=== PATIENT | male | born 1960 | race Two or more races ===

== ENCOUNTER 2021-07-08 11:32 | Emergency (ER) | payer OTHER, SELFPAY ==
--- NOTE | ~2021-07-08 | XR_ITS ---
EXAMINATION: XR HAND, LEFT CLINICAL INFORMATION: Left hand injury. COMPARISON: None TECHNIQUE: PA, lateral, and oblique views of the left hand. FINDINGS: Soft tissue defect at the distal aspect of the thumb, consistent with a laceration. No adjacent fracture or dislocation. No radiopaque foreign body. Mild joint space narrowing with small marginal osteophytes scattered throughout the metacarpophalangeal and interphalangeal joints. No osseous erosion. Chronic fracture through the midpole of the scaphoid with a persistent fracture line and associated bony remodeling. XR/XR hand LT min 3V IMPRESSION: 1. Soft tissue defect at the distal aspect of the thumb, consistent with a laceration. No radiopaque foreign body or acute osseous abnormality. 2. 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 3. 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
[2021-07-08 12:09] VITALS: BP 138/85; PULSE 81; RESP 18; TEMP 36.8; O2SAT 96; BMI 32.5
[2021-07-08] MEDS: Acetaminophen 325 MG TABLET 650 MG PO (12:16)
--- NOTE | 2021-07-08 13:08 | ED_ITS ---
HPI - Wound/Laceration General Chief Complaint: Wound/Laceration Stated Complaint: lt hand injury w/ table saw Time Seen by Provider: 07/08/21 13:07 Source: patient Mode of arrival: ambulatory Limitations: no limitations History of Present Illness HPI narrative: 60 y/o male presents to the ER with left thumb and index finger lacerations after he was using a table saw to cut some wood and accidentally cut his fingers. He reports a lot of blood loss at home and difficulty controlling the bleeding. When looking at the wound he gets dizzy. He reports when he was using a table saw his hand got caught in the blade and he quickly removed it. When he looked down he noticed the tip of his left thumb was missing and he had a deep wound to the palmar aspect of his index finger. He also had tiny little skin tear at the tip of his middle finger. He is able to fully bend and extend all of his fingers on his left hand. He is not on any blood thinners. He denies any numbness or tingling. He reports the pain is worse in his thumb and it is throbbing in nature. He was given Tylenol in triage and there was no active bleeding on arrival. Onset (ago): hour(s) (4) Extremity Location: left: hand (Thumb and index finger) Place: home Patient tetanus UTD: No Context: accidental Associated symptoms: pain Treatments prior to arrival: bandage Related Data Previous Rx's Medication Instructions Recorded cephalexin 500 mg capsule 500 mg PO Q6H 7 Days #28 cap 07/08/21 oxycodone 5 mg tablet 5 mg PO Q8H PRN #7 tab 07/08/21 Allergies Allergy/AdvReac Type Severity Reaction Status Date / Time Sulfa (Sulfonamide Allergy Mild RASH/SWELLI Verified 07/08/21 12:08 Antibiotics) NG Review of Systems Review of Systems: Constitutional: No Fever, No Chills s Cardiovascular: No Chest Pain, No SOB Gastrointestinal: + Nausea, No Vomiting, No abdominal Pain Musculoskeletal: +joint pain, No Myalgias Skin: + Skin Lesions, No rash Neuro: No Weakness, No Numbness, + Dizziness, No Headache Psych:+ Anxiety/Panic, No Depression Heme/Lymph: No Bruising, No Lymphadenopathy PMFSH Past Medical History Medical History (Updated 07/08/21 @ 14:45 by KYLER Terrazas) Kidney stones Surgical History (Updated 07/08/21 @ 12:13 by Gaviota Taveras RN) Hx of lithotripsy Social History Social History Advance Directives: No Advance Directives Information Provided: No Physical Exam Vital Signs: Vital Signs: Last Vital Signs Temp 98.2 F 07/08/21 12:09 Pulse 81 07/08/21 12:09 Resp 18 07/08/21 12:09 BP 138/85 07/08/21 12:09 Pulse Ox 96 07/08/21 12:09 Body Mass Index 32.5 Appearance: Alert. Oriented X3. No acute distress. HEENT: normal inspection CVS: Normal heart rate and rhythm. Pulses normal. Respiratory: No respiratory distress. Skin: Skin warm and dry. Normal skin color. Normal skin turgor. No rashes. Extremities: Left hand with a deep laceration to the palmar aspect of the index finger at the area of the proximal interphalangeal joint. There is visible tendon. The tendon is completely intact. He has full extension and flexion of the index finger. There is irregular wound borders and some macerated tissue. No active bleeding. Neurovascularly intact distally. Left thumb with partial pulp avulsion and skin amputation of the tip. Does not involve the fingernail. No palpable or visible bone. He is able to fully extend and bend the left thumb. Left middle finger with a very superficial skin tear at the distal tip of the pulp. No nail involvement. He has equal and symmetrical hand grasp. Neuro: Oriented X 3. No motor deficit. No sensory deficit. Course Course Course Narrative: 60-year-old male presenting with complex laceration and avulsion injuries of his left index and left thumb from a table saw injury. X- ray is pending. Tdap ordered. His tendon is visible in his left index finger wound. Wounds were extensively cleansed and irrigated. Deep structures are intact. Will start on prophylactic antibiotics give his Tdap now. Will plan to repair the index finger and await x-ray results of the thumb to see if there is bony involvement. Reevaluation(s) Reevaluation #1: X-ray showing no bony involvement. Wound of the thumb was extensively cleaned and irrigated antibiotic ointment was applied in addition to topical Xeroform, nonstick, and gauze dressing. Patient and his son were counseled on daily dressing changes and supplies were provided. Hilda Chavez PA-C from Orthopedics has been tiger text id about the case. Recommend close outpatient follow-up with Dr. Victoria. Signs and symptoms of infection were discussed with the patient and his son. He is stable for discharge home with pain control an oral Keflex to prevent wound infection. Procedures Laceration Laceration 1: Site: hand Side (If applicable): left Description: linear, irregular and contaminated Depth: involves tendon (Deep to the tendon but does not lacerated tendon) Local Anesthetic: lidocaine 2% Pre-repair: wound explored, irrigated extensively and deep structures intact Skin layer closed with: nylon Size (cm): 4-0 Number of sutures: 6 Technique: simple, interrupted Nerve Block Nerve Block 1: Local Anesthetic: lidocaine 2% Amount of anesthesia used (mL): 5 Side: left Nerve Blocks: digital Procedure Successful: Yes Patient Tolerated Procedure: well Complications: none Discharge Plan Discharge Clinical Impression: Laceration Patient Disposition: Home, Self-Care Instructions: Finger Laceration (ED), Skin Avulsion (ED) Additional Instructions: Six sutures were placed to close the wound on her index finger. These will need to be removed in 7-10 days. Take the prescribed antibiotics as directed. Take the prescribed medication as needed for severe pain. Do not drive after taking this medication. Limit use of the left hand. Change the dressings as discussed on a daily basis. Do not get wet. Follow-up with the hand specialist on Sunday or Sunday of next week They are aware of your case. Elevate your hand above the level of your heart as needed for pain and throbbing. Take Tylenol 975 mg every 6 hours as needed for pain. Recommend ibuprofen 600 mg every 8 hours as needed for pain as well, if this upsets her stomach take it with food. Prescriptions: New cephalexin 500 mg capsule 500 mg PO Q6H 7 Days Qty: 28 RF: 0 oxycodone 5 mg tablet 5 mg PO Q8H PRN (Reason: pain) Qty: 7 RF: 0 Referrals: Keya Victoria MD [Physician] - 3 days (complex lacerations and avulsion of left thumb and index finger from table saw injury) Interventions: ED Discharge Assessment Last Done: 07/08/21 15:03 Discharge Date/Time: 07/08/21 15:04
[2021-07-08] MEDS: Lidocaine HCl 2 % MPF 5 ML VIAL INFILTRATI (13:34)
[2021-07-08] MEDS: Diphth,Pertus(ACell),Tet Adult 0.5 ML SYRINGE IM (14:10)
[2021-07-08] MEDS: cephALEXin 500 MG CAPSULE PO (14:54)
[2021-07-08] MEDS: oxyCODONE HCl Immed Release 5 MG TABLET PO (14:54)
== END 2021-07-08 15:04 | disposition home or self-care (01) ==
PROVIDERS: Emergency Provider Emergency Medicine; PCP Physician Assistant
DX: S61.211A Laceration without foreign body of left index finger without damage to nail, initial encounter (principal); S60.411A Abrasion of left index finger, initial encounter; W45.8XXA Other foreign body or object entering through skin, initial encounter; W22.8XXA Striking against or struck by other objects, initial encounter; Y93.9 Activity, unspecified; Y92.9 Unspecified place or not applicable; Y99.9 Unspecified external cause status
CPT/HCPCS: 12002; 73130; 90471; 90715; 99283; 99284

== ENCOUNTER → 2021-07-12 12:24 | Outpatient (BNVA) | payer OTHER, SELFPAY | PROVIDERS: Visit Provider Orthopaedic Surgery | DX: S61.002A Unspecified open wound of left thumb without damage to nail, initial encounter (principal); S64.491A Injury of digital nerve of left index finger, initial encounter; S61.211A Laceration without foreign body of left index finger without damage to nail, initial encounter | CPT/HCPCS: 99202 ==

== ENCOUNTER 2021-07-14 11:24 | Day surgery (SDC) | payer OTHER, SELFPAY ==
[2021-07-14 11:43] VITALS: BP 142/80; PULSE 87; RESP 18; TEMP 37.1; O2SAT 98; BMI 32.5
--- NOTE | 2021-07-14 14:03 | P.OP_ITS ---
Operative Note Operative Note Date of Service: 07/14/21 Narrative: Operative Note Preop diagnosis: 1. left thumb pulp open wound status post table saw injury Postop diagnosis: same Procedure: 1. left thumb debridement of wound and secondary closure Surgeon : Keya Victoria MD Anesthesia: Digital block findings: Open wound with early granulation tissue . No exposed bone. specimens: None implants: None tourniquet time: None Complications: None Disposition: Brought to recovery room in stable condition Plan: He is going to restart his antibiotics after stopping them for a day. Follow-up Next week for wound check. Anticipate removal of index finger sutures only. Thumb sutures will likely stay in for about 2-3 weeks. Indications: The patient is 60 years old, with an open wound on the pulp of his left thumb following a table saw injury . The risks and benefits of operative treatment including but not limited to risk of damage to blood vessels, nerves, tendons, infection, persistent pain, persistent symptoms, recurrence or possible need for additional surgery were discussed with the patient and the patient wishes to proceed with surgery. Procedure: Once consent was obtained a digital block was performed in the preop area using a combination of 1% lidocaine with epinephrine. The patient was then brought back to the operating suite and placed on the operative table in supine position. A tourniquet was applied to the proximal aspect of the left upper extremity and the limb was prepped and draped in a standard surgical fashion. Tourniquet was not inflated during the case. Once assured that we had a good block, the wound was copiously irrigated with normal saline. The wound was then debrided of devitalized tissue, and the wound edges sharply debrided as needed using a 15. Blade and tenotomy scissors. On evaluation of the wound I found no exposed bone. In this case I did not feel that undermining of the wound edges would be per helpful. The wound was again irrigated with normal saline. The skin edges were then reapproximated using some 4-0 Prolene suture material. We were able to bring the skin edges from 1- 1.5 cm apart to within about 5-7 mm, which will hopefully help him heal and c lose this wound sooner. the index finger had a transverse laceration with sutures in it near the PIP joint. The wound appeared to be clean and the sutures were left in place. He had good active flexion of the digit. A small amount of bacitracin and a sterile dressing was applied To both the thumb and the index finger wounds. The patient appears to have tolerated the procedure well and with no complications. All digits were well vascularized at the conclusion of the case.
--- NOTE | 2021-07-14 14:03 | MHC.SHP ---
Pre-Procedural Eval Section A Date of Service: 07/14/21 The patient is an INPATIENT: No Changes since office visit: No Cold of Flu in the past 2 weeks, No New Medical Problems, No Changes in Medication and No Patient answered all questions The History & Physical has been completed within 30 days and I have reviewed it.: Yes Section B Chief Complaint: open wound Allergies: Allergies Allergy/AdvReac Type Severity Reaction Status Date / Time Sulfa (Sulfonamide Allergy Mild RASH/SWELLI Verified 07/12/21 12:43 Antibiotics) NG Plan I have reviewed the history and physical and performed a pertinent physical examination on my patient. No changes have occurred unless specified.
[2021-07-14 14:55] VITALS: BP 132/81; PULSE 73; RESP 16; TEMP 36.3; O2SAT 97
== END 2021-07-14 15:05 | disposition home or self-care (01) ==
PROVIDERS: PCP Physician Assistant; Visit Provider Orthopaedic Surgery
PROC: (CPT 11042; principal; 2021-07-14 12:30)
PROC: (CPT 11042; 2021-07-14 12:30)
DX: S61.002A Unspecified open wound of left thumb without damage to nail, initial encounter (principal); S61.211A Laceration without foreign body of left index finger without damage to nail, initial encounter; S64.491A Injury of digital nerve of left index finger, initial encounter; W27.0XXA Contact with workbench tool, initial encounter; Y93.89 Activity, other specified; Y92.9 Unspecified place or not applicable; Y99.8 Other external cause status; Z88.2 Allergy status to sulfonamides
CPT/HCPCS: 11042; 12001

== ENCOUNTER → 2021-07-15 12:22 | Outpatient (BNVA) | payer OTHER, SELFPAY | PROVIDERS: Visit Provider Physician Assistant | DX: S61.002D Unspecified open wound of left thumb without damage to nail, subsequent encounter (principal); S64.491D Injury of digital nerve of left index finger, subsequent encounter; S61.211D Laceration without foreign body of left index finger without damage to nail, subsequent encounter | CPT/HCPCS: 99212 ==

== ENCOUNTER → 2021-07-20 14:29 | Outpatient (BNVA) | payer OTHER, SELFPAY | PROVIDERS: Visit Provider Orthopaedic Surgery | DX: S61.211D Laceration without foreign body of left index finger without damage to nail, subsequent encounter (principal); S64.491D Injury of digital nerve of left index finger, subsequent encounter; S61.002D Unspecified open wound of left thumb without damage to nail, subsequent encounter | CPT/HCPCS: 99212 ==

== ENCOUNTER 2021-07-22 12:43 | Outpatient (REF) | payer OTHER, SELFPAY ==
[2021-07-22 14:05] LABS: HBS Num1 15.24 mIU/mL (0-7.99); HBc Num1 1.68 S/CO (0.00-0.79); HBsAGNum1 0.19 S/CO (0.00-0.99); HIV AB/AG Nonreactive (Nonreactive); HIV Num 1 0.06 S/CO (0.00-0.99); Hepatitis B Surface Antigen Negative (Negative); ~HepC Num1 0.06 S/CO (0.00-0.79); ~Hepatitis B Surface Antibody REACTIVE (Nonreactive)
[2021-07-22 14:22] LABS: Hepatitis C Ab Exposure Source NonReactive (Nonreactive)
[2021-07-22 15:05] LABS: HBc Num2 1.59 S/CO; HBc Num3 1.62 S/CO; Hepatitis B Core Antibody Reactive (Nonreactive)
[2021-07-23 11:02] LABS: Hepatitis B Core Antibody IgM NON-REACTIVE (NON-REACTIVE)
== END 2021-07-22 12:44 | disposition home or self-care (01) ==
LOC: HO.LAB 12:43
PROVIDERS: Visit Provider Orthopaedic Surgery
DX: S61.211A Laceration without foreign body of left index finger without damage to nail, initial encounter (principal)
CPT/HCPCS: 36415; 86705; 86803

== ENCOUNTER → 2021-07-27 13:24 | Outpatient (BNVA) | payer OTHER, SELFPAY | PROVIDERS: PCP Physician Assistant; Visit Provider Orthopaedic Surgery | DX: S61.211D Laceration without foreign body of left index finger without damage to nail, subsequent encounter (principal); S61.002D Unspecified open wound of left thumb without damage to nail, subsequent encounter | CPT/HCPCS: 99212 ==

== ENCOUNTER → 2021-08-03 09:34 | Outpatient (BNVA) | payer OTHER, SELFPAY | PROVIDERS: Visit Provider Physician Assistant | DX: S61.211D Laceration without foreign body of left index finger without damage to nail, subsequent encounter (principal); S64.491D Injury of digital nerve of left index finger, subsequent encounter; S61.002D Unspecified open wound of left thumb without damage to nail, subsequent encounter | CPT/HCPCS: 99212 ==

== ENCOUNTER 2021-11-30 11:27 | Outpatient (REF) | payer OTHER, SELFPAY ==
[2021-11-30 11:55] LABS: Binax Internal Control QC Valid; Binax Now Covid-19 Ag Negative (Negative)
[2021-11-30 13:58] LABS: Hematocrit 45.1 % (42.0-52.0); Hemoglobin 14.5 g/dl (14.0-18.0); Mean Corpuscular HGB Conc 32.2 g/dl (31.0-36.0); Mean Corpuscular Volume 87.1 fL (80.0-98.0); Platelet Count 157 X10*3/uL (160-400); Red Blood Count 5.18 X10*6/uL (4.60-5.80); Red Cell Distribution Width 13.8 % (11.0-16.0); White Blood Count 7.1 X10*3/uL (4.8-10.8)
[2021-11-30 14:23] LABS: Alanine Aminotransferase 66 U/L (0-40); Alkaline Phosphatase 81 U/L (39-117); Anion Gap 12 (12-20); Aspartate Amino Transferase 49 U/L (5-37); Bilirubin Direct 0.2 mg/dL (0.0-0.5); Bilirubin Total 0.6 mg/dL (0.0-1.0); Blood Urea Nitrogen 14 mg/dL (9-16); Calcium 9.1 mg/dL (8.4-10.2); Carbon Dioxide 26 mmol/L (22-29); Chloride 102 mmol/L (96-108); Estimated Glomerular Filt Rate > 60; Glucose Random 115 mg/dL (60-115); Potassium 3.8 mmol/L (3.3-5.1); Sodium 136 mmol/L (135-145); Total Protein 7.2 g/dL (6.5-8.0)
[2021-11-30 14:28] LABS: Thyroid Stimulating Hormone 0.83 uIU/mL (0.32-4.0)
== END 2021-11-30 11:28 | disposition home or self-care (01) ==
LOC: HO.HMGCLDS 11:27
PROVIDERS: Visit Provider Internal Medicine
DX: R53.83 Other fatigue (principal); J06.9 Acute upper respiratory infection, unspecified
CPT/HCPCS: 80048; 80076; 84443; 85027

== ENCOUNTER → 2021-12-26 09:32 | Outpatient (BNVA) | payer OTHER, SELFPAY | PROVIDERS: PCP Internal Medicine; Visit Provider Orthopaedic Surgery | DX: M17.0 Bilateral primary osteoarthritis of knee (principal) | CPT/HCPCS: 99212 ==

== ENCOUNTER → 2022-02-06 10:48 | Outpatient (BNVA) | payer OTHER, SELFPAY | PROVIDERS: PCP Internal Medicine; Visit Provider Internal Medicine | DX: M17.0 Bilateral primary osteoarthritis of knee (principal); M25.562 Pain in left knee | CPT/HCPCS: 99202 ==

== ENCOUNTER 2022-03-23 10:22 | Outpatient (REF) | payer OTHER, SELFPAY ==
[2022-03-23 11:44] LABS: MANUAL DIFF FLAG NO
[2022-03-23 11:51] LABS: Basophils Absolute Auto 0.1 X10*3/uL (0.0-0.2); Basophils Percent Auto 0.8 % (0-2); Eosinophils Absolute Auto 0.6 X10*3/uL (0.0-0.4); Eosinophils Percent Auto 7.2 % (0-4); Hemoglobin 14.2 g/dl (14.0-18.0); Imm Gran Abs Auto 0.01 X10*3/uL (0.00-0.03); Imm Gran Pct Auto 0.1 % (0.0-0.4); Lymphocytes Absolute Auto 3.1 X10*3/uL (1.2-4.9); Mean Corpuscular HGB Conc 32.3 g/dl (31.0-36.0); Mean Corpuscular Hemoglobin 27.7 pg (27.0-33.0); Mean Corpuscular Volume 85.8 fL (80.0-98.0); Mean Platelet Volume 11.2 fL (9.4-12.4); Monocytes Absolute Auto 0.5 X10*3/uL (0.1-1.2); Monocytes Percent Auto 6.2 % (2-11); Neutrophils Percent Auto 48.7 % (45-73); Platelet Count 180 X10*3/uL (160-400); Red Blood Count 5.13 X10*6/uL (4.60-5.80); Red Cell Distribution Width 13.8 % (11.0-16.0); White Blood Count 8.3 X10*3/uL (4.8-10.8)
[2022-03-23 12:08] LABS: Estimated Average Glucose 123 mg/dL; Hemoglobin A1c % 5.9 %
[2022-03-23 12:13] LABS: Alanine Aminotransferase 17 U/L (0-40); Albumin Level 4.3 g/dL (3.5-5.0); Alkaline Phosphatase 91 U/L (39-117); Anion Gap 10 (12-20); Aspartate Amino Transferase 20 U/L (5-37); Blood Urea Nitrogen 12 mg/dL (9-16); Calcium 9.4 mg/dL (8.4-10.2); Carbon Dioxide 27 mmol/L (22-29); Chloride 103 mmol/L (96-108); Cholesterol 223 mg/dL; Estimated Glomerular Filt Rate > 60; Glucose Fasting 103 mg/dL (60-99); HDL Cholesterol 33 mg/dL; LDL Cholesterol Calculated 152 mg/dl; Potassium 4.5 mmol/L (3.3-5.1); Sodium 135 mmol/L (135-145); Total Protein 7.4 g/dL (6.5-8.0); Triglycerides 191 mg/dL
[2022-03-23 12:20] LABS: TSH reflex Free T4 1.28 uIU/mL (0.32-4.0); Vitamin D 25-OH Total 19.6 ng/mL (>30)
[2022-03-23 12:38] LABS: Folate 12.5 ng/mL (> or = 4.0); Vitamin B12 431 pg/mL (200-900)
[2022-03-23 13:36] LABS: Creatinine Urine 173.48 mg/dL
== END 2022-03-23 10:23 | disposition home or self-care (01) ==
LOC: HO.HMGCLDS 10:22
PROVIDERS: Visit Provider Internal Medicine
DX: Z00.01 Encounter for general adult medical examination with abnormal findings (principal); R97.20 Elevated prostate specific antigen [PSA]; R53.83 Other fatigue; N40.0 Benign prostatic hyperplasia without lower urinary tract symptoms; I10 Essential (primary) hypertension; E11.9 Type 2 diabetes mellitus without complications; Z72.0 Tobacco use
CPT/HCPCS: 36415; 80053; 80061; 82043; 82306; 82607; 82746; 83036; 84443; 85025

== ENCOUNTER 2022-04-26 06:06 | Outpatient (REF) | payer OTHER, SELFPAY | END 2022-04-26 06:07 | disposition home or self-care (01) | LOC: HO.RADIR 06:06 | PROVIDERS: Visit Provider Internal Medicine | DX: M25.562 Pain in left knee (principal) | CPT/HCPCS: 64447 ==

== ENCOUNTER 2022-06-28 08:03 | Day surgery (SDC) | payer OTHER, SELFPAY ==
[2022-06-28 09:06] VITALS: BP 126/79; PULSE 73; RESP 16; TEMP 36.4; O2SAT 97; BMI 32.2
[2022-06-28 10:41] VITALS: BP 125/83; PULSE 7; RESP 16; TEMP 37; O2SAT 97
--- NOTE | 2022-06-28 13:30 | MHC.SHP ---
Pre-Procedural Eval Section A Date of Service: 06/28/22 The patient is an INPATIENT: No Changes since office visit: Yes Patient answered all questions The History & Physical has been completed within 30 days and I have reviewed it.: No Section B Chief Complaint: Chronic left knee pain Relevant Family History (Specify if Yes): No Relevant Social History: None Present Medications: see Short Stay Collaborative assessment Medical History: No relevant PMH History of Previous Operations: No relevant previous surgery Allergies: Allergies Allergy/AdvReac Type Severity Reaction Status Date / Time Sulfa (Sulfonamide Allergy Mild RASH/SWELLI Verified 04/26/22 08:41 Antibiotics) NG Review of Systems Sugical H&P ROS: Negative: Constitution, Cardiovascular and Respiratory Exam Surgical H&P Exam: Normal: HEENT, Normal: Heart and Normal: Lungs Plan Diagnosis/Plan: Unchanged I have reviewed the history and physical and performed a pertinent physical examination on my patient. No changes have occurred unless specified.
--- NOTE | 2022-06-28 13:31 | PM.OP ---
Brief Operative Note Date of Service: 06/28/22 Pre-op diagnosis: Chronic left knee pain Post-op diagnosis: same Procedure: Temporary saphenous nerve stimulator placement at the level of the adductor canal Implants: SPR temporary PNS system Surgeon: Kahlil Rubalcava MD Anesthesia: local Was an Chemical Process Engineer used for this Procedure?: No Estimated blood loss (mL): 2 Pathology: none sent Condition: stable Disposition: same day
--- NOTE | 2022-06-28 13:32 | P.OP_ITS ---
Operative Note Operative Note Date of Service: 06/28/22 Narrative: Peripheral Nerve Stimulation Temporary Lead Placement, Ultrasound-Guided, Saphenous Nerve, Left ? After the risks, benefits and alternatives were discussed with the patient and informed consentwas obtained, patient was placed in the supine position and padded to foster comfort. Appropriate skin and bony landmarks were identified, and pertinent vascular structures were located. The skin overlying the needle entry site was prepped and draped in sterile fashion. Ultrasound was used to identify the femoral artery, the femoral vein and the saphenous nerve. After identifying and marking the intended target along the course of the left saphenous nerve, the skin around the planned entry point and the subcutaneous tissues were injected with local anesthetic. An introducer needle and stimulating probe were assembled, inserted and advanced along the intended course of the saphenous; nerve, taking care to maintain the proper depth of insertion as the introducer was advanced under ultrasound guidance. The introducer needle was delivered to a location in proximity to the nerve taking care not to puncture the femoral artery or the vein. Multiple stimulation parameters were used to deliver stimulation to the saphenous nerve in concert with stimulating at multiple positions around the nerve. Nerve target acquisition was confirmed noting generation of sensory and mild motor effects (paresthesia, muscle tension, etc) in the medial knee, leg and ankle; corresponding to the distribution of the saphenous nerve. Various electrical parameter combinations were tested, and the lead location was adjusted (ph ysically relocated under ultrasound guidance) until the patient indicated medial knee paresthesia and tension overlapping the distribution of the patient?s typical region of pain. The stimulating probe was removed from the introducer and a percutaneous lead was guided through the needle and delivered to a location in similar proximity to the nerve. Final location was verified with electrical stimulation and documented. The introducer needle was removed, and the exposed end of the percutaneous lead was attached to an external stimulator unit. Various electrical parameter combinations were again tested until the patient indicated paresthesia and muscle tension overlapping the distribution of the patient?s typical region of pain. After confirming that lead impedance was in the normal range, the external unit was detached, the needle was removed, and the lead was anchored at the skin. The lead was threaded into the connector block and electrical continuity and desired patient response was confirmed. The connector block was attached to the external stimulator unit. The site was covered with a sterile occlusive dressing. A final ultrasound image was taken to document final placement. The patient was observed for stability of vital signs and comfort.
== END 2022-06-28 10:57 | disposition home or self-care (01) ==
PROVIDERS: PCP Internal Medicine; Visit Provider Internal Medicine
PROC: (CPT 64555; principal; 2022-06-28 09:00)
DX: M25.562 Pain in left knee (principal); G89.29 Other chronic pain; Z88.2 Allergy status to sulfonamides; Z87.442 Personal history of urinary calculi; F17.210 Nicotine dependence, cigarettes, uncomplicated
CPT/HCPCS: 64555; C1778

== ENCOUNTER → 2022-06-30 10:13 | Outpatient (BNVA) | payer OTHER, SELFPAY | PROVIDERS: PCP Internal Medicine; Visit Provider Internal Medicine | DX: M17.0 Bilateral primary osteoarthritis of knee (principal); M25.562 Pain in left knee | CPT/HCPCS: 99212 ==

== ENCOUNTER 2022-08-09 15:07 | Outpatient (REF) | payer OTHER, SELFPAY ==
[2022-08-09 18:00] LABS: Vitamin D 25-OH Total 30.3 ng/mL (>30)
== END 2022-08-09 15:08 | disposition home or self-care (01) ==
LOC: HO.HMGCLDS 15:07
PROVIDERS: PCP Internal Medicine; Visit Provider Internal Medicine
DX: E55.9 Vitamin D deficiency, unspecified (principal)
CPT/HCPCS: 36415; 82306

== ENCOUNTER → 2022-08-25 08:46 | Outpatient (BNVA) | payer OTHER, SELFPAY | PROVIDERS: PCP Internal Medicine; Visit Provider Nurse Practitioner Family | DX: M17.0 Bilateral primary osteoarthritis of knee (principal); M25.562 Pain in left knee; M25.561 Pain in right knee | CPT/HCPCS: 99212 ==

== ENCOUNTER 2022-09-13 14:52 | Outpatient (RCR) | payer OTHER, SELFPAY ==
--- NOTE | 2022-09-13 17:15 | MHC.PT.EP ---
[facility] [place] Office [place] Office [place] Office [address] [phone] F: [phone] F: [phone] F: [phone] F: [phone] Physical Therapy Plan of Care Date of Evaluation: Date of Surgery: Diagnosis: B knee pain Assessment: Pt is a 62 y/o male referred to PT for eval and treat of B knee pain which results in decreased tolerance for negotiating stairs, standing and walking for duration as well as performing heavy HH chores and squatting activities secondary to decreased B knee ROM, increased LE tissue tension, gait abnormality, L knee valgum, and pain. Pt is deemed an appropriate candidate to receive skilled PT services to address their physical impairments in order to improve their functional ability. Frequency and Duration: The patient will be seen 2x/wk x 4 wks. Short Term Goals: Initiate HEP. Residential Goals: I with HEP. Pt will be able to stand > 1 hour with managed Sx; initial: moderate difficulty. Pt will be able to negotiate a fl of stairs with managed Sx; initial: moderate difficulty. Improve B knee extension MMT by at least 1/2 MMT grade. L knee full extension achieved; initial: 8 degrees flexion. Treatment Plan: Modalities to reduce pain, spasms and effusion. Manual therapy to restore motion and function. Therapeutic exercise to improve strength and flexibility. Neuromuscular re-education for posture and balance. Therapeutic activities to return to functional activities of daily living. Electronically signed by: Natanael Ny PT Please sign and return to therapist. Thank you for your referral.
--- NOTE | 2022-10-06 07:24 | MHC.PT.DC ---
[facility] [place] Office [place] Office [place] Office [address]in 140 [facility] [phone] F: [phone] F: [phone] F: [phone] F: [phone] Physical Therapy Discharge Report Diagnosis: B knee pain Date of Surgery: Date of Evaluation: 09/13/22 Date of Discharge: 10/06/22 Treatments to Date: 1 Cancellations to Date: No Shows to Date: 2 Discharge Status: Visit Non-compliance Discharge Summary: Electronically signed by: Natanael Ny PT. Please sign and return to therapist. Thank you for your referral.
== END 2022-10-06 07:22 | disposition home or self-care (01) ==
LOC: HO.PTCHIC 14:52
PROVIDERS: PCP Internal Medicine; Visit Provider Nurse Practitioner Family
DX: M17.0 Bilateral primary osteoarthritis of knee (principal)
CPT/HCPCS: 97110; 97161

== ENCOUNTER 2022-10-17 09:42 | Outpatient (REF) | payer OTHER, SELFPAY ==
[2022-10-17 12:36] LABS: Alanine Aminotransferase 15 U/L (0-40); Aspartate Amino Transferase 19 U/L (5-37); Cholesterol 217 mg/dL; HDL Cholesterol 32 mg/dL; LDL Cholesterol Calculated 148 mg/dl; Triglycerides 186 mg/dL
[2022-10-17 12:41] LABS: Vitamin D 25-OH Total 23.4 ng/mL (>30)
== END 2022-10-17 09:43 | disposition home or self-care (01) ==
LOC: HO.HMGCLDS 09:42
PROVIDERS: PCP Internal Medicine; Visit Provider Internal Medicine
DX: E78.5 Hyperlipidemia, unspecified (principal)
CPT/HCPCS: 36415; 80061; 82306; 84450; 84460

== ENCOUNTER → 2022-12-08 12:58 | Outpatient (BNVA) | payer OTHER, SELFPAY | PROVIDERS: PCP Internal Medicine; Visit Provider Nurse Practitioner Family | DX: N40.0 Benign prostatic hyperplasia without lower urinary tract symptoms (principal); R97.20 Elevated prostate specific antigen [PSA] | CPT/HCPCS: 51798; 99202 ==

== ENCOUNTER 2022-12-13 14:54 | Outpatient (REF) | payer OTHER, SELFPAY ==
--- NOTE | ~2022-12-13 | US_ITS ---
EXAMINATION: US RETROPERITONEAL COMPLETE (RENAL) CLINICAL INFORMATION: Benign prostatic hyperplasia with lower urinary tract symptoms. COMPARISON: None available. TECHNIQUE: Real-time imaging of the kidneys and bladder. FINDINGS: RIGHT KIDNEY: 13.3 x 5.9 x 5.5 cm (SAG x AP x TRV). The kidney is normal in size, contour, and echogenicity. Renal cortical thickness is normal. 4 mm calcification within the midpole cortex. There is mild hydronephrosis of the right kidney. LEFT KIDNEY: 15.4 x 6.3 x 5.5 cm (SAG x AP x TRV). The kidney is normal in size, contour, and echogenicity. Renal cortical thickness is normal. No renal calculi or focal parenchymal lesions. BLADDER: Well distended and normal. Bilateral ureteral jets are demonstrated. Prevoid bladder volume is 230 mL. Postvoid bladder volume is 27 mL. Prostate gland: 4.9 x 4.4 x 4.3 cm, volume 48 mL. US/US retroperitoneal comp IMPRESSION: 1. Mild hydronephrosis of the right kidney. Right ureteral jet is noted. This may further evaluated with CT urogram if clinically indicated. 2. Enlarged prostate gland. 3. Mildly prominent post void bladder residual of 27 mL.
== END 2022-12-13 14:55 | disposition home or self-care (01) ==
LOC: HO.US 14:54
PROVIDERS: PCP Internal Medicine; Visit Provider Nurse Practitioner Family
DX: N40.0 Benign prostatic hyperplasia without lower urinary tract symptoms (principal); R97.20 Elevated prostate specific antigen [PSA]
CPT/HCPCS: 76770

== ENCOUNTER 2022-12-27 13:38 | Outpatient (REF) | payer OTHER, SELFPAY ==
[2022-12-27 16:48] LABS: PSA,Total (Free>4and<10) 1.51 ng/mL (0.00-4.00)
== END 2022-12-27 13:39 | disposition home or self-care (01) ==
LOC: HO.LAB 13:38
PROVIDERS: PCP Internal Medicine; Visit Provider Nurse Practitioner Family
DX: N40.0 Benign prostatic hyperplasia without lower urinary tract symptoms (principal); R97.20 Elevated prostate specific antigen [PSA]
CPT/HCPCS: 36415; 84153

== ENCOUNTER → 2023-01-19 13:20 | Outpatient (BNVA) | payer OTHER, SELFPAY | PROVIDERS: PCP Internal Medicine; Visit Provider Nurse Practitioner Family | DX: N40.0 Benign prostatic hyperplasia without lower urinary tract symptoms (principal); N20.0 Calculus of kidney; N13.30 Unspecified hydronephrosis | CPT/HCPCS: 99212 ==

== ENCOUNTER 2023-04-15 03:50 | Emergency (ER) | payer OTHER, SELFPAY ==
--- NOTE | ~2023-04-15 | CT_ITS ---
EXAMINATION: CT ABDOMEN AND PELVIS WITHOUT CONTRAST CLINICAL INFORMATION: Right flank pain and history of stones COMPARISON: None available. TECHNIQUE: Multidetector volumetric imaging was performed from the superior aspect of the liver through the pubic symphysis. Sagittal and coronal reformatted images were obtained on the technologist's workstation. This CT examination was performed using dose optimization techniques as appropriate, variously including the following: *Automated exposure control *Adjustment of mA and/or kV according to patient size (this includes techniques or standardized protocols for targeted exams where dose is matched to indication/reason for exam; i.e. extremities or head) *Use of iterative reconstruction technique DLP: 628 mGy-cm FINDINGS: LUNG BASES: The visualized lung bases are unremarkable. LIVER, GALLBLADDER, AND BILIARY TREE: The liver is normal in size, shape, and attenuation. No focal hepatic lesion or biliary ductal dilatation is identified on this noncontrast exam. The gallbladder is unremarkable with no evidence of radiopaque gallstones, gallbladder wall thickening, or obvious pericholecystic inflammatory changes. PANCREAS: Unremarkable. SPLEEN: Unremarkable. ADRENAL GLANDS: Right adrenal gland is unremarkable. Left adrenal nodule measuring 2.0 x 1.1 cm measures -2 Hounsfield units. Adrenal nodules of any size exhibiting a CT density of =<10 HU are overwhelmingly likely to represent lipid rich benign adenomas for which no followup imaging is recommended. KIDNEYS AND URETERS: There is a 2 mm calculus at the right ureterovesicular junction with mild to moderate hydronephrosis and perinephric stranding. Mildly prominent left renal pelvis without obstructing calculus. Punctate calculus in the upper left kidney. BLADDER: Nearly empty and not well evaluated. GASTROINTESTINAL TRACT: No evidence of bowel obstruction or significant wall thickening. The appendix is unremarkable. No free fluid or free air is seen. ABDOMINAL WALL: Small fat-containing inguinal hernias. LYMPH NODES: Normal. VASCULAR: Moderate atherosclerotic calcification along the aorta. PELVIC VISCERA: Prostate gland appears mildly prominent. OSSEOUS STRUCTURES: Mild degenerative changes in the spine. CT/CT abdomen pelvis wo IV con IMPRESSION: Right ureterovesicular junction calculus measuring 2 mm with mild to moderate hydronephrosis.
[2023-04-15 03:51] VITALS: BP 153/92; PULSE 74; RESP 20; TEMP 36.7; O2SAT 98; BMI 29.0
--- NOTE | 2023-04-15 04:08 | ED_ITS ---
HPI - Abdominal Pain General Chief Complaint: Abdominal Pain Stated Complaint: ?kidney stones pain Time Seen by Provider: 04/15/23 04:08 Source: patient Mode of arrival: ambulatory Limitations: no limitations History of Present Illness HPI narrative: Patient history of kidney stone comes here for acute onset of pain in the right flank area since 04:00 today associated with nausea no vomiting no abdominal pain no hematuria Related Data Home Medications Medication Instructions Recorded Confirmed acetaminophen 325 mg capsule 650 mg PO QID PRN 02/06/22 09/12/22 ibuprofen 200 mg capsule 400 mg PO Q8H 02/06/22 09/12/22 multivitamin 1 tab PO DAILY 02/06/22 09/12/22 diclofenac sodium 1 % topical gel 2 g topical QID 03/21/22 09/12/22 Previous Rx's Medication Instructions Recorded tamsulosin 0.4 mg capsule 0.4 mg PO BEDTIME 90 days #90 caps 12/08/22 pyridoxine (vitamin B6) 100 mg 100 mg PO DAILY 90 days #90 tabs 01/19/23 tablet zolpidem 10 mg tablet 10 mg PO BEDTIME PRN insomnia #20 03/22/23 tabs oxycodone 5 mg tablet 5 mg PO Q6H PRN pain #20 tabs 04/15/23 tamsulosin 0.4 mg capsule (Flomax) 0.4 mg PO BEDTIME #90 caps 04/15/23 Allergies Allergy/AdvReac Type Severity Reaction Status Date / Time Sulfa (Sulfonamide Allergy Mild RASH/SWELLI Verified 01/21/23 09:31 Antibiotics) NG Review of Systems Review of Systems Yes all other systems are reviewed and are negative PMFSH Past Medical History Medical History Avulsion of skin of left thumb Bilateral primary osteoarthritis of knee Dyslipidemia 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 Insomnia Kidney stones Laceration of left index finger Surgical History Hx of lithotripsy Social History Social History Housing: House Patient Tobacco Use Status: Current everyday Tobacco user Tobacco use type: Cigarette Cigarette Packs Per Day: 0.33 Cigarettes Per Day: 8 Years Smoked: 45 e-Cigarette/Vaping Use: Never Used Second Hand Smoke Exposure: No Advance Directives: No Advance Directives Information Provided: Yes Current occupational status: unemployed 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 Oriented X3. No acute distress. Eyes: No pallor or icterus ENT: Pharynx normal. Oral Mucosa moist Neck: Normal inspection. Neck supple. CVS: Normal heart rate and rhythm. Pulses normal. Respiratory: No respiratory distress. Equal air entry bilateral, no wheezin g/rales/rhonchi Abdomen: Soft and nontender. Bowel sounds are present, no mass palpable, R CVA tenderness Skin: Skin warm and dry. Normal skin color. Normal skin turgor. Extremities: No lower extremity edema. No calf tenderness Neuro: Oriented X 3. No motor deficit. No sensory deficit.No cerebellar signs , cranial nerves II-XII intact Medical Decision Making Medical Decision Making [facility] Narrative: Patient with 2 mm UVJ stone improved after pain medication IV fluid discharge patient home on Flomax advised to follow with urologist Lab Data [facility] Lab Attestation statement: I reviewed the patient's lab results. 04/15/23 04:31 04/15/23 04:31 Labs: Lab Results 04/15/23 04/15/23 04/15/23 Range/Units 04:31 04:31 04:31 WBC 12.0 H (4.8-10.8) X10*3/uL RBC 5.21 (4.60-5.80) X10*6/uL Hgb 14.9 (14.0-18.0) g/dl Hct 45.1 (42.0-52.0) % MCV 86.6 (80.0-98.0) fL MCH 28.6 (27.0-33.0) pg MCHC 33.0 (31.0-36.0) g/dl RDW 13.4 (11.0-16.0) % Plt Count 188 (160-400) X10*3/uL MPV 10.9 (9.4-12.4) fL Immature Gran % (Auto) 0.3 (0.0-0.4) % Neut % (Auto) 58.9 (45-73) % Lymph % (Auto) 26.4 (20-40) % [place] % (Auto) 7.6 (2-11) % Eos % (Auto) 6.1 H (0-4) % Baso % (Auto) 0.7 (0-2) % Lymph # (Auto) 3.2 (1.2-4.9) X10*3/uL [place] # (Auto) 0.9 (0.1-1.2) X10*3/uL Eos # (Auto) 0.7 H (0.0-0.4) X10*3/uL Baso # (Auto) 0.1 (0.0-0.2) X10*3/uL Abs Immat Gran (auto) 0.04 H (0.00-0.03) X10*3/uL Absolute Neuts (auto) 7.1 (2.0-8.3) x10*3/uL Absolute Nucleated RBC 0.000 (0.0-0.012) X10*3/uL Nucleated RBC % (auto) 0.0 (0.0-0.2) /100WBC Sodium 139 (135-145) mmol/L Potassium 4.3 (3.3-5.1) mmol/L Chloride 106 (96-108) mmol/L Carbon Dioxide 25 (22-29) mmol/L Anion Gap 12 (12-20) BUN 15 (9-16) mg/dL Creatinine 1.04 (0.5-1.4) mg/dL Estim Creat Clear Calc 91.1 Estimated GFR > 60 Random Glucose 113 (60-115) mg/dL Calcium 9.5 (8.4-10.2) mg/dL Urine Color Yellow Urine Appearance Clear Urine pH 5.5 (5.0-9.0) Ur Specific Dora 1.020 (1.005-1.025) Urine Protein Negative (Neg-Trace) mg/dL Urine Glucose (UA) Negative (Negative) mg/dL Urine Ketones Negative (Negative) mg/dL Urine Blood Negative (Negative) Urine Nitrite Negative (Negative) Ur Leukocyte Esterase Negative (Negative) Radiology Impression Discussion of test interpretation with radiology: I have reviewed the radi ologist's reading. Radiologist Impression: CT/CT abdomen pelvis wo IV con IMPRESSION: Right ureterovesicular junction calculus measuring 2 mm with mild to moderate hydronephrosis. Medications Administered Discontinued Medications Generic Name Dose Route Start Last Admin Trade Name Freq PRN Reason Stop Dose Admin Sodium Chloride 1,000 mls @ 999 mls/hr 04/15/23 04:09 04/15/23 05:25 Ns IV 04/15/23 05:09 Infused .Q1H1M ONE Infusion Ketorolac Tromethamine 30 mg 04/15/23 04:10 04/15/23 04:32 Ketorolac Tromethamine 30 Mg/Ml Vial IVPUSH 04/15/23 04:11 30 mg ONCE ONE Administration Morphine Sulfate 4 mg 04/15/23 04:09 04/15/23 04:32 Morphine Sulfate 4 Mg/Ml Cartridge IVPUSH 04/15/23 04:10 4 mg ONCE ONE Administration Protocol Ondansetron HCl 4 mg 04/15/23 04:09 04/15/23 04:32 Ondansetron Hcl 4 Mg/2 Ml Vial IVPUSH 04/15/23 04:10 4 mg ONCE ONE Administration Tamsulosin HCl 0.4 mg 04/15/23 04:21 04/15/23 04:35 Tamsulosin Hcl 0.4 Mg Capsule PO 04/15/23 04:22 0.4 mg ONCE ONE Administration Discharge Plan Discharge Clinical Impression: Kidney stones Patient Disposition: Home, Self-Care Instructions: Kidney Stones (ED) Additional Instructions: Drink plenty of fluids Pain medication as prescribed Take Flomax to keep the ureter dilated Follow-up with urologist if not better Prescriptions: New oxycodone 5 mg tablet 5 mg PO Q6H PRN (Reason: pain) Qty: 20 0RF Rx Instructions: Partial Fill upon patient request. tamsulosin [Flomax] 0.4 mg capsule 0.4 mg PO BEDTIME Qty: 90 0RF No Action zolpidem 10 mg tablet 10 mg PO BEDTIME PRN (Reason: insomnia) Qty: 20 0RF diclofenac sodium 1 % gel 2 g topical QID ibuprofen 200 mg capsule 400 mg PO Q8H acetaminophen 325 mg capsule 650 mg PO QID PRN multivitamin Tablet 1 tab PO DAILY pyridoxine (vitamin B6) 100 mg tablet 100 mg PO DAILY 90 Days Qty: 90 3RF tamsulosin 0.4 mg capsule 0.4 mg PO BEDTIME 90 Days Qty: 90 1RF Referrals: Samuel Morelos MD [Physician] - 1 week Interventions: ED Discharge Assessment Last Done: 04/15/23 06:42 Discharge Date/Time: 04/15/23 06:43
[2023-04-15] MEDS: Ketorolac Tromethamine 30 MG/ML VIAL IVPUSH (04:32)
[2023-04-15] MEDS: ondansetron HCL 4 MG/2 ML VIAL IVPUSH (04:32)
[2023-04-15] MEDS: 0.9 % Sodium Chloride 1,000 ML 999 ML IV (04:32)
[2023-04-15] MEDS: Morphine Sulfate 4 MG/ML CARTRIDGE IVPUSH (04:32)
[2023-04-15] MEDS: Tamsulosin HCL 0.4 MG CAPSULE PO (04:35)
[2023-04-15 04:36] LABS: Basophils Absolute Auto 0.1 X10*3/uL (0.0-0.2); Basophils Percent Auto 0.7 % (0-2); Eosinophils Absolute Auto 0.7 X10*3/uL (0.0-0.4); Eosinophils Percent Auto 6.1 % (0-4); Hematocrit 45.1 % (42.0-52.0); Hemoglobin 14.9 g/dl (14.0-18.0); Imm Gran Abs Auto 0.04 X10*3/uL (0.00-0.03); Imm Gran Pct Auto 0.3 % (0.0-0.4); Lymphocytes Absolute Auto 3.2 X10*3/uL (1.2-4.9); Lymphocytes Percent Auto 26.4 % (20-40); MANUAL DIFF FLAG NO; Mean Corpuscular Hemoglobin 28.6 pg (27.0-33.0); Mean Corpuscular Volume 86.6 fL (80.0-98.0); Mean Platelet Volume 10.9 fL (9.4-12.4); Monocytes Absolute Auto 0.9 X10*3/uL (0.1-1.2); Monocytes Percent Auto 7.6 % (2-11); Neutrophils Absolute Auto 7.1 x10*3/uL (2.0-8.3); Neutrophils Percent Auto 58.9 % (45-73); Platelet Count 188 X10*3/uL (160-400); Red Blood Count 5.21 X10*6/uL (4.60-5.80); Red Cell Distribution Width 13.4 % (11.0-16.0)
[2023-04-15 04:37] LABS: Appearance Urine Clear; Color Urine Yellow; Glucose Urine UA Negative (Negative); Leukocyte Esterase Urine Negative (Negative); Nitrite Urine Negative (Negative); PH 5.5 (5.0-9.0); Urine Blood Negative (Negative); Urine Ketones Negative (Negative); Urine Protein Negative (Neg-Trace)
[2023-04-15 04:47] LABS: Anion Gap 12 (12-20); Blood Urea Nitrogen 15 mg/dL (9-16); Calcium 9.5 mg/dL (8.4-10.2); Carbon Dioxide 25 mmol/L (22-29); Chloride 106 mmol/L (96-108); Creatinine Clr Calc Pharmacy 91.1; Estimated Glomerular Filt Rate > 60; Glucose Random 113 mg/dL (60-115); Potassium 4.3 mmol/L (3.3-5.1); Sodium 139 mmol/L (135-145)
== END 2023-04-15 06:43 | disposition home or self-care (01) ==
PROVIDERS: Emergency Provider Internal Medicine
DX: N13.2 Hydronephrosis with renal and ureteral calculous obstruction (principal)
CPT/HCPCS: 36415; 74176; 80048; 81003; 85025; 96361; 96374; 96375; 99283; 99284; J1885; J2270; J2405

== ENCOUNTER 2023-04-24 09:42 | Outpatient (AMB) | payer OTHER, SELFPAY ==
--- NOTE | 2023-04-24 09:44 | A.OFFPC_ITS ---
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 Radial Router Operator Required: No Dairy Processing Equipment Operator: Not Required per policy Accompanied by: Self / Same As Patient Allergies Sulfa (Sulfonamide Antibiotics) Allergy (Mild, Verified 04/24/23 10:06) RASH/SWELLING Medication List - Last Reconciled 04/24/23 by Jennifer Pearce, JOSH acetaminophen 650 mg PO QID PRN diclofenac sodium 1% 2 grams topical QID ibuprofen 400 mg PO Q8H multivitamin 1 tab PO DAILY oxycodone 5 mg PO Q6H PRN pyridoxine (vitamin B6) 100 mg PO DAILY 90 days tamsulosin (Flomax) 0.4 mg PO BEDTIME zolpidem 10 mg PO BEDTIME PRN Tobacco use date assessed: 04/24/23 Dental Screening Dental Screen Date: 04/24/23 Did you have a dental visit in the last 12 months?: Yes Did you have a dental problem in the last 6 months where you did not have access to dental care?: No Was dental information given to patient?: Patient has dentist HPI HPI Comments History of Present Illness Details 62-year-old male past medical history significant for dyslipidemia, BPH with elevated PSA, nephrolithiasis and hydronephrosis, bilateral osteoarthritis of knees. Patient presents today transfer of care from Dr. Tobar last seen in August. Review of the notes patient currently following with pain management for bilateral knee pain s/p 06/28/22: Left Sprint PNS - Therapy ongoing. 04/26/22: Left Diagnostic Saphenous Nerve Block at Adductor Canal - >80% relief.?? Patient currently following with urology for BPH on Flomax with good effect. Patient was also seen in [address] [place] [address] Emergency Room on 04/15/23 for nephrolithiasis and hydronephrosis noted on abdominal CT. Patient continues on Flomax and vitamin B6 was using oxycodone for the pain. Patient has a follow-up scheduled with Urology in 2 weeks. Patient states hx chornic left ear pain and bilateral ear itching, patient states previously established with a ENT, however this was several years ago when he is requesting a new referral. new referral entered. Bilateral TMs pearly, no signs of otitis media/externa. 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 Insomnia Kidney stones Laceration of left index finger Surgical History (Updated 04/24/23 @ 09:53 by DANTE Jarrell) History of hand surgery Hx of left knee surgery Hx of lithotripsy Social History (Updated 04/24/23 @ 09:54 by DANTE Jarrell) Housing: House Alcohol intake: never Patient Tobacco Use Status: Current everyday Tobacco user Tobacco use type: Cigarette Cigarette Packs Per Day: 0.5 Cigarettes Per Day: 10 Years Smoked: 45 e-Cigarette/Vaping Use: Never Used Second Hand Smoke Exposure: Yes service: No Current occupational status: unemployed 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 1. Little interest or pleasure in doing things: not at all 2. Feeling down, depressed, or hopeless: not at all 3. Trouble falling or staying asleep, or sleeping too much: not at all 4. Feeling tired or having little energy: not at all 5. Poor appetite or overeating: not at all 6. Feeling bad about yourself - or that you are a failure or have let yourself or your family down: not at all 7. Trouble concentrating on things, such as reading the newspaper or watching television: not at all 8. Moving or speaking so slowly that other people could have noticed. Or the opposite - being so fidgety or restless that you have been moving around a lot more than usual: not at all 9. Thoughts that you would be better off or of hurting yourself in some way: not at all Total score: 0 Depression Screening Interpretation: Negative Source: Developed by Drs. Virgil Handley, Kim Acuna, Miguelito Connell and colleagues, with an educational edy from [employer] Thrive Questionnaire Date Thrive assessed: 04/24/23 I am a: Patient What is your living situation today?: I have a steady place to live Within the past 12 months, did the food you bought not last and you didn't have the money to get more?: Never true Within the past 12 months, did you worry whether your food would run out before you got money to buy more?: Never true Do you have trouble paying for medicines?: No Do you have trouble getting transportation to medical appointments?: No Do you have trouble paying your heating and electricity bill?: No Do you have trouble taking care of your child, family member or friend?: No Do you have trouble with day-to-day activities such as bathing, preparing meals, shopping, managing finances, etc.?: No Are you currently unemployed and looking for a job?: No Are you interested in more education?: No Currently or been in a relationship where the following occur: no concerns reported AUDIT C Alcohol Use Questionnaire (AUDIT-C) 1. How often do you have a drink containing alcohol?: Never Total Score: 0 SEAN-7 AMB Questionnaire SEAN-7 Date SEAN - 7 assessed: 04/24/23 Feeling nervous, anxious, or on edge: 0 = Not at all Not being able to stop or control worryin = Not at all Worrying too much about different things: 0 = Not at all Trouble relaxin = Not at all Being so restless that it is hard to sit still: 0 = Not at all Becoming easily annoyed or irritable: 0 = Not at all Feeling afraid as if something awful might happen: 0 = Not at all Total SEAN-7 score (0-4 normal; 5-9 mild; 10-14 moderate; 15-21 severe): 0 Source: Developed by Drs. Virgil Handley, Kim Acuna, Miguelito Connell and colleagues, with an educational edy from [employer] Review of Systems Const Denies chills, Denies fatigue, Denies fever(s) and Denies poor appetite Eyes Denies no additional complaints ENT Reports Normal hearing present and Reports otalgia (Chronic left ear pain) Card Denies chest pain, Denies syncope, Denies rapid heart rate and Denies dyspnea Resp Denies cough and Denies dyspnea GI Denies change in stool character, Denies constipation, Denies diarrhea, Denies nausea and Denies vomiting Denies dysuria, Denies urinary frequency and Denies urinary urgency Neuro Reports Normal hearing present, Denies confusion and Denies syncope Psych Denies confusion Endo Denies fatigue Physical exam (Primary Care) Vital Signs: Last Vital Signs Pulse 88 04/24/23 09:46 BP 130/60 04/24/23 09:46 Pulse Ox 96 04/24/23 09:46 Oxygen Delivery Method Room Air 04/24/23 09:46 BMI result Body Mass Index 29.3 Tobacco/Smoking Status: Tobacco use Status Tobacco use date assessed 04/24/23 04/24/23 09:55 Patient Tobacco Use Status Current everyday Tobacco 04/24/23 09:55 Tobacco use type Cigarette 04/24/23 09:55 e-Cigarette/Vaping Use Never Used 04/24/23 09:55 PHQ-9: PHQ-9 Score PHQ-9: Total score 0 04/24/23 09:55 Depression Screening Interpretation: Negative Thrive Assessment: Date of Thrive Assessment Date Thrive assessed 04/24/23 04/24/23 09:55 Currently or been in a relationship where the following occur: no concerns reported Const General: No confusion Orientation/consciousness: No confusion HENMT Head: Yes normocephalic and Yes atraumatic Ears: external ears normal and TM's normal bilaterally Eyes Conjunctivae: conjunctivae normal Chest Chest palpation & inspection: normal inspection of the chest Resp Effort & Inspection: normal respiratory effort Auscultation: clear to auscultation bilaterally, no crackles, no rhonchi and no wheezes Cardio Rate: regular rate Rhythm: regular rhythm Heart sounds: S1 normal heart sound present and S2 normal heart sound present GI Inspection: Yes normal to inspection General: Yes no CVA tenderness Back/Spine/Pelvis Back: no CVA tenderness Neuro General: No confusion Cranial nerves: Yes Normal hearing present Extrem General: No edema Assessment and Plan Assessment & Plan (1) Chronic left ear pain: Code(s): H92.02 - Otalgia, left ear; G89.29 - Other chronic pain Plan: Referral entered to ENT. (2) Dyslipidemia: Code(s): E78.5 - Hyperlipidemia, unspecified Plan: Fasting lipid panel ordered. (3) Bilateral primary osteoarthritis of knee: Code(s): M17.0 - Bilateral primary osteoarthritis of knee Plan: Continue to follow-up pain management. (4) Benign prostatic hyperplasia with lower urinary tract symptoms: Code(s): N40.1 - Benign prostatic hyperplasia with lower urinary tract symptoms Plan: Continue on Flomax and vitamin B6. Continue to follow with Urology. (5) Kidney stones: Code(s): N20.0 - Calculus of kidney Plan: Continue on Flomax to promote urethral dilation. Patient advised to drink lots of water. Follow-up with Urology. (6) Encounter to establish care with new doctor: Code(s): Z76.89 - Persons encountering health services in other specified circumstances Orders: Orders Comprehensive [place]. Panel Fast Today G47.00 - Insomnia, unspecified Lipid Panel Today Z13.220 - Encounter for screening for lipoid disorders TSH reflex Free T4 Today Z13.29 - Encounter for screening for other suspected endocrine disorder Complete Blood Count Auto Diff Today Z13.0 - Encounter for screening for diseases of the blood and blood-forming organs and certain disorders involving the immune mechanism Referrals Ear/Nose/Throat Referral G89.29 - Other chronic pain, H92.02 - Otalgia, left ear Coding Level of Care Code New Pt Level 4 (56101) Diagnoses Chronic left ear pain H92.02; G89.29 Dyslipidemia E78.5 Bilateral primary osteoarthritis of knee M17.0 Benign prostatic hyperplasia with lower urinary tract symptoms N40.1 Kidney stones N20.0 Encounter to establish care with new doctor Z76.89
[2023-04-24 09:46] VITALS: BP 130/60; PULSE 88; O2SAT 96; BMI 29.3
== END 2023-04-24 10:23 | disposition home or self-care (01) ==
PROVIDERS: PCP Internal Medicine; Visit Provider Nurse Practitioner Family
DX: H92.02 Otalgia, left ear (principal); G89.29 Other chronic pain; E78.5 Hyperlipidemia, unspecified; M17.0 Bilateral primary osteoarthritis of knee; N40.1 Benign prostatic hyperplasia with lower urinary tract symptoms; N20.0 Calculus of kidney; Z76.89 Persons encountering health services in other specified circumstances
CPT/HCPCS: 99204

== ENCOUNTER 2023-05-21 09:57 | Outpatient (REF) | payer OTHER, SELFPAY ==
[2023-05-21 10:09] LABS: MANUAL DIFF FLAG NO
[2023-05-21 10:18] LABS: Basophils Absolute Auto 0.1 X10*3/uL (0.0-0.2); Basophils Percent Auto 0.9 % (0-2); Eosinophils Absolute Auto 0.7 X10*3/uL (0.0-0.4); Eosinophils Percent Auto 7.2 % (0-4); Hematocrit 43.9 % (42.0-52.0); Hemoglobin 14.2 g/dl (14.0-18.0); Imm Gran Abs Auto 0.03 X10*3/uL (0.00-0.03); Imm Gran Pct Auto 0.3 % (0.0-0.4); Lymphocytes Absolute Auto 3.6 X10*3/uL (1.2-4.9); Lymphocytes Percent Auto 37.8 % (20-40); Mean Corpuscular HGB Conc 32.3 g/dl (31.0-36.0); Mean Corpuscular Hemoglobin 28.2 pg (27.0-33.0); Mean Corpuscular Volume 87.1 fL (80.0-98.0); Mean Platelet Volume 11.3 fL (9.4-12.4); Monocytes Absolute Auto 0.6 X10*3/uL (0.1-1.2); Monocytes Percent Auto 6.1 % (2-11); Neutrophils Absolute Auto 4.6 x10*3/uL (2.0-8.3); Neutrophils Percent Auto 47.7 % (45-73); Platelet Count 171 X10*3/uL (160-400); Red Blood Count 5.04 X10*6/uL (4.60-5.80); Red Cell Distribution Width 13.5 % (11.0-16.0); White Blood Count 9.6 X10*3/uL (4.8-10.8)
[2023-05-21 11:08] LABS: Alanine Aminotransferase 13 U/L (0-40); Albumin Level 4.1 g/dL (3.5-5.0); Alkaline Phosphatase 75 U/L (39-117); Anion Gap 10 (12-20); Aspartate Amino Transferase 17 U/L (5-37); Bilirubin Total 0.7 mg/dL (0.0-1.0); Blood Urea Nitrogen 11 mg/dL (9-16); Calcium 9.1 mg/dL (8.4-10.2); Carbon Dioxide 27 mmol/L (22-29); Chloride 105 mmol/L (96-108); Cholesterol 187 mg/dL (<200); Estimated Glomerular Filt Rate > 60; Glucose Fasting 100 mg/dL (60-99); HDL Cholesterol 33 mg/dL (>40); LDL Cholesterol Calculated 112 mg/dL (<100); Potassium 4.1 mmol/L (3.3-5.1); Sodium 138 mmol/L (135-145); Total Protein 7.2 g/dL (6.5-8.0); Triglycerides 212 mg/dL (<150)
[2023-05-21 11:11] LABS: TSH reflex Free T4 0.94 uIU/mL (0.32-4.0)
== END 2023-05-21 09:58 | disposition home or self-care (01) ==
LOC: HO.LAB 09:57
PROVIDERS: PCP Nurse Practitioner Family; Visit Provider Nurse Practitioner Family
DX: Z13.220 Encounter for screening for lipoid disorders (principal); Z13.0 Encounter for screening for diseases of the blood and blood-forming organs and certain disorders involving the immune mechanism; Z13.29 Encounter for screening for other suspected endocrine disorder; G47.00 Insomnia, unspecified
CPT/HCPCS: 36415; 80053; 80061; 84443; 85025

== ENCOUNTER 2023-07-13 15:19 | Outpatient (REF) | payer OTHER, SELFPAY ==
--- NOTE | ~2023-07-13 | US_ITS ---
EXAMINATION: US RETROPERITONEAL LIMITED (RENAL ONLY) CLINICAL INFORMATION: Calculus of kidney. COMPARISON: CT of the abdomen and pelvis 12/11/2022. Ultrasound kidneys and bladder 12/13/2022. TECHNIQUE: Real-time imaging of the kidneys. Limited visualization due to bowel gas. FINDINGS: RIGHT KIDNEY: 13.5 x 5.0 x 6.0 cm (SAG x AP x TRV). Mild fullness of the renal pelvis with borderline caliectasis. No renal calculi. Renal cortical thickness is normal. Limited visualization. LEFT KIDNEY: 12.7 x 6.6 x 5.4 cm (SAG x AP x TRV). Mild fullness of the renal pelvis with borderline caliectasis. No renal calculi. Renal cortical thickness is normal. Limited visualization. US/US renal BI IMPRESSION: Mild fullness renal pelvis with borderline caliectasis. No renal calculi. Limited visualization.
== END 2023-07-13 15:20 | disposition home or self-care (01) ==
LOC: HO.US 15:19
PROVIDERS: PCP Nurse Practitioner Family; Visit Provider Nurse Practitioner Family
DX: N20.0 Calculus of kidney (principal)
CPT/HCPCS: 76775

== ENCOUNTER 2023-07-20 13:06 | Outpatient (AMB) | payer OTHER, SELFPAY ==
--- NOTE | 2023-07-20 13:07 | A.OFFVIS_ITS ---
Intake Intake Visit Reasons: 6m/US(set) Intake Note: Patient is present for 6 month follow up/US(07/13/23) Urology Medications: tamsulosin Blood Thinner: none PVR: 9ml's Child Development Instructor Required: No Accompanied by: Self / Same As Patient Allergies Sulfa (Sulfonamide Antibiotics) Allergy (Mild, Verified 07/20/23 13:18) RASH/SWELLING Medication List - Last Reconciled 07/20/23 by DURAN Kate acetaminophen 650 mg PO QID PRN diclofenac sodium 1% 2 grams topical QID ibuprofen 400 mg PO Q8H multivitamin 1 tab PO DAILY oxycodone 5 mg PO Q6H PRN pyridoxine (vitamin B6) 100 mg PO DAILY 90 days tamsulosin (Flomax) 0.4 mg PO BEDTIME zolpidem 10 mg PO BEDTIME PRN HPI HPI Comments History of Present Illness Details Oscar is a pleasant 62-year-old male patient of Dr. Tobar. He presents to the office today for a follow up of his nephrolithiasis. He he has a past medical history of insomnia, dyslipidemia, osteoarthritis of bilateral knees, and nephrolithiasis. He presents to the office today for follow-up of his nephrolithiasis and lower urinary tract symptoms. In discussion with the patient today reports to be doing and feeling well. He reports approximately 3 months ago seeking emergency room care for left-sided flank pain at which time he was diagnosed with a 2 mm left UVJ stone. He reports having since urinated the stone. Recent renal imaging from approximately 1 week ago reviewed with the patient today. Bilateral kidneys with mild fullness of the renal pelvis with borderline caliectasis. No renal calculi noted. He does report very infrequent episodes of left-sided flank pain that are relieved with OTC Tylenol. He otherwise denies any bothersome urinary issues or concerns at this time. He reports to be happy with current voiding parameters on 0.4 mg of Flomax daily. In office urinalysis results reviewed with the patient today. PH 5.0. Discussed at length importance of drinking plenty of water daily in relation to history of nephrolithiasis. When asked he denies urinary urgency, urinary frequency, incontinence, nocturia, hematuria, dysuria, foul smelling urine, changes to urinary stream, flank pain, fever, and or chills. Discussed surveillance imaging. PSA 01/14 1.5. Patient reports a longstanding history of renal stones over the last 30-40. When asked he reports previous surgical interventions in the past with ureteroscopy as well as ESWL. [facility] Medical History Insomnia Dyslipidemia Bilateral primary osteoarthritis of knee Laceration of left index finger 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 Avulsion of skin of left thumb Kidney stones Surgical History Hx of left knee surgery History of hand surgery Hx of lithotripsy Social History Housing: House Alcohol intake: never Patient Tobacco Use Status: Current everyday Tobacco user Tobacco use type: Cigarette Cigarette Packs Per Day: 0.5 Cigarettes Per Day: 10 Years Smoked: 45 e-Cigarette/Vaping Use: Never Used Second Hand Smoke Exposure: Yes service: No Current occupational status: unemployed 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 Cognitive needs: Yes (cane) Hearing needs: No Vision needs: Yes (glasses) Review of Systems Const Reports as per HPI Eyes Reports no additional complaints ENT Reports no additional complaints Card Reports as per HPI Resp Reports no additional complaints GI Reports no additional complaints Reports as per HPI Musc Reports as per HPI Neuro Reports as per HPI Psych Reports no additional complaints Endo Reports no additional complaints Efe/Lymph Reports no additional complaints Aller/Immun Reports no additional complaints Physical Exam Const General: cooperative, healthy appearing, comfortable, no acute distress, well developed, alert and awake Orientation/consciousness: patient oriented x3 Limitations: no limitations HEENT Head: Yes normal to inspection, Yes normocephalic and Yes atraumatic Ears: hearing grossly normal bilaterally Eyes General: appearance normal, both eyes and all related structures Neck Neck: Yes normal visual inspection and Yes trachea midline Chest Chest palpation & inspection: normal inspection of the chest Resp Effort & Inspection: normal respiratory effort and able to speak in complete sentences Cardio Rate: regular rate GI Inspection: Yes normal to inspection Rectal Exam - Male: Yes deferred General: Yes no CVA tenderness Back/Spine/Pelvis Back: no CVA tenderness Skin General skin exam: no rashes or lesions noted Neuro General: patient oriented x3 Extrem General: Yes normal to inspection Psych Appearance: grossly normal and well kempt Mental Status: mental status grossly normal Speech and movement: Normal speech and movement present and Clear speech present Affect: normal affect Attitude: cooperative Thought process: Normal thought process present Thought content: Normal thought content present Insight: Fair insight present (Psych) Judgement: Fair judgement present (Psych) Office Procedures Post Void Residual Post Residual Void Post Void Residual (PVR): 9 [id number] Void Residual by ultrasound Results AMB Urinalysis, Automated UA Leukoctes 0 Libia/uL Last Edit by Love Saunders MA on 07/20/23 13:17 UA Nitrite Negative Last Edit by Love Saunders MA on 07/20/23 13:17 UA Urobilinogen 0.2 mg/dL Last Edit by Love Saunders MA on 07/20/23 13:17 UA Protein 15 mg/dL Last Edit by Love Saunders MA on 07/20/23 13:17 UA pH 5.0 Last Edit by Love Saunders MA on 07/20/23 13:17 UA Blood 0 Ricardo/uL Last Edit by Love Saunders MA on 07/20/23 13:17 UA Specific [place] 1.025 Last Edit by Love Saunders MA on 07/20/23 13:17 UA Ketone Negative Last Edit by Love Saunders MA on 07/20/23 13:17 UA Bilirubin 0 mg/dL Last Edit by Love Saunders MA on 07/20/23 13:17 UA Glucose 0 mg/dL Last Edit by Love Saunders MA on 07/20/23 13:17 Results Reviewed Results Reviewed: Laboratory Last Values Urine pH (Auto) 5.0 07/20/23 13:11 Specific [place] (Auto) 1.025 07/20/23 13:11 Urine Protein (Auto) 15 mg/dL 07/20/23 13:11 Glucose (UA)(Auto) 0 mg/dL 07/20/23 13:11 Urine Ketones (Auto) Negative 07/20/23 13:11 Urine Blood (Auto) 0 Ricardo/uL 07/20/23 13:11 Urine Nitrite (Auto) Negative 07/20/23 13:11 Urine Bilirubin (Auto) 0 mg/dL 07/20/23 13:11 Urine Urobilinogen (Auto) 0.2 mg/dL 07/20/23 13:11 Leukocyte Esterase (Auto) 0 Libia/uL 07/20/23 13:11 Date of Service: 07/13/23 EXAMINATION: US RETROPERITONEAL LIMITED (RENAL ONLY) FINDINGS: RIGHT KIDNEY: 13.5 x 5.0 x 6.0 cm (SAG x AP x TRV). Mild fullness of the renal pelvis with borderline caliectasis. No renal calculi. Renal cortical thickness is normal. Limited visualization. LEFT KIDNEY: 12.7 x 6.6 x 5.4 cm (SAG x AP x TRV). Mild fullness of the renal pelvis with borderline caliectasis. No renal calculi. Renal cortical thickness is normal. Limited visualization. US/US renal BI IMPRESSION: Mild fullness renal pelvis with borderline caliectasis. No renal calculi. Limited visualization. Assessment & Plan Assessment & Plan (1) Kidney stones: Code(s): N20.0 - Calculus of kidney Plan In office urinalysis results reviewed with the patient today; as noted above. Most recent renal ultrasound results reviewed with the patient today; as noted above. Discussed at length importance of limiting/quitting cigarette smoking for overall health and well-being. Discussed and stressed the importance of continuing to drink plenty of water daily. Continue vitamin B6 as discussed and prescribed. Continue adding 1 oz of lemon juice to water daily. Patient denies any bothersome urinary issues or concerns at this time. Patient reports to be happy with current voiding parameters. Will obtain renal ultrasound in 6 months. PSA in 6 months Follow-up in 6 months with lab and imaging to be completed prior; or sooner with any issues, concerns, and or questions. Orders: Orders AMB Urinalysis Automated 07/20/23 Z13.9 - Encounter for screening, unspecified AMB Post Void Residual by ultrasound 07/20/23 N13.30 - Unspecified hydr onephrosis Patient Instructions: The patient had an opportunity to ask questions regarding the treatment plan. All questions were answered. Physical exam, labs, and imaging were discussed and reviewed in detail. As well as risks, benefits, and discussion of treatment choices. No major barriers to understanding were identified. The patient expressed understanding and agreement with the above treatment plan. The patient was made aware they should contact our office by phone for worsening of their current condition, the appearance of new symptoms, or with any questions or concerns. Compliance is encouraged with any medications and follow up testing that is ordered. It is a privilege to be allowed the opportunity to participate in? your urological care.? Again, if you have any questions or concerns If you have any questions or concerns please do not hesitate to contact me. The office is [phone]. This note is constructed using voice recognition software. While every effort has been made to ensure accuracy welcome desk agent errors may have been included. Yours sincerely, JOSH Kate-NAVYA Coding Level of Care Code Est Pt Level 3 (05975) Diagnoses Kidney stones N20.0 CPT Codes Post Residual Void - PVR CPT Code: 79381-Qhlg Void Residual by ultrasound ([id number])
== END 2023-07-20 13:31 | disposition home or self-care (01) ==
PROVIDERS: Visit Provider Nurse Practitioner Family
DX: N20.0 Calculus of kidney (principal)
CPT/HCPCS: 99213

== ENCOUNTER → 2023-07-20 13:06 | Outpatient (BNVA) | payer OTHER, SELFPAY | PROVIDERS: Visit Provider Nurse Practitioner Family | DX: N20.0 Calculus of kidney (principal) | CPT/HCPCS: 51798; 81003; 99212 ==

== ENCOUNTER 2023-08-02 10:11 | Outpatient (AMB) | payer OTHER, SELFPAY ==
--- NOTE | 2023-08-02 11:55 | AM.OFFWIN_ITS ---
Intake Vital Signs 08/02/23 12:02 Height 5 ft 11.5 in Weight 215 lb BMI 29.6 BP 128/74 Blood Pressure Location Rt brachial Position Sitting Pulse 88 Pulse Source Pulse Oximeter Temp 97.8 F Temp Source Temporal Artery Scan Pulse Oximetry (%) 98 Oxygen Delivery Method Room Air Intake Visit Reasons: EST/stomach pain/kidneys? [phone] Intake Note: pt is here for c/o stomach pain/ kidneys Patient Tobacco Use Status: Current everyday Tobacco user Allergies Sulfa (Sulfonamide Antibiotics) Allergy (Mild, Verified 08/02/23 11:55) RASH/SWELLING Do you need a note to return to daycare/school/sports/work: Yes HPI HPI Comments History of Present Illness Details The patient presents to urgent care for evaluation of abdominal discomfort and left flank pain. He states that he recently got over COVID and after having COVID his symptoms started to develop. He has had diminished appetite and notes that the abdominal pain only starts in the evening after 16:00. He does not eat after 16:00. The patient reports a history of kidney stones on the left status post lith otripsy to treat this while ago and has had follow-up with his urologist. He has not had any residual pain or problems since then and has recently followed up with his urologist. The patient denies nausea vomiting fever chills. Patient reports that every morning he has dark urine that looks like blood. In addition he complains of itching to his hands and feet. [facility] Medical History (Updated 08/02/23 @ 12:39 by Isabel Geronimo DO) Abdominal pain Insomnia Dyslipidemia Bilateral primary osteoarthritis of knee Laceration of left index finger 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 Avulsion of skin of left thumb Kidney stones Surgical History Hx of left knee surgery History of hand surgery Hx of lithotripsy Social History Housing: House Alcohol intake: never Patient Tobacco Use Status: Current everyday Tobacco user Tobacco use type: Cigarette Cigarette Packs Per Day: 0.5 Cigarettes Per Day: 10 Years Smoked: 45 e-Cigarette/Vaping Use: Never Used Second Hand Smoke Exposure: Yes service: No Current occupational status: unemployed 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 Cognitive needs: Yes (cane) Hearing needs: No Vision needs: Yes (glasses) Physical Exam Vital Signs: Last Vital Signs Temp 97.8 F 08/02/23 12:02 Pulse 88 08/02/23 12:02 BP 128/74 08/02/23 12:02 Pulse Ox 98 08/02/23 12:02 Oxygen Delivery Method Room Air 08/02/23 12:02 BMI result Body Mass Index 29.6 Const General: healthy appearing and no acute distress Orientation/consciousness: patient oriented x3 Eyes Corneas: corneas normal Pupils: Equal, round and reactive pupils present Chest Chest palpation & inspection: no tenderness Resp Effort & Inspection: normal respiratory effort and able to speak in complete sentences GI Palpation (GI): nontender Skin General skin exam: no rashes or lesions noted Neuro General: patient oriented x3 Cranial nerves: Yes Equal, round and reactive pupils present Psych Appearance: grossly normal Attitude: cooperative Results AMB Urinalysis, Automated UA Leukoctes 0 Libia/uL Last Edit by Arnaldo Diamond CMA on 08/02/23 12:10 UA Nitrite Negative Last Edit by Arnaldo Diamond CMA on 08/02/23 12:10 UA Urobilinogen 0.2 mg/dL Last Edit by Arnaldo Diamond CMA on 08/02/23 12 :10 UA Protein 15 mg/dL Last Edit by Arnaldo Diamond CMA on 08/02/23 12:10 UA pH 6.5 Last Edit by Arnaldo Diamond CMA on 08/02/23 12:10 UA Blood 0 Ricardo/uL Last Edit by Arnaldo Diamond CMA on 08/02/23 12:10 UA Specific [place] 1.025 Last Edit by Arnaldo Diamond CMA on 08/02/23 12:10 UA Ketone Positive Last Edit by Arnaldo Diamond CMA on 08/02/23 12:10 UA Bilirubin 0 mg/dL Last Edit by Arnaldo Diamond CMA on 08/02/23 12:10 UA Glucose 250 mg/dL Last Edit by Arnaldo Diamond CMA on 08/02/23 12:10 AMB Random Glucose (hemocue) AMB Random Glucose (hemocue) 107 mg/dL Last Edit by Arnaldo Diamond CMA o n 08/02/23 12:34 Results Reviewed Results Reviewed: Laboratory Last Values Urine pH (Auto) 6.5 08/02/23 12:06 Specific [place] (Auto) 1.025 08/02/23 12:06 Urine Protein (Auto) 15 mg/dL 08/02/23 12:06 Glucose (UA)(Auto) 250 mg/dL 08/02/23 12:06 Urine Ketones (Auto) Positive 08/02/23 12:06 Urine Blood (Auto) 0 Ricardo/uL 08/02/23 12:06 Urine Nitrite (Auto) Negative 08/02/23 12:06 Urine Bilirubin (Auto) 0 mg/dL 08/02/23 12:06 Urine Urobilinogen (Auto) 0.2 mg/dL 08/02/23 12:06 Leukocyte Esterase (Auto) 0 Libia/uL 08/02/23 12:06 Assessment & Plan Assessment & Plan (1) Abdominal pain: Code(s): R10.9 - Unspecified abdominal pain Plan Etiology of patient's symptoms are unclear. Fingerstick in the office is 107 this was done in response to the urinalysis which shows a glucose of 250. Will send patient for blood work and patient was advised to go to the ER if symptoms change or worsen in any way. Orders: Orders AMB Urinalysis Automated Today Z13.9 - Encounter for screening, unspecified JOSH Rizzo Complete Blood Count Auto Diff Today R53.1 - Weakness Isabel Geronimo DO AMB Random Glucose (hemocue) Today Z13.9 - Encounter for screening, unspecified Isabel Geronimo DO Comprehensive Met. Panel Today R10.9 - Unspecified abdominal pain Isabel hanson DO Hemoglobin A1c Today R10.9 - Unspecified abdominal pain Isabel Geronimo DO Coding Level of Care Code Est Pt Level 3 (59294) Diagnoses Abdominal pain R10.9
[2023-08-02 12:02] VITALS: BP 128/74; PULSE 88; TEMP 36.6; O2SAT 98; BMI 29.6
== END 2023-08-02 12:53 | disposition home or self-care (01) ==
PROVIDERS: PCP Nurse Practitioner Family; Visit Provider Emergency Medicine
DX: R10.9 Unspecified abdominal pain (principal); R53.1 Weakness
CPT/HCPCS: 81003; 82948; 99213

== ENCOUNTER 2023-08-02 12:41 | Outpatient (REF) | payer OTHER, SELFPAY ==
[2023-08-02 16:11] LABS: MANUAL DIFF FLAG NO
[2023-08-02 16:26] LABS: Estimated Average Glucose 128 mg/dL; Hemoglobin A1C 150.4595 umol/L; Hemoglobin A1c % 6.1 % (<6.0)
[2023-08-02 16:30] LABS: Basophils Percent Auto 0.2 % (0-2); Eosinophils Absolute Auto 0.1 X10*3/uL (0.0-0.4); Eosinophils Percent Auto 0.6 % (0-4); Hematocrit 42.8 % (42.0-52.0); Hemoglobin 13.7 g/dl (14.0-18.0); Imm Gran Abs Auto 0.03 X10*3/uL (0.00-0.03); Imm Gran Pct Auto 0.3 % (0.0-0.4); Lymphocytes Percent Auto 31.6 % (20-40); Mean Corpuscular Hemoglobin 28.5 pg (27.0-33.0); Monocytes Absolute Auto 0.3 X10*3/uL (0.1-1.2); Monocytes Percent Auto 3.6 % (2-11); Neutrophils Percent Auto 63.7 % (45-73); Platelet Count 213 X10*3/uL (160-400); Red Blood Count 4.81 X10*6/uL (4.60-5.80); Red Cell Distribution Width 13.6 % (11.0-16.0); White Blood Count 9.4 X10*3/uL (4.8-10.8)
[2023-08-02 16:33] LABS: Alanine Aminotransferase 14 U/L (0-40); Alkaline Phosphatase 73 U/L (39-117); Anion Gap 14 (12-20); Aspartate Amino Transferase 20 U/L (5-37); Bilirubin Total 0.8 mg/dL (0.0-1.0); Blood Urea Nitrogen 11 mg/dL (9-16); Calcium 8.9 mg/dL (8.4-10.2); Carbon Dioxide 26 mmol/L (22-29); Chloride 103 mmol/L (96-108); Estimated Glomerular Filt Rate > 60; Glucose Random 93 mg/dL (60-115); Potassium 4.4 mmol/L (3.3-5.1); Sodium 139 mmol/L (135-145); Total Protein 7.2 g/dL (6.5-8.0)
== END 2023-08-02 12:42 | disposition home or self-care (01) ==
LOC: HO.HMGCLDS 12:41
PROVIDERS: PCP Nurse Practitioner Family; Visit Provider Emergency Medicine
DX: R53.1 Weakness (principal); R10.9 Unspecified abdominal pain
CPT/HCPCS: 36415; 80053; 83036; 85025

== ENCOUNTER 2023-08-10 11:50 | Outpatient (REF) | payer OTHER, SELFPAY ==
--- NOTE | ~2023-08-10 | XR_ITS ---
EXAMINATION: XR KNEE, LEFT XR KNEE AP STANDING CLINICAL INFORMATION: Pain. COMPARISON: Radiographs dated 01/27/2019. TECHNIQUE: Lateral and axial views of the left knee were obtained. AP bilateral standing view of the knees was obtained. FINDINGS: Bony mineralization is normal. There is moderately severe asymmetric narrowing of the medial joint space compartment of the right knee, and the lateral joint space compartment is well-maintained. There is peripheral osteophyte formation of the lateral and medial joint space compartments of the right knee. There is moderately severe asymmetric narrowing of the medial joint space compartment of the left knee, and the lateral joint space compartment is minimally narrowed. There is moderate narrowing of the patellofemoral compartment. There is tricompartment osteoarthritic change of the left knee. No fracture, dislocation or joint effusion is seen. There is a mild bilateral varus configuration. XR/XR knee LT 2V IMPRESSION: 1. There is osteoarthritic change of the right knee, most pronounced of the medial joint space compartment, where it is moderately severe. 2. There is osteoarthritic change of the left knee, most pronounced in the medial joint space compartment, where it is moderately severe. 2. There is a mild bilateral varus configuration.
--- NOTE | ~2023-08-10 | XR_ITS ---
EXAMINATION: XR KNEE, LEFT XR KNEE AP STANDING CLINICAL INFORMATION: Pain. COMPARISON: Radiographs dated 01/27/2019. TECHNIQUE: Lateral and axial views of the left knee were obtained. AP bilateral standing view of the knees was obtained. FINDINGS: Bony mineralization is normal. There is moderately severe asymmetric narrowing of the medial joint space compartment of the right knee, and the lateral joint space compartment is well-maintained. There is peripheral osteophyte formation of the lateral and medial joint space compartments of the right knee. There is moderately severe asymmetric narrowing of the medial joint space compartment of the left knee, and the lateral joint space compartment is minimally narrowed. There is moderate narrowing of the patellofemoral compartment. There is tricompartment osteoarthritic change of the left knee. No fracture, dislocation or joint effusion is seen. There is a mild bilateral varus configuration. XR/XR knee standing BI IMPRESSION: 1. There is osteoarthritic change of the right knee, most pronounced of the medial joint space compartment, where it is moderately severe. 2. There is osteoarthritic change of the left knee, most pronounced in the medial joint space compartment, where it is moderately severe. 2. There is a mild bilateral varus configuration.
== END 2023-08-10 11:51 | disposition home or self-care (01) ==
LOC: HO.HOSX 11:50
PROVIDERS: PCP Nurse Practitioner Family; Visit Provider Orthopaedic Surgery
DX: M17.0 Bilateral primary osteoarthritis of knee (principal)
CPT/HCPCS: 73560; 73565; 99212

== ENCOUNTER 2023-08-10 11:50 | Outpatient (AMB) | payer OTHER, SELFPAY ==
[2023-08-10 12:05] VITALS: BMI 29.6
--- NOTE | 2023-08-10 12:05 | A.OFFVIS_ITS ---
Intake Vital Signs 08/10/23 12:05 Height 5 ft 11.5 in Weight 215 lb BMI 29.6 Intake Visit Reasons: OV - Left Knee OA Intake Note: Oscar is a 63 year old male who presents today for a follow up of his bilateral knee pain R>L. He has not benefited from intra-articular cortisone or viscosupplementation injections, he was referred to to [facility]. They did a sprint device, which he reports gave adequate relief but his symptoms have returned. Allergies Sulfa (Sulfonamide Antibiotics) Allergy (Mild, Verified 08/02/23 11:55) RASH/SWELLING HPI OV - Left Knee OA HPI Details Oscar is a 63 year old man who presents with complaints of bilateral knee pain, R>L. He complains of pain with daily activity, worse with walking or using stairs. He says his right knee is more painful recently. He found limited relief from either steroid or gel injections in the past, and good relief from a left SNB & SPRINT device done by Pain Management. Unfortunately his pain has returned and he is frustrated by this. He walks using a cane and feels limited in his physical activities due to pain. At his last appointment surgery was discussed and he was going to try and wait until he was older before considering. [facility] Medical History Abdominal pain Insomnia Dyslipidemia Bilateral primary osteoarthritis of knee Laceration of left index finger 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 Avulsion of skin of left thumb Kidney stones Surgical History Hx of left knee surgery History of hand surgery Hx of lithotripsy Social History Housing: House Alcohol intake: never Patient Tobacco Use Status: Current everyday Tobacco user Tobacco use type: Cigarette Cigarette Packs Per Day: 0.5 Cigarettes Per Day: 10 Years Smoked: 45 e-Cigarette/Vaping Use: Never Used Second Hand Smoke Exposure: Yes service: No Current occupational status: unemployed 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 Cognitive needs: Yes (cane) Hearing needs: No Vision needs: Yes (glasses) Review of Systems Const All systems reviewed & are unremarkable except as noted in HPI and below Physical Exam Vital Signs: BMI result Body Mass Index 29.6 Const General: no acute distress, alert and awake Orientation/consciousness: patient oriented x3 HEENT Head: Yes normocephalic and Yes atraumatic Eyes EOM: EOMs intact bilaterally Resp Effort & Inspection: normal respiratory effort and able to speak in complete sentences Cardio Jugular venous distension: no JVD Skin General skin exam: turgor normal Rashes: no rashes Neuro General: patient oriented x3 Extrem Other: Left knee medial comaprtment TTP Psych Appearance: grossly normal Affect: normal affect Attitude: cooperative Assessment & Plan Assessment & Plan (1) Bilateral primary osteoarthritis of knee: Code(s): M17.0 - Bilateral primary osteoarthritis of knee Plan: This is a 63 year old man with moderate-severe bilateral knee OA & pain, R>L. He has pain with daily activity, worse with ambulation or using stairs. He had no relief from conservative treatment options in the past, and some relief from a left SNB & SPRINT trial done by Pain Management last year. He feels limited in his ADLs and frustrated that he cannot do activities he wants to. I discussed his diagnosis and treatment options, including PRP injections. I recommend NSAIDs, RICE, and he remain active as tolerated. He will take time to consider his options, either injections or surgery. I ordered PT and will complete the paperwork for handicap parking. He will follow up in 3 months, prn. Plan Scribed for Harris Hutton MD by Amilcar Marie, director of medical review, on 08/10/23 at 12:30 PM, EST. Orders: Orders 2 XR knee LT 2V 08/10/23 M25.569 - Pain in unspecified knee XR knee standing BI 08/10/23 M25.569 - Pain in unspecified knee Coding Level of Care Code Est Pt Level 3 (59629) Diagnoses Bilateral primary osteoarthritis of knee M17.0
== END 2023-08-10 13:17 | disposition home or self-care (01) ==
PROVIDERS: PCP Nurse Practitioner Family; Visit Provider Orthopaedic Surgery
DX: M17.0 Bilateral primary osteoarthritis of knee (principal)
CPT/HCPCS: 99213

== ENCOUNTER 2023-09-29 12:48 | Outpatient (AMB) | payer OTHER, SELFPAY ==
--- NOTE | 2023-09-29 13:55 | MHC.OFFWIV ---
Intake Vital Signs 09/29/23 13:57 Height 5 ft 11.5 in Weight 213 lb BMI 29.3 BP 138/70 Blood Pressure Location Rt brachial Position Sitting Pulse 77 Pulse Source Pulse Oximeter Temp 98.0 F Temp Source Oral Pulse Oximetry (%) 100 Oxygen Delivery Method Room Air Intake Visit Reasons: EP, black spot in right ring finger ([phone]) Intake Note: Pt is here today c/o black spot on Rt ring finger Patient Tobacco Use Status: Current everyday Tobacco user Allergies Sulfa (Sulfonamide Antibiotics) Allergy (Mild, Verified 09/29/23 13:55) RASH/SWELLING Do you need a note to return to daycare/school/sports/work: No HPI HPI Comments History of Present Illness Details 63 yo m presents for fingernail discoloration. Started as a dot then spread across the nail bed. Denies fever, pain or other systemic signs PFSH Medical History Abdominal pain Insomnia Dyslipidemia Bilateral primary osteoarthritis of knee Laceration of left index finger 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 Avulsion of skin of left thumb Kidney stones Surgical History Hx of left knee surgery History of hand surgery Hx of lithotripsy Social History Housing: House Alcohol intake: never Patient Tobacco Use Status: Current everyday Tobacco user Tobacco use type: Cigarette Cigarette Packs Per Day: 0.5 Cigarettes Per Day: 10 Years Smoked: 45 e-Cigarette/Vaping Use: Never Used Second Hand Smoke Exposure: Yes service: No Current occupational status: unemployed 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 Cognitive needs: Yes (cane) Hearing needs: No Vision needs: Yes (glasses) Review of Systems Skin/Breast Details: fingernail discoloration Physical Exam Vital Signs: Last Vital Signs Temp 98.0 F 09/29/23 13:57 Pulse 77 09/29/23 13:57 BP 138/70 09/29/23 13:57 Pulse Ox 100 09/29/23 13:57 Oxygen Delivery Method Room Air 09/29/23 13:57 BMI result Body Mass Index 29.3 Const General: cooperative, healthy appearing, no acute distress and alert Orientation/consciousness: patient oriented x3 Limitations: no limitations HEENT Head: Yes normal to inspection Ears: hearing grossly normal bilaterally General nose exam: Normal external nose present Resp Effort & Inspection: normal respiratory effort and able to speak in complete sentences Cardio Rate: regular rate Skin Other: transverse brown line along the base of the R middle finger nailbed General skin exam: no rashes or lesions noted Neuro General: patient oriented x3 Extrem General: Yes normal to inspection Assessment & Plan Assessment & Plan (1) Fingernail abnormalities: Code(s): L60.9 - Nail disorder, unspecified Plan: unclear etiology, - fungal vs melanonchyia vs nevi - topical antifungal - f/u w/ PCP possible derm referral Medications: New efinaconazole 10% 1 appl topical BEDTIME 8 mL 0RF 48 weeks Coding Level of Care Code Est Pt Level 2 (07199) Diagnoses Fingernail abnormalities L60.9
[2023-09-29 13:57] VITALS: BP 138/70; PULSE 77; TEMP 36.7; O2SAT 100; BMI 29.3
== END 2023-09-29 14:46 | disposition home or self-care (01) ==
PROVIDERS: PCP Nurse Practitioner Family; Visit Provider Physician Assistant
DX: L60.9 Nail disorder, unspecified (principal)
CPT/HCPCS: 99051; 99212

== ENCOUNTER 2023-11-23 16:27 | Outpatient (AMB) | payer OTHER, SELFPAY ==
--- NOTE | 2023-11-23 16:45 | A.OFFPC_ITS ---
Vital Signs 11/23/23 16:47 Height 5 ft 11.5 in Weight 215 lb BMI 29.6 BP 144/76 H Blood Pressure Location Lt brachial Position Sitting Respiration 17 Pulse 80 Pulse Source Pulse Oximeter Pulse Oximetry (%) 96 Oxygen Delivery Method Room Air Intake Visit Reasons: Transfer from [facility], Physical exam Intake Note: The patient is present [facility] Elevated blood pressure is noted today. 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 Accompanied by: Self / Same As Patient Allergies Sulfa (Sulfonamide Antibiotics) Allergy (Mild, Verified 11/23/23 17:14) RASH/SWELLING Medication List - Last Reconciled 11/23/23 by Portillo Dumont MD acetaminophen 650 mg PO QID PRN [CANE As directed] diclofenac sodium 1% 2 grams topical QID efinaconazole 10% 1 appl topical BEDTIME 48 weeks ibuprofen 400 mg PO Q8H multivitamin 1 tab PO DAILY zolpidem 10 mg PO BEDTIME PRN Tobacco use date assessed: 11/23/23 Dental Screening Dental Screen Date: 11/23/23 Did you have a dental visit in the last 12 months?: Yes Did you have a dental problem in the last 6 months where you did not have access to dental care?: No Was dental information given to patient?: Patient has dentist HPI Transfer from [facility], Physical exam HPI Details Patient comes in today for his FOLLOW UP visit - is transferring over from [employer] Jennifer Pearce, who has recently left the practice Patient states that he has been experiencing increased pain and discomfort in his left ear for a while now and that his symptoms have recently flared up again - would like to get a referral to see ENT for further evaluation He would also like to get a few of his Rx refilled and get a prescription again for Ketoconazole shampoo for dandruff - states that he gets this in the past but it has been a while since he last got a refill for this He denies any headaches or dizziness Denies any chest pains, no SOB No nausea/vomiting, no abdominal pain No change in bowel habits noted [facility] Medical History (Updated 11/25/23 @ 18:06 by Portillo Dumont MD) Overweight (BMI 25.0-29.9) Smoker Impaired fasting glucose Mixed hyperlipidemia Abdominal pain Insomnia Dyslipidemia Bilateral primary osteoarthritis of knee Laceration of left index finger 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 Avulsion of skin of left thumb Kidney stones Surgical History Hx of left knee surgery History of hand surgery Hx of lithotripsy Social History Housing: House Alcohol intake: never Patient Tobacco Use Status: Current everyday Tobacco user Tobacco use type: Cigarette Cigarette Packs Per Day: 0.5 Cigarettes Per Day: 12 Years Smoked: 45 e-Cigarette/Vaping Use: Never Used Second Hand Smoke Exposure: Yes service: No Current occupational status: unemployed 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 1. Little interest or pleasure in doing things: not at all 2. Feeling down, depressed, or hopeless: not at all 3. Trouble falling or staying asleep, or sleeping too much: not at all 4. Feeling tired or having little energy: not at all 5. Poor appetite or overeating: not at all 6. Feeling bad about yourself - or that you are a failure or have let yourself or your family down: not at all 7. Trouble concentrating on things, such as reading the newspaper or watching television: not at all 8. Moving or speaking so slowly that other people could have noticed. Or the opposite - being so fidgety or restless that you have been moving around a lot more than usual: not at all 9. Thoughts that you would be better off or of hurting yourself in some way: not at all Total score: 0 Depression Screening Interpretation: Negative Depression Screening Done: Yes 59170 - PHQ-9 Billing: Yes Source: Developed by Drs. Virgil Handley, Kim Acuna, Miguelito Connell and colleagues, with an educational edy from [facility] [facility]. Thrive Questionnaire Date Thrive assessed: 11/23/23 I am a: Patient What is your living situation today?: I have a steady place to live Within the past 12 months, did the food you bought not last and you didn't have the money to get more?: Never true Within the past 12 months, did you worry whether your food would run out before you got money to buy more?: Never true Do you have trouble paying for medicines?: No Do you have trouble getting transportation to medical appointments?: No Do you have trouble paying your heating and electricity bill?: No Do you have trouble taking care of your child, family member or friend?: No Do you have trouble with day-to-day activities such as bathing, preparing meals, shopping, managing finances, etc.?: No Are you currently unemployed and looking for a job?: No Are you interested in more education?: No Please select the resources that you would like help with: None Currently or been in a relationship where the following occur: no concerns reported THRIVE Score: 0 AUDIT C Alcohol Use Questionnaire (AUDIT-C) 1. How often do you have a drink containing alcohol?: Never 3. How often do you have six or more drinks on one occasion?: Never Total Score: 0 Score Reviewed/Action Taken: Yes SEAN-7 AMB Questionnaire SEAN-7 Date SEAN - 7 assessed: 11/23/23 Feeling nervous, anxious, or on edge: 0 = Not at all Not being able to stop or control worryin = Not at all Worrying too much about different things: 0 = Not at all Trouble relaxin = Not at all Being so restless that it is hard to sit still: 0 = Not at all Becoming easily annoyed or irritable: 0 = Not at all Feeling afraid as if something awful might happen: 0 = Not at all Total SAEN-7 score (0-4 normal; 5-9 mild; 10-14 moderate; 15-21 severe): 0 Source: Developed by Drs. Virgil Handley, Kim Acuna, Miguelito Connell and colleagues, with an educational edy from [facility]. SEAN-7 Assessment Billing SEAN-7 Assessment Tool: SEAN-7 Assessment 15555 Review of Systems Const Denies chills, Reports difficulty sleeping, Denies fatigue, Denies fever(s) and Denies headache(s) ENT Denies dysphagia, Denies dizziness, Reports otalgia (in the left ear), Denies h eadache(s), Denies neck pain, Denies odynophagia and Denies sore throat Card Denies chest pain, Denies palpitations and Denies dyspnea Resp Denies cough and Denies dyspnea GI Denies abdominal pain, Denies constipation, Denies dysphagia, Denies heartburn, Denies diarrhea, Denies nausea, Denies odynophagia and Denies vomiting Denies dysuria, Denies nocturia and Denies urinary frequency Musc Denies back pain, Reports arthralgias (involving multiple joints) and Denies nec k pain Neuro Denies dizziness and Denies headache(s) Endo Denies fatigue and Denies palpitations Physical exam (Primary Care) Vital Signs: Last Vital Signs Pulse 80 11/23/23 16:47 Resp 17 11/23/23 16:47 BP 144/76 H 11/23/23 16:47 Pulse Ox 96 11/23/23 16:47 Oxygen Delivery Method Room Air 11/23/23 16:47 BMI result Body Mass Index 29.6 Tobacco/Smoking Status: Tobacco use Status Tobacco use date assessed 11/23/23 11/23/23 16:59 Patient Tobacco Use Status Current everyday Tobacco 11/23/23 16:45 Tobacco use type Cigarette 11/23/23 16:45 e-Cigarette/Vaping Use Never Used 11/23/23 16:45 PHQ-9: PHQ-9 Score PHQ-9: Total score 0 11/23/23 17:24 Depression Screening Interpretation: Negative Thrive Assessment: Date of Thrive Assessment Date Thrive assessed 11/23/23 11/23/23 17:04 Currently or been in a relationship where the following occur: no concerns reported Const General: no acute distress and alert Neck Neck: Yes no lymphadenopathy and Yes supple Resp Auscultation: clear to auscultation bilaterally, no rales and no wheezes Cardio Rate: regular rate Rhythm: regular rhythm Heart sounds: no murmurs GI Palpation (GI): Soft to palpation, nontender and No hepatosplenomegaly present Extrem General: Yes no clubbing, cyanosis or edema Assessment and Plan Assessment & Plan (1) Chronic left ear pain: Code(s): H92.02 - Otalgia, left ear; G89.29 - Other chronic pain Plan: Will refer patient to ENT for further evaluation and management (2) Elevated blood pressure reading: Code(s): R03.0 - Elevated blood-pressure reading, without diagnosis of hypertension Plan: Reinforced low sodium diet Patient is advised that his systolic BP should ideally be around 120 mm or less Patient is reminded to continue monitoring his blood pressure regularly (3) Mixed hyperlipidemia: Code(s): E78.2 - Mixed hyperlipidemia Plan: Reinforced low cholesterol diet Will recheck his labs and fasting lipids in a few months for follow up (4) Impaired fasting glucose: Code(s): R73.01 - Impaired fasting glucose Plan: In-office HgbA1c was at 6.1% when checked back in July 2023 Reinforced low calorie/low carb diet (5) Bilateral primary osteoarthritis of knee: Code(s): M17.0 - Bilateral primary osteoarthritis of knee Plan: Continue Ibuprofen and/or Acetaminophen as well as Diclofenac 1% topical gel PRN for symptomatic relief Follow up with orthopedics as scheduled (6) Insomnia: Code(s): G47.00 - Insomnia, unspecified Qualifiers: Insomnia type: unspecified Qualified Code(s): G47.00 - Insomnia, unspecified Plan: Sleep hygiene reinforced Continue Zolpidem 10 mg Q HS PRN - Rx refilled (7) Smoker: Code(s): F17.200 - Nicotine dependence, unspecified, uncomplicated Plan: Counseled on smoking cessation (8) Overweight (BMI 25.0-29.9): Code(s): E66.3 - Overweight Plan: Reinforced diet/exercise as tolerated/lose weight Plan To return as scheduled in March 2024 for his annual physical examination Orders: Referrals Ear/Nose/Throat Referral G89.29 - Other chronic pain, H92.02 - Otalgia, left ear Medications: New acetaminophen 650 mg (2 x 325 mg) PO QID PRN 60 caps 3RF fever or pain clotrimazole-betamethasone 1-0.05 % 1 appl topical BID 2 weeks PRN 45 grams 0RF rash diclofenac sodium 1% 2 grams topical QID 100 grams 3RF ketoconazole 2% 1 appl topical 3XW PRN 120 mL 0RF dandruff Changed From ibuprofen 400 mg PO Q8H To ibuprofen Take with food as needed 400 mg (2 x 200 mg) PO Q8H 100 days 600 caps 3RF Refilled zolpidem 10 mg PO BEDTIME PRN 30 tabs 0RF insomnia Coding Level of Care Code Est Pt Level 4 (13063) Diagnoses Chronic left ear pain H92.02; G89.29 Elevated blood pressure reading R03.0 Mixed hyperlipidemia E78.2 Impaired fasting glucose R73.01 Bilateral primary osteoarthritis of knee M17.0 Insomnia, unspecified type G47.00 Insomnia type: unspecified Smoker F17.200 Overweight (BMI 25.0-29.9) E66.3 Additional Codes SEAN-7 Assessment Billing - SEAN-7 Assessment Tool: SEAN-7 Assessment [id number] ([id number])
[2023-11-23 16:47] VITALS: BP 144/76; PULSE 80; RESP 17; O2SAT 96; BMI 29.6
== END 2023-11-23 17:25 | disposition home or self-care (01) ==
PROVIDERS: PCP Nurse Practitioner Family; Visit Provider Internal Medicine
DX: H92.02 Otalgia, left ear (principal); R03.0 Elevated blood-pressure reading, without diagnosis of hypertension; E78.2 Mixed hyperlipidemia; R73.01 Impaired fasting glucose; M17.0 Bilateral primary osteoarthritis of knee; G47.00 Insomnia, unspecified; F17.200 Nicotine dependence, unspecified, uncomplicated; E66.3 Overweight
CPT/HCPCS: 99214

== ENCOUNTER 2024-02-20 12:40 | Outpatient (REF) | payer OTHER, SELFPAY ==
--- NOTE | ~2024-02-20 | US_ITS ---
EXAMINATION: US RETROPERITONEAL LIMITED (RENAL ONLY) CLINICAL INFORMATION: Calculus of kidney. COMPARISON: Renal ultrasound 07/13/2023. CT abdomen and pelvis 04/15/2023. Ultrasound kidneys and bladder 12/13/2022. TECHNIQUE: Real-time imaging of the kidneys. Limited visualization due to bowel gas. FINDINGS: RIGHT KIDNEY: 13.1 x 4.9 x 5.7 cm (SAG x AP x TRV). Mild hydronephrosis. No renal calculi. Renal cortical thickness is normal. Limited visualization. LEFT KIDNEY: 12.4 x 6.4 x 6.9 cm (SAG x AP x TRV). Mild hydronephrosis. No renal calculi. Renal cortical thickness is normal. Limited visualization. BLADDER: Bilateral ureteral jets are demonstrated. Bladder study not obtained as requested and bladder suboptimally distended, limiting evaluation. US/US renal BI IMPRESSION: Mild bilateral hydronephrosis. No renal calculi.
== END 2024-02-20 12:41 | disposition home or self-care (01) ==
LOC: HO.US 12:40
PROVIDERS: PCP Internal Medicine; Visit Provider Nurse Practitioner Family
DX: N20.0 Calculus of kidney (principal); N13.30 Unspecified hydronephrosis
CPT/HCPCS: 76775

== ENCOUNTER 2024-04-04 12:50 | Outpatient (AMB) | payer OTHER, SELFPAY ==
[2024-04-04 12:53] VITALS: BP 140/78; PULSE 73; O2SAT 98; BMI 28.7
--- NOTE | 2024-04-04 12:53 | A.OFFPC_ITS ---
Vital Signs 04/04/24 12:53 Height 5 ft 11.5 in Weight 209 lb BMI 28.7 BP 140/78 H Blood Pressure Location Lt brachial Position Sitting Pulse 73 Pulse Source Pulse Oximeter Pulse Oximetry (%) 98 Oxygen Delivery Method Room Air Intake Visit Reasons: physical Intake Note: Patient is here today for a physical. Deburrer Strip Required: No Allergies Sulfa (Sulfonamide Antibiotics) Allergy (Mild, Verified 04/04/24 13:38) RASH/SWELLING Medication List - Last Reconciled 04/04/24 by Portillo Dumont MD acetaminophen 650 mg (2 x 325 mg) PO QID PRN [CANE As directed] capsaicin 0.1% 1 appl topical TID PRN clotrimazole-betamethasone 1-0.05 % 1 appl topical BID PRN 2 weeks diclofenac sodium 1% 2 grams topical QID efinaconazole 10% 1 appl topical BEDTIME 48 weeks ibuprofen 400 mg (2 x 200 mg) PO Q8H 100 days ketoconazole 2% 1 appl topical 3XW PRN lidocaine 5% 1 patch topical DAILY multivitamin 1 tab PO DAILY zolpidem 10 mg PO BEDTIME PRN Tobacco use date assessed: 04/04/24 Dental Screening Dental Screen Date: 04/04/24 Did you have a dental visit in the last 12 months?: Yes Did you have a dental problem in the last 6 months where you did not have access to dental care?: No Was dental information given to patient?: Patient has dentist HPI physical HPI Details Patient comes in today for his annual physical examination States that he has been experiencing increased right shoulder pains for over a month now He denies any recent injury or trauma to his shoulder and states that he has never had any significant issue with his right shoulder until recently He used to see Dr. Hutton over at [address] and would like to see him for his shoulder issues Patient also recalls that he experienced a sudden onset of chest pressure while he was out working in his yard about 2 to 3 week ago He went and lied down gerry a while and his symptoms gradually subsided after about an hour or so States that he tried to get in to the walk-in clinic the following day but the nurse who was supposed to call him back did so very late and he was not able to get to the clinic before they closed He was advised that if his symptoms recurred, he should go to the ER [facility] but he did not States that his chest symptoms have not recurred since He denies any headaches or dizziness Denies any increased SOB No nausea/vomiting, no abdominal pain No change in bowel habits noted He denies any acute urinary symptoms Needs a couple of his Rx refilled He has no follow up labs done recently He recalls having his screening colonoscopy done at [facility] and thinks that it has been about 10 years now since then He also continues to experience recurrent left ear pain and discomfort - was referred to ENT previously but states that ENT would not schedule an appointment for him unless they get more information from his PCP about his referral [facility] Medical History Overweight (BMI 25.0-29.9) Smoker Impaired fasting glucose Mixed hyperlipidemia Abdominal pain Insomnia Dyslipidemia Bilateral primary osteoarthritis of knee Laceration of left index finger 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 Avulsion of skin of left thumb Kidney stones Surgical History Hx of left knee surgery History of hand surgery Hx of lithotripsy Social History Housing: House Alcohol intake: never Patient Tobacco Use Status: Current everyday Tobacco user Tobacco use type: Cigarette Cigarette Packs Per Day: 0.5 Cigarettes Per Day: 12 Years Smoked: 45 e-Cigarette/Vaping Use: Never Used Second Hand Smoke Exposure: Yes service: No Current occupational status: unemployed 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 1. Little interest or pleasure in doing things: nearly every day 2. Feeling down, depressed, or hopeless: nearly every day 3. Trouble falling or staying asleep, or sleeping too much: nearly every day 4. Feeling tired or having little energy: several days 5. Poor appetite or overeating: not at all 6. Feeling bad about yourself - or that you are a failure or have let yourself or your family down: several days 7. Trouble concentrating on things, such as reading the newspaper or watching television: not at all 8. Moving or speaking so slowly that other people could have noticed. Or the opposite - being so fidgety or restless that you have been moving around a lot more than usual: not at all 9. Thoughts that you would be better off or of hurting yourself in some way: not at all Total score: 11 Depression Screening Interpretation: Positive Depression Screening Follow-up: Existing condition and Follow-up Visit Requested Depression Screening Done: Yes 05447 - PHQ-9 Billing: Yes Source: Developed by Drs. Virgil Handley, Kim Acuna, Miguelito Connell and colleagues, with an educational edy from [employer]. Thrive Questionnaire Date Thrive assessed: 04/04/24 I am a: Patient What is your living situation today?: I have a steady place to live Within the past 12 months, did the food you bought not last and you didn't have the money to get more?: Never true Within the past 12 months, did you worry whether your food would run out before you got money to buy more?: Never true Do you have trouble paying for medicines?: No Do you have trouble getting transportation to medical appointments?: No Do you have trouble paying your heating and electricity bill?: No Do you have trouble taking care of your child, family member or friend?: No Do you have trouble with day-to-day activities such as bathing, preparing meals, shopping, managing finances, etc.?: No Are you currently unemployed and looking for a job?: No Are you interested in more education?: No Please select the resources that you would like help with: None Currently or been in a relationship where the following occur: No concerns reported THRIVE Score: 0 AUDIT C Alcohol Use Questionnaire (AUDIT-C) 1. How often do you have a drink containing alcohol?: Never 3. How often do you have six or more drinks on one occasion?: Never Total Score: 0 Score Reviewed/Action Taken: Yes SEAN-7 AMB Questionnaire SEAN-7 Date SEAN - 7 assessed: 04/04/24 Feeling nervous, anxious, or on edge: 1 = Several days Not being able to stop or control worryin = Not at all Worrying too much about different things: 0 = Not at all Trouble relaxin = Several days Being so restless that it is hard to sit still: 1 = Several days Becoming easily annoyed or irritable: 1 = Several days Feeling afraid as if something awful might happen: 0 = Not at all Total SEAN-7 score (0-4 normal; 5-9 mild; 10-14 moderate; 15-21 severe): 4 Source: Developed by Drs. Virgil Handley, Kim Acuna, Miguelito Connell and colleagues, with an educational edy from [employer]. SEAN-7 Assessment Billing SEAN-7 Assessment Tool: SEAN-7 Assessment 71065 Review of Systems Const Denies chills, Reports fatigue, Denies fever(s), Denies headache(s), Denies malaise and Denies weakness Eyes Denies blurry vision, Denies change in vision, Denies irritation and Denies itchy eyes ENT Denies dysphagia, Denies dizziness, Reports otalgia (recurrent left ear pain and discomfort), Denies headache(s), Denies nasal congestion, Denies neck pain, Denies odynophagia and Denies sore throat Card Denies chest pain (but recalls episode of chest pressure 2 to 3 weeks ago - see HPI), Denies rapid heart rate, Denies irregular heart rhythm, Denies palpitations and Denies dyspnea Resp Denies chest congestion, Denies cough, Denies dyspnea and Denies wheezing GI Denies abdominal pain, Denies bloating, Denies constipation, Denies dysphagia, Denies heartburn, Denies diarrhea, Denies nausea, Denies odynophagia and Denies vomiting Denies hematuria, Denies difficulty urinating, Reports erectile dysfunction, Denies dysuria, Denies urinary frequency and Denies urinary urgency Musc Denies back pain, Reports arthralgias (increasing over the right shoulder lately) and Denies neck pain Skin/Breast Denies change in pigmentation, Denies lesions, Denies rash and Denies unusual bruising Neuro Denies dizziness, Denies headache(s), Denies paresthesias and Denies weakness Endo Reports fatigue and Denies palpitations Aller/Immun Denies itchy eyes and Denies wheezing Physical exam (Primary Care) Vital Signs: Last Vital Signs Pulse 73 04/04/24 12:53 BP 140/78 H 04/04/24 12:53 Pulse Ox 98 04/04/24 12:53 Oxygen Delivery Method Room Air 04/04/24 12:53 BMI result Body Mass Index 28.7 Tobacco/Smoking Status: Tobacco use Status Tobacco use date assessed 04/04/24 04/04/24 13:00 Patient Tobacco Use Status Current everyday Tobacco 04/04/24 13:00 Tobacco use type Cigarette 04/04/24 13:00 e-Cigarette/Vaping Use Never Used 04/04/24 13:00 PHQ-9: PHQ-9 Score PHQ-9: Total score 11 04/04/24 13:00 Depression Screening Interpretation: Positive Depression Screening Follow-up: Existing condition and Follow-up Visit Requested Thrive Assessment: Date of Thrive Assessment Date Thrive assessed 04/04/24 04/04/24 13:00 Currently or been in a relationship where the following occur: No concerns reported Const General: no acute distress, alert and awake Orientation/consciousness: patient oriented x3 HENMT Head: Yes normocephalic and Yes atraumatic Ears: external ears normal, TM's normal bilaterally and EAC's normal General nose exam: No nasal discharge present Face and sinus: Yes normal facial exam and Yes sinuses nontender Teeth and gingiva: dentition normal Throat: Yes posterior oropharynx normal and Yes tonsils normal (no TP congestion) Eyes Eyelids: Yes eyelids normal Conjunctivae: conjunctivae normal Pupils: Equal, round and reactive pupils present EOM: EOMs intact bilaterally Neck Neck: Yes no lymphadenopathy and Yes supple Thyroid: Thyroid normal Resp Auscultation: clear to auscultation bilaterally, no rales and no wheezes Cardio Rate: regular rate Rhythm: regular rhythm Heart sounds: no murmurs GI Palpation (GI): Soft to palpation, nontender and No hepatosplenomegaly present Auscultation: normal bowel sounds General: Yes no CVA tenderness Back/Spine/Pelvis Back: no CVA tenderness Thoracic/Lumbar Spine: thoracic and lumbar spine normal to inspection Skin Lesions: no lesions Rashes: no rashes Neuro General: patient oriented x3, moves all extremities, no focal motor deficits and CN's II-XI intact bilaterally Cranial nerves: Yes Equal, round and reactive pupils present Cognition (Neuro): normal cognition Gait exam (Neuro): Normal gait present Extrem General: Yes no clubbing, cyanosis or edema Right upper extremity: shoulder/upper arm Details: tenderness Location: of the A-C joint Assessment and Plan Assessment & Plan (1) Annual physical exam: Code(s): Z00.00 - Encounter for general adult medical examination without abnormal findings Plan: Check labs He is likely due for repeat colonoscopy - last done at [facility] about 10 years ago (2) Chest pain: Code(s): R07.9 - Chest pain, unspecified Qualifiers: Chest pain type: unspecified Qualified Code(s): R07.9 - Chest pain, unspecified Plan: He is advised that it is unclear at this time whether his chest symptoms from a couple of weeks ago were cardiac-related or not although they have not recurred since Will send him for some labs as well as a 12-lead EKG for further evaluation Advised that if his tests suggest any underlying cardiac issues, we will refer him to cardiology or send him for more appropriate testing [facility] He used to see [facility] but he has not been back to see them in a few years now (3) Right shoulder pain: Code(s): M25.511 - Pain in right shoulder Qualifiers: Chronicity: unspecified Qualified Code(s): M25.511 - Pain in right shoulder Plan: Will send him for x-rays of the right shoulder for further evaluation Per request, will also refer him to Dr. Hutton for orthopedic evaluation and management (4) Chronic left ear pain: Code(s): H92.02 - Otalgia, left ear; G89.29 - Other chronic pain Plan: Will refer patient AGAIN to ENT for further evaluation and management - will include in his referral this time additional information regarding WHY we are referring him to ENT (see new referral) (5) Elevated blood pressure reading: Code(s): R03.0 - Elevated blood-pressure reading, without diagnosis of hypertension Plan: Reinforced low sodium diet Patient is again advised that his systolic BP should ideally be around 120 mm or less He is reminded to continue monitoring his blood pressure regularly Discussed that if his BP stays high or if his work ups reveal any cardiac issues, we may need to go ahead and start him on some Rx to get his BP better controlled (6) Mixed hyperlipidemia: Code(s): E78.2 - Mixed hyperlipidemia Plan: Reinforced low cholesterol diet Will recheck his labs and fasting lipids GISELLE for follow up (7) Impaired fasting glucose: Code(s): R73.01 - Impaired fasting glucose Plan: In-office HgbA1c was at 6.1% when checked back in July 2023 Reinforced low calorie/low carb diet Will recheck his FBS and HgbA1c for follow up (8) Bilateral primary osteoarthritis of knee: Code(s): M17.0 - Bilateral primary osteoarthritis of knee Plan: Continue Ibuprofen and/or Acetaminophen as well as Diclofenac 1% topical gel PRN for symptomatic relief Per request, Rx for Lidocaine 5% patches and Capsaicin 0.1% cream refilled - have advised patient that his insurance may only approve one of the two Follow up with orthopedics as scheduled (9) Insomnia: Code(s): G47.00 - Insomnia, unspecified Qualifiers: Insomnia type: unspecified Qualified Code(s): G47.00 - Insomnia, unspecified Plan: Sleep hygiene reinforced Continue Zolpidem 10 mg Q HS PRN - Rx refilled (10) Smoker: Code(s): F17.200 - Nicotine dependence, unspecified, uncomplicated Plan: Counseled again on smoking cessation (11) Overweight (BMI 25.0-29.9): Code(s): E66.3 - Overweight Plan: Reinforced diet/exercise as tolerated/lose weight (12) Colon cancer screening: Code(s): Z12.11 - Encounter for screening for malignant neoplasm of colon Plan: Will refer him to Dr. Scott (per request) for repeat colonoscopy Plan Follow up in 4 months and PRN Orders: Orders XR shoulder RT min 2V Today M25.511 - Pain in right shoulder Lipid Panel Today E78.00 - Pure hypercholesterolemia, unspecified, R07.9 - Chest pain, unspecified, Z00.00 - Encounter for general adult medical examination without abnormal findings UA CC w/rflx Micro + Cult Today R07.9 - Chest pain, unspecified, R30.0 - Dysuria, Z00.00 - Encounter for general adult medical examination without abnormal findings Vitamin D 25-OH Total Today E55.9 - Vitamin D deficiency, unspecified, R07.9 - Chest pain, unspecified, Z00.00 - Encounter for general adult medical examination without abnormal findings Prostate Specific Antigen Today N40.0 - Benign prostatic hyperplasia without lower urinary tract symptoms, R07.9 - Chest pain, unspecified, Z00.00 - Encounter for general adult medical examination without abnormal findings ECG 12 lead EKG Today R07.9 - Chest pain, unspecified Complete Blood Count Auto Diff Today D64.9 - Anemia, unspecified, R07.9 - Chest pain, unspecified, Z00.00 - Encounter for general adult medical examination without abnormal findings Comprehensive Swink. Panel Fast Today E78.00 - Pure hypercholesterolemia, unspecified, R07.9 - Chest pain, unspecified, Z00.00 - Encounter for general adult medical examination without abnormal findings TSH reflex Free T4 Today E78.00 - Pure hypercholesterolemia, unspecified, R07.9 - Chest pain, unspecified, Z00.00 - Encounter for general adult medical examination without abnormal findings C Reactive Protein Today R07.9 - Chest pain, unspecified Troponin-I High Sensitivity Today R07.9 - Chest pain, unspecified Hemoglobin A1c Today R73.01 - Impaired fasting glucose Referrals Ear/Nose/Throat Referral G89.29 - Other chronic pain, H92.02 - Otalgia, left ear Orthopedics Referral M25.511 - Pain in right shoulder Gastroenterology Referral Z12.11 - Encounter for screening for malignant neoplasm of colon Medications: New capsaicin 0.1% do not wash area for at least 30 min after application 1 appl topical TID PRN 60 grams 0RF pain lidocaine 5% leave on most painful area for up to 12 hrs 1 patch topical DAILY 30 ea 0RF Refilled zolpidem 10 mg PO BEDTIME PRN 30 tabs 0RF insomnia clotrimazole-betamethasone 1-0.05 % 1 appl topical BID 2 weeks PRN 45 grams 0RF rash Coding Level of Care Code Est Pt Prev Care 40-64y(34534) Diagnoses Annual physical exam Z00.00 Chest pain, unspecified type R07.9 Chest pain type: unspecified Right shoulder pain, unspecified chronicity M25.511 Chronicity: unspecified Chronic left ear pain H92.02; G89.29 Elevated blood pressure reading R03.0 Mixed hyperlipidemia E78.2 Impaired fasting glucose R73.01 Bilateral primary osteoarthritis of knee M17.0 Insomnia, unspecified type G47.00 Insomnia type: unspecified Smoker F17.200 Overweight (BMI 25.0-29.9) E66.3 Colon cancer screening Z12.11 Additional Codes SEAN-7 Assessment Billing - SEAN-7 Assessment Tool: SEAN-7 Assessment 07227 ([id number])
== END 2024-04-04 13:40 | disposition home or self-care (01) ==
LOC: HO.HMGH 12:50
PROVIDERS: PCP Internal Medicine; Visit Provider Internal Medicine
DX: Z00.00 Encounter for general adult medical examination without abnormal findings (principal); R07.9 Chest pain, unspecified; M25.511 Pain in right shoulder; H92.02 Otalgia, left ear; G89.29 Other chronic pain; R03.0 Elevated blood-pressure reading, without diagnosis of hypertension; E78.2 Mixed hyperlipidemia; R73.01 Impaired fasting glucose; M17.0 Bilateral primary osteoarthritis of knee; G47.00 Insomnia, unspecified; F17.210 Nicotine dependence, cigarettes, uncomplicated; E66.3 Overweight
CPT/HCPCS: 99396

== ENCOUNTER 2024-04-10 09:42 | Outpatient (REF) | payer OTHER, SELFPAY ==
--- NOTE | ~2024-04-10 | XR_ITS ---
EXAMINATION: XR SHOULDER, RIGHT CLINICAL INFORMATION: Right shoulder pain COMPARISON: Radiographs 03/04/2017 TECHNIQUE: AP external rotation, Grashey, scapular Y, and axillary views of the right shoulder. FINDINGS: Mild acromioclavicular and glenohumeral osteoarthritis with a large subacromial spur. No fracture or malalignment. Degenerative findings have progressed. XR/XR shoulder RT min 2V IMPRESSION: Mild acromioclavicular and glenohumeral osteoarthritis with a large subacromial spur.
--- NOTE | 2024-04-10 09:53 | ECG_ITS ---
Test Reason : chest pain Blood Pressure : / mmHG Vent. Rate : 066 BPM Atrial Rate : 066 BPM P-R Int : 156 ms QRS Dur : 082 ms QT Int : 388 ms P-R-T Axes : 064 056 072 degrees QTc Int : 406 ms Normal sinus rhythm Normal ECG No previous ECGs available Referred By: Portillo Dumont Electronically Signed By:RAMONITA HAYES MD
[2024-04-10 10:06] LABS: MANUAL DIFF FLAG NO
[2024-04-10 10:30] LABS: Basophils Absolute Auto 0.1 X10*3/uL (0.0-0.2); Basophils Percent Auto 0.9 % (0-2); Eosinophils Absolute Auto 0.8 X10*3/uL (0.0-0.4); Eosinophils Percent Auto 8.3 % (0-4); Hematocrit 42.1 % (42.0-52.0); Imm Gran Abs Auto 0.01 X10*3/uL (0.00-0.03); Imm Gran Pct Auto 0.1 % (0.0-0.4); Lymphocytes Absolute Auto 3.3 X10*3/uL (1.2-4.9); Lymphocytes Percent Auto 36.5 % (20-40); Mean Corpuscular HGB Conc 33.3 g/dl (31.0-36.0); Mean Corpuscular Hemoglobin 29.1 pg (27.0-33.0); Mean Corpuscular Volume 87.5 fL (80.0-98.0); Mean Platelet Volume 11.7 fL (9.4-12.4); Monocytes Absolute Auto 0.6 X10*3/uL (0.1-1.2); Monocytes Percent Auto 6.1 % (2-11); Neutrophils Absolute Auto 4.4 x10*3/uL (2.0-8.3); Neutrophils Percent Auto 48.1 % (45-73); Platelet Count 160 X10*3/uL (160-400); Red Blood Count 4.81 X10*6/uL (4.60-5.80); Red Cell Distribution Width 13.4 % (11.0-16.0); White Blood Count 9.1 X10*3/uL (4.8-10.8)
[2024-04-10 10:39] LABS: Estimated Average Glucose 128 mg/dL; Hemoglobin A1c % 6.1 % (<6.0)
[2024-04-10 10:54] LABS: Appearance Urine Clear; Color Urine Yellow; Glucose Urine UA Negative (Negative); Leukocyte Esterase Urine Negative (Negative); Nitrite Urine Negative (Negative); Specific Gravity - Urine 1.025 (1.005-1.025); Urine Blood Negative (Negative); Urine Ketones Negative (Negative); Urine Protein Trace mg/dL (Neg-Trace)
[2024-04-10 11:02] LABS: Alanine Aminotransferase 20 U/L (0-40); Alkaline Phosphatase 73 U/L (39-117); Anion Gap 14 (12-20); Aspartate Amino Transferase 19 U/L (5-37); Bilirubin Total 0.6 mg/dL (0.0-1.0); Blood Urea Nitrogen 13 mg/dL (9-16); C Reactive Protein 0.16 mg/dL (< or = 0.50); Calcium 9.2 mg/dL (8.4-10.2); Carbon Dioxide 23 mmol/L (22-29); Chloride 108 mmol/L (96-108); Cholesterol 201 mg/dL (<200); Estimated Glomerular Filt Rate > 60; Glucose Fasting 101 mg/dL (60-99); HDL Cholesterol 31 mg/dL (>40); LDL Cholesterol Calculated 120 mg/dL (<100); Potassium 4.1 mmol/L (3.3-5.1); Sodium 141 mmol/L (135-145); Total Protein 7.2 g/dL (6.5-8.0); Triglycerides 250 mg/dL (<150)
[2024-04-10 11:12] LABS: Troponin-I High Sensitivity < 2.7 ng/L (<3.5-35.0)
[2024-04-10 11:28] LABS: TSH reflex Free T4 1.13 uIU/mL (0.32-4.0); Vitamin D 25-OH Total 23.3 ng/mL (>30)
[2024-04-10 11:32] LABS: Prostate Specific Antigen 1.42 ng/mL (<0.05-4.0)
== END 2024-04-10 09:43 | disposition home or self-care (01) ==
LOC: HO.LAB 09:42
PROVIDERS: PCP Internal Medicine; Visit Provider Internal Medicine
DX: Z00.00 Encounter for general adult medical examination without abnormal findings (principal); R07.9 Chest pain, unspecified; E78.00 Pure hypercholesterolemia, unspecified; R30.0 Dysuria; N40.0 Benign prostatic hyperplasia without lower urinary tract symptoms; D64.9 Anemia, unspecified; E55.9 Vitamin D deficiency, unspecified; R73.01 Impaired fasting glucose; M25.511 Pain in right shoulder
CPT/HCPCS: 36415; 73030; 80053; 80061; 81003; 82306; 83036; 84153; 84443; 84484; 85025; 86140; 93005

== ENCOUNTER → 2024-04-10 09:53 | Outpatient (BNV) | payer OTHER, SELFPAY | PROVIDERS: PCP Internal Medicine; Visit Provider Internal Medicine Cardiovascular Disease | DX: R07.9 Chest pain, unspecified (principal) | CPT/HCPCS: 93010 ==

== ENCOUNTER 2024-04-24 13:39 | Outpatient (AMB) | payer OTHER, SELFPAY ==
--- NOTE | 2024-04-24 13:57 | A.OFFVIS_ITS ---
Intake Visit Reasons: New Prob - right shoulder pain Allergies Sulfa (Sulfonamide Antibiotics) Allergy (Mild, Verified 04/24/24 15:53) RASH/SWELLING HPI HPI New Prob - right shoulder pain: Details: Oscar is a 63 year old right hand dominant male who presents today with complaints of right shoulder pain. Patient reports that he has had right shoulder ongoing for about 1-2 months. His pain is primarily felt first thing in the morning, he has increased pain with ROM and lifting. He takes Tylenol occasionally which only provides mild relief. He avoid Ibuprofen as it causes stomach upset. He also complains about continued left knee pain, he is interested in discussing [facility] Medical History Overweight (BMI 25.0-29.9) Smoker Impaired fasting glucose Mixed hyperlipidemia Abdominal pain Insomnia Dyslipidemia Bilateral primary osteoarthritis of knee Laceration of left index finger 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 Avulsion of skin of left thumb Kidney stones Surgical History Hx of left knee surgery History of hand surgery Hx of lithotripsy Social History Housing: House Alcohol intake: never Patient Tobacco Use Status: Current everyday Tobacco user Tobacco use type: Cigarette Cigarette Packs Per Day: 0.5 Cigarettes Per Day: 12 Years Smoked: 45 e-Cigarette/Vaping Use: Never Used Second Hand Smoke Exposure: Yes service: No Current occupational status: unemployed 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 Cognitive needs: Yes (cane) Hearing needs: No Vision needs: Yes (glasses) Physical Exam Const General: no acute distress, alert and awake Orientation/consciousness: patient oriented x3 HEENT Head: Yes normocephalic and Yes atraumatic Eyes EOM: EOMs intact bilaterally Resp Effort & Inspection: normal respiratory effort and able to speak in complete sentences Cardio Jugular venous distension: no JVD Skin General skin exam: turgor normal Rashes: no rashes Neuro General: patient oriented x3 Extrem Other: Right shoulder: + H/N ER to 45 45/90/130/L5 Right varus knee with medial comaprtment TTP Psych Appearance: grossly normal Affect: normal affect Attitude: cooperative Office Procedures Joint Injection/Aspiration Joint Injection/Aspiration Details: Injected 1 mL of Decadron and 3 mL 1% lidocaine and 3 mL of 0.25% Marcaine. Site was prepped using aseptic technique. Patient tolerated the procedure well. Primary Site: right shoulder Approach Used: posterolateral Coding 24483 - Large joint Procedure code (CPT) selection complete Results AMB Urinalysis, Automated UA Leukoctes 0 Libia/uL Last Edit by Lu Mg on 04/24/24 15:21 UA Nitrite Negative Last Edit by [employer] Mg on 04/24/24 15:21 UA Urobilinogen 0.2 mg/dL Last Edit by [employer] on 04/24/24 15:21 UA Protein 15 mg/dL Last Edit by [employer] on 04/24/24 15:21 UA pH 5.5 Last Edit by [employer] on 04/24/24 15:21 UA Blood 0 Ricardo/uL Last Edit by [employer] on 04/24/24 15:21 UA Specific [place] 1.030 Last Edit by [employer] on 04/24/24 15:21 UA Ketone Positive Last Edit by [employer] on 04/24/24 15:21 UA Bilirubin 0 mg/dL Last Edit by [employer] on 04/24/24 15:21 UA Glucose 0 mg/dL Last Edit by [employer] on 04/24/24 15:21 Assessment & Plan Assessment & Plan (1) Bursitis of right shoulder: Code(s): M75.51 - Bursitis of right shoulder Category: Medical Plan: I injected his right shoulder and if pain persists I would recommend PT (2) Bilateral primary osteoarthritis of knee: Code(s): M17.0 - Bilateral primary osteoarthritis of knee Category: Medical Plan: He is a candidate for knee arthroplasty but hesitant. I gave him some information and he spoke wiht our nurse navigator. He will let me know if he wants to pursue surgery. Coding Level of Care Code Est Pt Level 4 (78657) Diagnoses Bursitis of right shoulder M75.51 Bilateral primary osteoarthritis of knee M17.0 CPT Codes Coding - Large joint: 87771 - Large joint ([id number])
== END 2024-04-24 14:47 | disposition home or self-care (01) ==
PROVIDERS: PCP Internal Medicine; Visit Provider Orthopaedic Surgery
DX: M75.51 Bursitis of right shoulder (principal); M17.0 Bilateral primary osteoarthritis of knee
CPT/HCPCS: 20610; 99214

== ENCOUNTER → 2024-04-24 13:39 | Outpatient (BNVA) | payer OTHER, SELFPAY | PROVIDERS: PCP Internal Medicine; Visit Provider Orthopaedic Surgery | DX: N20.0 Calculus of kidney (principal); N52.9 Male erectile dysfunction, unspecified; R39.89 Other symptoms and signs involving the genitourinary system; M75.51 Bursitis of right shoulder; M17.0 Bilateral primary osteoarthritis of knee | CPT/HCPCS: 20610; 81003; 99212; J0665; J1100 ==

== ENCOUNTER 2024-04-24 14:49 | Outpatient (AMB) | payer OTHER, SELFPAY ==
--- NOTE | 2024-04-24 15:00 | A.OFFVIS_ITS ---
Intake Visit Reasons: follow up/Imaging(set) Intake Note: Patient presents for follow up on: kidney stones and ultrasound results Imaging Completed: 02/20/24 Urology Medications: tamsulosin (couldn't get refill on medication) Blood Thinner: none Roundsman Required: No Accompanied by: Self / Same As Patient Allergies Sulfa (Sulfonamide Antibiotics) Allergy (Mild, Verified 04/24/24 15:53) RASH/SWELLING Medication List - Last Reconciled 04/24/24 by JOSH Kate-NAVYA acetaminophen 650 mg (2 x 325 mg) PO QID PRN [CANE As directed] capsaicin 0.1% 1 appl topical TID PRN clotrimazole-betamethasone 1-0.05 % 1 appl topical BID PRN 2 weeks diclofenac sodium 1% 2 grams topical QID efinaconazole 10% 1 appl topical BEDTIME 48 weeks ibuprofen 400 mg (2 x 200 mg) PO Q8H 100 days ketoconazole 2% 1 appl topical 3XW PRN lidocaine 5% 1 patch topical DAILY multivitamin 1 tab PO DAILY sildenafil (Viagra) 100 mg PO .PRN PRN 90 days zolpidem 10 mg PO BEDTIME PRN HPI Comments Details: Oscar is a pleasant 63-year-old male patient of Dr. Tobar. He he has a past medical history of insomnia, dyslipidemia, osteoarthritis of bilateral knees, and nephrolithiasis. He presents to the office today for follow-up of his nephrolithiasis and lower urinary tract symptoms. In discussion with the patient today reports to be doing and feeling well. Recent renal imaging results reviewed with the patient today. Bilateral kidneys with no renal calculi. Mild bilateral hydronephrosis. Recent PSA results reviewed with the patient today 04/16 1.4. He does note issues with bladder pressure after holding his urination. Discussed healthy bathroom habits. He also reports noting issues with maintaining his erections. He does report morning erections and is able to obtain erections however feels maintaining erections to be difficult. He otherwise denies any bothersome urinary issues or concerns. In office urinalysis results reviewed with the patient today pH 5.5. Discussed at length importance of drinking plenty of water daily in relation to history of nephrolithiasis as well as overall health and well-being. When asked he denies urinary urgency, urinary frequency, incontinence, nocturia, hematuria, dysuria, foul smelling urine, changes to urinary stream, flank pain, fever, and or chills. Patient reports a longstanding history of renal stones over the last 30- 40 with previous history of ureteroscopy as well as ESWL. He otherwise offers no other issues or concerns at this time. BUN: 12/13 14, 03/15 12, 04/15 15, 05/16 11, 08/16 11, 04/16 13 Creatinine: 12/13 0.95, 03/15 0.89, 04/15 1.04, 05/16 0.80, 08/16 0.79, 04/16 0.75 PFSH Medical History Overweight (BMI 25.0-29.9) Smoker Impaired fasting glucose Mixed hyperlipidemia Abdominal pain Insomnia Dyslipidemia Bilateral primary osteoarthritis of knee Laceration of left index finger 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 Avulsion of skin of left thumb Kidney stones Surgical History Hx of left knee surgery History of hand surgery Hx of lithotripsy Social History Housing: House Alcohol intake: never Patient Tobacco Use Status: Current everyday Tobacco user Tobacco use type: Cigarette Cigarette Packs Per Day: 0.5 Cigarettes Per Day: 12 Years Smoked: 45 e-Cigarette/Vaping Use: Never Used Second Hand Smoke Exposure: Yes service: No Current occupational status: unemployed 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 Cognitive needs: Yes (cane) Hearing needs: No Vision needs: Yes (glasses) Review of Systems Const Reports as per HPI Eyes Reports no additional complaints ENT Reports no additional complaints Card Reports as per HPI Resp Reports no additional complaints GI Reports no additional complaints Reports as per HPI Musc Reports as per HPI Neuro Reports as per HPI Psych Reports no additional complaints Endo Reports no additional complaints Efe/Lymph Reports no additional complaints Aller/Immun Reports no additional complaints Physical Exam Const General: cooperative, healthy appearing, comfortable, no acute distress, well developed, alert and awake Nutritional Appearance: overweight Orientation/consciousness: patient oriented x3 Limitations: no limitations HEENT Head: Yes normal to inspection, Yes normocephalic and Yes atraumatic Ears: hearing grossly normal bilaterally Eyes General: appearance normal, both eyes and all related structures Neck Neck: Yes normal visual inspection and Yes trachea midline Chest Chest palpation & inspection: normal inspection of the chest Resp Effort & Inspection: normal respiratory effort and able to speak in complete sentences Cardio Rate: regular rate GI Inspection: Yes normal to inspection Rectal Exam - Male: Yes deferred General: Yes no CVA tenderness Back/Spine/Pelvis Back: no CVA tenderness Skin General skin exam: no rashes or lesions noted Neuro General: patient oriented x3 Extrem General: Yes normal to inspection Psych Appearance: grossly normal and well kempt Mental Status: mental status grossly normal Speech and movement: Normal speech and movement present and Clear speech present Affect: normal affect Attitude: cooperative Thought process: Normal thought process present Thought content: Normal thought content present Insight: Fair insight present (Psych) Judgement: Fair judgement present (Psych) Results AMB Urinalysis, Automated UA Leukoctes 0 Libia/uL Last Edit by [employer] on 04/24/24 15:21 UA Nitrite Negative Last Edit by [employer] on 04/24/24 15:21 UA Urobilinogen 0.2 mg/dL Last Edit by [employer] on 04/24/24 15:21 UA Protein 15 mg/dL Last Edit by [employer] on 04/24/24 15:21 UA pH 5.5 Last Edit by [employer] on 04/24/24 15:21 UA Blood 0 Ricardo/uL Last Edit by [employer] on 04/24/24 15:21 UA Specific [place] 1.030 Last Edit by [employer] on 04/24/24 15:21 UA Ketone Positive Last Edit by [employer] on 04/24/24 15:21 UA Bilirubin 0 mg/dL Last Edit by [employer] on 04/24/24 15:21 UA Glucose 0 mg/dL Last Edit by [employer] on 04/24/24 15:21 Results Reviewed Results Reviewed: Laboratory Last Values Urine pH (Auto) 5.5 04/24/24 15:10 Specific [place] (Auto) 1.030 04/24/24 15:10 Urine Protein (Auto) 15 mg/dL 04/24/24 15:10 Glucose (UA)(Auto) 0 mg/dL 04/24/24 15:10 Urine Ketones (Auto) Positive 04/24/24 15:10 Urine Blood (Auto) 0 Ricardo/uL 04/24/24 15:10 Urine Nitrite (Auto) Negative 04/24/24 15:10 Urine Bilirubin (Auto) 0 mg/dL 04/24/24 15:10 Urine Urobilinogen (Auto) 0.2 mg/dL 04/24/24 15:10 Leukocyte Esterase (Auto) 0 Libia/uL 04/24/24 15:10 Date of Service: 02/20/24 EXAMINATION: US RETROPERITONEAL LIMITED (RENAL ONLY) FINDINGS: RIGHT KIDNEY: 13.1 x 4.9 x 5.7 cm (SAG x AP x TRV). Mild hydronephrosis. No renal calculi. Renal cortical thickness is normal. Limited visualization. LEFT KIDNEY: 12.4 x 6.4 x 6.9 cm (SAG x AP x TRV). Mild hydronephrosis. No renal calculi. Renal cortical thickness is normal. Limited visualization. BLADDER: Bilateral ureteral jets are demonstrated. Bladder study not obtained as requested and bladder suboptimally distended, limiting evaluation. IMPRESSION: Mild bilateral hydronephrosis. No renal calculi. Assessment & Plan Assessment & Plan (1) Kidney stones: Code(s): N20.0 - Calculus of kidney Category: Medical (2) Erectile dysfunction: Code(s): N52.9 - Male erectile dysfunction, unspecified Category: Medical (3) Sensation of pressure in bladder area: Code(s): R39.89 - Other symptoms and signs involving the genitourinary system Category: Medical Plan In office urinalysis results reviewed with the patient today; as noted above; discussed, educated, and stressed the importance of adequate hydration relation to nephrolithiasis as well as overall health and well-being. Recent renal imaging results reviewed with the patient today; as noted above. Recent PSA results reviewed with the patient today; as noted above. Discussed healthy bathroom habits. Prescription provided for p.r.n. sildenafil Discussed at length lifestyle modifications to assist with ED Discussed further treatment options for ED; risks and benefits of these interventions were discussed at length. Will continue with surveillance monitoring of nephrolithiasis as well as PSA. Will obtain renal ultrasound in 6 months Follow-up in 6 months with renal ultrasound to be completed prior; or sooner with any issues, concerns, and or questions. Orders: Orders US renal BI 6 Months N20.0 - Calculus of kidney AMB Urinalysis Automated Today Z13.9 - Encounter for screening, unspecified Medications: New sildenafil (Viagra) administer 30 minutes to 4 hours before activity. [id number] [facility] [id number] Member [id number] 100 mg PO .PRN 90 days PRN 45 tabs 1RF sexual activity Patient Instructions: The patient had an opportunity to ask questions regarding the treatment plan. All questions were answered. Physical exam, labs, and imaging were discussed and reviewed in detail. As well as risks, benefits, and discussion of treatment choices. No major barriers to understanding were identified. The patient expressed understanding and agreement with the above treatment plan. The patient was made aware they should contact our office by phone for worsening of their current condition, the appearance of new symptoms, or with any questions or concerns. Compliance is encouraged with any medications and follow up testing that is ordered. It is a privilege to be allowed the opportunity to participate in? your urological care.? Again, if you have any questions or concerns If you have any questions or concerns please do not hesitate to contact me. The office is [phone]. This note is constructed using voice recognition software. While every effort has been made to ensure accuracy clinical massage therapist errors may have been included. Yours sincerely, DURAN Kate Coding Level of Care Code Est Pt Level 4 (10997) Complex EM visit Add On G2211 Diagnoses Kidney stones N20.0 Erectile dysfunction N52.9 Sensation of pressure in bladder area R39.89
== END 2024-04-24 15:38 | disposition home or self-care (01) ==
PROVIDERS: PCP Internal Medicine; Visit Provider Nurse Practitioner Family
DX: N20.0 Calculus of kidney (principal); N52.9 Male erectile dysfunction, unspecified; R39.89 Other symptoms and signs involving the genitourinary system; Z13.9 Encounter for screening, unspecified
CPT/HCPCS: 99214; G2211

== ENCOUNTER 2024-07-14 10:56 | Outpatient (AMB) | payer OTHER, SELFPAY ==
--- NOTE | 2024-07-14 11:33 | MHC.OFFWIV ---
Intake Vital Signs 07/14/24 11:44 Weight 216 lb 9 oz BP 160/80 H Blood Pressure Location Lt brachial Position Sitting Pulse 87 Pulse Source Pulse Oximeter Pulse Oximetry (%) 98 Oxygen Delivery Method Room Air Intake Visit Reasons: EP-rt hand fingers swollen & [phone] Patient Tobacco Use Status: Current everyday Tobacco user Allergies Sulfa (Sulfonamide Antibiotics) Allergy (Mild, Verified 07/14/24 11:34) RASH/SWELLING HPI EP-rt hand fingers swollen & [phone] HPI Details This note is constructed using voice recognition software. While every effort has been made to ensure accuracy, suspender maker errors may have been included. The patient is a 63 year old male who presents to the clinic today with 1 year long history fingernails, with thickening, discoloration, worsening and some separation of the nails. He denies fever, chills, injury to the area. He has not tried anything to resolve this. He did call his primary care provider who gave a referral to Dermatology, however they are booking out in 23 February. [facility] Medical History Overweight (BMI 25.0-29.9) Smoker Impaired fasting glucose Mixed hyperlipidemia Abdominal pain Insomnia Dyslipidemia Bilateral primary osteoarthritis of knee Laceration of left index finger 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 Avulsion of skin of left thumb Kidney stones Surgical History Hx of left knee surgery History of hand surgery Hx of lithotripsy Social History Housing: House Alcohol intake: never Patient Tobacco Use Status: Current everyday Tobacco user Tobacco use type: Cigarette Cigarette Packs Per Day: 0.5 Cigarettes Per Day: 12 Years Smoked: 45 e-Cigarette/Vaping Use: Never Used Second Hand Smoke Exposure: Yes service: No Current occupational status: unemployed 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 Cognitive needs: Yes (cane) Hearing needs: No Vision needs: Yes (glasses) Review of Systems Const All systems reviewed & are unremarkable except as noted in HPI and below Physical Exam Vital Signs: Last Vital Signs Pulse 87 07/14/24 11:44 BP 160/80 H 07/14/24 11:44 Pulse Ox 98 07/14/24 11:44 Oxygen Delivery Method Room Air 07/14/24 11:44 Const General: cooperative, healthy appearing, comfortable, no acute distress and well developed Orientation/consciousness: patient oriented x3 Limitations: no limitations Resp Effort & Inspection: normal respiratory effort and able to speak in complete sentences Skin Other: Thickening, discoloration with onychomycosis to right 2nd 4th and 5th fingernail involving 100% of the nail. The 2nd nail with erosion of the nail bed. No surrounding erythema, warmth, discharge, or inflammation. Neuro General: patient oriented x3 Assessment & Plan Assessment & Plan (1) Onychomycosis: Code(s): B35.1 - Tinea unguium Plan: Trial cyclobenzaprine ox topical for treatment, advised patient that this would require 48 weeks of treatment for resolution, and likely may not be effective due to the extensive involvement. He has pending referral with Dermatology, which I advised him to keep. Plan See above for full details and plan. Medications: New ciclopirox 8% Apply for 48 weeks 1 appl topical BEDTIME 4 weeks 6.6 mL 0RF Coding Level of Care Code Est Pt Level 3 (83408) Diagnoses Onychomycosis B35.1
[2024-07-14 11:44] VITALS: BP 160/80; PULSE 87; O2SAT 98
== END 2024-07-14 12:25 | disposition home or self-care (01) ==
PROVIDERS: PCP Internal Medicine; Visit Provider Registered Nurse
DX: B35.1 Tinea unguium (principal)

== ENCOUNTER → 2024-07-14 10:56 | Outpatient (BNVA) | payer OTHER, SELFPAY | PROVIDERS: PCP Internal Medicine; Visit Provider Registered Nurse | DX: B35.1 Tinea unguium (principal) | CPT/HCPCS: 99212 ==

== ENCOUNTER 2024-08-08 13:54 | Outpatient (AMB) | payer OTHER, SELFPAY ==
[2024-08-08 14:11] VITALS: BP 120/74; PULSE 77; O2SAT 99; BMI 29.3
--- NOTE | 2024-08-08 14:11 | A.OFFPC_ITS ---
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 Accompanied by: Self / Same As Patient Allergies Sulfa (Sulfonamide Antibiotics) Allergy (Mild, Verified 08/08/24 15:14) RASH/SWELLING Medication List - Last Reconciled 08/08/24 by Portillo Dumont MD acetaminophen 650 mg (2 x 325 mg) PO QID PRN [CANE As directed] capsaicin 0.1% 1 appl topical TID PRN ciclopirox 8% 1 appl topical BEDTIME 4 weeks clotrimazole-betamethasone 1-0.05 % 1 appl topical BID PRN 2 weeks diclofenac sodium 1% 2 grams topical QID efinaconazole 10% 1 appl topical BEDTIME 48 weeks ibuprofen 400 mg (2 x 200 mg) PO Q8H 100 days ketoconazole 2% 1 appl topical 3XW PRN lidocaine 5% 1 patch topical DAILY multivitamin 1 tab PO DAILY sildenafil (Viagra) 100 mg PO .PRN PRN 90 days zolpidem 10 mg PO BEDTIME PRN Tobacco use date assessed: 08/08/24 Dental Screening Dental Screen Date: 08/08/24 Did you have a dental visit in the last 12 months?: Yes Did you have a dental problem in the last 6 months where you did not have access to dental care?: No Was dental information given to patient?: Patient has dentist HPI 4 mo f/u HPI Details Patient comes in today for his follow-up visit States that he continues to experience frequent left ear pain and discomfort He was referred to ENT at his last visit for further evaluation but he was advised they are booking out months in advance and the earliest appointment they occurred give him was in January of next year (2024) States that he feels okay otherwise He denies any headaches or dizziness Denies any chest pains, no increased shortness of breath No nausea/vomiting, no abdominal pain No change in bowel habits noted He also still has significant nail deformities and disease on all of his fingers He was referred to Dermatology a couple of weeks ago and he was recently advised that they are also booking out months in advance for appointments He is wondering if there is any when he can see on a much sooner basis Needs a few of his Rx refilled He would also like to know he has any abnormal findings on his labs done a few months ago [facility] Medical History (Updated 08/10/24 @ 02:33 by Portillo Dumont MD) Primary osteoarthritis, right shoulder Overweight (BMI 25.0-29.9) Smoker Impaired fasting glucose Mixed hyperlipidemia Abdominal pain Insomnia Dyslipidemia Bilateral primary osteoarthritis of knee Laceration of left index finger 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 Avulsion of skin of left thumb Kidney stones Surgical History Hx of left knee surgery History of hand surgery Hx of lithotripsy Social History Housing: House Alcohol intake: never Patient Tobacco Use Status: Current everyday Tobacco user Tobacco use type: Cigarette Cigarette Packs Per Day: 0.5 Cigarettes Per Day: 12 Years Smoked: 45 e-Cigarette/Vaping Use: Never Used Second Hand Smoke Exposure: Yes service: No Current occupational status: unemployed 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 1. Little interest or pleasure in doing things: nearly every day 2. Feeling down, depressed, or hopeless: nearly every day 3. Trouble falling or staying asleep, or sleeping too much: nearly every day 4. Feeling tired or having little energy: several days 5. Poor appetite or overeating: not at all 6. Feeling bad about yourself - or that you are a failure or have let yourself or your family down: several days 7. Trouble concentrating on things, such as reading the newspaper or watching television: not at all 8. Moving or speaking so slowly that other people could have noticed. Or the opposite - being so fidgety or restless that you have been moving around a lot more than usual: not at all 9. Thoughts that you would be better off or of hurting yourself in some way: not at all Total score: 11 Depression Screening Interpretation: Positive Depression Screening Follow-up: Existing condition and Follow-up Visit Requested Depression Screening Done: Yes 80822 - PHQ-9 Billing: Yes Source: Developed by Drs. Virgil Handley, Miguelito Feng and colleagues, with an educational edy from [employer]. Thrive Questionnaire Date Thrive assessed: 08/08/24 I am a: Patient What is your living situation today?: I have a steady place to live Within the past 12 months, did the food you bought not last and you didn't have the money to get more?: Never true Within the past 12 months, did you worry whether your food would run out before you got money to buy more?: Never true Do you have trouble paying for medicines?: No Do you have trouble getting transportation to medical appointments?: No Do you have trouble paying your heating and electricity bill?: No Do you have trouble taking care of your child, family member or friend?: No Do you have trouble with day-to-day activities such as bathing, preparing meals, shopping, managing finances, etc.?: No Are you currently unemployed and looking for a job?: No Are you interested in more education?: No Please select the resources that you would like help with: None Currently or been in a relationship where the following occur: No concerns reported THRIVE Score: 0 AUDIT C Alcohol Use Questionnaire (AUDIT-C) 1. How often do you have a drink containing alcohol?: Never 3. How often do you have six or more drinks on one occasion?: Never Total Score: 0 Score Reviewed/Action Taken: Yes SEAN-7 AMB Questionnaire SEAN-7 Date SEAN - 7 assessed: 08/08/24 Feeling nervous, anxious, or on edge: 1 = Several days Not being able to stop or control worryin = Not at all Worrying too much about different things: 0 = Not at all Trouble relaxin = Several days Being so restless that it is hard to sit still: 1 = Several days Becoming easily annoyed or irritable: 1 = Several days Feeling afraid as if something awful might happen: 0 = Not at all Total SEAN-7 score (0-4 normal; 5-9 mild; 10-14 moderate; 15-21 severe): 4 Source: Developed by Kim Chavez Armand, Miguelito Connell and colleagues, with an educational edy from [employer]. SEAN-7 Assessment Billing SEAN-7 Assessment Tool: SEAN-7 Assessment 35642 Review of Systems Const Denies chills, Reports fatigue, Denies fever(s) and Denies headache(s) ENT Denies dysphagia, Denies dizziness, Reports otalgia (recurrent left ear pain and discomfort), Denies headache(s), Denies neck pain, Denies odynophagia and Denies sore throat Card Denies chest pain, Denies irregular heart rhythm, Denies palpitations and Denies dyspnea Resp Denies chest congestion, Denies cough and Denies dyspnea GI Denies abdominal pain, Denies constipation, Denies dysphagia, Denies heartburn, Denies diarrhea, Denies nausea, Denies odynophagia and Denies vomiting Denies difficulty urinating, Reports erectile dysfunction, Denies dysuria and Denies urinary frequency Musc Denies back pain, Reports arthralgias (over the right shoulder) and Denies neck pain Skin/Breast Details: (+) dystrophic changes noted on all fingernails of both hands Denies rash Neuro Denies dizziness, Denies headache(s) and Denies paresthesias Endo Reports fatigue and Denies palpitations Physical exam (Primary Care) Vital Signs: Last Vital Signs Pulse 77 08/08/24 14:11 BP 120/74 08/08/24 14:11 Pulse Ox 99 08/08/24 14:11 Oxygen Delivery Method Room Air 08/08/24 14:11 BMI result Body Mass Index 29.3 Tobacco/Smoking Status: Tobacco use Status Tobacco use date assessed 08/08/24 08/08/24 14:13 Patient Tobacco Use Status Current everyday Tobacco 08/08/24 14:13 Tobacco use type Cigarette 08/08/24 14:13 e-Cigarette/Vaping Use Never Used 08/08/24 14:13 PHQ-9: PHQ-9 Score PHQ-9: Total score 11 08/08/24 15:02 Depression Screening Interpretation: Positive Depression Screening Follow-up: Existing condition and Follow-up Visit Requested Thrive Assessment: Date of Thrive Assessment Date Thrive assessed 08/08/24 08/08/24 14:13 Currently or been in a relationship where the following occur: No concerns reported Const General: no acute distress and alert HENMT Ears: TM's normal bilaterally and EAC's normal Throat: Yes posterior oropharynx normal and Yes tonsils normal (no TP congestio n) Neck Neck: Yes no lymphadenopathy and Yes supple Thyroid: Thyroid normal Resp Auscultation: clear to auscultation bilaterally, no rales and no wheezes Cardio Rate: regular rate Rhythm: regular rhythm Heart sounds: no murmurs GI Palpation (GI): Soft to palpation and nontender Auscultation: normal bowel sounds General: Yes no CVA tenderness Back/Spine/Pelvis Back: no CVA tenderness Thoracic/Lumbar Spine: No lumbar spinal tenderness Skin Other: (+) dystrophic changes noted on all fingernails of both hands Rashes: no rashes Extrem General: Yes no clubbing, cyanosis or edema Left upper extremity: hand Office Procedures Flu Questionnaire Does the patient have a severe egg allergy?: No Does the patient have severe life threatening allergies?: No Does the patient have a fever or illness today?: No Has the patient ever had Guillain-Weston Syndrome?: No Has the patient ever had any past reaction to a flu shot?: No Results AMB Hemoglobin A1c AMB Hemoglobin A1c 6.0 % Last Edit by DANTE Valadez on 08/08/24 15 :03 Immunizations Fluarix Triv [id number] (PF) 45 mcg (15 mcg x 3)/0.5 mL IM syringe Performing Provider: Portillo Dumont MD Performing [facility] [place] [facility] Administered by: DANTE Valadez on 08/08/24 14:37 Dose Route Admin Location Dispensed Lot Number Expiration Date [facility] Seed Collector 0.5 mL IM Left Deltoid 0.5 mL [id number] 03/23/25 [id number] [employer] Interactive VIS Given Date VIS Provided VIS Publication Date 08/08/24 Single Vaccine 21 Eligibility Eligibility Date Funding Source Not [facility] Eligible 08/08/24 Private Results Reviewed Results Reviewed: Laboratory Last Values Hgb A1c (Clinic) 6.0 % (4.0-6.0) 08/08/24 15:02 Laboratory Tests 04/10/24 04/10/24 10:00 10:04 WBC 9.1 Hgb 14.0 Hct 42.1 Plt Count 160 Sodium 141 Potassium 4.1 Creatinine 0.75 Estimated GFR > 60 Fasting Glucose 101 H Hemoglobin A1c % 6.1 H Calcium 9.2 AST 19 ALT 20 Triglycerides 250 H Cholesterol 201 H LDL Cholesterol, Calc 120 H HDL Cholesterol 31 L Prostate Specific Ag 1.42 25-OH Vitamin D Total 23.3 L TSH 1.13 Ur Specific [place] 1.025 Urine Protein Trace Urine Glucose (UA) Negative Urine Blood Negative Urine Nitrite Negative Ur Leukocyte Esterase Negative Coding Level of Care Code Est Pt Level 4 (24056) Diagnoses Mixed hyperlipidemia E78.2 Elevated blood pressure reading R03.0 Impaired fasting glucose R73.01 Chronic left ear pain H92.02; G89.29 Primary osteoarthritis, right shoulder M19.011 Bilateral primary osteoarthritis of knee M17.0 Dystrophic nail L60.3 Hydronephrosis, unspecified hydronephrosis type N13.30 Hydronephrosis type: unspecified Erectile dysfunction, unspecified erectile dysfunction type N52.9 Erectile dysfunction type: unspecified Benign prostatic hyperplasia with lower urinary tract symptoms, symptom details unspecified N40.1 Lower urinary tract symptom detail: unspecified Insomnia, unspecified type G47.00 Insomnia type: unspecified Smoker F17.200 Overweight (BMI 25.0-29.9) E66.3 Additional Codes SEAN-7 Assessment Billing - ESAN-7 Assessment Tool: SEAN-7 Assessment 94778 ([id number]) PHQ-9 - 73172 - PHQ-9 Billing: Yes ([id number]) Assessment & Plan Assessment & Plan (1) Mixed hyperlipidemia: Code(s): E78.2 - Mixed hyperlipidemia Category: Medical Plan: Results of his labs done back in March 2024 reviewed and discussed with patient - he is advised that his cholesterol numbers back then have increased slightly from previous, especially his serum triglyceride level Reinforced low cholesterol diet Will recheck his labs and fasting lipids in March 2025 for follow up (2) Elevated blood pressure reading: Code(s): R03.0 - Elevated blood-pressure reading, without diagnosis of hypertension Category: Medical Plan: Reinforced low sodium diet His blood pressure today is much better than it was at his last visit Patient is again advised that his systolic BP should ideally be around 120 mm or less He is reminded to continue monitoring his blood pressure regularly (3) Impaired fasting glucose: Code(s): R73.01 - Impaired fasting glucose Category: Medical Plan: Patient is cautioned that his in-office HgbA1c done today is at 6.0%; his HgbA1c was at 6.0% back in March 2024, both of which places in him the borderline diabetes category Reinforced low calorie/low carb diet; exercise as tolerated Will recheck these again in March 2025 for follow up (4) Chronic left ear pain: Code(s): H92.02 - Otalgia, left ear; G89.29 - Other chronic pain Category: Medical Plan: He has been referred to ENT previously for further evaluation but he is still waiting to be seen His initial referral was not apparently accepted as the ENT practice was supposedly unclear as to why he was being referred He was then advised after his second referral that they are booking out months in advance and he was reportedly given an appointment for sometime next year (5) Primary osteoarthritis, right shoulder: Code(s): M19.011 - Primary osteoarthritis, right shoulder Category: Medical Plan: X-rays of the right shoulder done back in March 2024 revealed (+) mild acromioclavicular and glenohumeral osteoarthritis with a large subacromial spur Follow up with orthopedics as scheduled (6) Bilateral primary osteoarthritis of knee: Code(s): M17.0 - Bilateral primary osteoarthritis of knee Category: Medical Plan: Continue Ibuprofen and/or Acetaminophen as well as Diclofenac 1% topical gel PRN for symptomatic relief Continue Lidocaine 5% patches and Capsaicin 0.1% cream PRN Follow up with orthopedics as scheduled (7) Dystrophic nail: Code(s): L60.3 - Nail dystrophy Category: Medical Plan: Have discussed with patient that the dystrophic changes involving all of his fingernails in both hands are likely the result of cumulative damages inflicted on his fingernails over the years by what he does and/or what his nails have been exposed to, likely related to his occupation or line of work, and will likely never be able to revert completely back to normal He was referred to dermatology for further evaluation and management but has been advised that the local dermatologists here in [facility] are all booking out months in advance and he has been scheduled to be seen sometime in January or February of 2025 (8) Hydronephrosis: Code(s): N13.30 - Unspecified hydronephrosis Category: Medical Qualifiers: Hydronephrosis type: unspecified Qualified Code(s): N13.30 - Unspecified hydronephrosis Plan: His renal US done in January 2024 revealed (+) bilateral hydronephrosis but no urinary tract calculi were seen He currently does not have any symptoms to suggest the presence of any renal tract calculi Follow up with urology as scheduled (9) Erectile dysfunction: Code(s): N52.9 - Male erectile dysfunction, unspecified Category: Medical Qualifiers: Erectile dysfunction type: unspecified Qualified Code(s): N52.9 - Male erectile dysfunction, unspecified Plan: Continue Sildenafil 100 mg PRN as instructed (10) Benign prostatic hyperplasia with lower urinary tract symptoms: Code(s): N40.1 - Benign prostatic hyperplasia with lower urinary tract symptoms Category: Medical Qualifiers: Lower urinary tract symptom detail: unspecified Qualified Code(s): N40.1 - Benign prostatic hyperplasia with lower urinary tract symptoms Plan: Follow up with urology as scheduled (11) Insomnia: Code(s): G47.00 - Insomnia, unspecified Category: Medical Qualifiers: Insomnia type: unspecified Qualified Code(s): G47.00 - Insomnia, unspecified Plan: Sleep hygiene reinforced Continue Zolpidem 10 mg Q HS PRN (12) Smoker: Code(s): F17.200 - Nicotine dependence, unspecified, uncomplicated Category: Social Hx Plan: Patient is counseled again on smoking cessation (13) Overweight (BMI 25.0-29.9): Code(s): E66.3 - Overweight Category: Medical Plan: Reinforced diet/exercise as tolerated/lose weight Plan To return in March 2025 for his next annual physical examination Orders: Orders Influenza [id number] Immunization 08/08/24 Z23 - Encounter for immunization AMB Hemoglobin A1c 08/08/24 Z13.9 - Encounter for screening, unspecified Comprehensive [place]. Panel Fast 03/27/25 E78.00 - Pure hypercholesterolemia, unspecified, Z00.00 - Encounter for general adult medical examination without abnormal findings UA CC w/rflx Micro + Cult 03/27/25 R30.0 - Dysuria, Z00.00 - Encounter for general adult medical examination without abnormal findings Hemoglobin A1c 03/27/25 E11.9 - Type 2 diabetes mellitus without complications, Z00.00 - Encounter for general adult medical examination without abnormal findings Complete Blood Count Auto Diff 03/27/25 D64.9 - Anemia, unspecified, Z00.00 - Encounter for general adult medical examination without abnormal findings Lipid Panel 03/27/25 E78.00 - Pure hypercholesterolemia, unspecified, Z00.00 - Encounter for general adult medical examination without abnormal findings TSH reflex Free T4 03/27/25 E78.00 - Pure hypercholesterolemia, unspecified, Z00.00 - Encounter for general adult medical examination without abnormal findings Vitamin D 25-OH Total 03/27/25 E55.9 - Vitamin D deficiency, unspecified, Z00.00 - Encounter for general adult medical examination without abnormal findings Prostate Specific Antigen Scr 03/27/25 Z00.00 - Encounter for general adult medical examination without abnormal findings Medications: Refilled clotrimazole-betamethasone 1-0.05 % 1 appl topical BID 2 weeks PRN 45 grams 0RF rash ketoconazole 2% 1 appl topical 3XW PRN 120 mL 0RF dandruff zolpidem 10 mg PO BEDTIME PRN 30 tabs 0RF insomnia
== END 2024-08-08 15:14 | disposition home or self-care (01) ==
PROVIDERS: PCP Internal Medicine; Visit Provider Internal Medicine
DX: E78.2 Mixed hyperlipidemia (principal); R03.0 Elevated blood-pressure reading, without diagnosis of hypertension; R73.01 Impaired fasting glucose; H92.02 Otalgia, left ear; G89.29 Other chronic pain; M19.011 Primary osteoarthritis, right shoulder; M17.0 Bilateral primary osteoarthritis of knee; L60.3 Nail dystrophy; N13.30 Unspecified hydronephrosis; N52.9 Male erectile dysfunction, unspecified; N40.1 Benign prostatic hyperplasia with lower urinary tract symptoms; G47.00 Insomnia, unspecified; F17.200 Nicotine dependence, unspecified, uncomplicated; E66.3 Overweight

== ENCOUNTER → 2024-08-08 13:54 | Outpatient (BNVA) | payer OTHER, SELFPAY | PROVIDERS: PCP Internal Medicine; Visit Provider Internal Medicine | DX: Z23 Encounter for immunization (principal); E78.2 Mixed hyperlipidemia; R03.0 Elevated blood-pressure reading, without diagnosis of hypertension; R73.01 Impaired fasting glucose; H92.02 Otalgia, left ear; G89.29 Other chronic pain; M19.011 Primary osteoarthritis, right shoulder; M17.0 Bilateral primary osteoarthritis of knee; L60.3 Nail dystrophy; N13.30 Unspecified hydronephrosis; N52.9 Male erectile dysfunction, unspecified; N40.1 Benign prostatic hyperplasia with lower urinary tract symptoms; G47.00 Insomnia, unspecified; F17.200 Nicotine dependence, unspecified, uncomplicated; Z71.6 Tobacco abuse counseling | CPT/HCPCS: 83036; 90471; 90656; 96127; 99212 ==

== ENCOUNTER 2024-10-06 09:14 | Outpatient (REF) | payer OTHER, SELFPAY ==
--- NOTE | ~2024-10-06 | US_ITS ---
CLINICAL HISTORY: N20.0 - Calculus of kidney US Renal Comparison: None Findings: Right kidney normal size and echotexture, 13.3 cm length. Left kidney normal size and echotexture, 13.6 cm length. Subcentimeter cyst noted. Mild fullness of the renal collecting system bilaterally. Normal color Doppler. Bilateral ureteral jets are present within the bladder. IMPRESSION: There is very mild fullness of the bilateral renal collecting systems. No current renal calculi identified. This document has been electronically signed by: Doc Whitehead MD on 10/07/2024 13:00:19
== END 2024-10-06 09:15 | disposition home or self-care (01) ==
LOC: HO.US 09:14
PROVIDERS: PCP Internal Medicine; Visit Provider Nurse Practitioner Family
DX: N20.0 Calculus of kidney (principal)
CPT/HCPCS: 76775

== ENCOUNTER → 2024-10-06 09:18 | Outpatient (BNV) | payer OTHER, SELFPAY | PROVIDERS: PCP Internal Medicine; Visit Provider Radiology Vascular & Interventional Radiology | DX: N20.0 Calculus of kidney (principal) | CPT/HCPCS: 76775 ==

== ENCOUNTER 2024-10-27 13:20 | Outpatient (AMB) | payer OTHER, SELFPAY ==
--- NOTE | 2024-10-27 13:22 | A.OFFVIS_ITS ---
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 Accompanied by: Self / Same As Patient Allergies Sulfa (Sulfonamide Antibiotics) Allergy (Mild, Verified 10/27/24 13:43) RASH/SWELLING Medication List - Last Reconciled 10/27/24 by DRUAN Kate acetaminophen 650 mg (2 x 325 mg) PO QID PRN [CANE As directed] capsaicin 0.1% 1 appl topical TID PRN ciclopirox 8% 1 appl topical BEDTIME 4 weeks clotrimazole-betamethasone 1-0.05 % 1 appl topical BID PRN 2 weeks diclofenac sodium 1% 2 grams topical QID efinaconazole 10% 1 appl topical BEDTIME 48 weeks ibuprofen 400 mg (2 x 200 mg) PO Q8H 100 days ketoconazole 2% 1 appl topical 3XW PRN lidocaine 5% 1 patch topical DAILY multivitamin 1 tab PO DAILY sildenafil (Viagra) 100 mg PO .PRN PRN 90 days zolpidem 10 mg PO BEDTIME PRN HPI Comments Details: Oscar is a pleasant 63-year-old male patient of Dr. Tobar. He he has a past medical history of insomnia, dyslipidemia, osteoarthritis of bilateral knees, and nephrolithiasis. He presents to the office today for follow-up of his nephrolithiasis and lower urinary tract symptoms. In discussion with the patient today reports to be doing and feeling well. Recent renal imaging results reviewed with the patient today. There is very mild fullness of the bilateral renal collecting system. No current renal calculi identified. He discusses attempting to drink more water daily as he knows this is important regarding prevention of nephrolithiasis. He denies having had any bothersome urinary issues or concerns since his last office visit here. He discusses at length his longstanding history of nephrolithiasis since the age of 17. PSA 04/16 1.4. He reports be happy with his erections with p.r.n. Viagra. He otherwise denies any bothersome urinary issues or concerns. In office urinalysis results reviewed with the patient today pH 6.0. Discussed at length importance of drinking plenty of water daily in relation to history of nephrolithiasis as well as overall health and well-being. When asked he denies urinary urgency, urinary frequency, incontinence, nocturia, hematuria, dysuria, foul smelling urine, changes to urinary stream, flank pain, fever, and or chills. Patient reports a longstanding history of renal stones over the last 30-40 with previous history of ureteroscopy as well as ESWL. We discussed obtaining nuclear renal scan for further assessment evaluation of question mild fullness to bilateral renal collecting systems however patient reports this finding is not new for him and does not wish to undergo further workup at this time. He otherwise offers no other issues or concerns at this time. BUN: 12/13 14, 03/15 12, 04/15 15, 05/16 11, 08/16 11, 04/16 13 Creatinine: 12/13 0.95, 03/15 0.89, 04/15 1.04, 05/16 0.80, 08/16 0.79, 04/16 0.75 [facility] Medical History Primary osteoarthritis, right shoulder Overweight (BMI 25.0-29.9) Smoker Impaired fasting glucose Mixed hyperlipidemia Abdominal pain Insomnia Dyslipidemia Bilateral primary osteoarthritis of knee Laceration of left index finger 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 Avulsion of skin of left thumb Kidney stones Surgical History Hx of left knee surgery History of hand surgery Hx of lithotripsy Social History Housing: House Alcohol intake: never Patient Tobacco Use Status: Current everyday Tobacco user Tobacco use type: Cigarette Cigarette Packs Per Day: 0.5 Cigarettes Per Day: 12 Years Smoked: 45 e-Cigarette/Vaping Use: Never Used Second Hand Smoke Exposure: Yes service: No Current occupational status: unemployed 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 Cognitive needs: Yes (cane) Hearing needs: No Vision needs: Yes (glasses) Review of Systems Const Reports as per [facility] Eyes Reports no additional complaints ENT Reports no additional complaints Card Reports as per [facility] Resp Reports no additional complaints GI Reports no additional complaints Reports as per HPI Musc Reports as per [facility] Neuro Reports as per HPI Psych Reports no additional complaints Endo Reports no additional complaints Efe/Lymph Reports no additional complaints Aller/Immun Reports no additional complaints Physical Exam Const General: cooperative, healthy appearing, comfortable, no acute distress, well developed, alert and awake Nutritional Appearance: overweight Orientation/consciousness: patient oriented x3 Limitations: no limitations HEENT Head: Yes normal to inspection, Yes normocephalic and Yes atraumatic Ears: hearing grossly normal bilaterally Eyes General: appearance normal, both eyes and all related structures Neck Neck: Yes normal visual inspection and Yes trachea midline Chest Chest palpation & inspection: normal inspection of the chest Resp Effort & Inspection: normal respiratory effort and able to speak in complete sentences Cardio Rate: regular rate GI Inspection: Yes normal to inspection Rectal Exam - Male: Yes deferred General: Yes no CVA tenderness Back/Spine/Pelvis Back: no CVA tenderness Skin General skin exam: no rashes or lesions noted Neuro General: patient oriented x3 Extrem General: Yes normal to inspection Psych Appearance: grossly normal and well kempt Mental Status: mental status grossly normal Speech and movement: Normal speech and movement present and Clear speech present Affect: normal affect Attitude: cooperative Thought process: Normal thought process present Thought content: Normal thought content present Insight: Fair insight present (Psych) Judgement: Fair judgement present (Psych) Results AMB Urinalysis, Automated UA Leukoctes 0 Libia/uL Last Edit by [employer] Haritha on 10/27/24 13:42 UA Nitrite Last Edit by [employer] on 10/27/24 13:42 UA Urobilinogen 0.2 mg/dL Last Edit by [employer] on 10/27/24 13:42 UA Protein 0 mg/dL Last Edit by [employer] Haritha on 10/27/24 13:42 UA pH 6.0 Last Edit by [employer] Haritha on 10/27/24 13:42 UA Blood 0 Ricardo/uL Last Edit by [employer] Haritha on 10/27/24 13:42 UA Specific Noti 1.025 Last Edit by [employer] on 10/27/24 13:42 UA Ketone Last Edit by Lu Mg on 10/27/24 13:42 UA Bilirubin 0 mg/dL Last Edit by [employer] on 10/27/24 13:42 UA Glucose 0 mg/dL Last Edit by [employer] on 10/27/24 13:42 Results Reviewed Results Reviewed: Laboratory Last Values Urine pH (Auto) 6.0 10/27/24 13:35 Specific Noti (Auto) 1.025 10/27/24 13:35 Urine Protein (Auto) 0 mg/dL 10/27/24 13:35 Glucose (UA)(Auto) 0 mg/dL 10/27/24 13:35 Urine Blood (Auto) 0 Ricardo/uL 10/27/24 13:35 Urine Bilirubin (Auto) 0 mg/dL 10/27/24 13:35 Urine Urobilinogen (Auto) 0.2 mg/dL 10/27/24 13:35 Leukocyte Esterase (Auto) 0 Libia/uL 10/27/24 13:35 Date of Service: 10/06/24 US Renal Comparison: None Findings: Right kidney normal size and echotexture, 13.3 cm length. Left kidney normal size and echotexture, 13.6 cm length. Subcentimeter cyst noted. Mild fullness of the renal collecting system bilaterally. Normal color Doppler. Bilateral ureteral jets are present within the bladder. IMPRESSION: There is very mild fullness of the bilateral renal collecting systems. No current renal calculi identified. Assessment & Plan Assessment & Plan (1) Kidney stones: Code(s): N20.0 - Calculus of kidney Category: Medical (2) Erectile dysfunction: Code(s): N52.9 - Male erectile dysfunction, unspecified Category: Medical Qualifiers: Erectile dysfunction type: unspecified Qualified Code(s): N52.9 - Male erectile dysfunction, unspecified (3) Sensation of pressure in bladder area: Code(s): R39.89 - Other symptoms and signs involving the genitourinary system Category: Medical Plan In office urinalysis results reviewed with the patient today; as noted above; discussed, educated, and stressed the importance of adequate hydration relation to nephrolithiasis as well as overall health and well-being. Recent renal imaging results reviewed with the patient today; as noted above. Discussed at length lifestyle modifications to assist with ED Patient currently denies any bothersome urinary issues. He reports be happy with current voiding parameters. Will continue with surveillance monitoring of nephrolithiasis as well as PSA. Will obtain renal ultrasound in 6 months Will obtain BUN, creatinine, and PSA in 6 months Follow-up in 6 months with renal ultrasound and labs to be completed prior; or sooner with any issues, concerns, and or questions. Orders: Orders AMB Urinalysis Automated Today Z13.9 - Encounter for screening, unspecified Creatinine 6 Months N20.0 - Calculus of kidney Blood Urea Nitrogen 6 Months N20.0 - Calculus of kidney Prostate Specific Antigen 6 Months N52.9 - Male erectile dysfunction, unspecified US renal BI 6 Months N20.0 - Calculus of kidney Patient Instructions: The patient had an opportunity to ask questions regarding the treatment plan. All questions were answered. Physical exam, labs, and imaging were discussed and reviewed in detail. As well as risks, benefits, and discussion of treatment choices. No major barriers to understanding were identified. The patient expressed understanding and agreement with the above treatment plan. The patient was made aware they should contact our office by phone for worsening of their current condition, the appearance of new symptoms, or with any questions or concerns. Compliance is encouraged with any medications and follow up testing that is ordered. It is a privilege to be allowed the opportunity to participate in? your urological care.? Again, if you have any questions or concerns If you have any questions or concerns please do not hesitate to contact me. The office is [phone]. This note is constructed using voice recognition software. While every effort has been made to ensure accuracy stockroom associate errors may have been included. Yours sincerely, DURAN Kate Coding Level of Care Code Est Pt Level 3 (87302) Complex EM visit Add On G2211 Diagnoses Kidney stones N20.0 Erectile dysfunction, unspecified erectile dysfunction type N52.9 Erectile dysfunction type: unspecified Sensation of pressure in bladder area R39.89
--- OUTSIDE RECORDS SUMMARY | 2024-10-27 14:37 | XMS_ITS | Clinical Summary ---
Author Organization [facility] Address [address] [place] [address] Care Team Providers Care Security Guards Dispatcher Name Role Phone Ana Good PA-C Primary Care Provider Source Comments PLEASE NOTE, if this patient is a minor, it may be UNLAWFUL to discuss sensitive information that is contained in these records (such as FAMILY PLANNING, MENTAL HEALTH or SUBSTANCE ABUSE) with the minor patient's parent or other person without the patient's specific authorization.[facility] Allergies Active Allergy Reactions Criticality Noted Date Comments Sulfa (Sulfonamide Antibiotics) Rash,Itching High 05/14/2013 Pt states that get red spots in skin when taking this medication. Medications alum-mag hydroxide-simeth (MAALOX PLUS) 400-400-40 mg/5 mL suspensionIndicati ons:Flatulence, eructation, and gas pain Take 10 mL by mouth every 6 (six) hours as needed for indigestion 335 mL 1 04/10/20 19 Active acetaminophen (TYLENOL) 500 mg tabletIndications: Primary osteoarthritis of both knees,Chronic pain of both shoulders Take 2 Tabs by mouth every 6 (six) hours as needed for pain 90 Tab 5 02/20/20 20 Active camphor-menthoL (SARNA ORIGINAL) 0.5-0.5 % lotnIndications:It bryan Apply 10 mL topically every morning 222 mL 3 02/20/20 20 Active multivitamin tabletIndications: Chronic pain of both shoulders Take 1 Tab by mouth once daily 30 Tab 3 02/20/20 20 Active ibuprofen 600 mg tabletIndications: Right shoulder tendonitis,Primary osteoarthritis of both knees,Chronic pain of both shoulders Take 1 Tab by mouth 3 (three) times daily as needed for pain Take with food. 90 Tab 1 02/20/20 20 Active omeprazole (PRILOSEC) [address] capsuleIndications :Chronic pain of both shoulders,Primary osteoarthritis of both knees Take 1 Cap by mouth every morning before breakfast 30 Cap 1 02/20/20 20 Active diphenhydrAMINE HCL (BANOPHEN) 25 mg tabletIndications: Itching TAKE 1 TABLET BY MOUTH NIGHTLY AT BEDTIME FOR ITCHING 90 Tablet 2 04/17/20 23 Active cholecalciferol, vitamin D3, 50 mcg (2,000 unit) capsuleIndications :Vitamin D deficiency disease Take 2 Capsules by mouth once daily 180 Capsule 3 09/01/20 20 Active diclofenac sodium (VOLTAREN) 1 % gelIndications:Chr onic midline low back pain without sciatica Apply 2 gm qid to lumbar spine 100 g 5 12/22/19 21 Active atorvastatin (LIPITOR) 40 mg tabletIndications: Mixed dyslipidemia Take 1 Tablet by mouth nightly at bedtime 30 Tablet 3 04/12/20 21 Active zolpidem (AMBIEN) 10 mg tabletIndications: Insomnia, unspecified type take 1 tablet by mouth at bedtime if needed for sleep 30 Tablet 3 04/12/20 21 Active clotrimazole-betam ethasone (LOTRISONE) 1-0.05 % creamIndications:A topic dermatitis, unspecified type Apply topically 2 (two) times daily 30 g 2 04/12/20 21 Active aspirin 81 mg chewable tabletIndications: Mixed dyslipidemia Take 1 Tablet by mouth once daily 90 Tablet 3 04/12/20 21 Active sildenafiL (VIAGRA) 100 mg tabletIndications: Erectile dysfunction, unspecified erectile dysfunction type Take 0.5 Tablets by mouth once daily as needed for erectile dysfunction 30 Tablet 04/12/20 21 Active hydrocortisone 2.5 % creamIndications:P erianal pruritus Apply topically once daily Apply to perianal area 30 g 1 04/12/20 21 Active witch Sidney (TUCKS, WITCH SIDNEY,) 50 %Indications:Peria nal pruritus Tucks hemorrhoids pads 100 Each 11 04/12/20 21 Active tamsulosin (FLOMAX) 0.4 mg 24 hr capsuleIndications :Nephrolithiasis TAKE 1 CAPSULE BY MOUTH EVERYDAY AT BEDTIME 90 Capsule 1 04/17/20 23 Active Active Problems Problem Noted Date Diagnosed Date Nephrolithiasis 09/01/2020 Right shoulder tendonitis 03/14/2017 Overview (03/14/2017): Injection 03/05/17 via rheum Insomnia 12/18/2013 Type 2 diabetes mellitus without complication (H CC-CMS) 10/05/2012 Osteoarthritis of both knees 12/09/2009 Overview (04/10/2019): S/P ARTHROSCOPY LEFT 2009. Seen by Rheum Dr. Ruth Ann Pandey in [place] 12/04/16 s/p bilateral knee injection. 07/30/18 - Rheum F/U: L knee steroid injection given; Tylenol 500 mg BID PRN Mixed dyslipidemia 10/22/2008 Overview (03/30/2019): Component Latest Ref Rng & Units 03/08/2019 CHOLESTEROL TOTAL 0 - 200 mg/dL 218 (H) TRIGLYCERIDES 0 - 150 mg/dL 323 (H) HDL >40 mg/dL 31 (L) LDL 0 - 100 mg/dL 123 (H) CHOL/HDL RATIO 0 - 4.4 mg/dL 7.0 (H) The 10-year ASCVD risk score (Monica DC Jr., et al., 2013) is: 21.6% 03/30/19 - restarted on Atorvastatin 40 mg QHS Vitamin B12 deficiency 10/22/2008 Overview (05/14/2013): VIT B12 = 236. Vitamin D deficiency 10/22/2008 HTN (hypertension) - diet controlled Allergic rhinitis due to allergen Overview (05/14/2013): F/U DR. ZAPIEN. Tobacco abuse disorder Eczema Immunizations Name Administration Dates Next Due Hep B, Adult/Adol (ENERGIX/RECOMBIVAX) 8 INFLUENZA, SEASONAL, INJECTABLE 06/06/2012,06/30 MMR (MMR II/Priorix) 07/27/2008,06/04/2008 PPD 05/02/2010 Td(adult),2 Lf tetanus toxoid,preservative free 07/27/2008,06/04/2008 Varicella, Live Vaccine 06/04/2008 Social History Tobacco Use Types Packs/Day Years Used Date Smoking Tobacco: Every Day Cigarettes Smokeless Tobacco: Never Tobacco Cessation:Ready to Q uit: No; Counseling Given: Yes Comments:pt states that smokes 10 cigerettes a day. Alcohol Use Standard Drinks/Week Comments No 0 (1 standard drink = 0.6 oz pur e alcohol) Social Connections Answer Date Recorded Connectedness 0 06/11/2024 Financial Resource Strain Answer Date R ecorded Financial Resource Strain 0 2018 Stress Answer Date Recorded Stress 0 05/17/2019 Physical Activity Answer Date Recorded Physical Activity 0 05/17/2019 Food Insecurity Answer Date Recorded Food 0 06/19/2024 Transportation Needs Answer Date Record ed Transportation 0 05/17/2019 Housing Stability Answer Date Recorded Housing 0 05/17/2019 Safety and Environment Answer Date [place] rded Safety 0 05/17/2019 Utilities Answer Date Recorded Utilities 0 05/17/2019 Employment Answer Date Recorded Stress 0 06/11/2024 Sex and Gender Information Value Date Recorded Sex Assigned at Male 01/17/2018 5:50 AM PDT Legal Sex Male 11:36 AM PDT Gender Identity Male 01/17/2018 5:50 AM PDT Sexual Orientation Straight 01/17/2018 5: 50 AM PDT 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 Not on file Not on file Not on file Last Filed Vital Signs Vital Sign Reading Time Taken Comments Blood Pressure 134/76 04/12/2021 10:24 AM EDT Pulse 93 04/12/2021 10:24 AM EDT Temperature 36.9 ??C (98.4 ??F) 04/12/2021 10:24 AM E DT Respiratory Rate 16 04/12/2021 10:24 AM EDT Oxygen Saturation 97% 04/12/2021 10:24 AM EDT Inhaled Oxygen Concentration - - Weight 99.8 kg (220 lb) 04/12/2021 10:24 AM EDT Height 172.7 cm (5' 8 ) 04/12/2021 10:24 AM EDT Body Mass Index 33.45 04/12/2021 10:24 AM EDT Plan of Treatment Health Maintenance Due Date Last Done Comments Dental Examination 1962 Diabetes Foot Exam 1962 Tobacco Screening 1962 Retinopathy Screening 1975 Imm-Pneumococcal (1 of 2 - PCV) 1981 CT Colonography 2007 FIT/gFOBT 2007 Fecal DNA 2007 Flexible Sigmoidoscopy 2007 Imm-Hepatitis B (2 of 3 - 19 + 3-dose series) 07/02/2008 06/04/2008 Imm-DTaP/Tdap/Td (1 - Tdap) 07/28/2008 07/27/2008, 0 06/04/2008 Colonoscopy 01/14/2018 01/14/2013 Colorectal Cancer Screening 01/14/2018 Diabetes Microalbumin (w/Creatinine) 06/02/2021 06/02/2020, 06/02/2020, 04/22/2018 Diabetes HbA1c 07/23/2021 01/21/2021, 09/0 05/2020, 03/08/2019, Additional history exists Annual Preventive Care Visit 12/21/2021, 04/22/2018, 12/18/2013 Lipid Screening 01/21/2022 01/21/2021, 0 05/2020, 06/02/2020, Additional history exists Serum Creatinine 01/21/2022 01/21/2021, 05/2020, 06/02/2020, Additional history exists Tobacco Cessation Counseling (#1) 04/12/2022 [id number] ( season) 2024 021, 01/13/2021 Alcohol and Drug Screen 09/24/2024 04/12/20 21, 04/10/2019, 04/10/2019, Additional history exists Depression Annual Screen 09/24/2024 04/12/2021, 12/24 HIV Screening Completed 04/22/2018 Hepatitis C Screening Completed 04/22/2018 Imm-Influenza Discontinued 10/13/2020, 08/24, 07/12/2018, Additional history exists Imm-Zoster, Recombinant Completed 10/13/2020, 09/10 Procedures Procedure Name Priority Date/Time Associated Diagnosis Comments COMPREHENSIVE METABOLIC PANEL Routine 01/21/2021 2:49 PM EDT Routine general medical examination at a health care facility Left flank pain Type 2 diabetes mellitus without complication, without long-term current use of insulin ([facility]) Essential hypertension Vitamin B12 deficiency Tobacco abuse disorder LIPID PANEL Routine 01/21/2021 2:49 PM EDT Routine general medical examination at a health care facility Left flank pain Type 2 diabetes mellitus without complication, without long-term current use of insulin ([facility]) Essential hypertension Vitamin B12 deficiency Tobacco abuse disorder HEMOGLOBIN GLYCOSYLATED A1C Routine 01/21/2021 2:49 PM EDT Routine general medical examination at a [facility] facility Left flank pain Type 2 diabetes mellitus without complication, without long-term current use of insulin ([facility]) Essential hypertension Vitamin B12 deficiency Tobacco abuse disorder MICROALBUMIN/CREATININ E RATIO, URINE, RANDOM Routine 06/02/2020 10:04 AM EDT Chronic pain of both shoulders ANTIBODY HIV-1&HIV-2 SINGLE RESULT Routine 04/22/2018 10:44 AM EDT Routine general medical examination at a [facility] facility HEPATITIS A,B,C PANEL Routine 04/22/2018 10:44 AM EDT Routine general medical examination at a [facility] facility COLONOSCOPY Routine 01/14/2013 1:56 PM EDT from Last 3 Months or Most Recently Relevant to Health Maintenance Results * (ABNORMAL) HEMOGLOBIN, GLYCOSYLATED (A1C) (01/21/2021 2:49 PM EDT) HEMOGLOBIN A1C 6.0(H) <5.7 % of total Hgb [employer] [facility] Comment: For someone without known diabetes, a hemoglobin A1c value between 5.7% and 6.4% is consistent with prediabetes and should be confirmed with a follow-up test. For someone with known diabetes, a value <7% indicates that their diabetes is well controlled. A1c targets should be individualized based on duration of diabetes, age, comorbid conditions, and other considerations. This assay result is consistent with an increased risk of diabetes. Currently, no consensus exists regarding use of hemoglobin A1c for diagnosis of diabetes for children. Blood Blood / Unknown 01/21/2021 2 :49 PM EDT 01/21/2021 2:49 PM EDT us Ana Good PA-C LAB - BLOOD DRAW Final Resul t [employer] [facility] [address] [address], [employer] [facility] [address] [address] * (ABNORMAL) COMPRE METAB PANEL (01/21/2021 2:49 PM EDT) GLUCOSE 103(H) 65 - 99 mg/dL [employer] [facility] Comment: ?Fasting reference interval For someone without known diabetes, a glucose value between 100 and 125 mg/dL is consistent with prediabetes and should be confirmed with a follow-up test. UREA NITROGEN (BUN) 11 7 - 25 mg/dL [employer] [facility] CREATININE (blood) 0.87 0.70 - 1.33 mg/dL [employer] [facility] Comment: For patients >49 years of age, the reference limit for Creatinine is approximately 13% higher for people identified as -Macanese. GFR ESTIMATED 95 > OR = 60 mL/min/1 .73m2 [employer] [facility] EGFR 110 > OR = 60 mL/min/1 .73m2 [employer] [facility] BUN/CREATININE RATIO NOT APPLICABLE 6 - 22 [employer] [facility] SODIUM 139 135 - 146 mmol/L [employer] [facility] POTASSIUM 4.3 3.5 - 5.3 mmol/L [employer] [facility] CHLORIDE 105 98 - 110 mmol/L [employer] [facility] CARBON DIOXIDE 25 20 - 32 mmol/L [employer] [facility] CALCIUM 9.3 8.6 - 10.3 mg/dL [employer] [facility] PROTEIN, TOTAL 7.2 6.1 - 8.1 g/dL [employer] [facility] ALBUMIN 4.3 3.6 - 5.1 g/dL [employer] [facility] GLOBULIN 2.9 1.9 - 3.7 g/dL (calc) [employer] [facility] ALBUMIN/GLOBULIN RATIO 1.5 1.0 - 2.5 (calc) [employer] [facility] BILIRUBIN, TOTAL 0.6 0.2 - 1.2 mg/dL [employer] [facility] ALKALINE PHOSPHATASE 74 35 - 144 U/L [employer] [facility] AST 16 10 - 35 U/L [employer] [facility] ALT 16 9 - 46 U/L [facility] Blood Blood / Unknown 01/21/2021 2 :49 PM EDT 01/21/2021 2:49 PM EDT Ana Good PA-C LAB - BLOOD DRAW Final Resul t Performing Organization Address City/[facility]/ZIP Co de Phone Number [facility] [address] [address], [facility] [address] [address] * MICROALBUMIN/CREATININE RATIO, URINE, RANDOM (06/02/2020 10:04 AM EDT) CREATININE, RANDOM URINE 156 mg/dL [facility] 06/02/2020 10:0 4 AM EDT 06/02/2020 3:31 PM EDT Narrative [facility] - 06/02/2020 6:09 PM EDT [employer], [place] [address] Manager Functional [place] [id number] ORD# [id number] Ana Good PA-C LAB - NO BLOOD DRAW Final Re sult Performing Organization Address [facility] Co de Phone Number [address] [address], * (ABNORMAL) HEPATITIS A,B,C PANEL (04/22/2018 10:44 AM EDT) HEPATITIS B SURFACE ANTIBODY POSITIVE(A) NEGATIVE [facility] HEPATITIS B SURFACE ANTIGEN NEGATIVE NEGATIVE [facility] Comment: Over the counter supplements containing high doses of biotin may interfere with this assay. ??If interference is suspected, patients shoud be retested after refraining from biotin supplements for 72 hours. HEPATITIS B CORE ANTIBODY NEGATIVE NEGATIVE [facility] HEPATITIS C VIRUS DIAGNOSTIC NEGATIVE NEGATIVE [facility] HEPATITIS A ANTIBODY TOTAL POSITIVE(A) NEGATIVE [facility] Comment: Over the counter supplements containing high doses of biotin may interfere with this assay. ??If interference is suspected, patients shoud be retested after refraining from biotin supplements for 72 hours. Blood specimen (specimen) Blood / Unknown 04/22/2018 10:44 AM EDT 04/22/2018 1:02 PM EDT [facility] - 04/22/2018 2:27 PM EDT [employer] [address] [place] [address] [place] [id number] ORD# [id number] Yaneth Dueñas PA-C LAB - BLOOD DRAW Edited R [facility] - Final Performing Organization Address [facility]/ZIP Co de Phone Number [address] [address], [place] [phone] * HIV-1 & HIV-2 ANTIBODIES (04/22/2018 10:44 AM EDT) [facility] HIV 1 AND 2 ANTIBODY SCREEN NEGATIVE NEGATIVE [facility] Comment: This assay is a 4th generation assay allowing for earlier detection of HIV infection by detecting the presence of the HIV-1 p24 antigen as well as the traditional antibodies to HIV type 1 (including group O) and type 2. ??Use of a 4th generation assay is the current CDC recommendation for HIV screening. Blood specimen (specimen) Blood / Unknown 04/22/2018 10:44 AM EDT 04/22/2018 1:02 PM EDT [facility] - 04/22/2018 2:54 PM EDT [employer] [address] [place] [address] [place] [id number] ORD# [id number] Yaneth Dueñas PA-C LAB - BLOOD DRAW Edited R [employer] - Final Performing Organization Address [facility] Co de Phone Number [address] [address], [place] [phone] * COLONOSCOPY (01/14/2013 1:56 PM EDT) [facility] Lily Williamson MA - 01/14/2013 1:56 PM EDT Colonoscopy Impression: up to cecum, good preparation. ??Normal mucosa in the colon Repeat 5 years us Provider [facility] PROCEDURES Final Result from Last 3 Months or Most Recently Relevant to Health Maintenance Insurance [facility] Care Teams Security Guards Dispatcher Relationship Specialty Start Date End Date Ana Good PA-C [address] [place] [address] PCP - General Internal Medicine 04/18/23
== END 2024-10-27 13:55 | disposition home or self-care (01) ==
PROVIDERS: PCP Internal Medicine; Visit Provider Nurse Practitioner Family
DX: N20.0 Calculus of kidney (principal); N52.9 Male erectile dysfunction, unspecified; R39.89 Other symptoms and signs involving the genitourinary system; Z13.9 Encounter for screening, unspecified
CPT/HCPCS: 99213; G2211

== ENCOUNTER → 2024-10-27 13:20 | Outpatient (BNVA) | payer OTHER, SELFPAY | PROVIDERS: PCP Internal Medicine; Visit Provider Nurse Practitioner Family | DX: N20.0 Calculus of kidney (principal); N52.9 Male erectile dysfunction, unspecified; R39.89 Other symptoms and signs involving the genitourinary system | CPT/HCPCS: 81003; 99212 ==

== ENCOUNTER 2025-01-30 13:24 | Outpatient (AMB) | payer OTHER, SELFPAY ==
[2025-01-30 13:25] VITALS: BP 136/78; PULSE 76; RESP 18; TEMP 37.2; O2SAT 98; BMI 30.4
--- NOTE | 2025-01-30 13:25 | A.OFFPC_ITS ---
Vital Signs 01/30/25 13:25 Height 5 ft 11.5 in Weight 220 lb 12.8 oz BMI 30.4 BP 136/78 Blood Pressure Location Lt brachial Position Sitting Respiration 18 Pulse 76 Pulse Source Pulse Oximeter Temp 98.9 F Temp Source Oral Pulse Oximetry (%) 98 Oxygen Delivery Method Room Air Intake Visit Reasons: heart, breathing and legs problem Class A Regional Drivers Required: No Accompanied by: Self / Same As Patient Allergies Sulfa (Sulfonamide Antibiotics) Allergy (Mild, Verified 01/30/25 13:48) RASH/SWELLING Medication List - Last Reconciled 01/30/25 by ANGELITO Alonso acetaminophen 650 mg (2 x 325 mg) PO QID PRN [CANE As directed] capsaicin 0.1% 1 appl topical TID PRN ciclopirox 8% 1 appl topical BEDTIME 4 weeks clotrimazole-betamethasone 1-0.05 % 1 appl topical BID PRN 2 weeks diclofenac sodium 1% 2 grams topical QID efinaconazole 10% 1 appl topical BEDTIME 48 weeks ibuprofen 400 mg (2 x 200 mg) PO Q8H 100 days ketoconazole 2% 1 appl topical 3XW PRN lidocaine 5% 1 patch topical DAILY sildenafil (Viagra) 100 mg PO .PRN PRN 90 days zolpidem 10 mg PO BEDTIME PRN Tobacco use date assessed: 01/30/25 Dental Screening Dental Screen Date: 01/30/25 Did you have a dental visit in the last 12 months?: Yes Did you have a dental problem in the last 6 months where you did not have access to dental care?: No Was dental information given to patient?: Patient has dentist HPI heart, breathing and legs problem HPI Details The patient is a 64-year-old male presenting with dyspnea on exertion, characterized by difficulty breathing during activities such as ascending stairs or bending down. This condition, which has worsened over the past several months, is accompanied by fatigue but not by cough, sore throat, fever, or chills. He has a history of smoking 10 cigarettes daily and no known history of asthma. Patient denies any history of cardiopulmonary disease. Reports intermittent chest pain PFSH Medical History Primary osteoarthritis, right shoulder Overweight (BMI 25.0-29.9) Smoker Impaired fasting glucose Mixed hyperlipidemia Abdominal pain Insomnia Dyslipidemia Bilateral primary osteoarthritis of knee Laceration of left index finger 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 Avulsion of skin of left thumb Kidney stones Surgical History Hx of left knee surgery History of hand surgery Hx of lithotripsy Social History Housing: House Alcohol intake: never Patient Tobacco Use Status: Current everyday Tobacco user Tobacco use type: Cigarette Cigarette Packs Per Day: 0.5 Cigarettes Per Day: 10 Years Smoked: 45 e-Cigarette/Vaping Use: Never Used Second Hand Smoke Exposure: Yes service: No Current occupational status: unemployed 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 1. Little interest or pleasure in doing things: not at all 2. Feeling down, depressed, or hopeless: not at all 3. Trouble falling or staying asleep, or sleeping too much: not at all 4. Feeling tired or having little energy: more than half the days 5. Poor appetite or overeating: not at all 6. Feeling bad about yourself - or that you are a failure or have let yourself or your family down: not at all 7. Trouble concentrating on things, such as reading the newspaper or watching television: not at all 8. Moving or speaking so slowly that other people could have noticed. Or the opposite - being so fidgety or restless that you have been moving around a lot more than usual: not at all 9. Thoughts that you would be better off or of hurting yourself in some way: not at all Total score: 2 Depression Screening Interpretation: Negative Depression Screening Done: Yes 83541 - PHQ-9 Billing: Yes Source: Developed by Drs. Virgil Handley, Kim Acuna, Miguelito Connell and colleagues, with an educational edy from [employer]. Thrive Questionnaire Date Thrive assessed: 01/30/25 I am a: Patient What is your living situation today?: I have a steady place to live Within the past 12 months, did the food you bought not last and you didn't have the money to get more?: I choose not to answer this question Within the past 12 months, did you worry whether your food would run out before you got money to buy more?: I choose not to answer this question Do you have trouble paying for medicines?: I choose not to answer this question Do you have trouble getting transportation to medical appointments?: No Do you have trouble paying your heating and electricity bill?: I choose not to answer this question Do you have trouble taking care of your child, family member or friend?: I choose not to answer this question Do you have trouble with day-to-day activities such as bathing, preparing meals, shopping, managing finances, etc.?: I choose not to answer this question Are you currently unemployed and looking for a job?: I choose not to answer this question Are you interested in more education?: I choose not to answer this question Please select the resources that you would like help with: None Currently or been in a relationship where the following occur: I choose not to answer THRIVE Score: 0 AUDIT C Alcohol Use Questionnaire (AUDIT-C) 1. How often do you have a drink containing alcohol?: Never Total Score: 0 Score Reviewed/Action Taken: No SEAN-7 AMB Questionnaire SEAN-7 Date SEAN - 7 assessed: 01/30/25 Feeling nervous, anxious, or on edge: 0 = Not at all Not being able to stop or control worryin = Not at all Worrying too much about different things: 0 = Not at all Trouble relaxin = Not at all Being so restless that it is hard to sit still: 0 = Not at all Becoming easily annoyed or irritable: 0 = Not at all Feeling afraid as if something awful might happen: 0 = Not at all Total SEAN-7 score (0-4 normal; 5-9 mild; 10-14 moderate; 15-21 severe): 0 Source: Developed by Drs. Virgil Handley, Kim Acuna, Miguelito Connell and colleagues, with an educational edy from [employer] SEAN-7 Assessment Billing SEAN-7 Assessment Tool: SEAN-7 Assessment 33039 Review of Systems Const Reports fatigue, Denies headache(s) and Reports lethargy Eyes Denies loss of vision ENT Denies vertigo, Denies dizziness, Denies headache(s) and Denies sore throat Card Reports chest pain (Intermittent- infrequent), Denies leg edema and Denies lightheadedness Resp Denies cough, Denies hemoptysis and Denies wheezing GI Denies abdominal pain, Denies melena, Denies constipation, Denies diarrhea and Denies vomiting Neuro Denies Abnormal speech present, Denies vertigo, Denies dizziness, Denies headache(s) and Denies loss of vision Endo Reports fatigue Aller/Immun Denies wheezing Physical exam (Primary Care) Vital Signs: Last Vital Signs Temp 98.9 F 01/30/25 13:25 Pulse 76 01/30/25 13:25 Resp 18 01/30/25 13:25 BP 136/78 01/30/25 13:25 Pulse Ox 98 01/30/25 13:25 Oxygen Delivery Method Room Air 01/30/25 13:25 BMI result Body Mass Index 30.4 Tobacco/Smoking Status: Tobacco use Status Tobacco use date assessed 01/30/25 01/30/25 13:36 Patient Tobacco Use Status Current everyday Tobacco 01/30/25 13:36 Tobacco use type Cigarette 01/30/25 13:36 e-Cigarette/Vaping Use Never Used 01/30/25 13:36 PHQ-9: PHQ-9 Score PHQ-9: Total score 2 01/30/25 13:52 Depression Screening Interpretation: Negative Thrive Assessment: Date of Thrive Assessment Date Thrive assessed 01/30/25 01/30/25 13:36 Currently or been in a relationship where the following occur: I choose not to answer Const General: healthy appearing, no acute distress, alert and awake Nutritional Appearance: well nourished Orientation/consciousness: oriented to person, oriented to place and oriented to time [facility] Ears: TM's normal bilaterally General nose exam: Normal nasal mucous membranes and turbinates present Eyes Conjunctivae: conjunctivae normal Sclerae: sclerae normal Pupils: Equal, round and reactive pupils present Neck Neck: Yes no lymphadenopathy and Yes no JVD Thyroid: Thyroid normal Carotids: no bruits Resp Effort & Inspection: normal respiratory effort and not tachypneic Auscultation: no crackles, no rales, no rhonchi and no wheezes Cardio Rate: regular rate Rhythm: regular rhythm Heart sounds: no murmurs and normal S1 and S2 GI Palpation (GI): Soft to palpation, nontender, no hepatomegaly and no splenomegaly Auscultation: normal bowel sounds Neuro General: oriented to person, oriented to place and oriented to time Cranial nerves: Yes Equal, round and reactive pupils present Speech: No Abnormal speech present Gait exam (Neuro): Normal gait present Motor exam (neuro): no tremor noted Coding Level of Care Code Est Pt Level 3 (02907) Diagnoses SOB (shortness of breath) R06.02 Lack of energy R53.83 Intermittent chest pain R07.9 Additional Codes SEAN-7 Assessment Billing - SEAN-7 Assessment Tool: SEAN-7 Assessment 96524 ([id number]) PHQ-9 - 86773 - PHQ-9 Billing: Yes ([id number]) Time Spent (min) 31 Assessment & Plan Assessment & Plan (1) SOB (shortness of breath): Code(s): R06.02 - Shortness of breath Category: Medical (2) Lack of energy: Code(s): R53.83 - Other fatigue Category: Medical (3) Intermittent chest pain: Code(s): R07.9 - Chest pain, unspecified Category: Medical Plan A chest x-ray is scheduled to investigate respiratory issues causing dyspnea. Blood work is advised to rule out anemia as a cause of fatigue. Smoking cessation is emphasized to enhance respiratory well-being, and an evaluation of testosterone levels is suggested due to fatigue concerns. EKG ordered to rule out cardiac involvement. BNP, CMP, TSH, etc,. ordered to further evaluate. Patient was informed and verbally consented to the use of an ambient scribe for clinic note documentation during this visit. Orders: Orders TSH reflex Free T4 01/30/25 R06.02 - Shortness of breath, R07.9 - Chest pain, unspecified, R53.83 - Other fatigue Glucose Fasting 01/30/25 R06.02 - Shortness of breath, R07.9 - Chest pain, unspecified, R53.83 - Other fatigue Testosterone, Free/Total 01/30/25 R06.02 - Shortness of breath, R07.9 - Chest pain, unspecified, R53.83 - Other fatigue XR chest 2V 01/30/25 R06.02 - Shortness of breath, R07.9 - Chest pain, unspecified ECG 12 lead EKG 01/30/25 R06.02 - Shortness of breath, R07.9 - Chest pain, unspecified Complete Blood Count Auto Diff 01/30/25 R06.02 - Shortness of breath, R07.9 - Chest pain, unspecified, R53.83 - Other fatigue Comprehensive [place]. Panel Fast 01/30/25 R06.02 - Shortness of breath, R07.9 - Chest pain, unspecified, R53.83 - Other fatigue Lipid Panel 01/30/25 R06.02 - Shortness of breath, R07.9 - Chest pain, unspecified, R53.83 - Other fatigue UA CC w/rflx Micro + Cult 01/30/25 R06.02 - Shortness of breath, R07.9 - Chest pain, unspecified, R53.83 - Other fatigue Vitamin D 25-OH Total 01/30/25 R06.02 - Shortness of breath, R07.9 - Chest pain, unspecified, R53.83 - Other fatigue B Type Natriuretic Peptide 01/30/25 R06.02 - Shortness of breath, R07.9 - Chest pain, unspecified, R53.83 - Other fatigue
--- OUTSIDE RECORDS SUMMARY | 2025-01-30 13:28 | XMS_ITS | Clinical Summary ---
Author Organization [facility] Address [address] [place] [address] Care Team Providers Care Swahili Teacher Name Role Phone Ana Good PA-C Primary Care Provider [phone] Source Comments PLEASE NOTE, if this patient [...] by Rheum Dr. Ruth Ann Pandey in [place] 12/04/16 s/p bilateral knee injection. 07/30/18 - [...] 7.0 (H) The 10-year ASCVD risk score ([place] Jr., et al., 2013) is: 21.6% 03/30/19 - restarted on Atorvastatin 40 mg QHS Vitamin B12 deficiency 10/22/2008 Overview (05/14/2013): VIT B12 = 236. Vitamin D deficiency 10/22/2008 HTN (hypertension) - diet controlled Allergic rhinitis due to allergen Overview (05/14/2013): F/U DR. ZAPIEN. Tobacco abuse disorder Eczema Immunizations Immunization Administration Dates Next Due Hep B, Adult/Adol (ENERGIX/RECOMBIVAX) 8 INFLUENZA, SEASONAL, INJECTABLE 06/06/2012,06/30 MMR (MMR II/Priorix) 07/27/2008,06/04/2008 PPD 05/02/2010 Td(adult),2 Lf tetanus toxoid,preservative free 07/27/2008,06/04/2008 Varicella (Varivax), Live Vaccine 06/04/2008 Social History Tobacco Use [...] Job Start Date Job End Date Former [employer] Not on file Not on file Not [...] Health Maintenance Due Date Last Done Comments Anxiety Screening 1962 Dental Examination 1962 Diabetes Foot Exam 1962 Tobacco Screening 1962 Retinopathy Screening 1975 Imm-Pneumococcal (1 of 2 - PCV) 1981 CT Colonography 2007 FIT/gFOBT 2007 Fecal DNA 2007 Flexible Sigmoidoscopy 2007 Imm-Hepatitis B (2 of 3 - 19 + 3-dose series) 07/02/2008 06/04/2008 Imm-DTaP/Tdap/Td (1 - Tdap) 07/28/2008 07/27/2008, 0 06/04/2008 Colonoscopy 01/14/2018 01/14/2013 Colorectal Cancer Screening 01/14/2018 Urine Albumin Creatinine Rat io Screening 06/02/2021 06/02/2020, 06/02/2020, 04/22/2018 Diabetes HbA1c 07/23/2021 01/21/2021, 09/0 05/2020, 03/08/2019, Additional history exists Annual Preventive Care Visit 12/21/2021, 04/22/2018, 12/18/2013 Lipid Screening 01/21/2022 01/21/2021, 09/0 05/2020, 06/02/2020, Additional history exists Serum Creatinine 01/21/2022 01/21/2021, 05/2020, 06/02/2020, Additional history exists Tobacco Cessation Counseling (#1) 04/12/2022 [id number] ( season) 2024 021, 01/13/2021 Alcohol and [...] complication, without long-term current use of insulin ([facility]) Essential hypertension Vitamin B12 deficiency Tobacco abuse disorder LIPID PANEL Routine 01/21/2021 2:49 PM EDT Routine general medical examination at a [facility] Left flank pain Type 2 diabetes mellitus without complication, without long-term current use of insulin ([facility]) Essential hypertension Vitamin B12 deficiency Tobacco abuse disorder HEMOGLOBIN GLYCOSYLATED A1C Routine 01/21/2021 2:49 PM EDT Routine general medical examination at a [facility] Left flank pain Type 2 diabetes mellitus without complication, without long-term current use of insulin ([facility]) Essential hypertension Vitamin B12 deficiency Tobacco abuse disorder MICROALBUMIN/CREATININ E RATIO, URINE, RANDOM Routine 06/02/2020 10:04 AM EDT Chronic pain of both shoulders ANTIBODY HIV-1&HIV-2 SINGLE RESULT Routine 04/22/2018 10:44 AM EDT Routine general medical examination at a [facility] facility HEPATITIS A,B,C PANEL Routine 04/22/2018 10:44 AM EDT Routine general medical examination at a [facility] facility COLONOSCOPY Routine 01/14/2013 1:56 PM EDT from Last 3 Months or Most Recently Relevant to Health Maintenance Results * (ABNORMAL) HEMOGLOBIN, GLYCOSYLATED (A1C) (01/21/2021 2:49 PM EDT) Pathologist [facility] HEMOGLOBIN A1C 6.0(H) <5.7 % of total Hgb [employer] [facility] Comment: For someone without known diabetes, a [...] LAB - BLOOD DRAW Final Resul t [employer] [facility] [address] [address], [employer] [facility] [address] [address] * (ABNORMAL) COMPRE METAB PANEL (01/21/2021 2:49 PM EDT) [facility] GLUCOSE 103(H) 65 - 99 mg/dL [employer] [facility] Comment: ?Fasting reference interval For someone without known diabetes, a glucose value between 100 and 125 mg/dL is consistent with prediabetes and should be confirmed with a follow-up test. UREA NITROGEN (BUN) 11 7 - 25 mg/dL [employer] [facility] CREATININE (blood) 0.87 0.70 - 1.33 mg/dL [employer] [facility] Comment: For patients >49 years of age, the reference limit for Creatinine is approximately 13% higher for people identified as -Fijian. GFR ESTIMATED 95 > OR = 60 mL/min/1 .73m2 [employer] [facility] EGFR 110 > OR = 60 mL/min/1 .73m2 [employer] [facility] BUN/CREATININE RATIO NOT APPLICABLE 6 - 22 [employer] [facility] SODIUM 139 135 - 146 mmol/L [employer] [facility] POTASSIUM 4.3 3.5 - 5.3 mmol/L [employer] [facility] CHLORIDE 105 98 - 110 mmol/L [employer] [facility] CARBON DIOXIDE 25 20 - 32 mmol/L [employer] [facility] CALCIUM 9.3 8.6 - 10.3 mg/dL [employer] [facility] PROTEIN, TOTAL 7.2 6.1 - 8.1 g/dL [employer] [facility] ALBUMIN 4.3 3.6 - 5.1 g/dL [employer] [facility] GLOBULIN 2.9 1.9 - 3.7 g/dL (calc) [employer] [facility] ALBUMIN/GLOBULIN RATIO 1.5 1.0 - 2.5 (calc) [employer] [facility] BILIRUBIN, TOTAL 0.6 0.2 - 1.2 mg/dL [employer] [facility] ALKALINE PHOSPHATASE 74 35 - 144 U/L [employer] [facility] AST 16 10 - 35 U/L [facility] ALT 16 9 - 46 U/L [facility] Blood Blood / Unknown 01/21/2021 2 :49 PM EDT 01/21/2021 2:49 PM EDT Ana Good PA-C LAB - BLOOD DRAW Final Resul t Performing Organization Address City/[facility]/ZIP Co de Phone Number [facility] [address] [address], [facility] [address] [address] * MICROALBUMIN/CREATININE RATIO, URINE, RANDOM (06/02/2020 10:04 AM EDT) CREATININE, RANDOM URINE 156 mg/dL [employer] [facility] 06/02/2020 10:0 4 AM EDT 06/02/2020 3:31 PM EDT Narrative [facility] - 06/02/2020 6:09 PM EDT [employer], a member of [address] [address] [employer] [place] [id number] ORD# [id number] Ana Good PA-C LAB - NO BLOOD DRAW Final Re sult Performing Organization Address City/[facility]/ZIP Co de Phone Number [address] [address], * (ABNORMAL) HEPATITIS A,B,C PANEL (04/22/2018 10:44 AM EDT) HEPATITIS B SURFACE ANTIBODY POSITIVE(A) NEGATIVE [facility] HEPATITIS B SURFACE ANTIGEN NEGATIVE NEGATIVE [facility] Comment: Over the counter supplements containing high doses of biotin may interfere with this assay. ??If interference is suspected, patients shoud be retested after refraining from biotin supplements for 72 hours. HEPATITIS B CORE ANTIBODY NEGATIVE NEGATIVE [facility] HEPATITIS C VIRUS DIAGNOSTIC NEGATIVE NEGATIVE [facility] HEPATITIS A ANTIBODY TOTAL POSITIVE(A) NEGATIVE [facility] Comment: Over the counter supplements containing high doses of biotin may interfere with this assay. ??If interference is suspected, patients shoud be retested after refraining from biotin supplements for 72 hours. Blood specimen (specimen) Blood / Unknown 04/22/2018 10:44 AM EDT 04/22/2018 1:02 PM EDT [facility] - 04/22/2018 2:27 PM EDT [employer] [address] [place] [address] [place] [id number] ORD# [id number] Yaneth Dueñas PA-C LAB - BLOOD DRAW Edited R [employer] - Final Performing Organization Address City/[facility]/ZIP Co de Phone Number [address] [address], [place] [phone] * HIV-1 & HIV-2 ANTIBODIES (04/22/2018 10:44 AM EDT) [facility] HIV 1 AND 2 ANTIBODY SCREEN NEGATIVE NEGATIVE [facility] Comment: This assay is a 4th generation [...] 10:44 AM EDT 04/22/2018 1:02 PM EDT [facility] - 04/22/2018 2:54 PM EDT [employer] [address] [place] [address] [place] [id number] ORD# [id number] Yaneth Dueñas PA-C LAB - BLOOD DRAW Edited R [employer] - Final Performing Organization Address City/[facility]/ZIP Co de Phone Number [address] [address], [place] [phone] * COLONOSCOPY (01/14/2013 1:56 PM EDT) Impressions Lily Williamson MA - 01/14/2013 1:56 PM EDT Colonoscopy Impression: up to cecum, good preparation. ??Normal mucosa in the colon Repeat 5 years us Provider [facility] PROCEDURES Final Result from Last 3 Months or Most Recently Relevant to Health Maintenance Insurance [facility] Care Teams Swahili Teacher Relationship Specialty Start Date End Date Ana Good PA-C [address] [place] [id number] PCP - General Internal Medicine 04/18/23
--- OUTSIDE RECORDS SUMMARY | 2025-01-30 13:28 | XMS_ITS | Data Portability ---
Author Organization [place] - [facility], Allergy Address [address] [place] [phone] Care Team Providers Care Senior Sql Developer Name Role Phone ROSCOE MORA Primary Care Provider Assessment Encounter Date Assessment Date Assessment LastModified by Organization Details LastModified Time 12/22/2024 12/22/2024 Patient with asymmetry of palatine tonsils today. He states this comes and goes, and can affect either side. Today the right tonsil is slightly larger than left. Soft and nontender to palpation. No had/neck or B-type symptoms present. Laryngoscopy benign and reassurance provided therein. Recommend 6 month recheck, and we reviewed indications to call the office in the interim. Patient with itching in the ear canal. Today we spent some time talking about the fact that cerumen is a natural antibiotic, antifungal, vehicle trimmer, and moisturizer of the delicate external auditory canal skin. The use of Q-tips strips away this natural protection and makes the ear canal skin more likely to become itchy, irritated or become infected. There is also the risk of trauma to the tympanic membranes as well. We discussed proper aural hygiene techniques to maintain the health of the external ears. As he reports DermOtic oil used to work well in the past, recommend a trial of this. We reviewed the need to use this no more than 14 days consecutively. For his perception that he has a sinus infection, we reviewed there is no indication of that on his exam or on his scope today. Recommend he switch from tap water to distilled water for his sinus irrigations. Luke Med squeeze bottle manager of customer billing provided and instructions reviewed. [email or web address] Not available 12/22/2024 10:45:38 Plan of Treatment Reminders Order Date Submit Date Provider Last Modified By Organization Details Last Modified Time Details Appointments Establish ed 30 2024 02:00P M DAMARI ESTEVEZ MD Not available Not available Not available Lab None recorded. Referral None recorded. Procedures None recorded. Surgeries None recorded. Imaging None recorded. Medication Orders DermOtic Oil 0.01 % ear drops 2024 025 [facility]/Pharmacy #[id number], [address], [place], [address], 12/22/2024 10:34:39 Patient TargetsNo targets recorded. Patient InstructionsNo instructions recorded. Reason for Referral None Reported. Problems Name Problem SNOMED Code Status Onset Date Resolution Date Notes Provider Name and Address Organization Details Recorded Time Hypertrophy of tonsils 09381553 Active 2024 KYLER CORBIN-C [address] [facility],[address], [place], [address], [facility] - [facility] 10:31:25 Itching of ear 735299734 Active 2024 REBECA TAYLOR PA-C [address] [facility],[address], [place], [address], [facility] - [facility] 10:33:15 Itching of skin 828919029 Active 2024 REBECA TAYLOR PA-C [address] [facility], [place], [address], [facility] - [facility] 10:33:27 Problem Notes None recorded. Procedures Surgical History Date Name Laterality Status Provider Name and Address Organization Details Recorded Time 12/23/19 25 Fiberoptic Laryngoscopy (Comprehensive) completed REBECA TAYLOR [facility] [address] [facility],[place] [address], [place], [address], [facility] - [facility] 12/22/2024 10:46:17 Imaging Results None recorded. Procedure Notes None recorded. Medical Equipment None Reported. Allergies Allergen ID Allergen Name Allergen Category Reaction Reaction Severity Criticality Documentation Date Start Date Code Code System Note Provider Name and Address Organization Details Recorded Time 697486 Substance with sulfonami de structure and antibacte rial mechanism of action (substanc e) medicatio n rash Not available low 12/22/2024 69661 8003 SNOMED Margarita wilkins [place] - [facility] 10:09:41 Medications Name Sig Start Date Stop Date Status Note LastModified by Organization Details LastModified Time acetaminophen 325 mg tablet TAKE 2 TABLETS BY MOUTH 4 TIMES A DAY NEEDED FOR PAIN OR FEVER active Not Available Not Available No t Available ketoconazole 2 % shampoo APPLY TOPICALLY 3 TIMES A WEEK NEEDED FOR DANDRUFF active Not Available Not Available No t Available ciclopirox 8 % topical solution APPLY TOPICALLY AT BEDTIME FOR 4 WEEKS active Not Available Not Available No t Available terbinafine HCl 250 mg tablet TAKE 1 TABLET BY MOUTH ONCE WEEKLY FOR 6 MONTHS active Not Available Not Available No t Available clotrimazole- betamethasone 1 %-0.05 % topical cream APPLY TO AFFECTED AREA TWICE A DAY NEEDED FOR RASH FOR 2 WEEKS active Not Available Not Available No t Available lidocaine 5 % topical patch 1 PATCH TOPICALLY DAILY LEAVE ON MOST PAINFUL AREA FOR UP TO 12 HOURS active Not Available Not Available No t Available clobetasol 0.05 % topical ointment APPLY TO THE HANDS AND FEET TWICE DAILY FOR TWO WEEKS, BREAK FOR ONE WEEK, REPEAT NEEDED. active Not Available Not Available No t Available zolpidem 10 mg tablet TAKE 1 TABLET BY MOUTH AT BEDTIME NEEDED FOR INSOMNIA active Not Available Not Available No t Available DermOtic Oil 0.01 % ear drops INSTILL 2-3 DROPS INTO THE EARS TWICE DAILY FOR 2 WEEKS THEN NEEDED FOR ITCHING active Not Available Not Available No t Available Vitals Date Recorded Body height Body mass index (BMI) Body weight Provider Name and Address Organization Details Last Updated DateTime 12/22/2024 182.88 cm 28.8 kg/m2 20648.58 g Margarita Guevara [place] - [facility] 12/22/2024 10:09:21 Social History None recorded. Functional Status None recorded. Mental Status None recorded. Family History Nothing Reported. Medical History Condition Response Allergies/Hayfever N Heart Problems N Anxiety N Tonsil Infections N Emphysema N Migraines N Thyroid Problems N Depression N COPD N Developmental Delay N Glaucoma N Nasal or Sinus Problems N Anemia N Immune System Disorder N Anesthesia Complications N Heart Attack ([place]) N Other Skin Condition N Diabetes N Rhinitis N Bleeding Disorder N Food Allergy N Hearing Loss N Arthritis Y Hyperlipidemia N Cancer N Stroke N Dementia N Nasal polyps N Asthma N Sleep Disorder N High Cholesterol N GERD/Reflux N Liver Disease N Headaches N Fibromyalgia N Hypertension N Speech Delay N Kidney Disease Y Past Encounters Encounter ID Performer Location Encounter Start Date Encounter Closed Date Diagnosis/Indication Diagnosis SNOMED-CT Code Diagnosis ICD10 Code Diagnosis Note [id number] REBECA TAYLOR PA-C [facility] [address] [address] 12/22/2024 10:02:43 12/22/2024 10:35:36 Hypertrophy of tonsils 68569710 J35.1 Itching of skin 91708399 0 L29.9 Health Concerns Section Related Observation LastModified by Organization Detai ls LastModified Time None Recorded Concern Status LastModified by Organization Details LastModified Time None Recorded Advance Directives Directive None Recorded Payers Insurance Date Sequence Insurance Name Policy Number Policy Marsh Covered Member ID Marsh Member ID Guarantor Name 12/25/2024 1 [employer] (MEDICARE REPLACEMENT/ ADVANTAGE - HMO) JOSE ALFREDOCALVIN [place] [id number] Oscar [place] 12/22/2024 1 [employer] (MEDICARE REPLACEMENT/ ADVANTAGE - HMO) JOSE ALFREDOCALVIN [place] [id number] Oscar [place] Notes Date Note Type Note Provider Name and Address Organization Details Recorded Time 12/22/2024 text/html 64 year old male presents for evaluation of ears, nose, and throat. Reports his tonsils get swollen when he swallows cold water, or when he is exposed to cold air in the winter. Discomfort spreads up to the ears. Can affect either side. Resolves spontaneously. Ears and throat do not hurt today. Ears often itch. He used to get a drop for that here. He uses Q-tips. He reports he has a sinus infection today. Nasal drainage is clear and white. There is no facial pressure in sinus distribution. Has had a foul odor in his nose, constantly present for over one year. He was last diagnosed with sinusitis 2-3 years ago. He has never had surgery on the nose, sinuses, nor face. He denies dysphagia, hoarseness, sore throat, hemoptysis, fevers, chills, night sweats. Lost 6-7 pounds in the past month due to fasting for Ramadan. He quit smoking tobacco years ago. He has never been a heavy drinker. REBECA TAYLOR PA-C [address] [place] [address], [place], [address], [facility] - [facility] 12/22/2024 10:46:51
== END 2025-01-30 15:11 | disposition home or self-care (01) ==
LOC: HO.HMCH 13:25
PROVIDERS: PCP Internal Medicine
DX: R06.02 Shortness of breath (principal); R53.83 Other fatigue; R07.9 Chest pain, unspecified

== ENCOUNTER → 2025-01-30 13:24 | Outpatient (BNVA) | payer OTHER, SELFPAY | PROVIDERS: PCP Internal Medicine | DX: R06.02 Shortness of breath (principal); R53.83 Other fatigue; R07.9 Chest pain, unspecified; F17.210 Nicotine dependence, cigarettes, uncomplicated | CPT/HCPCS: 96127; 99212 ==

== ENCOUNTER 2025-02-03 08:32 | Outpatient (REF) | payer OTHER, SELFPAY ==
--- OUTSIDE RECORDS SUMMARY | 2025-02-03 08:48 | XMS_ITS | Data Portability ---
Author Organization [place] - [facility], Allergy Address [address] [place] [address] Care Team Providers Care Java Application Engineer Name Role Phone ROSCOE MORA Primary Care [...] that cerumen is a natural antibiotic, antifungal, glass processing worker, and moisturizer of the delicate external auditory [...] his sinus irrigations. Luke Med squeeze bottle natural history collections curator provided and instructions reviewed. [email or web address] Not available [...] Oil 0.01 % ear drops 2024 025 [facility]/Pharmacy #[id number], [address] [facility], [place], [address], 12/22/2024 10:34:39 Patient TargetsNo targets recorded. Patient InstructionsNo instructions recorded. Reason for Referral None Reported. Problems Name Problem SNOMED Code Status Onset Date Resolution Date Notes Provider Name and Address Organization Details Recorded Time Hypertrophy of tonsils 41345896 Active 2024 KYLER CORBIN-C 100 [facility],[address], [place], [address], [facility] - [facility] 10:31:25 Itching of ear 155973925 Active 2024 REBECA TAYLOR PA-C 100 [facility],[address], [place], [address], [facility] - [facility] 10:33:15 Itching of skin 071439997 Active 2024 REBECA TAYLOR PA-C [address] [facility] [place], [place], [address], [facility] - [facility] 10:33:27 Problem Notes None recorded. Procedures Surgical History Date Name Laterality Status Provider Name and Address Organization Details Recorded Time 12/23/19 25 Fiberoptic Laryngoscopy (Comprehensive) completed REBECA TAYLOR [facility] [address] [facility],[place] [place] [address], [place], [address], [facility] - [facility] 12/22/2024 10:46:17 Imaging Results None recorded. Procedure Notes None recorded. Medical Equipment None Reported. Allergies Allergen ID Allergen Name Allergen Category Reaction Reaction Severity Criticality Documentation Date Start Date Code Code System Note Provider Name and Address Organization Details Recorded Time 851939 Substance with sulfonami de structure and antibacte rial mechanism of action (substanc e) medicatio n rash Not available low 12/22/2024 01691 8003 SNOMED Margarita wilkins [place] - [facility] 10:09:41 Medications Name Sig Start Date [...] Updated DateTime 12/22/2024 182.88 cm 28.8 kg/m2 64630.58 g Margarita Guevara [place] - [facility] 12/22/2024 10:09:21 Social History None recorded. Functional Status None recorded. Mental Status None recorded. Family History Nothing Reported. Medical History Condition Response Allergies/Hayfever N Heart Problems N Anxiety N Tonsil Infections N Emphysema N Migraines N Thyroid Problems N Glaucoma N Depression N COPD N Developmental Delay N Nasal or Sinus Problems N Anemia N Immune System Disorder N Anesthesia Complications N Heart Attack ([place]) N Other Skin Condition N Diabetes N Rhinitis N Bleeding Disorder N Food Allergy N Arthritis Y Hearing Loss N Hyperlipidemia N Cancer N Stroke N Dementia N Nasal polyps N Asthma N Sleep Disorder N GERD/Reflux N High Cholesterol N Liver Disease N Headaches N Fibromyalgia N Hypertension N Speech Delay N Kidney Disease Y Past Encounters Encounter ID Performer Location Encounter Start Date Encounter Closed Date Diagnosis/Indication Diagnosis SNOMED-CT Code Diagnosis ICD10 Code Diagnosis Note [id number] REBECA TAYLOR PA-C [facility] [address] [address] 12/22/2024 10:02:43 12/22/2024 10:35:36 Hypertrophy of tonsils 33548720 J35.1 Itching of skin 65955096 0 L29.9 Health Concerns Section Related Observation LastModified by Organization Detai ls LastModified Time None Recorded Concern Status LastModified by Organization Details LastModified Time None Recorded Advance Directives Directive None Recorded Payers Insurance Date Sequence Insurance Name Policy Number Policy Marsh Covered Member ID Marsh Member ID Guarantor Name 12/25/2024 1 [employer] (MEDICARE REPLACEMENT/ ADVANTAGE - HMO) JOSE ALFREDOSAN DIEGO [place] [id number] Oscar [place] 12/22/2024 1 [employer] (MEDICARE REPLACEMENT/ ADVANTAGE - HMO) JOSE ALFREDOSAN DIEGO Oscar [place] [id number] Oscar [place] Notes Date Note Type Note [...] been a heavy drinker. REBECA TAYLOR PA-C [address] [place] [address], [place], [address], [facility] - [facility] 12/22/2024 10:46:51
--- OUTSIDE RECORDS SUMMARY | 2025-02-03 08:48 | XMS_ITS | Clinical Summary ---
Author Organization [facility] Address [address] [place] [address] Care Team Providers Care Student Finance Specialist Name Role Phone Ana Good PA-C Primary Care Provider [phone] Source Comments PLEASE NOTE, if this patient [...] by Rheum Dr. Ruth [place] 12/04/16 s/p bilateral knee injection. 07/30/18 - [...] 7.0 (H) The 10-year ASCVD risk score ([place] DC Jr., et al., 2013) is: 21.6% 03/30/19 - restarted on Atorvastatin 40 mg QHS Vitamin B12 deficiency 10/22/2008 Overview (05/14/2013): VIT B12 = 236. Vitamin D deficiency 10/22/2008 HTN (hypertension) - diet controlled Allergic rhinitis due to allergen Overview (05/14/2013): F/U DR. ZPAIEN. 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 Not on file Not [...] history exists Tobacco Cessation Counseling (#1) 04/12/2022 [id number] ( season) 2024 021, 01/13/2021 Alcohol and [...] complication, without long-term current use of insulin ([facility]) Essential hypertension Vitamin B12 deficiency Tobacco abuse disorder LIPID PANEL Routine 01/21/2021 2:49 PM EDT Routine general medical examination at a [facility] Left flank pain Type 2 diabetes mellitus without complication, without long-term current use of insulin ([facility]) Essential hypertension Vitamin B12 deficiency Tobacco abuse disorder HEMOGLOBIN GLYCOSYLATED A1C Routine 01/21/2021 2:49 PM EDT Routine general medical examination at a [facility] Left flank pain Type 2 diabetes mellitus without complication, without long-term current use of insulin ([facility]) Essential hypertension Vitamin B12 deficiency Tobacco abuse disorder MICROALBUMIN/CREATININ E RATIO, URINE, RANDOM Routine 06/02/2020 10:04 AM EDT Chronic pain of both shoulders ANTIBODY HIV-1&HIV-2 SINGLE RESULT Routine 04/22/2018 10:44 AM EDT Routine general medical examination at a [facility] facility HEPATITIS A,B,C PANEL Routine 04/22/2018 10:44 AM EDT Routine general medical examination at a [facility] facility COLONOSCOPY Routine 01/14/2013 1:56 PM EDT from Last 3 Months or Most Recently Relevant to Health Maintenance Results * (ABNORMAL) HEMOGLOBIN, GLYCOSYLATED (A1C) (01/21/2021 2:49 PM EDT) Pathologist [facility] HEMOGLOBIN A1C 6.0(H) <5.7 % of total Hgb [facility] Comment: For someone without known diabetes, [...] LAB - BLOOD DRAW Final Resul t [facility] [address] [address], [facility] [address] [address] * (ABNORMAL) COMPRE METAB PANEL (01/21/2021 2:49 PM EDT) [facility] GLUCOSE 103(H) 65 - 99 mg/dL [facility] Comment: ?Fasting reference interval For someone without known diabetes, a glucose value between 100 and 125 mg/dL is consistent with prediabetes and should be confirmed with a follow-up test. UREA NITROGEN (BUN) 11 7 - 25 mg/dL [facility] CREATININE (blood) 0.87 0.70 - 1.33 mg/dL [facility] Comment: For patients >49 years of age, the reference limit for Creatinine is approximately 13% higher for people identified as -Canadian. GFR ESTIMATED 95 > OR = 60 mL/min/1 .73m2 [facility] EGFR 110 > OR = 60 mL/min/1 .73m2 [facility] BUN/CREATININE RATIO NOT APPLICABLE 6 - 22 [facility] SODIUM 139 135 - 146 mmol/L [facility] POTASSIUM 4.3 3.5 - 5.3 mmol/L [facility] CHLORIDE 105 98 - 110 mmol/L [facility] CARBON DIOXIDE 25 20 - 32 mmol/L [facility] CALCIUM 9.3 8.6 - 10.3 mg/dL [facility] PROTEIN, TOTAL 7.2 6.1 - 8.1 g/dL [facility] ALBUMIN 4.3 3.6 - 5.1 g/dL [facility] GLOBULIN 2.9 1.9 - 3.7 g/dL (calc) [facility] ALBUMIN/GLOBULIN RATIO 1.5 1.0 - 2.5 (calc) [facility] BILIRUBIN, TOTAL 0.6 0.2 - 1.2 mg/dL [facility] ALKALINE PHOSPHATASE 74 35 - 144 U/L [facility] AST 16 10 - 35 U/L [facility] ALT 16 9 - 46 U/L [facility] Blood Blood / Unknown 01/21/2021 2 :49 PM EDT 01/21/2021 2:49 PM EDT Ana Good PA-C LAB - BLOOD DRAW Final Resul t Performing Organization Address City/[facility]/ZIP Co de Phone Number [facility] [address] [address], [facility] [address] [address] * MICROALBUMIN/CREATININE RATIO, URINE, RANDOM (06/02/2020 10:04 AM EDT) CREATININE, RANDOM URINE 156 mg/dL [facility] 06/02/2020 10:0 4 AM EDT 06/02/2020 3:31 PM EDT Narrative [facility] - 06/02/2020 6:09 PM EDT [employer], a member of [address] [address] Preparer Making Department [place] [id number] ORD# [id number] Ana Good PA-C LAB - NO BLOOD DRAW Final Re sult Performing Organization Address City/[facility]/ZIP Co de Phone Number [address] [address], * (ABNORMAL) HEPATITIS A,B,C PANEL (04/22/2018 10:44 AM EDT) HEPATITIS B SURFACE ANTIBODY POSITIVE(A) NEGATIVE [facility] HEPATITIS B SURFACE ANTIGEN NEGATIVE NEGATIVE [facility] Comment: Over the counter supplements containing high doses of biotin may interfere with this assay. ??If interference is suspected, patients shoud be retested after refraining from biotin supplements for 72 hours. HEPATITIS B CORE ANTIBODY NEGATIVE NEGATIVE [facility] HEPATITIS C VIRUS DIAGNOSTIC NEGATIVE NEGATIVE [facility] HEPATITIS A ANTIBODY TOTAL POSITIVE(A) NEGATIVE [facility] Comment: Over the counter supplements containing high doses of biotin may interfere with this assay. ??If interference is suspected, patients shoud be retested after refraining from biotin supplements for 72 hours. Blood specimen (specimen) Blood / Unknown 04/22/2018 10:44 AM EDT 04/22/2018 1:02 PM EDT [facility] - 04/22/2018 2:27 PM EDT [facility] [address] [place] [address] [place] [id number] ORD# [id number] Yaneth Dueñas PA-C LAB - BLOOD DRAW Edited R [facility] - Final Performing Organization Address City/[facility]/ZIP Co de Phone Number [address] [address], [place] [phone] * HIV-1 & HIV-2 ANTIBODIES (04/22/2018 10:44 AM EDT) [facility] HIV 1 AND 2 ANTIBODY SCREEN NEGATIVE NEGATIVE [facility] Comment: This assay is a [...] 10:44 AM EDT 04/22/2018 1:02 PM EDT [facility] - 04/22/2018 2:54 PM EDT [facility] [address] [place] [address] [place] [id number] ORD# [id number] Yaneth Dueñas PA-C LAB - BLOOD DRAW Edited R [employer] - Final Performing Organization Address City/[facility]/ZIP Co de Phone Number [address] [address], [place] [phone] * COLONOSCOPY (01/14/2013 1:56 PM EDT) Impressions Lily Williamson MA - 01/14/2013 1:56 PM EDT Colonoscopy Impression: up to cecum, good preparation. ??Normal mucosa in the colon Repeat 5 years us Provider [facility] PROCEDURES Final Result from Last 3 Months or Most Recently Relevant to Health Maintenance Insurance [facility] Care Teams Student Finance Specialist Relationship Specialty Start Date End Date Ana Good PA-C [address] [place] [address] PCP - General Internal Medicine 04/18/23
[2025-02-03 08:57] LABS: MANUAL DIFF FLAG NO
[2025-02-03 09:08] LABS: Basophils Absolute Auto 0.1 X10*3/uL (0.0-0.2); Basophils Percent Auto 0.7 % (0-2); Eosinophils Absolute Auto 0.7 X10*3/uL (0.0-0.4); Eosinophils Percent Auto 9.1 % (0-4); Hematocrit 41.5 % (42.0-52.0); Hemoglobin 13.8 g/dl (14.0-18.0); Imm Gran Abs Auto 0.01 X10*3/uL (0.00-0.03); Imm Gran Pct Auto 0.1 % (0.0-0.4); Lymphocytes Absolute Auto 3.1 X10*3/uL (1.2-4.9); Lymphocytes Percent Auto 37.5 % (20-40); Mean Corpuscular HGB Conc 33.3 g/dl (31.0-36.0); Mean Corpuscular Hemoglobin 28.7 pg (27.0-33.0); Mean Corpuscular Volume 86.3 fL (80.0-98.0); Mean Platelet Volume 10.6 fL (9.4-12.4); Monocytes Absolute Auto 0.5 X10*3/uL (0.1-1.2); Monocytes Percent Auto 6.3 % (2-11); Neutrophils Absolute Auto 3.8 x10*3/uL (2.0-8.3); Neutrophils Percent Auto 46.3 % (45-73); Platelet Count 170 X10*3/uL (160-400); Red Blood Count 4.81 X10*6/uL (4.60-5.80); Red Cell Distribution Width 13.7 % (11.0-16.0); White Blood Count 8.1 X10*3/uL (4.8-10.8)
[2025-02-03 09:20] LABS: Appearance Urine Clear; Color Urine Yellow; Glucose Urine UA Negative (Negative); Leukocyte Esterase Urine Negative (Negative); Nitrite Urine Negative (Negative); Specific Gravity - Urine 1.025 (1.005-1.025); Urine Blood Negative (Negative); Urine Ketones Negative (Negative); Urine Protein Negative (Neg-Trace)
[2025-02-03 09:43] LABS: B Type Natriuretic Peptide < 10 pg/mL (<100)
[2025-02-03 10:03] LABS: Prostate Specific Antigen 1.33 ng/mL (<0.05-4.0)
[2025-02-03 10:13] LABS: Alanine Aminotransferase 21 U/L (0-40); Albumin Level 3.9 g/dL (3.5-5.0); Anion Gap 12 (12-20); Aspartate Amino Transferase 24 U/L (5-37); Bilirubin Total 0.8 mg/dL (0.0-1.0); Blood Urea Nitrogen 15 mg/dL (9-16); Calcium 8.8 mg/dL (8.4-10.2); Carbon Dioxide 24 mmol/L (22-29); Chloride 107 mmol/L (96-108); Cholesterol 214 mg/dL (<200); Estimated Glomerular Filt Rate > 60; Glucose Fasting 98 mg/dL (60-99); HDL Cholesterol 32 mg/dL (>40); LDL Cholesterol Calculated 141 mg/dL (<100); Potassium 3.8 mmol/L (3.3-5.1); Sodium 139 mmol/L (135-145); TSH reflex Free T4 1.28 uIU/mL (0.32-4.0); Triglycerides 207 mg/dL (<150); Vitamin D 25-OH Total 21.9 ng/mL (>30)
[2025-02-03 12:50] LABS: Alkaline Phosphatase 75 U/L (39-117)
[2025-02-08 23:38] LABS: Testosterone, Free 43.7 pg/mL (35.0-155.0); Testosterone, Total 270 ng/dL (250-1100)
== END 2025-02-03 08:33 | disposition home or self-care (01) ==
LOC: HO.LAB 08:32
PROVIDERS: Nurse Practitioner Family; PCP Internal Medicine
DX: R07.9 Chest pain, unspecified (principal); R06.02 Shortness of breath; R53.83 Other fatigue; R97.20 Elevated prostate specific antigen [PSA]; N40.0 Benign prostatic hyperplasia without lower urinary tract symptoms; Z12.5 Encounter for screening for malignant neoplasm of prostate
CPT/HCPCS: 36415; 80053; 80061; 81003; 82306; 83880; 84153; 84402; 84403; 84443; 85025

== ENCOUNTER 2025-02-16 20:03 | Inpatient (IN) | payer OTHER, SELFPAY ==
--- NOTE | ~2025-02-16 | XR_ITS ---
CLINICAL HISTORY: shortness of breasth 1 view chest x-ray Comparison: None available Findings: Mild pulmonary opacities nonspecific and may reflect pulmonary edema or pneumonitis given interstitial predominance. Cardiac silhouette and mediastinal contours are accentuated by AP technique. No definite pneumothorax or pleural effusion in this portable image. Degenerative changes include the partially imaged shoulders and left AC joint. Likely bone islands of the proximal left humerus. IMPRESSION: Interstitial opacities as can be seen with pneumonitis and pulmonary edema. This document has been electronically signed by: Amilcar Johnson MD on 02/16/2025 22:20:35
--- NOTE | 2025-02-16 20:05 | ECG_ITS ---
Test Reason : CHEST PAIN Blood Pressure : */* mmHG Vent. Rate : 142 BPM Atrial Rate : * BPM P-R Int : * ms QRS Dur : 78 ms QT Int : 260 ms P-R-T Axes : * 45 96 degrees QTcB Int : 399 ms Atrial fibrillation with rapid ventricular response Nonspecific ST and T wave abnormality Abnormal ECG When compared with ECG of 10-Apr-2024 09:54, Atrial fibrillation has replaced Sinus rhythm Vent. rate has increased by [address] depression has replaced ST elevation in Anterior leads Nonspecific T wave abnormality now evident in Inferior leads Referred By: Generic ED Physician Electronically Signed By: Pawan Culver
[2025-02-16 20:15] VITALS: BP 147/69; PULSE 155; RESP 20; TEMP 36.1; O2SAT 98; BMI 29.5
[2025-02-16 20:18] LABS: MANUAL DIFF FLAG NO
[2025-02-16 20:22] LABS: Basophils Absolute Auto 0.1 X10*3/uL (0.0-0.2); Eosinophils Absolute Auto 0.5 X10*3/uL (0.0-0.4); Eosinophils Percent Auto 5.6 % (0-4); Hematocrit 42.9 % (42.0-52.0); Hemoglobin 14.2 g/dl (14.0-18.0); Imm Gran Abs Auto 0.02 X10*3/uL (0.00-0.03); Imm Gran Pct Auto 0.2 % (0.0-0.4); Lymphocytes Absolute Auto 2.3 X10*3/uL (1.2-4.9); Lymphocytes Percent Auto 28.8 % (20-40); Mean Corpuscular HGB Conc 33.1 g/dl (31.0-36.0); Mean Corpuscular Hemoglobin 28.9 pg (27.0-33.0); Mean Corpuscular Volume 87.4 fL (80.0-98.0); Mean Platelet Volume 11.1 fL (9.4-12.4); Monocytes Absolute Auto 0.4 X10*3/uL (0.1-1.2); Monocytes Percent Auto 5.2 % (2-11); Neutrophils Absolute Auto 4.8 x10*3/uL (2.0-8.3); Neutrophils Percent Auto 59.2 % (45-73); Platelet Count 192 X10*3/uL (160-400); Red Blood Count 4.91 X10*6/uL (4.60-5.80); Red Cell Distribution Width 13.7 % (11.0-16.0); White Blood Count 8.1 X10*3/uL (4.8-10.8)
[2025-02-16 20:36] LABS: Alanine Aminotransferase 27 U/L (0-40); Alkaline Phosphatase 77 U/L (39-117); Anion Gap 14 (12-20); Aspartate Amino Transferase 24 U/L (5-37); Bilirubin Total 0.2 mg/dL (0.0-1.0); Blood Urea Nitrogen 23 mg/dL (9-16); Calcium 9.1 mg/dL (8.4-10.2); Carbon Dioxide 21 mmol/L (22-29); Chloride 112 mmol/L (96-108); Creatinine Clr Calc Pharmacy 66.6; Estimated Glomerular Filt Rate 57; Glucose Random 207 mg/dL (60-115); Magnesium 2.1 mg/dL (1.6-2.6); Potassium 4.3 mmol/L (3.3-5.1); Sodium 143 mmol/L (135-145); Total Protein 7.3 g/dL (6.5-8.0)
[2025-02-16 20:43] LABS: Troponin-I High Sensitivity 16.3 ng/L (<3.5-35.0)
--- NOTE | 2025-02-16 20:43 | ED.CHESTPAIN ---
HPI - Chest Pain General Chief Complaint: Chest Pain Stated Complaint: cp sob Time Seen by Provider: 02/16/25 20:33 Source: patient, family, RN notes reviewed and old records reviewed Mode of arrival: ambulatory Limitations: no limitations History of Present Illness ED Provider: Geneva SETHI narrative: 64-year-old male with past medical history significant for arthritis, history of erectile dysfunction, hyperlipidemia presents for evaluation of shortness of breath with exertion. Patient reports about 2 or 2-1/2 weeks of shortness of breath especially with exertion. He reports being fatigued almost all the time during that same period He reports prior to the onset of his symptoms he spent a month in [place] He denies any leg pain or swelling. Denies any history of blood clots Denies any fevers or chills. He does complain of chest tightness and pressure He denies any known history of arrhythmias. He states that he does not take any daily medications but occasionally takes Tylenol for pain and occasionally sildenafil He has not use the sildenafil in about 3 months Related Data Previous Rx's ?Medication ?Instructions ?Recorded CANE #1 ea 08/13/23 efinaconazole 10 % topical 1 appl topical BEDTIME 48 weeks #8 09/29/23 solution with applicator mL acetaminophen 325 mg capsule 650 mg (2 x 325 mg) PO QID PRN 11/23/23 fever or pain #60 caps diclofenac sodium 1 % topical gel 2 g topical QID #100 grams 11/23/23 ibuprofen 200 mg capsule 400 mg (2 x 200 mg) PO Q8H 100 11/23/23 days #600 caps capsaicin 0.1 % topical cream 1 appl topical TID PRN pain #60 04/04/24 grams lidocaine 5 % topical patch 1 patch topical DAILY #30 ea 04/04/24 sildenafil 100 mg tablet (Viagra) 100 mg PO .PRN PRN sexual activity 04/24/24 90 days #45 tabs ciclopirox 8 % topical solution 1 appl topical BEDTIME 4 weeks 07/14/24 #6.6 mL clotrimazole-betamethasone 1 1 appl topical BID PRN rash 2 08/08/24 %-0.05 % topical cream weeks #45 grams zolpidem 10 mg tablet 10 mg PO BEDTIME PRN insomnia #30 10/03/24 tabs ketoconazole 2 % shampoo 1 appl topical 3XW PRN dandruff 01/03/25 #120 mL Allergies Allergy/AdvReac Type Severity Reaction Status Date / Time Sulfa (Sulfonamide Allergy Mild RASH/SWELLI Verified 02/16/25 20:16 Antibiotics) NG Review of Systems Constitutional: Constitutional: Denies body ache(s), Denies chills, Reports fatigue, Denies fever(s), Denies headache(s) and Reports malaise Eyes: Eyes: Denies blurry vision, Denies floaters and Denies irritation ENT: Denies vertigo, Denies dizziness and Denies headache(s) Cardiovascular: Cardiovascular: Reports chest pain, Reports chest pain at rest, Reports chest pain with activity, Reports dyspnea and Reports dyspnea on exertion Respiratory: Respiratory: Denies cough, Reports dyspnea and Reports dyspnea on exertion Gastrointestinal: Gastrointestinal: Denies abdominal pain, Denies nausea and Denies vomiting Musculoskeletal: Musculoskeletal: Denies back pain Neurologic: Denies vertigo, Denies dizziness and Denies headache(s) Psychiatric: Psychiatric: Denies anxiety Endocrine: Endocrine: Reports fatigue PMFSH Past Medical History Medical History Primary osteoarthritis, right shoulder Overweight (BMI 25.0-29.9) Smoker Impaired fasting glucose Mixed hyperlipidemia Abdominal pain Insomnia Dyslipidemia Bilateral primary osteoarthritis of knee Laceration of left index finger 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 Avulsion of skin of left thumb Kidney stones Surgical History Hx of left knee surgery History of hand surgery Hx of lithotripsy Social History Social History Housing: House Alcohol intake: never Patient Tobacco Use Status: Current everyday Tobacco user Tobacco use type: Cigarette Cigarette Packs Per Day: 0.5 Cigarettes Per Day: 10 Years Smoked: 45 Smoked in Last 30 Days: Yes e-Cigarette/Vaping Use: Never Used Second Hand Smoke Exposure: Yes Use of substances other than those prescribed or required for medical reasons: No Advance Directives: No Advance Directives Information Provided: No Do you have a plan to hurt others: No Plan service: No Current occupational status: unemployed 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 Cognitive needs: Yes (cane) Hearing needs: No Vision needs: Yes (glasses) Physical Exam Vital Signs: Vital Signs: Last Vital Signs Temp 97.5 F 02/16/25 22:33 Pulse 87 02/16/25 22:33 Resp 15 02/16/25 22:33 BP 97/72 02/16/25 22:33 Pulse Ox 98 02/16/25 22:33 O2 Del Method Room Air 02/16/25 22:33 BMI result Body Mass Index 29.5 Const: General: healthy appearing, comfortable, no acute distress, alert and awake Nutritional Appearance: well nourished Orientation/consciousness: patient oriented x3 HEENT: Head: Yes normocephalic and Yes atraumatic Eyes: Eyelids: Yes eyelids normal Conjunctivae: conjunctivae normal Sclerae: sclerae normal Corneas: corneas normal Pupils: Equal, round and reactive pupils present EOM: EOMs intact bilaterally Neck: Neck: Yes full ROM Resp: Effort & Inspection: normal respiratory effort, able to speak in complete sentences, no audible wheezes and not labored Auscultation: clear to auscultation bilaterally Cardio: Rate: tachycardic Rhythm: abnormal rhythm irregularly irregular GI: Inspection: No distended Palpation (GI): Soft to palpation, not firm, nontender, no guarding and not rigid Skin: General skin exam: elasticity normal Neuro: General: patient oriented x3 Cranial nerves: Yes Equal, round and reactive pupils present and Yes Bilaterally intact EOM present Cognition (Neuro): normal cognition Course Reevaluation(s) Reevaluation #1: Patient responded well to Cardizem 20 mg IV. He was still in AFib but rate controlled an 80 to about 100. He has IV fluids running, I ordered a dose of Cardizem 60 mg p.o. still awaiting chest x-ray, D-dimer, viral swabs. Time: 21:09 Reevaluation #2: I Laura Mccarthy PA-C have accepted care of the patient and signed out pending labs and final disposition. The patient became hypotensive after receiving IV Cardizem followed by oral Cardizem. He is getting IV fluid therapy. His rate has corrected. His EKG is changed to some degree he is now on flutter, with a rate of 90. I have independently reviewed the following tests: Dimer negative at less than 150 EKG 2. A flutter rate of 90, nonspecific T-wave abnormality,, QTC 440 Chest x-ray:IMPRESSION: Interstitial opacities as can be seen with pneumonitis and pulmonary edema. Consultations Consultation #1: delta trop elevated......paging cardiology per Palomo start heparin, he is asking if the patient is in heart failure. The patient has no documented history of heart failure, however there was pulmonary edema on chest x-ray, he is not hypoxic Time: 23:16 Medications Administered Discontinued Medications Generic Name Dose Route Start Last Admin Trade Name Freq PRN Reason Stop Dose Admin Diltiazem HCl 20 mg 02/16/25 20:31 02/16/25 20:44 Diltiazem Hcl 50 Mg/10 Ml Vial IVPUSH 02/16/25 20:32 20 mg STAT STA Administration Diltiazem HCl 60 mg 02/16/25 20:51 02/16/25 21:02 Diltiazem Hcl 60 Mg Tablet PO 02/16/25 20:52 60 mg ONCE ONE Administration Protocol Sodium Chloride 1,000 mls @ 999 mls/hr 02/16/25 20:45 02/16/25 21:55 Ns IV 02/16/25 21:45 Infused .Q1H1M [facility]IANA Infusion Sodium Chloride 1,000 mls @ 999 mls/hr 02/16/25 21:45 02/16/25 21:56 Ns IV 02/16/25 22:45 999 mls/hr .Q1H1M CH[facility]STIANA Administration Medical Decision Making Medical Decision Making [facility] Narrative: 64-year-old male presents for evaluation of palpitations and shortness of breath with exertion. He has been complaining of the since returning from a trip to [place]. He saw [facility] a couple of weeks ago and had outpatient chest x-ray, EKG and labs ordered. The patient reports that he did not need a chest x-ray or EKG but did have labs done that did not show any concerning abnormalities. His symptoms are worsening today, in triage she was found to have rapid AFib with a rate of 142 beats minute. There were some ST depressions likely related to demand ischemia from the increased rate. It is unclear exactly how long the patient has been in AFib or if he has been in and out of paroxysmal AFib. The patient's hematology is not show any infectious process. Chemistries show a carbon dioxide of 21 which is likely due to tachypnea from his acute symptoms. Electrolytes are reassuring. The patient's random glucose is elevated to 207. He does not carry a diagnosis of diabetes. Troponin is within normal limits and detectable at 16.3. Likely detectable due to increased rate not likely due to ACS. BNP is pending, however it was-2 weeks ago when he had labs on 02/03/2025. The patient's cholesterol was noted to be elevated on outpatient visit from 2 weeks ago as well. A D-dimer was ordered due to the recent brain travel and shortness of breath on exertion with new arrhythmia. Differential Diagnosis Differential Diagnoses: The differential diagnosis associated with the presentation includes Dyspnea on exertion ACS less likely AFib PE Viral syndrome Bronchitis Admission/Observation Consideration of admission/observation: Escalation of care including admission/observation considered Lab Data MDM Lab Attestation statement: I reviewed the patient's lab results. As above 02/16/25 20:14 02/16/25 20:14 Labs: Lab Results 02/16/25 02/16/25 02/16/25 Range/Units 20:14 21:02 22:37 WBC 8.1 (4.8-10.8) X10*3/uL RBC 4.91 (4.60-5.80) X10*6/uL Hgb 14.2 (14.0-18.0) g/dl Hct 42.9 (42.0-52.0) % MCV 87.4 (80.0-98.0) fL MCH 28.9 (27.0-33.0) pg MCHC 33.1 (31.0-36.0) g/dl RDW 13.7 (11.0-16.0) % Plt Count 192 (160-400) X10*3/uL MPV 11.1 (9.4-12.4) fL Immature Gran % (Auto) 0.2 (0.0-0.4) % Neut % (Auto) 59.2 (45-73) % Lymph % (Auto) 28.8 (20-40) % [place] % (Auto) 5.2 (2-11) % Eos % (Auto) 5.6 H (0-4) % Baso % (Auto) 1.0 (0-2) % Lymph # (Auto) 2.3 (1.2-4.9) X10*3/uL [place] # (Auto) 0.4 (0.1-1.2) X10*3/uL Eos # (Auto) 0.5 H (0.0-0.4) X10*3/uL Baso # (Auto) 0.1 (0.0-0.2) X10*3/uL Abs Immat Gran (auto) 0.02 (0.00-0.03) X10*3/uL Absolute Neuts (auto) 4.8 (2.0-8.3) x10*3/uL Absolute Nucleated RBC 0.000 (0.0-0.012) X10*3/uL Nucleated RBC % (auto) 0.0 (0.0-0.2) /100WBC D-Dimer High Sensitivty < 150 NG/ML Sodium 143 (135-145) mmol/L Potassium 4.3 (3.3-5.1) mmol/L Chloride 112 H (96-108) mmol/L Carbon Dioxide 21 L (22-29) mmol/L Anion Gap 14 (12-20) BUN 23 H (9-16) mg/dL Creatinine 1.28 (0.5-1.4) mg/dL Estim Creat Clear Calc 66.6 Estimated GFR 57 Random Glucose 207 H (60-115) mg/dL Calcium 9.1 (8.4-10.2) mg/dL Magnesium 2.1 (1.6-2.6) mg/dL Total Bilirubin 0.2 (0.0-1.0) mg/dL AST 24 (5-37) U/L ALT 27 (0-40) U/L Alkaline Phosphatase 77 (39-117) U/L Troponin I High Sens 16.3 D 1096.0 H* D (<3.5-35.0) ng/L B-Natriuretic Peptide < 10 (<100) pg/mL Total Protein 7.3 (6.5-8.0) g/dL Albumin 4.0 (3.5-5.0) g/dL TSH 1.25 (0.32-4.0) uIU/mL Influenza Type A (PCR) NEGATIVE (Negative) Influenza Type B (PCR) NEGATIVE (Negative) RSV RNA Qual (PCR) NEGATIVE (Negative) SARS-CoV-2 RNA (RT-PCR) NEGATIVE (Negative) Independent Interpretation I performed an independent interpretation of an: EKG (As above) Critical Care Time Critical Care Time Critical Care Time: Yes Total Critical Care Time: 30 Attestation: I Laura Mccarthy have personally performed 30 minutes of critical care time not including lines or procedures Discharge Plan Discharge Clinical Impression: Atrial fibrillation with RVR, Non-ST elevation (NSTEMI) myocardial infarction Patient Disposition: Admitted As Inpatient Print Language: Taiwanese
[2025-02-16] MEDS: dilTIAZem HCL 50 MG/10 ML VIAL 20 MG IVPUSH (20:44)
[2025-02-16] MEDS: 0.9 % Sodium Chloride 1,000 ML 999 ML IV ×2 (20:47→21:56)
--- NOTE | 2025-02-16 20:59 | PC.NURSE ---
Pt a&ox4, no signs of distress Pt reports 04/02 cp Pts HR 150-160's, pt medicated per mar Pts HR 80-90's Plan of care ongoing.
[2025-02-16 21:02] VITALS: BP 104/53; PULSE 81
[2025-02-16 21:02] LABS: B Type Natriuretic Peptide < 10 pg/mL (<100)
[2025-02-16] MEDS: dilTIAZem HCL 60 MG TABLET PO (21:02)
--- NOTE | 2025-02-16 21:08 | ECG_ITS ---
Test Reason : REPEAT Blood Pressure : */* mmHG Vent. Rate : 90 BPM Atrial Rate : * BPM P-R Int : * ms QRS Dur : 82 ms QT Int : 360 ms P-R-T Axes : * 39 35 degrees QTcB Int : 440 ms Atrial fibrillation Nonspecific T wave abnormality Abnormal ECG When compared with ECG of 16-Feb-2025 20:05, Vent. rate has decreased by [address] no longer depressed in Anterior leads Referred By: Adarsh Bean Electronically Signed By: Pawan Culver
[2025-02-16 21:17] LABS: TSH reflex Free T4 1.25 uIU/mL (0.32-4.0)
[2025-02-16 21:22] LABS: D Dimer High Sensitivity < 150 NG/ML
[2025-02-16 21:27] VITALS: BP 86/56; PULSE 95; RESP 22; TEMP 36.6; O2SAT 97
[2025-02-16 21:47] LABS: Influenza A PCR NEGATIVE (Negative); Influenza B PCR NEGATIVE (Negative); Resp Syncy Virus RNA Qual PCR NEGATIVE (Negative); SARS COV2 PCR INHOUSE NEGATIVE (Negative)
--- NOTE | 2025-02-16 21:58 | PC.NURSE ---
Pt medicated per [facility] Plan of care ongoing.
[2025-02-16 22:33] VITALS: BP 97/72; PULSE 87; RESP 15; TEMP 36.4; O2SAT 98
--- NOTE | 2025-02-16 23:16 | PC.NURSE ---
Pt requesting to go to the bathroom. Urinal provided. Pt reports wanting to walk to the bathroom as he will not be able to use the urinal. Pt ambulates to the bathroom.
[2025-02-16 23:30] LABS: Appearance Urine Clear; Color Urine Yellow; Glucose Urine UA 250 mg/dL (Negative); Leukocyte Esterase Urine Negative (Negative); Nitrite Urine Negative (Negative); PH 5.5 (5.0-9.0); Urine Blood Negative (Negative); Urine Ketones Negative (Negative); Urine Protein Negative (Neg-Trace)
[2025-02-16 23:33] LABS: Bacteria Urine None Seen (None Seen); Hyaline Casts Urine 0-2 /LPF (0-2); RBC Urine 0-2 /HPF (0-2); Squamous Epithelial Cell Urine 0-2 /HPF (0-2); WBC Urine 0-5 /HPF (0-5)
[2025-02-16 23:39] VITALS: BMI 31.4
[2025-02-16 23:59] LABS: Hematocrit 39.9 % (42.0-52.0); Hemoglobin 12.8 g/dl (14.0-18.0); Mean Corpuscular HGB Conc 32.1 g/dl (31.0-36.0); Mean Corpuscular Hemoglobin 28.3 pg (27.0-33.0); Mean Corpuscular Volume 88.3 fL (80.0-98.0); Mean Platelet Volume 11.2 fL (9.4-12.4); Platelet Count 174 X10*3/uL (160-400); Red Blood Count 4.52 X10*6/uL (4.60-5.80); Red Cell Distribution Width 13.7 % (11.0-16.0); White Blood Count 8.8 X10*3/uL (4.8-10.8)
[2025-02-17] VITALS (8 sets, daily range): BP systolic 107–135; BP diastolic 65–77; PULSE 62–76; RESP 12–18; TEMP 36.4–36.5; O2SAT 96–99
--- NOTE | 2025-02-17 | ECG_ITS ---
Test Reason : CHEST PAIN Blood Pressure : */* mmHG Vent. Rate : 68 BPM Atrial Rate : 68 BPM P-R Int : 164 ms QRS Dur : 82 ms QT Int : 430 ms P-R-T Axes : 48 29 57 degrees QTcB Int : 457 ms Normal sinus rhythm T wave abnormality, consider anterior ischemia Abnormal ECG When compared with ECG of 16-Feb-2025 21:15, Sinus rhythm has replaced Atrial fibrillation T wave inversion more evident in Anterior leads Referred By: Ce Carbajal Electronically Signed By: RAMONITA HAYES MD
--- NOTE | 2025-02-17 | ECG_ITS ---
Test Reason : trop Blood Pressure : */* mmHG Vent. Rate : 65 BPM Atrial Rate : 65 BPM P-R Int : 162 ms QRS Dur : 84 ms QT Int : 436 ms P-R-T Axes : 52 31 64 degrees QTcB Int : 453 ms Normal sinus rhythm Nonspecific T wave abnormality Abnormal ECG When compared with ECG of 17-Feb-2025 06:34, No significant change was found Referred By: Anuja Barajas Electronically Signed By: RAMONITA HAYES MD
[2025-02-17] MEDS: Aspirin 81 MG TAB.CHEW 324 MG PO (00:02)
[2025-02-17 00:09] LABS: INTERNATIONAL NORM RATIO 0.9 (0.9-1.1); Prothrombin Time 10.8 SEC (10.9-12.4)
[2025-02-17 00:11] LABS: PTT Heparin Drip 28.7 SEC (53-77.9)
[2025-02-17] MEDS: Heparin Sodium,Porcine/1/2NS 25,000 UNIT/250 ML IV.SOLN 9.64 UNIT IVCONT (00:26)
--- NOTE | 2025-02-17 01:42 | PC.NURSE ---
Pt aox4 calm and cooperative, resting at the bedside. Reports chest pain has improved, 4/10. Reports bilateral leg pain that is not new. States takes Tylenol at home to be able to sleep with no pain. [place] text sent to Dr. Womack. New order placed in NOV. Heparin drip started at 0030 at 10u/kg/hr as per protocol. Pt is tolerating it well. No signs/symptoms of bleeding. Next PTT-HD to be drawn at 0630. Order placed in NOV. Pt is aware of plan of care. Monitoring is ongoing.
[2025-02-17] MEDS: Acetaminophen 325 MG TABLET 975 MG PO (01:50)
--- NOTE | 2025-02-17 02:35 | P.HPHOSP_ITS ---
History of Present Illness Date of Service: 02/17/25 Attending physician on admission: Colten Brand Chief Complaint: FATIGUE sob PATIENT IS A 64-YEAR-OLD MALE with past medical history obesity, hyperlipidemia not on statin, tobacco dependence currently 8-10 cigarettes per day, left knee arthroscopy, left leg cramping, vitamin-D deficiency, nephrolithiasis with lithotripsy, onychomycosis of fingernails presents to the emergency department with worsening shortness of breath, fatigue and chest pain that started at 16:00 on Sunday02/16/2025. Patient states he has not been feeling well for the last 3 weeks. Patient also states that his experienced a ?heart attack? 3 weeks prior, underwent cardiac catheterization and received a stent. Patient told that he initially came in with atrial fibrillation RVR and patient denies history of having this. But in addition incidentally patient's troponin went from normal to over 1000 and patient was started on a heparin infusion and aspirin in the emergency department. Patient has remained chest pain-free. Patient experienced hypotension while in AFib RVR. Patient currently in normal sinus rhythm, heart rate 74, blood pressure 133/72. Patient denies any other family history of coronary artery disease. Patient states he has been trying to stop smoking but has been unsuccessful although he has cut down to the 8-10 cigarettes per day. Patient does not use oxygen at home or inhalers of any kind. Patient does not drink alcohol due to his synagogue. Patient denies any marijuana use or illicit drug use. Patient did try Viagra 3-4 months prior for erectile dysfunction but due to side effects did not use the medication again. Patient will remain NPO until seen by Cardiology this morning. Third troponin pending. Patient has not required oxygen. Review of Systems 2 Review of Systems: Patient denies any current chest pain, nausea, vomiting or abdominal pain. Patient has not rinsing shortness of breath at rest. Patient denies any headaches or visual changes. Yes all other systems are reviewed and are negative FOR[facility]LY [facility], [facility] Medical History Primary osteoarthritis, right shoulder Overweight (BMI 25.0-29.9) Smoker Impaired fasting glucose Mixed hyperlipidemia Abdominal pain Insomnia Dyslipidemia Bilateral primary osteoarthritis of knee Laceration of left index finger 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 Avulsion of skin of left thumb Kidney stones Cognitive capacity: Alert and orientated x3 Functional capacity: independent ambulation Pertinent family history: Grandmother lived to be 110, mother lived to be in her 80s as well as his father. Both parents of old age. Surgical History Hx of left knee surgery History of hand surgery Hx of lithotripsy Social History Housing: House Alcohol intake: never Patient Tobacco Use Status: Tobacco use Unknown Tobacco use type: Cigarette Cigarette Packs Per Day: 0.5 Cigarettes Per Day: 10 Years Smoked: 45 Smoked in Last 30 Days: Yes e-Cigarette/Vaping Use: Never Used Second Hand Smoke Exposure: Yes Use of substances other than those prescribed or required for medical reasons: No Advance Directives: No Advance Directives Information Provided: No Do you have a plan to hurt others: No Plan Nutrition Risks: No Nutritional Risk service: No Current occupational status: unemployed 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 Cognitive needs: Yes (cane) Hearing needs: No Vision needs: Yes (glasses) Ebola Risk: Travel/Contact With Anyone From Affected Area/s: No Has Patient Experienced Ebola Symptoms: No Meds Allergies Allergy/AdvReac Type Severity Reaction Status Date / Time Sulfa (Sulfonamide Allergy Mild RASH/SWELLI Verified 02/16/25 20:16 Antibiotics) NG Active Medications: Current Medications Acetaminophen (Acetaminophen 325 Mg Tablet) 650 mg PO Q6H PRN PRN Reason: Pain, Mild 1-3,fever,headache Albuterol/Ipratropium (Albuterol/Iprat 2.5/0.5mg 3 Ml Ampul.Neb) 3 ml INHALE Q4H PRN PRN Reason: Shortness of Breath/Wheezing Aspirin (Aspirin 81 Mg Tab.Chew) 81 mg PO DAILY [facility] Atorvastatin Calcium (Atorvastatin Calcium 80 Mg Tablet) 80 mg PO BEDTIME [facility] Calcium Carbonate (Calcium Carbonate 750 Mg Tab.Chew) 750 mg PO Q4H PRN PRN Reason: Heartburn Diltiazem HCl (Diltiazem Hcl 30 Mg Tablet) 30 mg PO QID [place]STIANA; Protocol Heparin Sodium (Porcine) (Heparin Sodium,Porcine 5,000 Unit/Ml Vial) 3,600 unit 40 unit/kg (3600 unit) IVPUSH PROTOCOL BOLUS PRN; Protocol PRN Reason: 40 unit/kg - Heparin Protocol Heparin Sodium (Porcine) (Heparin Sodium,Porcine 5,000 Unit/Ml Vial) 7,300 unit 80 unit/kg (7300 unit) IVPUSH PROTOCOL BOLUS PRN; Protocol PRN Reason: 80 unit/kg - Heparin Protocol Heparin Sodium/Sodium Chloride (Heparin Sodium,Porcine/1/2ns) 25,000 unit in 250 mls @ 0 mls/hr IVCONT .Q0M CH[facility]STIANA; Protocol Last Admin: 02/17/25 00:26 Dose: 10 units/kg/hr, 9.64 mls/hr Magnesium Hydroxide (Milk Of Magnesia 30 Ml Oral.Susp) 30 ml PO DAILY PRN PRN Reason: Constipation Melatonin (Melatonin 3 Mg Tablet) 6 mg PO BEDTIME PRN PRN Reason: Insomnia Nitroglycerin (Nitroglycerin 0.4 Mg Tab.Subl) 0.4 mg SUBLINGUAL Q5MX3 PRN PRN Reason: Chest Pain Ondansetron HCl (Ondansetron Hcl 4 Mg/2 Ml Vial) 4 mg IVPUSH Q8H PRN PRN Reason: Nausea and Vomiting Senna (Sennosides 8.6 Mg Tablet) 17.2 mg PO BEDTIME [facility] Sodium Chloride (0.9 % Sodium Chloride Flush 3 Ml Syringe) 3 ml IVFLUSH QSHIFT [facility] Physical Exam 2 Vital Signs and Narrative: Vital Signs: Last Vital Signs Temp 97.5 F 02/17/25 01:52 Pulse 69 02/17/25 01:52 Resp 16 02/17/25 01:52 BP 133/72 02/17/25 01:52 Pulse Ox 98 02/17/25 01:52 O2 Del Method Room Air 02/17/25 01:52 BMI result Body Mass Index 31.4 Alert and orientated X3, able to give good history. Neuro: CN II-X11 intact, no deficits, visual acuity intact EYES: PERRLA, EOM intact, conjunctiva pink, sclera nonicteric ENT: hearing intact, no issues with swallowing, uvula midline, lips moist, nares patent no epistaxis Cardiac: S1 S2 RRR, no murmur, no JVD, no edema in Lower ext Pulmonary: lungs clear to auscultation B Abdominal: BS active in all 4 quadrants, no guarding, tenderness, rebounding MSK: strength 5/5 upper and lower extremities : no CVA tenderness no bladder distension Extremities: no edema in lower extremities, PT and DP pulses palpable +2 Psych: mood stable, judgement and insight good Skin: Intact Results Labs 02/16/25 23:53 02/16/25 20:14 Labs: Laboratory Results - last 24 hr 02/16/25 02/16/25 02/16/25 20:14 21:02 23:24 MCV 87.4 MCH 28.9 MCHC 33.1 RDW 13.7 Plt Count 192 MPV 11.1 Immature Gran % (Auto) 0.2 Neut % (Auto) 59.2 Lymph % (Auto) 28.8 [place] % (Auto) 5.2 Eos % (Auto) 5.6 H Baso % (Auto) 1.0 Lymph # (Auto) 2.3 [place] # (Auto) 0.4 Eos # (Auto) 0.5 H Baso # (Auto) 0.1 Abs Immat Gran (auto) 0.02 Absolute Neuts (auto) 4.8 Absolute Nucleated RBC 0.000 Nucleated RBC % (auto) 0.0 PT INR aPTT Heparin Protocol D-Dimer High Sensitivty < 150 Anion Gap 14 Estim Creat Clear Calc 66.6 Estimated GFR 57 Random Glucose 207 H Calcium 9.1 Magnesium 2.1 Total Bilirubin 0.2 AST 24 ALT 27 Alkaline Phosphatase 77 B-Natriuretic Peptide < 10 Total Protein 7.3 Albumin 4.0 TSH 1.25 Urine Color Yellow Urine Appearance Clear Urine pH 5.5 Ur Specific Mica 1.020 Urine Protein Negative Urine Glucose (UA) 250 H Urine Ketones Negative Urine Blood Negative Urine Nitrite Negative Ur Leukocyte Esterase Negative Urine RBC 0-2 Urine WBC 0-5 Ur Squamous Epith Cells 0-2 Urine Bacteria None Seen Hyaline Casts 0-2 Influenza Type A (PCR) NEGATIVE Influenza Type B (PCR) NEGATIVE RSV RNA Qual (PCR) NEGATIVE SARS-CoV-2 RNA (RT-PCR) NEGATIVE 02/16/25 23:53 MCV 88.3 MCH 28.3 MCHC 32.1 RDW 13.7 Plt Count 174 MPV 11.2 Immature Gran % (Auto) Neut % (Auto) Lymph % (Auto) [place] % (Auto) Eos % (Auto) Baso % (Auto) Lymph # (Auto) [place] # (Auto) Eos # (Auto) Baso # (Auto) Abs Immat Gran (auto) Absolute Neuts (auto) Absolute Nucleated RBC 0.000 Nucleated RBC % (auto) 0.0 PT 10.8 L INR 0.9 aPTT Heparin Protocol 28.7 L D-Dimer High Sensitivty Anion Gap Estim Creat Clear Calc Estimated GFR Random Glucose Calcium Magnesium Total Bilirubin AST ALT Alkaline Phosphatase B-Natriuretic Peptide Total Protein Albumin TSH Urine Color Urine Appearance Urine pH Ur Specific Mica Urine Protein Urine Glucose (UA) Urine Ketones Urine Blood Urine Nitrite Ur Leukocyte Esterase Urine RBC Urine WBC Ur Squamous Epith Cells Urine Bacteria Hyaline Casts Influenza Type A (PCR) Influenza Type B (PCR) RSV RNA Qual (PCR) SARS-CoV-2 RNA (RT-PCR) ECG Attestation: I personally reviewed and interpreted this ECG as follows: (Initially AFib RVR, currently normal sinus rhythm on telemetry) Prior ECG tracings: available for review Imaging Radiologist's Impressions: CXR Findings: Mild pulmonary opacities nonspecific and may reflect pulmonary edema or pneumonitis given interstitial predominance. Cardiac silhouette and mediastinal contours are accentuated by AP technique. No definite pneumothorax or pleural effusion in this portable image. Degenerative changes include the partially imaged shoulders and left AC joint. Likely bone islands of the proximal left humerus. IMPRESSION: Interstitial opacities as can be seen with pneumonitis and pulmonary edema. Assessment and Plan (1) Non-ST elevation (NSTEMI) myocardial infarction: Status: Acute (2) Atrial fibrillation with RVR: Status: Acute Plan PATIENT IS A 64-YEAR-OLD MALE with past medical history obesity, hyperlipidemia not on statin, tobacco dependence currently 8-10 cigarettes per day, left knee arthroscopy, left leg cramping, vitamin-D deficiency, nephrolithiasis with lithotripsy, onychomycosis of fingernails being admitted for non STEMI with new onset AFib RVR, currently in normal sinus rhythm. NSTEMI -cardiology consulted -echo pending -patient currently NPO -patient currently on heparin infusion, chest pain-free -aspirin 325 once, then aspirin 81 mg daily -atorvastatin 80 mg HS started, new lipid panel pending, previous lipid panel indicates elevated triglycerides, cholesterol and LDL and low HDL -hemoglobin A1c pending -telemetry -patient currently on room air -EKG initially with anterior ST changes -patient presented in AFib RVR, currently normal sinus rhythm after Cardizem AFib RVR -new diagnosis for patient -patient received 20 IV Cardizem than Cardizem 60 mg p.o. x1 with initial hypotension, after IV fluids blood pressure has improved -patient currently in normal sinus rhythm heart rate 74, p.o. Cardizem on hold -continue telemetry -patient is on heparin infusion -magnesium 2.1, TSH within normal limits Interstitial pneumonitis versus pulmonary edema -BNP less than 10 -echo pending -no indication for antibiotics at this time -patient remains on room air, no issues with hypoxia -patient currently chest pain-free -may need to consider Lasix HLD -atorvastatin 80 mg at HS started -cardiac diet when patient is no longer NPO Tobacco dependence -unable to start nicotine patch due to patient's non STEMI diagnosis -patient counseled on the benefits of complete smoking cessation Onychomycosis of fingernails -chronic, patient may need to follow with his PCP for further intervention Vitamin-D deficiency -consider vitamin-D supplementation, level was 21.9 on 02/03/2025 Chronic left leg discomfort -no acute issues found on exam -Tylenol p.r.n. for pain History of erectile dysfunction -patient last tried Viagra 3-4 months prior. Patient has not used again due to side effects and does not plan to continue use. DVT prophylaxis: Heparin infusion Med rec pending Full Code status Quality Stroke Does the patient have a stroke diagnosis?: No Reason for No Anti-thrombotic by Day Two: N/A - Med Ordered VTE Prior VTE?: No VTE Risk Level:: Medical - moderate - high VTE Device Contraindication: N/A - Device Ordered VTE Drug Contraindication: N/A - Med Ordered
[2025-02-17 06:26] LABS: MANUAL DIFF FLAG NO
--- NOTE | 2025-02-17 06:30 | ECG_ITS ---
Test Reason : NSTEMI Blood Pressure : */* mmHG Vent. Rate : 65 BPM Atrial Rate : 65 BPM P-R Int : 174 ms QRS Dur : 66 ms QT Int : 416 ms P-R-T Axes : 54 26 16 degrees QTcB Int : 432 ms Normal sinus rhythm Possible Left atrial enlargement T wave abnormality, consider anterior ischemia Abnormal ECG When compared with ECG of 17-Feb-2025 02:59, No significant change was found Referred By: Ce Carbajal Electronically Signed By: RAMONITA HAYES MD
[2025-02-17 06:35] LABS: Basophils Absolute Auto 0.1 X10*3/uL (0.0-0.2); Basophils Percent Auto 0.8 % (0-2); Eosinophils Absolute Auto 0.4 X10*3/uL (0.0-0.4); Hematocrit 37.3 % (42.0-52.0); Hemoglobin 12.1 g/dl (14.0-18.0); Imm Gran Abs Auto 0.02 X10*3/uL (0.00-0.03); Imm Gran Pct Auto 0.2 % (0.0-0.4); Lymphocytes Absolute Auto 3.3 X10*3/uL (1.2-4.9); Lymphocytes Percent Auto 39.5 % (20-40); Mean Corpuscular HGB Conc 32.4 g/dl (31.0-36.0); Mean Corpuscular Hemoglobin 28.4 pg (27.0-33.0); Mean Corpuscular Volume 87.6 fL (80.0-98.0); Mean Platelet Volume 11.3 fL (9.4-12.4); Monocytes Absolute Auto 0.6 X10*3/uL (0.1-1.2); Neutrophils Percent Auto 47.5 % (45-73); Platelet Count 160 X10*3/uL (160-400); Prothrombin Time 11.2 SEC (10.9-12.4); Red Blood Count 4.26 X10*6/uL (4.60-5.80); Red Cell Distribution Width 13.8 % (11.0-16.0); White Blood Count 8.4 X10*3/uL (4.8-10.8)
[2025-02-17 06:38] LABS: PTT Heparin Drip 47.1 SEC (53-77.9)
[2025-02-17 06:53] LABS: Alanine Aminotransferase 23 U/L (0-40); Albumin Level 3.4 g/dL (3.5-5.0); Alkaline Phosphatase 59 U/L (39-117); Anion Gap 11 (12-20); Aspartate Amino Transferase 68 U/L (5-37); Bilirubin Total 0.4 mg/dL (0.0-1.0); Blood Urea Nitrogen 19 mg/dL (9-16); Calcium 8.2 mg/dL (8.4-10.2); Carbon Dioxide 22 mmol/L (22-29); Chloride 112 mmol/L (96-108); Creatinine Clr Calc Pharmacy 120.1; Estimated Glomerular Filt Rate > 60; Glucose Random 96 mg/dL (60-115); Potassium 3.8 mmol/L (3.3-5.1); Sodium 141 mmol/L (135-145); Total Protein 6.1 g/dL (6.5-8.0)
--- NOTE | 2025-02-17 07:00 | CA_ITS ---
Transthoracic Echocardiogram Patient (Last, First, Middle): Oscar Ga Radi Gender: Male Date of : 1960 Age: 64 Procedure Date: 02/17/2025 Procedure Type: Transthoracic Echocardiogram Location: ER Height: 175.26 cm Weight: 96.16 kg BSA: 2.12 m2 Heart Rate: 70 bpm BP: 135 / 73 mmHg Hand Heel Seat Fitter: ASHLEE Referring MD: Ce Carbajal [facility] Lobster Fisherman: Fredy Dimas MD Symptoms: nstemi Study Quality: Adequate ECG Rhythm: Sinus Conclusions: - 1. Normal LV ejection fraction of 65-70% with grade 1 diastolic dysfunction 2. Normal cardiac valvular Dopplers 3. Normal RV systolic pressure 4. No gross pericardial effusion Findings Procedure Information Contrast agent, definity, is being given per protocol without apparent complications. Left Ventricle Normal left ventricular size, thickness, and systolic function. The visually estimated ejection fraction is between 65-70%. Spectral Doppler is indicative of an impaired relaxation filling pattern. E/E prime ratio is <8, consistent with normal filling pressures. Evidence suggests grade I (mild) diastolic dysfunction. Right Ventricle Normal right ventricular cavity size and systolic function. Atria Both atria are normal in size. There is no evidence of interatrial shunt. Aortic Valve There is mild calcification of the aortic valve. There is no aortic valve stenosis. There is no aortic valve regurgitation. Mitral Valve There is mild anterior and posterior mitral leaflet thickening. There is trace mitral valve regurgitation. There is no mitral valve stenosis. Pulmonic Valve The pulmonic valve was not well visualized. Tricuspid Valve Likely normal tricuspid valve structure and function. There is trace tricuspid valve regurgitation. The right ventricular systolic pressure is normal. The right ventricular systolic pressure is 29 mmHg. Normal right atrial pressure. There is no evidence of pulmonary hypertension. Great Vessels All visible segments of the aorta are normal in size. The pulmonary artery was not well visualized. There is no dilatation of the ascending aorta measuring 3.20 cm. Venous The inferior vena cava is normal in size and collapses greater than 50% with inspiration. Pericardium/Pleural There is no evidence of pericardial effusion. Prior Study Comparison No prior study available for comparison. Measurements 2D Linear Measurements IVSd: 1.06 0.6-0.9/0.6-1.0 cm LVIDd: 4.94 3.9-5.3/4.2-5.9 cm LVIDd Index: 2.33 2.4-3.2/2.2-3.1 cm/m2 LVIDs: 2.85 2.0-3.6 cm LVPWd: 0.80 0.7-1.1 cm LA Diam: 3.30 2.7-3.8/3.0-4.0 cm LAIDs Index: 1.56 1.5-2.3 cm/m2 LV Mass: 201.20 67-162/88-224 g LV Mass Index: 94.91 43-95/49-115 g/m2 LVOT Diam: 2.60 3.0+(-)1.3 cm 2D Systolic Function EF 4C: 67.60 >55% EF 2C: 68.90 >55% EF BiP: 68.70 >55% Mitral Valve MV Pk E: 0.67 MV PK A: 0.80 MV Decel Time: 221.00 E/A: 0.80 E'Lateral: 6.85 E'Medial: 5.66 E/E' Med: 11.90 E/E' Lat: 9.80 PHT: 65.00 MVA PHT: 3.38 Decel [place]: 3.04 Aortic Valve AoV Pk Lauro: 1.11 AoV Pk Grad: 5.00 JENNYFER: 5.74 LVOT LVOT Pk Lauro: 1.20 LVOT Mn Lauro: 0.93 LVOT VTI: 0.27 LVOT Pk Grad: 6.00 LVOT Mn Grad: 4.00 LVOT Diam: 2.60 LVOT Area: 5.31 Diastolic Function MV Pk E: 0.67 MV Pk A: 0.80 E/A: 0.80 E'Medial: 5.66 E/E' Med: 11.90 E' Laterial: 6.85 E/E' Lat: 9.80 Right Ventricle TAPSE (mm): 18.30 TVS' Lauro: 13.60 Tricuspid Valve TR Pk Lauro: 2.27 TR Pk Grad: 21.00 RA Press: 8.00 RVSP: 29.00 Great Vessels Aorta Sinus of Valsalva: 3.30 2.0-3.5 cm Ao Asc: 3.20 2.1-3.4 cm Ao Arch: 3.50 Pulmonary Veins Pulm Vein S/D 1.90 Pulmonary Valve PV Pk Lauro: 0.68 Peak PV Grad: 2.00 Updated in Other Vendor System with Status of Final Fredy Dimas MD electronically signed on 02/17/2025 1:09:30 PM with status of Final
[2025-02-17 07:21] LABS: Troponin-I High Sensitivity 10259.2 ng/L (<3.5-35.0)
[2025-02-17] MEDS: Aspirin 81 MG TAB.CHEW PO (08:25)
--- NOTE | 2025-02-17 08:31 | PC.NURSE ---
Pt's Heparin gtt noted to be running at 10 unit/kg/hr; rate should have been 10ml/hr, which 10.97units/kg/hr; pharmacy aware and pt adjusted to 12.97 units/kg/hr after a 3600unit IV bolus dose per protocol; MAR adjustment charted incorrectly due to the error in initial delivery; This RN is unable edit the MAR record to reflect the change to the rate. Provider is aware; pt has no sx's at this time; SR per tele at 62 bpm
--- NOTE | 2025-02-17 08:59 | PHA.MEDREC ---
Addendum entered by Matthew Smith RPh 02/17/25 09:15: Reviewed by [facility]. Original Note: Pharmacy Consult ? Medication Reconciliation Pharmacy has completed the medication reconciliation. Spoke to patient to confirm med list. Patient states he is no longer taking Ciclopirox 8% Topical solution, Diclofenac sod 1 % topical gel, Ibuprofen 200 mg , Sildenafil 100 mg, Terbinafine 250 mg. Patient confirmed he uses Ketoconazole 2 % shampoo Sunday, Sunday, Sunday as needed,
[2025-02-17 09:02] LABS: Estimated Average Glucose 128 mg/dL; Hemoglobin A1c % 6.1 % (<6.0); Total Hemoglobin (HGBA1C) 3213.4249 umol/L
--- NOTE | 2025-02-17 09:25 | P.CONCA_ITS ---
History of Present Illness History of Present Illness Date of Service: 02/17/25 Requesting physician: Anuja Barajas Consult reason: other (NSTEMI) Chief complaint: New onset atrial fibrillation, NSTEMI Narrative: I was consulted to see Oscar in cardiology consultation today for NSTEMI. He is a pleasant 64-year-old male with no significant past medical history, smoker which she is trying to cut down came to the hospital with chest discomfort. Patient said he was in [place] yesterday at a shopping mall and then he suddenly felt pressure in his chest which was quite severe associated with shortness of breath and diaphoresis. He then decided to drive himself back up and come to the emergency room. Took about an hour for him to get back to the emergency room in the emergency room he was noted to be in AFib with rapid ventricular response and subsequently get medications. He converted to sinus rhythm and after that his chest pain improved. Taking about half an hour for his pain to get resolved. He came in his initial troponin was within normal limits, 2nd troponin 2000 and is currently the for troponins at 10,000. Patient has remained chest pain-free. His EKG now shows new T-wave inversion in the anterior leads. Patient said about 3 weeks ago he had symptoms of fatigue although had no chest pains at that time. He has not had any significant chest pain at that point time. Patient denied any palpitations. He has not had any heart failure symptoms. No lightheadedness, syncope. Review of Systems 2 Constitutional: Constitutional: Denies body ache(s), Denies chills and Reports fatigue (Three weeks ago) Eyes: Eyes: Denies no additional eye complaints ENT: Denies system reviewed and no additional complaints, except as documented Cardiovascular: Cardiovascular: Reports chest pain at rest, Denies chest pain with activity, Denies syncope, Denies lightheadedness, Denies Loss of Consciousness, Denies palpitations and Reports dyspnea Respiratory: Respiratory: Reports no additional respiratory complaints and Reports dyspnea Gastrointestinal: Gastrointestinal: Reports no additional gastrointestinal complaints Genitourinary: Genitourinary: Reports no additional male genitourinary complaints Musculoskeletal: Musculoskeletal: Reports no additional musculoskeletal complaints Neurologic: Reports system reviewed and no additional complaints, except as documented and Denies syncope Psychiatric: Psychiatric: Reports no additional psychiatric complaints Endocrine: Endocrine: Reports fatigue (Three weeks ago) and Denies palpitations Allergic/Immunologic: Allergic/Immunologic: Reports no additional allergic/immunologic complaints [facility] Past Medical History Medical History Primary osteoarthritis, right shoulder Overweight (BMI 25.0-29.9) Smoker Impaired fasting glucose Mixed hyperlipidemia Abdominal pain Insomnia Dyslipidemia Bilateral primary osteoarthritis of knee Laceration of left index finger 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 Avulsion of skin of left thumb Kidney stones Surgical History Surgical History Hx of left knee surgery History of hand surgery Hx of lithotripsy Social History Social History Housing: House Alcohol intake: never Patient Tobacco Use Status: Tobacco use Unknown Tobacco use type: Cigarette Cigarette Packs Per Day: 0.5 Cigarettes Per Day: 10 Years Smoked: 45 Smoked in Last 30 Days: Yes e-Cigarette/Vaping Use: Never Used Second Hand Smoke Exposure: Yes Use of substances other than those prescribed or required for medical reasons: No Advance Directives: No Advance Directives Information Provided: No Do you have a plan to hurt others: No Plan Nutrition Risks: No Nutritional Risk service: No Current occupational status: unemployed 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 Cognitive needs: Yes (cane) Hearing needs: No Vision needs: Yes (glasses) Travel History Ebola Risk: Travel/Contact With Anyone From Affected Area/s: No Has Patient Experienced Ebola Symptoms: No Meds Allergies Allergy/AdvReac Type Severity Reaction Status Date / Time Sulfa (Sulfonamide Allergy Mild RASH/SWELLI Verified 02/16/25 20:16 Antibiotics) NG Active Medications: Current Medications Acetaminophen (Acetaminophen 325 Mg Tablet) 650 mg PO Q6H PRN PRN Reason: Pain, Mild 1-3,fever,headache Albuterol/Ipratropium (Albuterol/Iprat 2.5/0.5mg 3 Ml Ampul.Neb) 3 ml INHALE Q4H PRN PRN Reason: Shortness of Breath/Wheezing Aspirin (Aspirin 81 Mg Tab.Chew) 81 mg PO DAILY [facility] Last Admin: 02/17/25 08:25 Dose: 81 mg Atorvastatin Calcium (Atorvastatin Calcium 80 Mg Tablet) 80 mg PO BEDTIME [facility] Calcium Carbonate (Calcium Carbonate 750 Mg Tab.Chew) 750 mg PO Q4H PRN PRN Reason: Heartburn Diltiazem HCl (Diltiazem Hcl 30 Mg Tablet) 30 mg PO QID [facility]; Protocol Heparin Sodium (Porcine) (Heparin Sodium,Porcine 5,000 Unit/Ml Vial) 3,600 unit 40 unit/kg (3600 unit) IVPUSH PROTOCOL BOLUS PRN; Protocol PRN Reason: 40 unit/kg - Heparin Protocol Heparin Sodium (Porcine) (Heparin Sodium,Porcine 5,000 Unit/Ml Vial) 7,300 unit 80 unit/kg (7300 unit) IVPUSH PROTOCOL BOLUS PRN; Protocol PRN Reason: 80 unit/kg - Heparin Protocol Heparin Sodium/Sodium Chloride (Heparin Sodium,Porcine/1/2ns) 25,000 unit in 250 mls @ 0 mls/hr IVCONT .Q0M [facility]; Protocol Last Titration: 02/17/25 07:29 Dose: 12 units/kg/hr, 11.57 mls/hr Magnesium Hydroxide (Milk Of Magnesia 30 Ml Oral.Susp) 30 ml PO DAILY PRN PRN Reason: Constipation Melatonin (Melatonin 3 Mg Tablet) 6 mg PO BEDTIME PRN PRN Reason: Insomnia Nitroglycerin (Nitroglycerin 0.4 Mg Tab.Subl) 0.4 mg SUBLINGUAL Q5MX3 PRN PRN Reason: Chest Pain Ondansetron HCl (Ondansetron Hcl 4 Mg/2 Ml Vial) 4 mg IVPUSH Q8H PRN PRN Reason: Nausea and Vomiting Senna (Sennosides 8.6 Mg Tablet) 17.2 mg PO BEDTIME [facility] Sodium Chloride (0.9 % Sodium Chloride Flush 3 Ml Syringe) 3 ml IVFLUSH QSHIFT [facility] Last Admin: 02/17/25 08:26 Dose: Not Given Home Medications ?Medication ?Instructions ?Recorded ?Confirmed ?Last Taken ?Type fluocinolone acetonide oil 0.01 % 2 - 3 drp otic (ears) BID PRN 02/17/25 02/17/25 02/16/25 History ear drops (DermOtic Oil) Itching ketoconazole 2 % shampoo 1 appl topical MOWEFR PRN dandruff 02/17/25 02/17/25 Unknown History lidocaine 5 % topical patch 1 patch topical DAILY PRN Pain 02/17/25 02/17/25 Unknown History Physical Exam 2 Vital Signs: Vital Signs: Last Vital Signs Temp 97.7 F 02/17/25 06:01 Pulse 76 02/17/25 06:01 Resp 13 02/17/25 06:01 BP 123/77 02/17/25 06:01 Pulse Ox 96 02/17/25 06:01 O2 Del Method Room Air 02/17/25 06:01 BMI result Body Mass Index 31.4 Const: General: cooperative, comfortable, no acute distress, alert, awake and Physically active Nutritional Appearance: average body habitus and well nourished Orientation/consciousness: patient oriented x3 Limitations: no limitations HEENT: Head: Yes normocephalic and Yes atraumatic Neck: Neck: Yes trachea midline, Yes supple and Yes no JVD Chest: Chest palpation & inspection: normal inspection of the chest Resp: Effort & Inspection: normal respiratory effort Auscultation: clear to auscultation bilaterally Cardio: Jugular venous distension: no JVD Palpation: normal PMI Rate: r egular rate Rhythm: regular rhythm Heart sounds: S1 normal heart sound present, S2 normal heart sound present, no click, no gallops and no murmurs GI: Auscultation: normal bowel sounds Skin: General skin exam: no rashes or lesions noted Neuro: General: patient oriented x3 and no focal motor deficits Extrem: General: Yes no clubbing, cyanosis or edema Psych: Appearance: grossly normal Objective Labs and Meds 02/17/25 06:19 02/17/25 06:19 Lab results: Laboratory Results - last 24 hr 02/16/25 02/16/25 02/16/25 20:14 21:02 22:37 WBC 8.1 RBC 4.91 Hgb 14.2 Hct 42.9 MCV 87.4 MCH 28.9 MCHC 33.1 RDW 13.7 Plt Count 192 MPV 11.1 Immature Gran % (Auto) 0.2 Neut % (Auto) 59.2 Lymph % (Auto) 28.8 [place] % (Auto) 5.2 Eos % (Auto) 5.6 H Baso % (Auto) 1.0 Lymph # (Auto) 2.3 [place] # (Auto) 0.4 Eos # (Auto) 0.5 H Baso # (Auto) 0.1 Abs Immat Gran (auto) 0.02 Absolute Neuts (auto) 4.8 Absolute Nucleated RBC 0.000 Nucleated RBC % (auto) 0.0 PT INR aPTT Heparin Protocol D-Dimer High Sensitivty < 150 Sodium 143 Potassium 4.3 Chloride 112 H Carbon Dioxide 21 L Anion Gap 14 BUN 23 H Creatinine 1.28 Estim Creat Clear Calc 66.6 Estimated GFR 57 Random Glucose 207 H Estimat Average Glucose Hemoglobin A1c % Calcium 9.1 Magnesium 2.1 Total Bilirubin 0.2 AST 24 ALT 27 Alkaline Phosphatase 77 Troponin I High Sens 16.3 D 1096.0 H* D B-Natriuretic Peptide < 10 Total Protein 7.3 Albumin 4.0 TSH 1.25 Urine Color Urine Appearance Urine pH Ur Specific [place] Urine Protein Urine Glucose (UA) Urine Ketones Urine Blood Urine Nitrite Ur Leukocyte Esterase Urine RBC Urine WBC Ur Squamous Epith Cells Urine Bacteria Hyaline Casts Influenza Type A (PCR) NEGATIVE Influenza Type B (PCR) NEGATIVE RSV RNA Qual (PCR) NEGATIVE SARS-CoV-2 RNA (RT-PCR) NEGATIVE 02/16/25 02/16/25 02/17/25 23:24 23:53 02:24 WBC 8.8 RBC 4.52 L Hgb 12.8 L Hct 39.9 L MCV 88.3 MCH 28.3 MCHC 32.1 RDW 13.7 Plt Count 174 MPV 11.2 Immature Gran % (Auto) Neut % (Auto) Lymph % (Auto) [place] % (Auto) Eos % (Auto) Baso % (Auto) Lymph # (Auto) [place] # (Auto) Eos # (Auto) Baso # (Auto) Abs Immat Gran (auto) Absolute Neuts (auto) Absolute Nucleated RBC 0.000 Nucleated RBC % (auto) 0.0 PT 10.8 L INR 0.9 aPTT Heparin Protocol 28.7 L D-Dimer High Sensitivty Sodium Potassium Chloride Carbon Dioxide Anion Gap BUN Creatinine Estim Creat Clear Calc Estimated GFR Random Glucose Estimat Average Glucose Hemoglobin A1c % Calcium Magnesium Total Bilirubin AST ALT Alkaline Phosphatase Troponin I High Sens 7973.0 H* D B-Natriuretic Peptide Total Protein Albumin TSH Urine Color Yellow Urine Appearance Clear Urine pH 5.5 Ur Specific [place] 1.020 Urine Protein Negative Urine Glucose (UA) 250 H Urine Ketones Negative Urine Blood Negative Urine Nitrite Negative Ur Leukocyte Esterase Negative Urine RBC 0-2 Urine WBC 0-5 Ur Squamous Epith Cells 0-2 Urine Bacteria None Seen Hyaline Casts 0-2 Influenza Type A (PCR) Influenza Type B (PCR) RSV RNA Qual (PCR) SARS-CoV-2 RNA (RT-PCR) 02/17/25 06:19 WBC 8.4 RBC 4.26 L Hgb 12.1 L Hct 37.3 L MCV 87.6 MCH 28.4 MCHC 32.4 RDW 13.8 Plt Count 160 MPV 11.3 Immature Gran % (Auto) 0.2 Neut % (Auto) 47.5 Lymph % (Auto) 39.5 [place] % (Auto) 7.0 Eos % (Auto) 5.0 H Baso % (Auto) 0.8 Lymph # (Auto) 3.3 [place] # (Auto) 0.6 Eos # (Auto) 0.4 Baso # (Auto) 0.1 Abs Immat Gran (auto) 0.02 Absolute Neuts (auto) 4.0 Absolute Nucleated RBC 0.000 Nucleated RBC % (auto) 0.0 PT 11.2 INR 1.0 aPTT Heparin Protocol 47.1 L D D-Dimer High Sensitivty Sodium 141 Potassium 3.8 Chloride 112 H Carbon Dioxide 22 Anion Gap 11 L BUN 19 H Creatinine 0.73 Estim Creat Clear Calc 120.1 Estimated GFR > 60 Random Glucose 96 Estimat Average Glucose 128 Hemoglobin A1c % 6.1 H Calcium 8.2 L D Magnesium Total Bilirubin 0.4 AST 68 H ALT 23 Alkaline Phosphatase 59 Troponin I High Sens 50005.2 H* B-Natriuretic Peptide Total Protein 6.1 L Albumin 3.4 L TSH Urine Color Urine Appearance Urine pH Ur Specific [place] Urine Protein Urine Glucose (UA) Urine Ketones Urine Blood Urine Nitrite Ur Leukocyte Esterase Urine RBC Urine WBC Ur Squamous Epith Cells Urine Bacteria Hyaline Casts Influenza Type A (PCR) Influenza Type B (PCR) RSV RNA Qual (PCR) SARS-CoV-2 RNA (RT-PCR) Assessment and Plan (1) Non-ST elevation (NSTEMI) myocardial infarction: Status: Acute Patient presents with classic symptoms of myocardial ischemia along with elevated troponins with EKG changes highly suggestive of acute primary coronary syndrome. Patient has remained chest pain-free. However I discussed with him that he needs further investigation and invasive management would be the best approach. Discussed the need for cardiac catheterization including associated risks, benefits, alternatives. He understands and agrees. Will make arrangements for transfer to [facility] for the same. I would continue with IV heparin till he undergoes cardiac catheterization. Continue aspirin, avoid dual antiplatelet therapy at this point time. Continue high- intensity statin therapy. Add low-dose metoprolol. Echocardiogram at bedside to assess for wall motion abnormality and LV function that will guide therapy and prognosis. (2) Atrial fibrillation with RVR: Status: Acute Patient presents with atrial fibrillation unusual and had no symptoms associated with it. Has converted back to sinus rhythm. Continue full disclosure cardiac telemetry. Start metoprolol as above. Continue IV heparin. It is highly unusual for acute coronary syndrome to cause atrial fibrillation but possible. Unless he has recurrence I would not put him on oral anticoagulation therapy. Will monitor as outpatient. Will follow-up after. Procedures Date of Service Date of Service: 02/17/25
[2025-02-17] MEDS: Metoprolol Tartrate 12.5 MG HALFTAB PO ×2 (10:25→14:27)
[2025-02-17] MEDS: Nitroglycerin 0.4 MG TAB.SUBL SUBLINGUAL (10:30)
--- NOTE | 2025-02-17 10:33 | PC.NURSE ---
Pt c/o 6/ L sided CP; provider made aware; pt remains SR 60's; SL NTG admin per orders; will reassess in 5 minutes; pt remains NPO except for meds at this time
--- NOTE | 2025-02-17 10:59 | PC.NURSE ---
order for PTT redraw was put in for 12:30 today; phlebotomy deonna PTT early and lab reordered for 12:30 again; Dr Foss made aware of elevated results due to rate increase and bolus; wants Heparin gtt to continue at current rate until PTT drawn at proper time; pt has no s/s of bleeding at this time
[2025-02-17] MEDS: Morphine Sulfate 4 MG/ML CARTRIDGE IVPUSH (11:22)
--- NOTE | 2025-02-17 11:36 | MHC.CM.PN ---
Per rounds, pt. will be transferred to [facility] for cardiac treatment.
--- NOTE | 2025-02-17 11:39 | MHC.EDTECH ---
took over assignment at 1100, vitals obtained stable and documented, pt did not verbalize any discomfort or need for anything at the moment. call sutton within reach.
--- NOTE | 2025-02-17 12:14 | PM.DS ---
DS: Providers Provider Date of Service: 02/17/25 Date of admission: 02/16/25 23:36 Date of discharge: 02/17/25 Primary care physician: Portillo Dumont MD Consults: 02/17/25 01:57 Consult to Cardiology Routine Consulting Provider: [facility] Reason for consultation: nstemi Has provider been notified: No DS: Diagnosis Discharge Diagnosis (1) Non-ST elevation (NSTEMI) myocardial infarction: Status: Acute (2) Atrial fibrillation with RVR: Status: Acute DS: Summary Hospital Course Hospital Course: From the history and physical by the admitting hospitalist, Melinda Carbajal NP, 02/17/25: PATIENT IS A 64-YEAR-OLD MALE with past medical history obesity, hyperlipidemia not on statin, tobacco dependence currently 8-10 cigarettes per day, left knee arthroscopy, left leg cramping, vitamin-D deficiency, nephrolithiasis with lithotripsy, onychomycosis of fingernails presents to the emergency department with worsening shortness of breath, fatigue and chest pain that started at 16:00 on Sunday02/16/2025. Patient states he has not been feeling well for the last 3 weeks. Patient also states that his experienced a ?heart attack? 3 weeks prior, underwent cardiac catheterization and received a stent. Patient told that he initially came in with atrial fibrillation RVR and patient denies history of having this. But in addition incidentally patient's troponin went from normal to over 1000 and patient was started on a heparin infusion and aspirin in the emergency department. Patient has remained chest pain-free. Patient experienced hypotension while in AFib RVR. Patient currently in normal sinus rhythm, heart rate 74, blood pressure 133/72. Patient denies any other family history of coronary artery disease. Patient states he has been trying to stop smoking but has been unsuccessful although he has cut down to the 8-10 cigarettes per day. Patient does not use oxygen at home or inhalers of any kind. Patient does not drink alcohol due to his adventism. Patient denies any marijuana use or illicit drug use. Patient did try Viagra 3-4 months prior for erectile dysfunction but due to side effects did not use the medication again. Patient will remain NPO until seen by Cardiology this morning. Third troponin pending. Patient has not required oxygen. And from the cardiology consultation by Fredy Dimas MD, 02/17/25: I was consulted to see Oscar in cardiology consultation today for NSTEMI. He is a pleasant 64-year-old male with no significant past medical history, smoker which she is trying to cut down came to the hospital with chest discomfort. Patient said he was in [place] yesterday at a shopping mall and then he suddenly felt pressure in his chest which was quite severe associated with shortness of breath and diaphoresis. He then decided to drive himself back up and come to the emergency room. Took about an hour for him to get back to the emergency room in the emergency room he was noted to be in AFib with rapid ventricular response and subsequently get medications. He converted to sinus rhythm and after that his chest pain improved. Taking about half an hour for his pain to get resolved. He came in his initial troponin was within normal limits, 2nd troponin 1999 and is currently the for troponins at 10,000. Patient has remained chest pain-free. His EKG now shows new T-wave inversion in the anterior leads. Patient said about 3 weeks ago he had symptoms of fatigue although had no chest pains at that time. He has not had any significant chest pain at that point time. Patient denied any palpitations. He has not had any heart failure symptoms. No lightheadedness, syncope. He was admitted to the hospitalist service and treated with heparin drip. Cardiology was consulted and he was transferred to [facility] for cardiac catheterization. Aspirin, atorvastatin, and metoprolol were initiated. Echocardiogram showed: 1. Normal LV ejection fraction of 65-70% with grade 1 diastolic dysfunction 2. Normal cardiac valvular Dopplers 3. Normal RV systolic pressure 4. No gross pericardial effusion He remained in sinus rhythm and full anticoagulation was not recommended unless he goes back into atrial fibrillation. Time Attestation Discharge Coordination Time (in mins): 35 Quality: Safe Use of Opioids Does Pt have an Active Cancer Diagnosis on the Problem List?: No Quality: Stroke Does the patient have a stroke diagnosis?: No Physical Exam Vital Signs: Vital Signs: Last Vital Signs Temp 97.6 F 02/17/25 11:36 Pulse 68 02/17/25 11:36 Resp 12 02/17/25 11:36 BP 116/67 02/17/25 11:36 Pulse Ox 96 02/17/25 11:36 O2 Del Method Room Air 02/17/25 11:36 BMI result Body Mass Index 31.4 Gen: in no acute distress HEENT: sclera anicteric, moist mucus membranes Neck: supple Lungs: clear to auscultation bilaterally Heart: regular rate and rhythm, no murmurs Abd: soft, non-tender, non-distended Ext: no edema Skin: warm/well-perfused Neuro: alert and oriented x3, no focal findings Psych: appropriate affect DS: Data Data Completed and Pending Completed studies during hospitalization [Text1]: Laboratory Results WBC 8.4 X10*3/uL (4.8-10.8) 02/17/25 06:19 RBC 4.26 X10*6/uL (4.60-5.80) L 02/17/25 06:19 Hgb 12.1 g/dl (14.0-18.0) L 02/17/25 06:19 Hct 37.3 % (42.0-52.0) L 02/17/25 06:19 MCV 87.6 fL (80.0-98.0) 02/17/25 06:19 MCH 28.4 pg (27.0-33.0) 02/17/25 06:19 MCHC 32.4 g/dl (31.0-36.0) 02/17/25 06:19 RDW 13.8 % (11.0-16.0) 02/17/25 06:19 Plt Count 160 X10*3/uL (160-400) 02/17/25 06:19 MPV 11.3 fL (9.4-12.4) 02/17/25 06:19 Immature Gran % (Auto) 0.2 % (0.0-0.4) 02/17/25 06:19 Neut % (Auto) 47.5 % (45-73) 02/17/25 06:19 Lymph % (Auto) 39.5 % (20-40) 02/17/25 06:19 [place] % (Auto) 7.0 % (2-11) 02/17/25 06:19 Eos % (Auto) 5.0 % (0-4) H 02/17/25 06:19 Baso % (Auto) 0.8 % (0-2) 02/17/25 06:19 Lymph # (Auto) 3.3 X10*3/uL (1.2-4.9) 02/17/25 06:19 [place] # (Auto) 0.6 X10*3/uL (0.1-1.2) 02/17/25 06:19 Eos # (Auto) 0.4 X10*3/uL (0.0-0.4) 02/17/25 06:19 Baso # (Auto) 0.1 X10*3/uL (0.0-0.2) 02/17/25 06:19 Abs Immat Gran (auto) 0.02 X10*3/uL (0.00-0.03) 02/17/25 06:19 Absolute Neuts (auto) 4.0 x10*3/uL (2.0-8.3) 02/17/25 06:19 Absolute Nucleated RBC 0.000 X10*3/uL (0.0-0.012) 02/17/25 06:19 Nucleated RBC % (auto) 0.0 /100WBC (0.0-0.2) 02/17/25 06:19 PT 11.2 SEC (10.9-12.4) 02/17/25 06:19 INR 1.0 (0.9-1.1) 02/17/25 06:19 aPTT Heparin Protocol 147.8 SEC (53-77.9) H* D 02/17/25 09:54 D-Dimer High Sensitivty < 150 NG/ML 02/16/25 21:02 Sodium 141 mmol/L (135-145) 02/17/25 06:19 Potassium 3.8 mmol/L (3.3-5.1) 02/17/25 06:19 Chloride 112 mmol/L (96-108) H 02/17/25 06:19 Carbon Dioxide 22 mmol/L (22-29) 02/17/25 06:19 Anion Gap 11 (12-20) L 02/17/25 06:19 BUN 19 mg/dL (9-16) H 02/17/25 06:19 Creatinine 0.73 mg/dL (0.5-1.4) 02/17/25 06:19 Estim Creat Clear Calc 120.1 02/17/25 06:19 Estimated GFR > 60 02/17/25 06:19 Random Glucose 96 mg/dL (60-115) 02/17/25 06:19 Estimat Average Glucose 128 mg/dL 02/17/25 06:19 Hemoglobin A1c % 6.1 % (<6.0) H 02/17/25 06:19 Calcium 8.2 mg/dL (8.4-10.2) L D 02/17/25 06:19 Magnesium 2.1 mg/dL (1.6-2.6) 02/16/25 20:14 Total Bilirubin 0.4 mg/dL (0.0-1.0) 02/17/25 06:19 AST 68 U/L (5-37) H 02/17/25 06:19 ALT 23 U/L (0-40) 02/17/25 06:19 Alkaline Phosphatase 59 U/L (39-117) 02/17/25 06:19 Troponin I High Sens 73354.2 ng/L (<3.5-35.0) H* 02/17/25 06:19 B-Natriuretic Peptide < 10 pg/mL (<100) 02/16/25 20:14 Total Protein 6.1 g/dL (6.5-8.0) L 02/17/25 06:19 Albumin 3.4 g/dL (3.5-5.0) L 02/17/25 06:19 TSH 1.25 uIU/mL (0.32-4.0) 02/16/25 20:14 Urine Color Yellow 02/16/25 23:24 Urine Appearance Clear 02/16/25 23:24 Urine pH 5.5 (5.0-9.0) 02/16/25 23:24 Ur Specific [place] 1.020 (1.005-1.025) 02/16/25 23:24 Urine Protein Negative mg/dL (Neg-Trace) 02/16/25 23:24 Urine Glucose (UA) 250 mg/dL (Negative) H 02/16/25 23:24 Urine Ketones Negative mg/dL (Negative) 02/16/25 23:24 Urine Blood Negative (Negative) 02/16/25 23:24 Urine Nitrite Negative (Negative) 02/16/25 23:24 Ur Leukocyte Esterase Negative (Negative) 02/16/25 23:24 Urine RBC 0-2 /HPF (0-2) 02/16/25 23:24 Urine WBC 0-5 /HPF (0-5) 02/16/25 23:24 Ur Squamous Epith Cells 0-2 /HPF (0-2) 02/16/25 23:24 Urine Bacteria None Seen (None Seen) 02/16/25 23:24 Hyaline Casts 0-2 /LPF (0-2) 02/16/25 23:24 Influenza Type A (PCR) NEGATIVE (Negative) 02/16/25 21:02 Influenza Type B (PCR) NEGATIVE (Negative) 02/16/25 21:02 RSV RNA Qual (PCR) NEGATIVE (Negative) 02/16/25 21:02 SARS-CoV-2 RNA (RT-PCR) NEGATIVE (Negative) 02/16/25 21:02 Discharge Plan Discharge Anticipated Discharge Date/Time: 02/17/25 12:14 Patient Disposition: [facility] Discharge Diagnosis: NSTEMI, atrial fibrillation Referrals: Portillo Dumont MD [Primary Care Provider] - 1 Week Fredy Dimas MD [Physician] - 2 Weeks Discharge Medications: New atorvastatin 80 mg Tablet 80 mg PO BEDTIME Qty: 1 0RF heparin (porcine) 5,000 unit/mL Solution 7,300 unit IVPUSH PROTOCOL BOLUS PRN (Reason: 80 Unit/Kg - Heparin Protocol) Qty: 1 0RF heparin (porcine) 5,000 unit/mL Solution 3,600 unit IVPUSH PROTOCOL BOLUS PRN (Reason: 40 Unit/Kg - Heparin Protocol) Qty: 1 0RF heparin(porcine) in 0.45% NaCl 25,000 unit/250 mL Parenteral Solution 25,000 unit continuous IV infusion .Q0M Qty: 1 0RF metoprolol tartrate 25 mg tablet 12.5 mg PO Q6H Qty: 1 0RF nitroglycerin [Nitrostat] 0.4 mg Tablet, Sublingual 0.4 mg sublingual Q5MX3 PRN (Reason: Chest Pain) Qty: 1 0RF aspirin 81 mg Tablet,Chewable 81 mg PO DAILY Qty: 1 0RF Continued (DME) CANE See Rx Instructions .Route .MEDSUPPLY Qty: 1 0RF Rx Instructions: As directed zolpidem 10 mg tablet 10 mg PO BEDTIME PRN (Reason: insomnia) Qty: 30 0RF fluocinolone acetonide oil [DermOtic Oil] 0.01 % drops 2 - 3 drp otic (ears) BID PRN (Reason: Itching) Rx Instructions: INSTILL 2-3 DROPS INTO THE EARS TWICE DAILY FOR 2 WEEKS THEN NEEDED FOR ITCHING ketoconazole 2 % shampoo 1 appl topical MOWEFR PRN (Reason: dandruff) lidocaine 5 % adhesive patch,medicated 1 patch topical DAILY PRN (Reason: Pain) Rx Instructions: leave on most painful area for up to 12 hrs acetaminophen 325 mg capsule 650 mg PO QID PRN (Reason: fever or pain) Qty: 60 3RF capsaicin 0.1 % cream 1 appl topical TID PRN (Reason: pain) Qty: 60 0RF Rx Instructions: do not wash area for at least 30 min after application clotrimazole-betamethasone 1-0.05 % cream 1 appl topical BID PRN (Reason: rash) 14 Days Qty: 45 0RF Discharge Orders: Discharge Order (Routine); Ordered 02/17/25 Ordered By: Anuja Barajas Diet: Advance to usual diet Activity on Discharge: As tolerated Stand Alone Forms: Patient Portal Discharge page Print Language: [place] Care Plan Goals: cardiac health Health Concerns: NSTEMI, atrial fibrillation Plan of Treatment: transfer to [facility] for cardiac catheterization Assessment: See Discharge Summary.
--- NOTE | 2025-02-17 12:54 | PC.NURSE ---
PTT-HD drawn at 12:32pm by post hole digging machine operator. Awaiting results. Will titrate Heparin drip based on 12:32pm results. Pt sleeping at this time. Continue to await response from [facility] regarding acceptance/transfer for NSTEMI.
--- NOTE | 2025-02-17 13:02 | PC.NURSE ---
Dr. Barajas instructed this RN to hold Oxycodone 15mg until 16:00 today. Patient aware.
[2025-02-17 13:09] LABS: PTT Heparin Drip 115.9 SEC (53-77.9)
--- NOTE | 2025-02-17 13:27 | PC.NURSE ---
PTT-HD 115.9. Heparin drip infusion paused per protocol, witnessed by Joellen Caal RN at 13:15. Obtain hourly PTT-HD until level is <93, then decrease rate by 4 units/kg per protocol. Order entered for lab draw at 14:15. Patient aware. Accepting MD: Dr. Chacko @ [facility]. Confirmed by Wilian (ultrasound technician/corporation secretary) via phone. Preparing for transfer. Dr. Barajas notified regarding all of this.
[2025-02-17 14:09] LABS: PTT Heparin Drip 147.8 SEC (53-77.9)
[2025-02-17 14:38] LABS: PTT Heparin Drip 73.5 SEC (53-77.9)
--- NOTE | 2025-02-23 07:53 | PC.NURSE ---
LATE CHART ENTRY: PT'S PTT LOW ACCORDING TO FLOWCHART; PT WAS ADMINISTERED THE APPROPRIATE 40UNIT IV BOLUS PER ORDERS BY THIS RN; THIS RN FAILED TO SCAN/SAVE THE HEPARIN BOLUS, BUT IT WAS DELIVERED PER PROTOCOL
== END 2025-02-17 14:39 | disposition short-term general hospital (02) | DRG 190 ==
LOC: HO.ED 22:26 → HO.EDOVER 23:44
PROVIDERS: Nurse Practitioner Family; Physician Assistant; Physician Assistant Medical; Admitting Provider Internal Medicine; Emergency Provider Emergency Medicine; PCP Internal Medicine; Visit Provider Family Medicine
DX: I21.4 Non-ST elevation (NSTEMI) myocardial infarction (principal); B35.1 Tinea unguium; E78.5 Hyperlipidemia, unspecified; E55.9 Vitamin D deficiency, unspecified; I48.0 Paroxysmal atrial fibrillation; F17.210 Nicotine dependence, cigarettes, uncomplicated; Z71.6 Tobacco abuse counseling; N52.9 Male erectile dysfunction, unspecified; Z20.822 Contact with and (suspected) exposure to COVID-19; Z79.899 Other long term (current) drug therapy
CPT/HCPCS: 0241U; 36415; 71045; 80053; 81001; 83036; 83735; 83880; 84443; 84484; 85025; 85027; 85379; 85610; 85730; 93005; 93306; 99285; J1644; J2270; Q9957

== ENCOUNTER → 2025-02-16 20:56 | Outpatient (BNV) | payer OTHER, SELFPAY | PROVIDERS: Emergency Provider Emergency Medicine; PCP Internal Medicine; Visit Provider Radiology Neuroradiology | DX: J84.9 Interstitial pulmonary disease, unspecified (principal) | CPT/HCPCS: 71045 ==

== ENCOUNTER 2025-02-16 23:36 | Outpatient (BNV) | payer OTHER, SELFPAY | END 2025-02-17 02:59 | PROVIDERS: Admitting Provider Internal Medicine; Emergency Provider Emergency Medicine; PCP Internal Medicine; Visit Provider Internal Medicine Cardiovascular Disease | DX: I21.4 Non-ST elevation (NSTEMI) myocardial infarction (principal); I35.8 Other nonrheumatic aortic valve disorders; I51.89 Other ill-defined heart diseases; R94.31 Abnormal electrocardiogram [ECG] [EKG]; R07.9 Chest pain, unspecified | CPT/HCPCS: 93010; 93306 ==

== ENCOUNTER → 2025-02-16 23:36 | Outpatient (BNV) | payer OTHER, SELFPAY | PROVIDERS: Admitting Provider Internal Medicine; Emergency Provider Emergency Medicine; PCP Internal Medicine; Visit Provider Internal Medicine Cardiovascular Disease | DX: I21.4 Non-ST elevation (NSTEMI) myocardial infarction (principal); I48.91 Unspecified atrial fibrillation | CPT/HCPCS: 93010; 99222 ==

== ENCOUNTER → 2025-02-16 23:36 | Outpatient (BNV) | payer OTHER, SELFPAY | PROVIDERS: Admitting Provider Internal Medicine; Emergency Provider Emergency Medicine; PCP Internal Medicine; Visit Provider Nurse Practitioner Family | DX: I21.4 Non-ST elevation (NSTEMI) myocardial infarction (principal); I48.91 Unspecified atrial fibrillation | CPT/HCPCS: 99223; 99239 ==

== ENCOUNTER → 2025-02-19 23:59 | Outpatient (BNV) | payer OTHER, SELFPAY | PROVIDERS: PCP Internal Medicine; Visit Provider Internal Medicine Cardiovascular Disease | DX: I21.4 Non-ST elevation (NSTEMI) myocardial infarction (principal) | CPT/HCPCS: 92928; 93458; 99152 ==

== ENCOUNTER 2025-03-12 13:24 | Outpatient (AMB) | payer OTHER, SELFPAY ==
--- NOTE | 2025-03-12 13:30 | A.OFFVIS_ITS ---
Vital Signs 03/12/25 13:31 Height 5 ft 9 in Weight 216 lb 14.958 oz BMI 32.0 BP 110/74 Position Sitting Pulse 65 Pulse Source Pulse Oximeter Intake Visit Reasons: [facility]- Cardiac Cath- Follow up Intake Note: [facility] -cardiac cath-f/up Rug Inspector Required: No Accompanied by: Spouse Allergies Sulfa (Sulfonamide Antibiotics) Allergy (Mild, Verified 02/16/25 20:16) RASH/SWELLING Medication List - Last Reconciled 03/12/25 by Colt Jacobs NP acetaminophen 650 mg (2 x 325 mg) PO QID PRN aspirin 81 mg PO DAILY atorvastatin 80 mg PO BEDTIME [CANE As directed] capsaicin 0.1% 1 appl topical TID PRN clotrimazole-betamethasone 1-0.05 % 1 appl topical BID PRN 2 weeks fluocinolone acetonide oil 0.01% (DermOtic Oil) 2 - 3 drps otic (ears) BID PRN heparin (porcine) 7,300 units (1.46 mL) IVPUSH PROTOCOL BOLUS PRN heparin (porcine) 3,600 units (0.72 mL) IVPUSH PROTOCOL BOLUS PRN heparin(porcine) in 0.45% NaCl 25,000 unit/250 mL 25,000 units (250 mL) continuous IV infusion .Q0M ketoconazole 2% 1 appl topical MOWEFR PRN lidocaine 5% 1 patch topical DAILY PRN metoprolol tartrate 12.5 mg (1/2 x 25 mg) PO Q6H nitroglycerin (Nitrostat) 0.4 mg sublingual Q5MX3 PRN zolpidem 10 mg PO BEDTIME PRN HPI Comments Details: This is a 64-year-old male patient coming in for a follow-up visit following hospital discharge and cardiac catheterization. Patient with a history of dyslipidemia and smoker who was recently in the hospital for complaints of chest pain accompanied with shortness of breath and diaphoresis. Patient was noted to be in AFib with a RVR and was subsequently converted to sinus rhythm after which his symptoms improved. Patient's repeat troponins were elevated with T-wave inversions on his EKG and was ruled in for NSTEMI. Patient was transferred to [facility] for a cardiac catheterization which patient underwent on 02/19/[address] Culver. Today, patient reports feeling well overall accept some side pain under the left axilla which is reproducible. Patient reports that he has been feeling a little fatigued since the surgery otherwise with no current cardiac symptoms of exertional chest pain, shortness of breath, palpitations, dizziness, orthopnea, PND, leg edema, presyncope or syncope. Patient states that he is compliant with all his medications except he is only taking 40 mg of the atorvastatin currently. Patient also notes that he has quit smoking which he was commended for. [facility] Medical History Primary osteoarthritis, right shoulder Overweight (BMI 25.0-29.9) Smoker Impaired fasting glucose Mixed hyperlipidemia Abdominal pain Insomnia Dyslipidemia Bilateral primary osteoarthritis of knee Laceration of left index finger 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 Avulsion of skin of left thumb Kidney stones Surgical History Hx of cardiac cath Hx of left knee surgery History of hand surgery Hx of lithotripsy Social History Housing: House Alcohol intake: never Patient Tobacco Use Status: Tobacco use Unknown Tobacco use type: Cigarette Cigarette Packs Per Day: 0.5 Cigarettes Per Day: 10 Years Smoked: 45 e-Cigarette/Vaping Use: Never Used Second Hand Smoke Exposure: Yes service: No Current occupational status: unemployed 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 Cognitive needs: Yes (cane) Hearing needs: No Vision needs: Yes (glasses) Review of Systems Const Denies chills, Reports fatigue, Denies fever(s), Denies frequent falls, Denies weakness, Denies weight gain and Denies weight loss ENT Denies dizziness Card Denies chest pain, Denies leg edema, Denies lightheadedness, Denies palpitations, Reports dyspnea, Reports dyspnea on exertion and Reports orthopnea Resp Denies cough, Reports dyspnea and Reports dyspnea on exertion GI Denies hematochezia Musc Denies abnormal gait, Denies muscle weakness, Denies numbness, Denies radiating pain into limb and Denies tingling Neuro Denies abnormal gait, Denies dizziness, Denies frequent falls, Denies numbness, Denies tingling and Denies weakness Endo Reports fatigue and Denies palpitations Physical Exam Vital Signs: Last Vital Signs Pulse 65 03/12/25 13:31 BP 110/74 03/12/25 13:31 BMI result Body Mass Index 32.0 Const General: cooperative, healthy appearing, comfortable and no acute distress Orientation/consciousness: patient oriented x3 HEENT Head: Yes normal to inspection Neck Neck: Yes normal visual inspection, Yes trachea midline and Yes supple Chest Chest palpation & inspection: normal inspection of the chest Resp Effort & Inspection: normal respiratory effort Auscultation: clear to auscultation bilaterally, no crackles, no rales, no rhonchi and no wheezes Cardio Jugular venous distension: no JVD Palpation: normal PMI Rate: regular rate Rhythm: regular rhythm Heart sounds: S1 normal heart sound present, S2 normal heart sound present, no click, no gallops, no murmurs and no rubs Peripheral pulses: Peripheral pulses 2+ throughout GI Inspection: Yes normal to inspection Palpation (GI): Soft to palpation Auscultation: normal bowel sounds Skin General skin exam: no rashes or lesions noted Neuro General: patient oriented x3 Extrem General: Yes normal to inspection, No no pedal edema and No calf tenderness Psych Appearance: grossly normal Mental Status: mental status grossly normal Speech and movement: Normal speech and movement present Assessment & Plan Assessment & Plan (1) Non-ST elevation (NSTEMI) myocardial infarction: Code(s): I21.4 - Non-ST elevation (NSTEMI) myocardial infarction Category: Medical Plan: Patient with T-wave inversions on EKG of the hospital with elevated troponins, was ruled in for NSTEMI. Patient was transferred to [facility] for cardiac catheterization. As below. (2) Coronary angioplasty status: Code(s): Z98.61 - Coronary angioplasty status Category: Surgical Plan: Status post cardiac catheterization with Dr. Culver at [facility] on 02/19/2025. This showed 80% stenosis in mid L circumflex with diffuse disease proximally between 50-60%, lad with moderate 50% stenosis, and the culprit lesion- mid RCA 95% stenosis. Successful PCI was performed a SHIRA to RCA. Right wrist catheterization site is well healed. Continue lifelong aspirin therapy. Continue uninterrupted Brilinta therapy for at least 12 months. We will switch metoprolol to extended release. And to continue with high-dose statin therapy. We will monitor labs periodically. We will refer patient out to cardiac rehab. Emphasized on the importance. (3) Atrial fibrillation with RVR: Code(s): I48.91 - Unspecified atrial fibrillation Category: Medical Plan: Since patient converted to sinus rhythm and remained in a normal rhythm, patient was started on metoprolol. At the time of discharge, patient was deferred for anticoagulation. Patient to continue with aspirin and Brilinta therapy for now. We will get a Holter study to look for any recurrence or burden of AFib. (4) Mixed hyperlipidemia: Code(s): E78.2 - Mixed hyperlipidemia Category: Medical Plan: As above. Most recent LDL in the 140s. Patient was started on high-dose statin therapy however patient has been taking 40 mg only. Reiterated on taking 80 mg daily and in case of any side effects from this patient will reach out to us for the consideration of maybe changing to Crestor. We will repeat a lipid profile in 3 months. Ideally, patient's LDL goal should be less than 70. (5) Hospital discharge follow-up: Code(s): Z09 - Encounter for follow-up examination after completed treatment for conditions other than malignant neoplasm Plan: As above. Advised heart healthy diet, regular exercise, cardiac rehab, med compliance, continue with smoking cessation, and aggressive management of vascular risk factors. Patient follow up in [address] Culver. In the interim, patient will call the office with any concerns or change in symptoms. This note was generated using voice recognition software. While every effort has been made to ensure accuracy and proper ammunition storage superintendent, there may be occasional errors that could affect the content or meaning of the described symptoms. Orders: Orders Lipid Panel 3 Months E78.2 - Mixed hyperlipidemia Liver Panel 3 Months E78.2 - Mixed hyperlipidemia Basic Metabolic Panel Today E78.2 - Mixed hyperlipidemia Cardiac Rehab Today I21.4 - Non-ST elevation (NSTEMI) myocardial infarction, Z98.61 - Coronary angioplasty status ECG 3 day holter monitor Today I48.91 - Unspecified atrial fibrillation Medications: New metoprolol succinate ER 25 mg PO DAILY 90 tabs 3RF ticagrelor 90 mg PO BID 90 tabs 3RF Coding Level of Care Code Est Pt Level 4 (07319) Complex EM visit Add On G2211 Diagnoses Non-ST elevation (NSTEMI) myocardial infarction I21.4 Coronary angioplasty status Z98.61 Atrial fibrillation with RVR I48.91 Mixed hyperlipidemia E78.2 Hospital discharge follow-up Z09 Time Spent (min) 34 Comment Time spent in reviewing the chart, test results, assessment, counseling and documentation.
[2025-03-12 13:31] VITALS: BP 110/74; PULSE 65; BMI 32.0
--- OUTSIDE RECORDS SUMMARY | 2025-03-12 14:32 | XMS_ITS | Data Portability ---
Author Organization [place] - [facility], Allergy Address [address] [place] [address] Care Team Providers Care Warrant Clerk Name Role Phone ROSCOE MORA Primary Care [...] that cerumen is a natural antibiotic, antifungal, associate broker, and moisturizer of the delicate external auditory [...] his sinus irrigations. Luke Med squeeze bottle junk dealer provided and instructions reviewed. [email or web address] Not available [...] Oil 0.01 % ear drops 2024 025 [facility]/Pharmacy #[id number], [address] [facility], [place], [address], 12/22/2024 10:34:39 Patient TargetsNo targets recorded. Patient InstructionsNo instructions recorded. Reason for Referral None Reported. Problems Name Problem SNOMED Code Status Onset Date Resolution Date Notes Provider Name and Address Organization Details Recorded Time Hypertrophy of tonsils 03570285 Active 2024 KYLER CORBIN-C 100 [facility],[address], [place], [address], [facility] - [facility] 10:31:25 Itching of ear 357214101 Active 2024 REBECA TAYLOR PA-C 100 [facility],[address], [place], [address], [facility] - [facility] 10:33:15 Itching of skin 318133243 Active 2024 REBECA TAYLOR PA-C 100 [facility],[address], [place], [address], [facility] - [facility] 10:33:27 Problem Notes None recorded. Procedures Surgical History Date Name Laterality Status Provider Name and Address Organization Details Recorded Time 12/23/19 25 Fiberoptic Laryngoscopy (Comprehensive) completed REBECA TAYLOR [employer]-C 100 [facility],[place] [address], [place], [address], [facility] - [facility] 12/22/2024 10:46:17 Imaging Results None recorded. Procedure Notes None recorded. Medical Equipment None Reported. Allergies Allergen ID Allergen Name Allergen Category Reaction Reaction Severity Criticality Documentation Date Start Date Code Code System Note Provider Name and Address Organization Details Recorded Time 660610 Substance with sulfonami de structure and antibacte rial mechanism of action (substanc e) medicatio n rash Not available low 12/22/2024 34212 8003 SNOMED Margarita wilkins [place] - [facility] 10:09:41 Medications Name Sig Start Date Stop [...] Updated DateTime 12/22/2024 182.88 cm 28.8 kg/m2 51023.58 g Margarita Guevara [place] - [facility] 12/22/2024 10:09:21 Social History None recorded. Functional [...] Disorder N Anesthesia Complications N Heart Attack ([place]) N Other Skin Condition N Diabetes N [...] SNOMED-CT Code Diagnosis ICD10 Code Diagnosis Note [id number] REBECA TAYLOR PA-C [facility] of [address] [address] 12/22/2024 10:02:43 12/22/2024 10:35:36 Hypertrophy of tonsils 34138564 J35.1 Itching of skin 95672760 0 L29.9 Health Concerns Section Related Observation LastModified by Organization Detai ls LastModified Time None Recorded Concern Status LastModified by Organization Details LastModified Time None Recorded Advance Directives Directive None Recorded Payers Insurance Date Sequence Insurance Name Policy Number Policy Marsh Covered Member ID Marsh Member ID Guarantor Name 12/25/2024 1 [employer] (MEDICARE REPLACEMENT/ ADVANTAGE - HMO) JOSE ALFREDOROCKWOOD [place] Ga [id number] Oscar Ga 12/22/2024 1 [employer] (MEDICARE REPLACEMENT/ ADVANTAGE - HMO) JOSE ALFR[place]OROCKWOOD Oscar Ga [id number] Oscar [place] Notes Date Note Type Note [...] been a heavy drinker. REBECA TAYLOR PA-C [address] [place] [address], [place], [address], [facility] - [facility] 12/22/2024 10:46:51
== END 2025-03-12 14:08 | disposition home or self-care (01) ==
LOC: HO.HCS 13:24
PROVIDERS: PCP Internal Medicine
DX: I21.4 Non-ST elevation (NSTEMI) myocardial infarction (principal); Z98.61 Coronary angioplasty status; I48.91 Unspecified atrial fibrillation; E78.2 Mixed hyperlipidemia; Z09 Encounter for follow-up examination after completed treatment for conditions other than malignant neoplasm
CPT/HCPCS: 99214; G2211

== ENCOUNTER → 2025-03-12 13:24 | Outpatient (BNVA) | payer OTHER, SELFPAY | PROVIDERS: PCP Internal Medicine | DX: Z09 Encounter for follow-up examination after completed treatment for conditions other than malignant neoplasm (principal); I21.4 Non-ST elevation (NSTEMI) myocardial infarction; I48.91 Unspecified atrial fibrillation; E78.2 Mixed hyperlipidemia; Z98.61 Coronary angioplasty status | CPT/HCPCS: 99212 ==

== ENCOUNTER → 2025-03-31 14:42 | Outpatient (REF) | payer OTHER, SELFPAY ==
--- NOTE | 2025-03-31 14:45 | HM_ITS ---
Conclusion: 1. Patient was monitored for total period of 3 days 2. Baseline normal sinus rhythm with average heart of 76 beats per minute 3. Rare PVCs noted with 2 3 beat salvos of nonsustained VT at 159 beats per minute 4. No significant pauses 5. No patient reported events MTDD
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
--- OUTSIDE RECORDS SUMMARY | 2025-03-31 15:28 | XMS_ITS | Data Portability ---
Author Organization [place] - [facility], Allergy Address [address] [address] Care Team Providers Care Tours Hostess Name Role Phone ROSCOE MORA Primary Care [...] that cerumen is a natural antibiotic, antifungal, lacing string cutter, and moisturizer of the delicate external auditory [...] his sinus irrigations. Luke Med squeeze bottle teradata architect provided and instructions reviewed. [email or web address] Not available [...] Oil 0.01 % ear drops 2024 025 [facility]/Pharmacy #[id number], [address] [facility], [place], [address], 12/22/2024 10:34:39 Patient TargetsNo targets recorded. Patient InstructionsNo instructions recorded. Reason for Referral None Reported. Problems Name Problem SNOMED Code Status Onset Date Resolution Date Notes Provider Name and Address Organization Details Recorded Time Hypertrophy of tonsils 32113538 Active 2024 REBECA TAYLOR PA-C 100 [facility],[address] [facility], [place], [address], [facility] - [facility] 10:31:25 Itching of ear 652305406 Active 2024 REBECA TAYLOR PA-C 100 [facility],[address] [facility], [place], [address], [facility] 10:33:15 Itching of skin 186460861 Active 2024 REBECA TAYLOR PA-C 100 [facility],[address], [place], [address], [facility] 10:33:27 Problem Notes None recorded. Procedures Surgical History Date Name Laterality Status Provider Name and Address Organization Details Recorded Time 12/23/19 25 Fiberoptic Laryngoscopy (Comprehensive) completed KYLER CORBIN-C 100 [facility],[place] [address], [place], [address], [facility] 12/22/2024 10:46:17 Imaging Results None recorded. Procedure Notes None recorded. Medical Equipment None Reported. Allergies Allergen ID Allergen Name Allergen Category Reaction Reaction Severity Criticality Documentation Date Start Date Code Code System Note Provider Name and Address Organization Details Recorded Time 425165 Substance with sulfonami de structure and antibacte rial mechanism of action (substanc e) medicatio n rash Not available low 12/22/2024 71080 8003 SNOMED Margarita wilkins [place] - [facility] 10:09:41 Medications Name Sig Start Date [...] Updated DateTime 12/22/2024 182.88 cm 28.8 kg/m2 44721.58 g Margarita Guevara [place] - [facility] 12/22/2024 10:09:21 Social History None recorded. [...] Disorder N Anesthesia Complications N Heart Attack ([place]) N Other Skin Condition N Diabetes N Rhinitis N Bleeding Disorder N Food Allergy N Arthritis Y Hearing Loss N Hyperlipidemia N Cancer N Stroke N Dementia N Nasal polyps N Asthma N High Cholesterol N Sleep Disorder N GERD/Reflux N Liver Disease N Headaches N Fibromyalgia N Hypertension N Speech Delay N Kidney Disease Y Past Encounters Encounter ID Performer Location Encounter Start Date Encounter Closed Date Diagnosis/Indication Diagnosis SNOMED-CT Code Diagnosis ICD10 Code Diagnosis Note [id number] REBECA TAYLOR PA-C [facility] [address] [place] [address] 12/22/2024 10:02:43 12/22/2024 10:35:36 Hypertrophy of tonsils 26054159 J35.1 Itching of skin 30857884 0 L29.9 Health Concerns Section Related Observation LastModified by Organization Detai ls LastModified Time None Recorded Concern Status LastModified by Organization Details LastModified Time None Recorded Advance Directives Directive None Recorded Payers Insurance Date Sequence Insurance Name Policy Number Policy Marsh Covered Member ID Marsh Member ID Guarantor Name 12/25/2024 1 [employer] (MEDICARE REPLACEMENT/ ADVANTAGE - HMO) JOSE ALFREDOGRANITE Oscar [place] [id number] Oscar [place] 12/22/2024 1 [employer] (MEDICARE REPLACEMENT/ ADVANTAGE - HMO) [facility] Oscar Ga [id number] Oscar [place] Notes Date Note Type Note [...] been a heavy drinker. REBECA TAYLOR PA-C [address] [place] [address], [place], [address], [facility] - [facility] 12/22/2024 10:46:51
== END ==
LOC: HO.CARD 14:42
PROVIDERS: PCP Internal Medicine
DX: I48.91 Unspecified atrial fibrillation (principal)
CPT/HCPCS: 93242

== ENCOUNTER → 2025-03-31 14:45 | Outpatient (BNV) | payer OTHER, SELFPAY | PROVIDERS: PCP Internal Medicine; Visit Provider Internal Medicine Cardiovascular Disease | DX: I49.3 Ventricular premature depolarization (principal) | CPT/HCPCS: 93244 ==

== ENCOUNTER 2025-04-13 11:57 | Outpatient (REF) | payer OTHER, SELFPAY ==
--- NOTE | ~2025-04-13 | XR_ITS ---
EXAMINATION: XR CHEST CLINICAL INFORMATION: R07.9 - Chest pain, unspecified COMPARISON: 02/16/2025 TECHNIQUE: 2 views of the chest were obtained. FINDINGS: The cardiac, hilar, and mediastinal contours are normal. The lungs are clear bilaterally. There is no pneumothorax or pleural effusion. There is no focal osseous or soft tissue abnormality. XR/XR chest 2V IMPRESSION: No active pulmonary disease. Electronically signed by: Nirmal Agrawal MD 04/13/2025 12:14 PM EDT
--- NOTE | ~2025-04-13 | US_ITS ---
EXAMINATION: US KIDNEY BILATERAL HISTORY: N20.0 - Calculus of kidney TECHNIQUE: Real-time grayscale ultrasound imaging of the kidneys was performed and images were reviewed. COMPARISON: Comparison is made with the prior examination dated 10/06/2024. FINDINGS: Right kidney: The right kidney measures 14.2 x 5.8 x 5.1 cm. Renal parenchymal echotexture and thickness are normal. There are no masses. Again seen is mild fullness of the renal pelvis. There is no hydronephrosis or renal calculi. Left Kidney: The left kidney measures 14.1 x 6.4 x 5.2 cm. Renal parenchymal echotexture and thickness are normal. There are no masses. Again seen is mild fullness of the renal pelvis. There is no hydronephrosis or renal calculi. US/US renal BI IMPRESSION: Fullness of the bilateral renal pelves without change. Otherwise unremarkable renal ultrasound. Electronically signed by: Virgil Mason MD 04/13/2025 12:59 PM EDT
--- OUTSIDE RECORDS SUMMARY | 2025-04-13 12:55 | XMS_ITS | Data Portability ---
Author Organization [place] - [facility], Allergy Address [address] [address] Care Team Providers Care Drafter Marine Name Role Phone ROSCOE MORA Primary Care [...] that cerumen is a natural antibiotic, antifungal, upper lining cementer, and moisturizer of the delicate external auditory [...] his sinus irrigations. Luke Med squeeze bottle tobacco baler provided and instructions reviewed. [email or web address] Not available [...] Oil 0.01 % ear drops 2024 025 [facility]/Pharmacy #[id number], [address] [facility], [place], [address], 12/22/2024 10:34:39 Patient TargetsNo targets recorded. Patient InstructionsNo instructions recorded. Reason for Referral None Reported. Problems Name Problem SNOMED Code Status Onset Date Resolution Date Notes Provider Name and Address Organization Details Recorded Time Hypertrophy of tonsils 51127447 Active 2024 REBECA TAYLOR PA-C 100 [facility],[address] [facility], [place], [address], [facility] - [facility] 10:31:25 Itching of ear 325588345 Active 2024 REBECA TAYLOR PA-C 100 [facility],[address] [facility], [place], [address], [facility] 10:33:15 Itching of skin 438233663 Active 2024 REBECA TAYLOR PA-C 100 [facility],[address], [place], [address], [facility] 10:33:27 Problem Notes None recorded. Procedures Surgical History Date Name Laterality Status Provider Name and Address Organization Details Recorded Time 12/23/19 25 Fiberoptic Laryngoscopy (Comprehensive) completed KYLER CORBIN-C 100 [facility],[place] [address], [place], [address], [facility] 12/22/2024 10:46:17 Imaging Results None recorded. Procedure Notes None recorded. Medical Equipment None Reported. Allergies Allergen ID Allergen Name Allergen Category Reaction Reaction Severity Criticality Documentation Date Start Date Code Code System Note Provider Name and Address Organization Details Recorded Time 747786 Substance with sulfonami de structure and antibacte rial mechanism of action (substanc e) medicatio n rash Not available low 12/22/2024 40484 8003 SNOMED Margarita wilkins [place] - [facility] 10:09:41 Medications Name Sig Start Date Stop [...] Updated DateTime 12/22/2024 182.88 cm 28.8 kg/m2 33732.58 g Margarita Guevara [place] - [facility] 12/22/2024 10:09:21 Social History None recorded. Functional [...] Disorder N Anesthesia Complications N Heart Attack ([place]) N Other Skin Condition N Diabetes N [...] SNOMED-CT Code Diagnosis ICD10 Code Diagnosis Note [id number] REBECA TAYLOR PA-C [facility] [address] [address] 12/22/2024 10:02:43 12/22/2024 10:35:36 Hypertrophy of tonsils 17516187 J35.1 Itching of skin 61845624 0 L29.9 Health Concerns Section Related Observation LastModified by Organization Detai ls LastModified Time None Recorded Concern Status LastModified by Organization Details LastModified Time None Recorded Advance Directives Directive None Recorded Payers Insurance Date Sequence Insurance Name Policy Number Policy Marsh Covered Member ID Marsh Member ID Guarantor Name 12/25/2024 1 [employer] (MEDICARE REPLACEMENT/ ADVANTAGE - HMO) JOSE ALFREDOPHOENIX [place] [id number] Oscar [place] 12/22/2024 1 [employer] (MEDICARE REPLACEMENT/ ADVANTAGE - HMO) [facility] Oscar Ga [id number] Oscar aG Notes Date Note Type Note Provider Name [...] been a heavy drinker. REBECA TAYLOR PA-C [address] [place] [address], [place], [address], [facility] - [facility] 12/22/2024 10:46:51
--- OUTSIDE RECORDS SUMMARY | 2025-04-13 12:55 | XMS_ITS | Clinical Summary ---
Author Organization [facility] Address [address] [place] [address] Care Team Providers Care Nuclear Medicine Chief Technologist Name Role Phone Ana Good PA-C Primary Care Provider [phone] Source Comments PLEASE NOTE, if this patient [...] hout complication ([facility]) 10/05/2012 Osteoarthritis of both knees 12/09/2009 Overview (04/10/2019): S/P ARTHROSCOPY LEFT 2009. Seen by Rheum Dr. Ruth Ann Pandey in [place] 12/04/16 s/p bilateral knee injection. 07/30/18 - [...] Administration Dates Next Due Hep B, Adult/Adol ([id number]/RECOMBIVAX-AD ULT) 06/04/2008 INFLUENZA, SEASONAL, INJECTABLE 06/06/2012,06/30 MMR [...] Job Start Date Job End Date [employer] Not on file Not on file Not [...] 04/12/2021 10:24 AM EDT Plan of Treatment Upcoming Encounters Date Type Department Care Team (Late st Contact Info) Description 05/11/2025 3:40 PM EDT Office Visit [facility] [address] [place] [phone] Colin Tellez, EDINS [address] [place] [address] Health Maintenance Due Date Last Done Comments [...] 06/02/2020, 06/02/2020, 04/22/2018 Hemoglobin A1c 07/23/2021 01/21/2021, 05/2020, 03/08/2019, Additional history exists Annual Wellness (Adult): Indicated (All Coverage) 12/21/2021 12/21/2020, 04/22/2018, 12/18/2013 Lipid Screening 01/21/2022 01/21/2021, 05/2020, 06/02/2020, Additional history exists Serum Creatinine 01/21/2022 01/21/2021, 05/2020, 06/02/2020, Additional history exists Tobacco Cessation Counseling (#1) 04/12/2022 [id number] ( season) 2024 021, 01/13/2021 Alcohol and [...] EDT Routine general medical examination at a [facility] facility Left flank pain Type 2 diabetes mellitus without complication, without long-term current use of insulin ([facility]) Essential hypertension Vitamin B12 deficiency Tobacco abuse disorder LIPID PANEL Routine 01/21/2021 2:49 PM EDT Routine general medical examination at a [facility] facility Left flank pain Type 2 diabetes mellitus without complication, without long-term current use of insulin ([facility]) Essential hypertension Vitamin B12 deficiency Tobacco abuse disorder HEMOGLOBIN GLYCOSYLATED A1C Routine 01/21/2021 2:49 PM EDT Routine general medical examination at a [facility] facility Left flank pain Type 2 diabetes mellitus without complication, without long-term current use of insulin ([facility]) Essential hypertension Vitamin B12 deficiency Tobacco abuse disorder MICROALBUMIN/CREATININ E RATIO, URINE, RANDOM Routine 06/02/2020 10:04 AM EDT Chronic pain of both shoulders ANTIBODY HIV-1&HIV-2 SINGLE RESULT Routine 04/22/2018 10:44 AM EDT Routine general medical examination at a [facility] facility HEPATITIS A,B,C PANEL Routine 04/22/2018 10:44 AM EDT Routine general medical examination at a health care facility COLONOSCOPY Routine 01/14/2013 1:56 PM EDT from Last 3 Months or Most Recently Relevant to Health Maintenance Results * (ABNORMAL) HEMOGLOBIN, GLYCOSYLATED (A1C) (01/21/2021 2:49 PM EDT) HEMOGLOBIN A1C 6.0(H) <5.7 % of total Hgb [employer] [facility] Comment: For someone without known diabetes, [...] LAB - BLOOD DRAW Final Resul t [facility] [address] [address], [employer] [address] [address] * (ABNORMAL) COMPRE METAB PANEL (01/21/2021 2:49 PM EDT) GLUCOSE 103(H) 65 - 99 mg/dL [facility] Comment: Fasting reference interval For someone without known diabetes, a glucose value between 100 and 125 mg/dL is consistent with prediabetes and should be confirmed with a follow-up test. UREA NITROGEN (BUN) 11 7 - 25 mg/dL [facility] CREATININE (blood) 0.87 0.70 - 1.33 mg/dL [employer] Comment: For patients >49 years of age, the reference limit for Creatinine is approximately 13% higher for people identified as -Bhut[place]. GFR ESTIMATED 95 > OR = 60 mL/min/1 .73m2 [employer] EGFR 110 > OR = 60 mL/min/1 .73m2 [employer] BUN/CREATININE RATIO NOT APPLICABLE 6 - 22 [employer] SODIUM 139 135 - 146 mmol/L [employer] POTASSIUM 4.3 3.5 - 5.3 mmol/L [facility] CHLORIDE 105 98 - 110 mmol/L [employer] CARBON DIOXIDE 25 20 - 32 mmol/L [employer] CALCIUM 9.3 8.6 - 10.3 mg/dL [employer] PROTEIN, TOTAL 7.2 6.1 - 8.1 g/dL [facility] ALBUMIN 4.3 3.6 - 5.1 g/dL [facility] GLOBULIN 2.9 1.9 - 3.7 g/dL (calc) [facility] ALBUMIN/GLOBULIN RATIO 1.5 1.0 - 2.5 (calc) [facility] BILIRUBIN, TOTAL 0.6 0.2 - 1.2 mg/dL [facility] ALKALINE PHOSPHATASE 74 35 - 144 U/L [facility] AST 16 10 - 35 U/L [facility] ALT 16 9 - 46 U/L [facility] Blood Blood / Unknown 01/21/2021 2 :49 PM EDT 01/21/2021 2:49 PM EDT Ana Good PA-C LAB - BLOOD DRAW Final Resul t Performing Organization Address City/[facility]/ZIP Co de Phone Number [facility] [address] [address], [facility] [address] [address] * MICROALBUMIN/CREATININE RATIO, URINE, RANDOM (06/02/2020 10:04 AM EDT) CREATININE, RANDOM URINE 156 mg/dL [facility] 06/02/2020 10:0 4 AM EDT 06/02/2020 3:31 PM EDT N[facility]ative [facility] - 06/02/2020 6:09 PM EDT [email or web address], [place] [address] [employer] [place] [id number] ORD# [id number] Ana Good PA-C LAB URINE AMBULATORY Final R esult [facility] [employer] [address], * (ABNORMAL) HEPATITIS A,B,C PANEL (04/22/2018 10:44 AM EDT) HEPATITIS B SURFACE ANTIBODY POSITIVE(A) NEGATIVE [facility] HEPATITIS B SURFACE ANTIGEN NEGATIVE NEGATIVE [facility] Comment: Over the counter supplements containing high doses of biotin may interfere with this assay. If interference is suspected, patients shoud be retested after refraining from biotin supplements for 72 hours. HEPATITIS B CORE ANTIBODY NEGATIVE NEGATIVE [facility] HEPATITIS C VIRUS DIAGNOSTIC NEGATIVE NEGATIVE [facility] HEPATITIS A ANTIBODY TOTAL POSITIVE(A) NEGATIVE [facility] Comment: Over the counter supplements containing high doses of biotin may interfere with this assay. If interference is suspected, patients shoud be retested after refraining from biotin supplements for 72 hours. Blood specimen (specimen) Blood / Unknown 04/22/2018 10:44 AM EDT 04/22/2018 1:02 PM EDT [facility] - 04/22/2018 2:27 PM EDT [email or web address] [address] [place] [id number] [place] [id number] ORD# [id number] Yaneth Dueñas PA-C LAB - BLOOD DRAW Edited R esult - Final [address] [address], * HIV-1 & HIV-2 ANTIBODIES (04/22/2018 10:44 AM EDT) HIV 1 AND 2 ANTIBODY SCREEN NEGATIVE NEGATIVE [facility] Comment: This assay is a 4th [...] 10:44 AM EDT 04/22/2018 1:02 PM EDT [facility] - 04/22/2018 2:54 PM EDT [email or web address] [address] [place] [address] [place] [id number] ORD# [id number] Yaneth Dueñas PA-C LAB - BLOOD DRAW Edited R esult - Final [facility] [address] [place] [address], * COLONOSCOPY (01/14/2013 1:56 PM EDT) Impressions Lily Williamson MA - 01/14/2013 1:56 PM EDT Colonoscopy Impression: up to cecum, good preparation. Normal mucosa in the colon Repeat 5 years Provider [facility] PROCEDURES Final Result from Last 3 Months or Most Recently Relevant to Health Maintenance Insurance [facility] Care Teams Nuclear Medicine Chief Technologist Relationship Specialty Start Date End Date Ana Good PA-C [address] [place] [phone] PCP - General Internal Medicine 04/18/23
== END 2025-04-13 11:58 | disposition home or self-care (01) ==
LOC: HO.US 11:57
PROVIDERS: PCP Internal Medicine; Visit Provider Nurse Practitioner Family
DX: N20.0 Calculus of kidney (principal); R07.9 Chest pain, unspecified; R06.02 Shortness of breath
CPT/HCPCS: 71046; 76775

== ENCOUNTER → 2025-04-13 11:59 | Outpatient (BNV) | payer OTHER, SELFPAY | PROVIDERS: PCP Internal Medicine; Visit Provider Radiology Diagnostic Radiology | DX: N13.30 Unspecified hydronephrosis (principal); R07.9 Chest pain, unspecified | CPT/HCPCS: 71046; 76775 ==

== ENCOUNTER 2025-04-14 14:42 | Outpatient (AMB) | payer OTHER, SELFPAY ==
[2025-04-14 14:55] VITALS: BP 122/60; PULSE 77; O2SAT 97; BMI 32.9
--- NOTE | 2025-04-14 14:55 | A.OFFPC_ITS ---
Vital Signs 04/14/25 14:55 Height 5 ft 9 in Weight 223 lb BMI 32.9 BP 122/60 Blood Pressure Location Lt brachial Position Sitting Pulse 77 Pulse Source Pulse Oximeter Pulse Oximetry (%) 97 Oxygen Delivery Method Room Air Intake Visit Reasons: annual PE Conference Services Manager Required: No Accompanied by: Self / Same As Patient Allergies Sulfa (Sulfonamide Antibiotics) Allergy (Mild, Verified 04/14/25 14:56) RASH/SWELLING Tobacco use date assessed: 04/14/25 Dental Screening Dental Screen Date: 04/14/25 Did you have a dental visit in the last 12 months?: Yes Did you have a dental problem in the last 6 months where you did not have access to dental care?: No Was dental information given to patient?: Patient has dentist HPI annual PE HPI Details Patient comes in today for his annual physical examination States that he currently feels okay and will be starting cardiac rehab next week Patient apparently developed a non ST-elevation OR when he presented to the ER back on 02/16/2025 with worsening shortness of breath, fatigue and chest pains since the day prior to his arrival at the ER He was reportedly noted to be in AFib with RVR when he arrived at the emergency room but converted immediately after he was given some medications His troponin levels were elevated and his EKG showed new T-wave inversions in the anterior leads Was started on a heparin drip, Cardiology was consulted and patient was transferred to [facility] for cardiac catheterization Coronary angiography revealed 95% stenosis in the mid RCA and this was stented. There was 80% stenosis in the mid left circumflex and 50% stenosis in the LAD mid segment He was started on ticagrelor 90 mg BID and Aspirin 81 mg QD as well as Atorvastatin 80 mg QD He will continue medical management and aggressive risk factor modification for his diffuse CAD Patient reports that he still feels frequently fatigued but he denies any exertional chest pains Denies any headaches or dizziness Reports (+) mild TRAN at times No nausea/vomiting, no abdominal pain No change in bowel habits noted Needs a couple of his Rx refilled He is also requesting for a referral for home health aide as he still feels weak and gets tired easily REPLACED BY [facility] Medical History (Updated 04/20/25 @ 02:25 by Portillo Dumont MD) Obesity (BMI 30-39.9) Primary osteoarthritis, right shoulder Overweight (BMI 25.0-29.9) Smoker Impaired fasting glucose Mixed hyperlipidemia Abdominal pain Insomnia Dyslipidemia Bilateral primary osteoarthritis of knee Laceration of left index finger 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 Avulsion of skin of left thumb Kidney stones Surgical History (Updated 04/20/25 @ 02:09 by Portillo Dumont MD) History of cardiac catheterization Hx of left knee surgery History of hand surgery Hx of lithotripsy Social History (Updated 04/20/25 @ 02:24 by Portillo Dumont MD) Housing: House Alcohol intake: never Patient Tobacco Use Status: Former Tobacco user Tobacco use type: Cigarette Cigarette Packs Per Day: 0.5 Cigarettes Per Day: 10 Years Smoked: 45 e-Cigarette/Vaping Use: Never Used Second Hand Smoke Exposure: Yes service: No Current occupational status: unemployed 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 1. Little interest or pleasure in doing things: not at all 2. Feeling down, depressed, or hopeless: not at all 3. Trouble falling or staying asleep, or sleeping too much: not at all 4. Feeling tired or having little energy: more than half the days 5. Poor appetite or overeating: not at all 6. Feeling bad about yourself - or that you are a failure or have let yourself or your family down: not at all 7. Trouble concentrating on things, such as reading the newspaper or watching television: not at all 8. Moving or speaking so slowly that other people could have noticed. Or the opposite - being so fidgety or restless that you have been moving around a lot more than usual: not at all 9. Thoughts that you would be better off or of hurting yourself in some way: not at all Total score: 2 Depression Screening Interpretation: Negative Depression Screening Done: Yes 66411 - PHQ-9 Billing: Yes Source: Developed by Drs. Virgil Handley, Kim Acuna, Miguelito Connell and colleagues, with an educational edy from [employer]. Thrive Questionnaire Date Thrive assessed: 04/14/25 I am a: Patient What is your living situation today?: I have a steady place to live Within the past 12 months, did the food you bought not last and you didn't have the money to get more?: I choose not to answer this question Within the past 12 months, did you worry whether your food would run out before you got money to buy more?: I choose not to answer this question Do you have trouble paying for medicines?: I choose not to answer this question Do you have trouble getting transportation to medical appointments?: No Do you have trouble paying your heating and electricity bill?: I choose not to answer this question Do you have trouble taking care of your child, family member or friend?: I choose not to answer this question Do you have trouble with day-to-day activities such as bathing, preparing meals, shopping, managing finances, etc.?: I choose not to answer this question Are you currently unemployed and looking for a job?: I choose not to answer this question Are you interested in more education?: I choose not to answer this question Please select the resources that you would like help with: None Currently or been in a relationship where the following occur: I choose not to answer THRIVE Score: 0 AUDIT C Alcohol Use Questionnaire (AUDIT-C) 1. How often do you have a drink containing alcohol?: Never 3. How often do you have six or more drinks on one occasion?: Never Total Score: 0 Score Reviewed/Action Taken: Yes SEAN-7 AMB Questionnaire SEAN-7 Date SEAN - 7 assessed: 04/14/25 Feeling nervous, anxious, or on edge: 0 = Not at all Not being able to stop or control worryin = Not at all Worrying too much about different things: 0 = Not at all Trouble relaxin = Not at all Being so restless that it is hard to sit still: 0 = Not at all Becoming easily annoyed or irritable: 0 = Not at all Feeling afraid as if something awful might happen: 0 = Not at all Total SEAN-7 score (0-4 normal; 5-9 mild; 10-14 moderate; 15-21 severe): 0 Source: Developed by Drs. Virgil Handley, Kim Acuna, Miguelito Connell and colleagues, with an educational edy from [employer]. SEAN-7 Assessment Billing SEAN-7 Assessment Tool: SEAN-7 Assessment 19849 Review of Systems Const Denies chills, Reports fatigue, Denies fever(s) and Denies headache(s) ENT Denies dysphagia, Denies dizziness, Denies otalgia, Denies headache(s), Denies neck pain, Denies odynophagia and Denies sore throat Card Denies chest pain, Denies irregular heart rhythm, Denies palpitations and Reports dyspnea on exertion (mild) Resp Denies chest congestion, Denies cough and Reports dyspnea on exertion (mild) GI Denies abdominal pain, Denies constipation, Denies dysphagia, Denies heartburn, Denies diarrhea, Denies nausea, Denies odynophagia and Denies vomiting Denies difficulty urinating, Reports erectile dysfunction, Denies dysuria and Denies urinary frequency Musc Denies back pain and Denies neck pain Skin/Breast Details: (+) dystrophic changes noted on all fingernails of both hands Denies rash Neuro Denies dizziness, Denies headache(s) and Denies paresthesias Endo Reports fatigue and Denies palpitations Physical exam (Primary Care) Vital Signs: Last Vital Signs Pulse 77 04/14/25 14:55 BP 122/60 04/14/25 14:55 Pulse Ox 97 04/14/25 14:55 Oxygen Delivery Method Room Air 04/14/25 14:55 BMI result Body Mass Index 32.9 Tobacco/Smoking Status: Tobacco use Status Tobacco use date assessed 04/14/25 04/14/25 15:04 Patient Tobacco Use Status Tobacco use Unknown 04/14/25 15:04 Tobacco use type Cigarette 04/14/25 15:04 e-Cigarette/Vaping Use Never Used 04/14/25 15:04 PHQ-9: PHQ-9 Score PHQ-9: Total score 2 04/20/25 02:12 Depression Screening Interpretation: Negative Thrive Assessment: Date of Thrive Assessment Date Thrive assessed 04/14/25 04/14/25 15:04 Currently or been in a relationship where the following occur: I choose not to answer Const General: no acute distress and alert HENMT Ears: TM's normal bilaterally and EAC's normal Throat: Yes posterior oropharynx normal and Yes tonsils normal (no TP congestion) Neck Neck: Yes supple and No lymphadenopathy Thyroid: Thyroid normal Resp Auscultation: clear to auscultation bilaterally, no rales and no wheezes Cardio Rate: regular rate Rhythm: regular rhythm Heart sounds: no murmurs GI Palpation (GI): Soft to palpation and nontender Auscultation: normal bowel sounds General: Yes no CVA tenderness Back/Spine/Pelvis Back: no CVA tenderness Thoracic/Lumbar Spine: No lumbar spinal tenderness Skin Other: (+) dystrophic changes noted on all fingernails of both hands Rashes: no rashes Extrem General: Yes no clubbing, cyanosis or edema Left upper extremity: hand Coding Level of Care Code Est Pt Prev Care 40-64y(43336) Diagnoses Annual physical exam Z00.00 Non-ST elevation (NSTEMI) myocardial infarction I21.4 Atrial fibrillation with RVR I48.91 Mixed hyperlipidemia E78.2 Elevated blood pressure reading R03.0 Impaired fasting glucose R73.01 Chronic left ear pain H92.02; G89.29 Primary osteoarthritis, right shoulder M19.011 Bilateral primary osteoarthritis of knee M17.0 Dystrophic nail L60.3 Hydronephrosis, unspecified hydronephrosis type N13.30 Hydronephrosis type: unspecified Benign prostatic hyperplasia with lower urinary tract symptoms, symptom details unspecified N40.1 Lower urinary tract symptom detail: unspecified Insomnia, unspecified type G47.00 Insomnia type: unspecified Smoker F17.200 Obesity (BMI 30-39.9) E66.9 Additional Codes SEAN-7 Assessment Billing - SEAN-7 Assessment Tool: SEAN-7 Assessment 38155 ([id number]) PHQ-9 - 63355 - PHQ-9 Billing: Yes ([id number]) Assessment & Plan Assessment & Plan (1) Annual physical exam: Code(s): Z00.00 - Encounter for general adult medical examination without abnormal findings Category: Medical Plan: Results of his labs done back in January 2025 reviewed and discussed with patient He has reportedly never had a screening colonoscopy done in the past and with his recent OR, would not be able to get this done until next year (2) Non-ST elevation (NSTEMI) myocardial infarction: Code(s): I21.4 - Non-ST elevation (NSTEMI) myocardial infarction Category: Medical Plan: This occurred around 02/16/2025 when patient presented to the ER with persistent chest pains and worsening SOB for over a day He was then transferred to [facility] for coronary angiography, which revealed the culprit lesion (mid-RCA) and he underwent PCI with SHIRA He will be starting cardiac rehab in 1 to 2 weeks Continue Aspirin 81 mg QD and Ticagrelor 90 mg BID Follow up with cardiology as scheduled (3) Atrial fibrillation with RVR: Code(s): I48.91 - Unspecified atrial fibrillation Category: Medical Plan: Patient reportedly was in atrial fibrillation with RVR upon his arrival at the ER back on 02/16/2025 but supposedly converted back to sinus rhythm promptly upon administration of medication(s) and this has not recurred since (4) Mixed hyperlipidemia: Code(s): E78.2 - Mixed hyperlipidemia Category: Medical Plan: Reinforced low cholesterol diet Continue Atorvastatin 80 mg QD Will recheck his labs and fasting lipids in 3 months for follow up (5) Elevated blood pressure reading: Code(s): R03.0 - Elevated blood-pressure reading, without diagnosis of hypertension Category: Medical Plan: Reinforced low sodium diet - goal is systolic BP of 120 mm or less Continue Metoprolol ER 25 mg QD He is reminded to continue monitoring his blood pressure regularly (6) Impaired fasting glucose: Code(s): R73.01 - Impaired fasting glucose Category: Medical Plan: His HgbA1c was at 6.1% when last checked on 02/17/2025 Reinforced low calorie/low carb diet; exercise as tolerated Will recheck these again in 3 months for follow up (7) Chronic left ear pain: Code(s): H92.02 - Otalgia, left ear; G89.29 - Other chronic pain Category: Medical Plan: He has been referred to ENT previously for further evaluation but he is still waiting to be seen His initial referral was not apparently accepted as the ENT practice was supposedly unclear as to why he was being referred He was then advised after his second referral that they are booking out months in advance and he was reportedly given an appointment for sometime next year (8) Primary osteoarthritis, right shoulder: Code(s): M19.011 - Primary osteoarthritis, right shoulder Category: Medical Plan: X-rays of the right shoulder done back in March 2024 revealed (+) mild acromioclavicular and glenohumeral osteoarthritis with a large subacromial spur Follow up with orthopedics as scheduled (9) Bilateral primary osteoarthritis of knee: Code(s): M17.0 - Bilateral primary osteoarthritis of knee Category: Medical Plan: Continue Acetaminophen as well as Diclofenac 1% topical gel PRN for symptomatic relief Continue Lidocaine 5% patches and Capsaicin 0.1% cream PRN Follow up with orthopedics as scheduled (10) Dystrophic nail: Code(s): L60.3 - Nail dystrophy Category: Medical Plan: Have discussed with patient that the dystrophic changes involving all of his fingernails in both hands are likely the result of cumulative damages inflicted on his fingernails over the years by what he does and/or what his nails have been exposed to, likely related to his occupation or line of work, and will likely never be able to revert completely back to normal He was referred to dermatology for further evaluation and management but has been advised that the local dermatologists here in [facility] [place] are all booking out months in advance and he has been scheduled to be seen sometime in January or February of 2025 (11) Hydronephrosis: Code(s): N13.30 - Unspecified hydronephrosis Category: Medical Qualifiers: Hydronephrosis type: unspecified Qualified Code(s): N13.30 - Unspecified hydronephrosis Plan: His renal US done in January 2024 revealed (+) bilateral hydronephrosis but no urinary tract calculi were seen He currently does not have any symptoms to suggest the presence of any renal tract calculi Follow up with urology as scheduled (12) Benign prostatic hyperplasia with lower urinary tract symptoms: Code(s): N40.1 - Benign prostatic hyperplasia with lower urinary tract symptoms Category: Medical Qualifiers: Lower urinary tract symptom detail: unspecified Qualified Code(s): N40.1 - Benign prostatic hyperplasia with lower urinary tract symptoms Plan: Follow up with urology as scheduled (13) Insomnia: Code(s): G47.00 - Insomnia, unspecified Category: Medical Qualifiers: Insomnia type: unspecified Qualified Code(s): G47.00 - Insomnia, unspecified Plan: Sleep hygiene reinforced Continue Zolpidem 10 mg Q HS PRN (14) Smoker: Code(s): F17.200 - Nicotine dependence, unspecified, uncomplicated Category: Social Hx Plan: Patient is counseled again on complete smoking cessation, especially in light of his recent NSTEMI (15) Obesity (BMI 30-39.9): Code(s): E66.9 - Obesity, unspecified Category: Medical Plan: Reinforced diet/exercise as tolerated/lose weight Plan Follow up in 3 months Orders: Orders Comprehensive [place]. Panel Fast 3 Months E78.00 - Pure hypercholesterolemia, unspecified TSH reflex Free T4 3 Months E78.00 - Pure hypercholesterolemia, unspecified UA CC w/rflx Micro + Cult 3 Months R30.0 - Dysuria Vitamin B12 and Folate 3 Months E53.8 - Deficiency of other specified B group vitamins Vitamin D 25-OH Total 3 Months E55.9 - Vitamin D deficiency, unspecified Lipid Panel 3 Months E78.00 - Pure hypercholesterolemia, unspecified Complete Blood Count Auto Diff 3 Months D64.9 - Anemia, unspecified Hemoglobin A1c 3 Months R73.01 - Impaired fasting glucose Referrals Home Health Referral I21.4 - Non-ST elevation (NSTEMI) myocardial infarction, I48.91 - Unspecified atrial fibrillation, Z98.61 - Coronary angioplasty status Medications: Changed From atorvastatin 80 mg PO BEDTIME 1 tab 0RF To atorvastatin 80 mg PO BEDTIME 90 tabs 3RF 90 days From aspirin 81 mg PO DAILY 1 tab 0RF To aspirin 81 mg PO DAILY 90 tabs 3RF 90 days
--- OUTSIDE RECORDS SUMMARY | 2025-04-14 15:52 | XMS_ITS | Clinical Summary ---
Author Organization [facility] Address [address] [place] [address] Care Team Providers Care Property Management Assistant Name Role Phone Ana Good PA-C Primary Care Provider [phone] Source Comments PLEASE NOTE, if this patient [...] Type 2 diabetes mellitus wit hout complication ([facility]) 10/05/2012 Osteoarthritis of both knees 12/09/2009 Overview (04/10/2019): S/P ARTHROSCOPY LEFT 2009. Seen by Rheum Dr. Ruth Ann Pandey in [place] 12/04/16 s/p bilateral knee injection. 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 Not on file Not on file Not [...] Description 05/11/2025 3:40 PM EDT Office Visit [facility] [address] [place] [id number] Colin Tellez, EDINS [address] [place] [address] Health Maintenance Due Date Last Done Comments [...] history exists Tobacco Cessation Counseling (#1) 04/12/2022 [id number] ( season) 2024 021, 01/13/2021 Alcohol and [...] EDT Routine general medical examination at a [facility] care facility Left flank pain Type 2 diabetes mellitus without complication, without long-term current use of insulin ([facility]) Essential hypertension Vitamin B12 deficiency Tobacco abuse disorder LIPID PANEL Routine 01/21/2021 2:49 PM EDT Routine general medical examination at a [facility] facility Left flank pain Type 2 diabetes mellitus without complication, without long-term current use of insulin ([facility]) Essential hypertension Vitamin B12 deficiency Tobacco abuse disorder HEMOGLOBIN GLYCOSYLATED A1C Routine 01/21/2021 2:49 PM EDT Routine general medical examination at a [facility] facility Left flank pain Type 2 diabetes mellitus without complication, without long-term current use of insulin ([facility]) Essential hypertension Vitamin B12 deficiency Tobacco abuse disorder MICROALBUMIN/CREATININ E RATIO, URINE, RANDOM Routine 06/02/2020 10:04 AM EDT Chronic pain of both shoulders ANTIBODY HIV-1&HIV-2 SINGLE RESULT Routine 04/22/2018 10:44 AM EDT Routine general medical examination at a [facility] care facility HEPATITIS A,B,C PANEL Routine 04/22/2018 10:44 AM EDT Routine general medical examination at a health care facility COLONOSCOPY Routine 01/14/2013 1:56 PM EDT from Last 3 Months or Most Recently Relevant to Health Maintenance Results * (ABNORMAL) HEMOGLOBIN, GLYCOSYLATED (A1C) (01/21/2021 2:49 PM EDT) HEMOGLOBIN A1C 6.0(H) <5.7 % of total Hgb [employer] [facility] Comment: For someone without known [...] PM EDT 01/21/2021 2:49 PM EDT us nAa Good PA-C LAB - BLOOD DRAW Final Resul t [employer] [address] [address], [employer] [address] [address] * (ABNORMAL) COMPRE METAB PANEL (01/21/2021 2:49 PM EDT) GLUCOSE 103(H) 65 - 99 mg/dL [employer] [facility] Comment: Fasting reference interval For someone without known diabetes, a glucose value between 100 and 125 mg/dL is consistent with prediabetes and should be confirmed with a follow-up test. UREA NITROGEN (BUN) 11 7 - 25 mg/dL [employer] [facility] CREATININE (blood) 0.87 0.70 - 1.33 mg/dL [employer] [facility] Comment: For patients >49 years of age, the reference limit for Creatinine is approximately 13% higher for people identified as -Malaysian. GFR ESTIMATED 95 > OR = 60 mL/min/1 .73m2 [employer] EGFR 110 > OR = 60 mL/min/1 .73m2 [employer] BUN/CREATININE RATIO NOT APPLICABLE 6 - 22 [employer] SODIUM 139 135 - 146 mmol/L [employer] [facility] POTASSIUM 4.3 3.5 - 5.3 mmol/L [employer] [facility] CHLORIDE 105 98 - 110 mmol/L [employer] [facility] CARBON DIOXIDE 25 20 - 32 mmol/L [employer] [facility] CALCIUM 9.3 8.6 - 10.3 mg/dL [employer] [facility] PROTEIN, TOTAL 7.2 6.1 - 8.1 g/dL [facility] ALBUMIN 4.3 3.6 - 5.1 g/dL [employer] [facility] GLOBULIN 2.9 1.9 - 3.7 g/dL (calc) [employer] [facility] ALBUMIN/GLOBULIN RATIO 1.5 1.0 - 2.5 (calc) [facility] [facility] BILIRUBIN, TOTAL 0.6 0.2 - 1.2 mg/dL [facility] [facility] ALKALINE PHOSPHATASE 74 35 - 144 U/L [facility] [facility] AST 16 10 - 35 U/L [facility] ALT 16 9 - 46 U/L [facility] Blood Blood / Unknown 01/21/2021 2 :49 PM EDT 01/21/2021 2:49 PM EDT Ana Good PA-C LAB - BLOOD DRAW Final Resul t Performing Organization Address City/[facility]/ZIP Co de Phone Number [employer] [address] [address], [facility] [facility] [address] [address] * MICROALBUMIN/CREATININE RATIO, URINE, RANDOM (06/02/2020 10:04 AM EDT) CREATININE, RANDOM URINE 156 mg/dL [facility] 06/02/2020 10:0 4 AM EDT 06/02/2020 3:31 PM EDT Narrative [facility] - 06/02/2020 6:09 PM EDT [employer], [place] [address] Mobile Phlebotomist [place] [id number] ORD# [id number] Ana Good PA-C LAB URINE AMBULATORY Final R esult [facility] [employer] [address], * (ABNORMAL) HEPATITIS A,B,C PANEL (04/22/2018 10:44 AM EDT) HEPATITIS B SURFACE ANTIBODY POSITIVE(A) NEGATIVE [facility] HEPATITIS B SURFACE ANTIGEN NEGATIVE NEGATIVE [facility] Comment: Over the counter supplements containing high doses of biotin may interfere with this assay. If interference is suspected, patients shoud be retested after refraining from biotin supplements for 72 hours. HEPATITIS B CORE ANTIBODY NEGATIVE NEGATIVE [facility] HEPATITIS C VIRUS DIAGNOSTIC NEGATIVE NEGATIVE [facility] HEPATITIS A ANTIBODY TOTAL POSITIVE(A) NEGATIVE [facility] Comment: Over the counter supplements containing high doses of biotin may interfere with this assay. If interference is suspected, patients shoud be retested after refraining from biotin supplements for 72 hours. Blood specimen (specimen) Blood / Unknown 04/22/2018 10:44 AM EDT 04/22/2018 1:02 PM EDT [facility] - 04/22/2018 2:27 PM EDT [employer] [address] [place] [address] [place] [id number] ORD# [id number] Yaneth Dueñas PA-C LAB - BLOOD DRAW Edited R esult - Final [address] [address], * HIV-1 & HIV-2 ANTIBODIES (04/22/2018 10:44 AM EDT) HIV 1 AND 2 ANTIBODY SCREEN NEGATIVE NEGATIVE [facility] Comment: This assay is a [...] 10:44 AM EDT 04/22/2018 1:02 PM EDT [facility] - 04/22/2018 2:54 PM EDT [employer] [address] [place] [address] [place] [id number] ORD# [id number] Yaneth Dueñas PA-C LAB - BLOOD DRAW Edited R esult - Final [facility] [address] [place] [address], * COLONOSCOPY (01/14/2013 1:56 PM EDT) Impressions Lily Williamson MA - 01/14/2013 1:56 PM EDT Colonoscopy Impression: up to cecum, good preparation. Normal mucosa in the colon Repeat 5 years Provider [facility] PROCEDURES Final Result from Last 3 Months or Most Recently Relevant to Health Maintenance Insurance [facility] Care Teams Property Management Assistant Relationship Specialty Start Date End Date Ana Good PA-C [address] [place] [phone] PCP - General Internal Medicine 04/18/23
--- OUTSIDE RECORDS SUMMARY | 2025-04-14 15:52 | XMS_ITS | Data Portability ---
Author Organization [place] - [facility], Allergy Address [address] [address] Care Team Providers Care [facility] Shift Lead Name Role Phone ROSCOE MORA Primary Care [...] that cerumen is a natural antibiotic, antifungal, nursing home assistant administrator, and moisturizer of the delicate external auditory [...] his sinus irrigations. 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 [email or web address] Not available [...] Oil 0.01 % ear drops [address] [id number], [address] [facility], [place], [address], 12/22/2024 10:34:39 Patient TargetsNo targets recorded. Patient InstructionsNo instructions recorded. Reason for Referral None Reported. Problems Name Problem SNOMED Code Status Onset Date Resolution Date Notes Provider Name and Address Organization Details Recorded Time Hypertrophy of tonsils 61834679 Active 2024 REBECA TAYLOR PA-C [address] [facility],[address] [facility], [place], [phone], [facility] - [facility] 10:31:25 Itching of ear 180147644 Active 2024 REBECA TAYLOR PA-C [address] [facility],[address] [facility], [place], [phone], [facility] 10:33:15 Itching of skin 952327035 Active 2024 REBECA TAYLOR PA-C [address] [facility],[address], [place], [address], [facility] 10:33:27 Problem Notes None recorded. Procedures Surgical History Date Name Laterality Status Provider Name and Address Organization Details Recorded Time 12/23/19 25 Fiberoptic Laryngoscopy (Comprehensive) completed KYLER CORBIN-C [address] [facility],[place] [address], [place], [address], [facility] 12/22/2024 10:46:17 Imaging Results None recorded. Procedure Notes None recorded. Medical Equipment None Reported. Allergies Allergen ID Allergen Name Allergen Category Reaction Reaction Severity Criticality Documentation Date Start Date Code Code System Note Provider Name and Address Organization Details Recorded Time 124026 Substance with sulfonami de structure and antibacte rial mechanism of action (substanc e) medicatio n rash Not available low 12/22/2024 17374 8003 SNOMED Margarita wilkins [place] - [facility] 10:09:41 Medications Name Sig Start Date [...] Updated DateTime 12/22/2024 182.88 cm 28.8 kg/m2 04371.58 g Margarita Guevara [place] - [facility] 12/22/2024 10:09:21 Social History None recorded. [...] Disorder N Anesthesia Complications N Heart Attack ([place]) N Other Skin Condition N Diabetes N [...] SNOMED-CT Code Diagnosis ICD10 Code Diagnosis Note [id number] REBECA TAYLOR PA-C [facility] [address] [place] [address] 12/22/2024 10:02:43 12/22/2024 10:35:36 Hypertrophy of tonsils 22602470 J35.1 Itching of skin 59688561 0 L29.9 Health Concerns Section Related Observation LastModified by Organization Detai ls LastModified Time None Recorded Concern Status LastModified by Organization Details LastModified Time None Recorded Advance Directives Directive None Recorded Payers Insurance Date Sequence Insurance Name Policy Number Policy Marsh Covered Member ID Marsh Member ID Guarantor Name 12/25/2024 1 [employer] (MEDICARE REPLACEMENT/ ADVANTAGE - HMO) [place] [id number] [place] 12/22/2024 1 [employer] (MEDICARE REPLACEMENT/ ADVANTAGE - HMO) [facility] [place] [id number] Oscar [place] Notes Date Note Type Note [...] been a heavy drinker. REBECA TAYLOR PA-C [address] [place] [address], [place], [phone], [facility] - [facility] 12/22/2024 10:46:51
== END 2025-04-14 15:37 | disposition home or self-care (01) ==
LOC: HO.HMCH 14:43
PROVIDERS: PCP Internal Medicine; Visit Provider Internal Medicine
DX: Z00.00 Encounter for general adult medical examination without abnormal findings (principal); I48.91 Unspecified atrial fibrillation; E66.9 Obesity, unspecified; Z68.32 Body mass index [BMI] 32.0-32.9, adult; I25.2 Old myocardial infarction; E78.2 Mixed hyperlipidemia; R03.0 Elevated blood-pressure reading, without diagnosis of hypertension; R73.01 Impaired fasting glucose; H92.02 Otalgia, left ear; G89.29 Other chronic pain; M19.011 Primary osteoarthritis, right shoulder; M17.0 Bilateral primary osteoarthritis of knee

== ENCOUNTER → 2025-04-14 14:42 | Outpatient (BNVA) | payer OTHER, SELFPAY | PROVIDERS: PCP Internal Medicine; Visit Provider Internal Medicine | DX: Z00.00 Encounter for general adult medical examination without abnormal findings (principal); I21.4 Non-ST elevation (NSTEMI) myocardial infarction; I48.91 Unspecified atrial fibrillation; E78.2 Mixed hyperlipidemia; R03.0 Elevated blood-pressure reading, without diagnosis of hypertension; R73.01 Impaired fasting glucose; H92.02 Otalgia, left ear; G89.29 Other chronic pain; M19.011 Primary osteoarthritis, right shoulder; M17.0 Bilateral primary osteoarthritis of knee; L60.3 Nail dystrophy; N13.30 Unspecified hydronephrosis | CPT/HCPCS: 96127; 99396 ==

== ENCOUNTER 2025-04-27 13:25 | Outpatient (AMB) | payer OTHER, SELFPAY ==
--- NOTE | 2025-04-27 13:30 | MHC.OFFVIS ---
Intake Visit Reasons: 6m/US/labs Intake Note: Patient is present for 6M/US/LABS Urology Medication:NONE Antibiotic Allergy:SULFA Blood Thinner:ASPIRIN Investor Relations Specialist Required: No Allergies Sulfa (Sulfonamide Antibiotics) Allergy (Mild, Verified 04/27/25 16:43) RASH/SWELLING Medication List - Last Reconciled 04/27/25 by JOSH Kate-NAVYA acetaminophen 650 mg (2 x 325 mg) PO QID PRN aspirin 81 mg PO DAILY 90 days atorvastatin 80 mg PO BEDTIME 90 days [CANE As directed] capsaicin 0.1% 1 appl topical TID PRN clotrimazole-betamethasone 1-0.05 % 1 appl topical BID PRN 2 weeks fluocinolone acetonide oil 0.01% (DermOtic Oil) 2 - 3 drps otic (ears) BID PRN ketoconazole 2% 1 appl topical MOWEFR PRN lidocaine 5% 1 patch topical DAILY PRN metoprolol succinate ER 25 mg PO DAILY nitroglycerin (Nitrostat) 0.4 mg sublingual Q5MX3 PRN zolpidem 10 mg PO BEDTIME PRN HPI Comments Details: Oscar is a pleasant 64-year-old male patient of Dr. Tobar. He he has a past medical history of insomnia, obesity, smoker, mixed hyperlipidemia, osteoarthritis of bilateral knees, and nephrolithiasis. He presents to the office today for follow-up of his nephrolithiasis and lower urinary tract symptoms. In discussion with the patient today he reports having recently followed up with cardiology and has a underwent cardiac catheterization and stent placement. He reports having recently started a statin and aspirin and is due to follow-up with cardiology again next week. He discusses noting increased episodes of nocturia as well as erectile dysfunction. Recent renal imaging results reviewed with the patient today 04/17 bilateral kidneys are normal in parenchymal echotexture and thickness. There are no renal masses, renal calculi, or hydronephrosis noted bilaterally. Again fullness of bilateral renal pelvises without change otherwise unremarkable renal ultrasound per radiology report. He discusses his longstanding history of nephrolithiasis since the age of 17. He does have a previous surgical history of nephrolithiasis to include ureteroscopy as well as ESWL. PSA 04/16 1.4 In office urinalysis results reviewed with the patient today pH 5.5. We discussed at length importance of drinking plenty of water daily in relation to history of nephrolithiasis as well as overall health and well-being. When asked he denies urinary urgency, urinary frequency, incontinence, hematuria, dysuria, foul smelling urine, changes to urinary stream, flank pain, fever, and or chills. We did again discuss obtaining nuclear renal scan for further assessment evaluation of question mild fullness to bilateral renal collecting systems. He otherwise offers no other issues or concerns at this time. BUN: 12/13 14, 03/15 12, 04/15 15, 05/16 11, 08/16 11, 04/16 13, 02/15 15, 02/15 23, 02/15 19 Creatinine: 12/13 0.95, 03/15 0.89, 04/15 1.04, 05/16 0.80, 08/16 0.79, 04/16 0.75, 02/15 0.81, 02/15 1.28, 02/15 0.73 PFS Medical History Obesity (BMI 30-39.9) Primary osteoarthritis, right shoulder Overweight (BMI 25.0-29.9) Smoker Impaired fasting glucose Mixed hyperlipidemia Abdominal pain Insomnia Dyslipidemia Bilateral primary osteoarthritis of knee Laceration of left index finger 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 Avulsion of skin of left thumb Kidney stones Surgical History (Updated 04/20/25 @ 02:09 by Portillo Dumont MD) History of cardiac catheterization Hx of left knee surgery History of hand surgery Hx of lithotripsy Social History (Updated 04/20/25 @ 02:24 by Portillo Dumont MD) Housing: House Alcohol intake: never Patient Tobacco Use Status: Former Tobacco user Tobacco use type: Cigarette Cigarette Packs Per Day: 0.5 Cigarettes Per Day: 10 Years Smoked: 45 e-Cigarette/Vaping Use: Never Used Second Hand Smoke Exposure: Yes service: No Current occupational status: unemployed 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 Current occupational exposures/hazards: No Cognitive needs: Yes (cane) Hearing needs: No Vision needs: Yes (glasses) Review of Systems Const Reports as per HPI Eyes Reports no additional complaints ENT Reports no additional complaints Card Reports as per HPI Resp Reports no additional complaints GI Reports no additional complaints Reports as per HPI Musc Reports as per HPI Neuro Reports as per HPI Psych Reports no additional complaints Endo Reports no additional complaints Efe/Lymph Reports no additional complaints Aller/Immun Reports no additional complaints Physical Exam Const General: cooperative, healthy appearing, comfortable, no acute distress, well developed, alert and awake Nutritional Appearance: overweight Orientation/consciousness: patient oriented x3 Limitations: no limitations HEENT Head: Yes normal to inspection, Yes normocephalic and Yes atraumatic Ears: hearing grossly normal bilaterally Eyes General: appearance normal, both eyes and all related structures Neck Neck: Yes normal visual inspection and Yes trachea midline Chest Chest palpation & inspection: normal inspection of the chest Resp Effort & Inspection: normal respiratory effort and able to speak in complete sentences Cardio Rate: regular rate GI Inspection: Yes normal to inspection Rectal Exam - Male: Yes deferred General: Yes no CVA tenderness Back/Spine/Pelvis Back: no CVA tenderness Skin General skin exam: no rashes or lesions noted Neuro General: patient oriented x3 Extrem General: Yes normal to inspection Psych Appearance: grossly normal and well kempt Mental Status: mental status grossly normal Speech and movement: Normal speech and movement present and Clear speech present Affect: normal affect Attitude: cooperative Thought process: Normal thought process present Thought content: Normal thought content present Insight: Fair insight present (Psych) Judgement: Fair judgement present (Psych) Results AMB Urinalysis, Automated UA Leukoctes 0 Libia/uL Last Edit by MICHELLE Page on 04/27/25 13:49 UA Nitrite Negative Last Edit by MICHELLE Page on 04/27/25 13:49 UA Urobilinogen 0.2 mg/dL Last Edit by MICHELLE Page on 04/27/25 13:49 UA Protein 15 mg/dL Last Edit by MICHELLE Page on 04/27/25 13:49 UA pH 5.5 Last Edit by MICHELLE Page on 04/27/25 13:49 UA Blood 10 Ricardo/uL Last Edit by MICHELLE Page on 04/27/25 13:49 UA Specific [place] 1.025 Last Edit by MICHELLE Page on 04/27/25 13:49 UA Ketone Negative Last Edit by MICHELLE Page on 04/27/25 13:49 UA Bilirubin 0 mg/dL Last Edit by MICHELLE Page on 04/27/25 13:49 UA Glucose 0 mg/dL Last Edit by MICHELLE Page on 04/27/25 13:49 Results Reviewed Results Reviewed: Laboratory Last Values Urine pH (Auto) 5.5 04/27/25 13:48 Specific [place] (Auto) 1.025 04/27/25 13:48 Urine Protein (Auto) 15 mg/dL 04/27/25 13:48 Glucose (UA)(Auto) 0 mg/dL 04/27/25 13:48 Urine Ketones (Auto) Negative 04/27/25 13:48 Urine Blood (Auto) 10 Ricardo/uL 04/27/25 13:48 Urine Nitrite (Auto) Negative 04/27/25 13:48 Urine Bilirubin (Auto) 0 mg/dL 04/27/25 13:48 Urine Urobilinogen (Auto) 0.2 mg/dL 04/27/25 13:48 Leukocyte Esterase (Auto) 0 Libia/uL 04/27/25 13:48 Date of Service: 04/13/25 Procedure(s): US renal BI FINDINGS: Right kidney: The right kidney measures 14.2 x 5.8 x 5.1 cm. Renal parenchymal echotexture and thickness are normal. There are no masses. Again seen is mild fullness of the renal pelvis. There is no hydronephrosis or renal calculi. Left Kidney: The left kidney measures 14.1 x 6.4 x 5.2 cm. Renal parenchymal echotexture and thickness are normal. There are no masses. Again seen is mild fullness of the renal pelvis. There is no hydronephrosis or renal calculi. IMPRESSION: Fullness of the bilateral renal pelves without change. Otherwise unremarkable renal ultrasound. Assessment & Plan Assessment & Plan (1) Benign prostatic hyperplasia with lower urinary tract symptoms: Code(s): N40.1 - Benign prostatic hyperplasia with lower urinary tract symptoms Category: Medical Qualifiers: Lower urinary tract symptom detail: unspecified Qualified Code(s): N40.1 - Benign prostatic hyperplasia with lower urinary tract symptoms (2) Kidney stones: Code(s): N20.0 - Calculus of kidney Category: Medical (3) Erectile dysfunction: Code(s): N52.9 - Male erectile dysfunction, unspecified Category: Medical Qualifiers: Erectile dysfunction type: unspecified Qualified Code(s): N52.9 - Male erectile dysfunction, unspecified Plan In office urinalysis results reviewed with the patient today; as noted above. Recent renal imaging results reviewed with the patient today; as noted above. BUN and creatinine results were reviewed with the patient today; as noted above. We did discuss obtaining nuclear renal scan for further assessment evaluation. Will obtain PSA for further assessment evaluation. We discussed the importance of limiting fluids 2-3 hours prior to bed to decrease episodes of nocturia. We discussed importance of adequate hydration relation to nephrolithiasis as well as overall health and well-being. We discussed lifestyle modifications to assist with ED. Follow-up in 1-3 months with imaging and labs; or sooner with any issues, concerns, and or questions. Orders: Orders AMB Urinalysis Automated Today Z13.9 - Encounter for screening, unspecified NM renal flow w pharm int Today N13.30 - Unspecified hydronephrosis Prostate Specific Antigen Today N40.1 - Benign prostatic hyperplasia with lower urinary tract symptoms Blood Urea Nitrogen Today N40.1 - Benign prostatic hyperplasia with lower urinary tract symptoms Creatinine Today N20.0 - Calculus of kidney Patient Instructions: The patient had an opportunity to ask questions regarding the treatment plan. All questions were answered. Physical exam, labs, and imaging were discussed and reviewed in detail. As well as risks, benefits, and discussion of treatment choices. No major barriers to understanding were identified. The patient expressed understanding and agreement with the above treatment plan. The patient was made aware they should contact our office by phone for worsening of their current condition, the appearance of new symptoms, or with any questions or concerns. Compliance is encouraged with any medications and follow up testing that is ordered. It is a privilege to be allowed the opportunity to participate in? your urological care.? Again, if you have any questions or concerns If you have any questions or concerns please do not hesitate to contact me. The office is [phone]. This note is constructed using voice recognition software. While every effort has been made to ensure accuracy conditioner tumbler errors may have been included. Yours sincerely, DURAN Kate Coding Level of Care Code Est Pt Level 3 (65860) Complex EM visit Add On G2211 Diagnoses Benign prostatic hyperplasia with lower urinary tract symptoms, symptom details unspecified N40.1 Lower urinary tract symptom detail: unspecified Kidney stones N20.0 Erectile dysfunction, unspecified erectile dysfunction type N52.9 Erectile dysfunction type: unspecified
--- OUTSIDE RECORDS SUMMARY | 2025-04-27 13:42 | XMS_ITS | Clinical Summary ---
Author Organization [facility] Address [address] [place] [address] Care Team Providers Care Cigar Head Stringer Name Role Phone Ana Good PA-C Primary [...] Type 2 diabetes mellitus wit hout complication ([facility]) 10/05/2012 Osteoarthritis of both knees 12/09/2009 Overview (04/10/2019): S/P ARTHROSCOPY LEFT 2009. Seen by Rheum Dr. Ruth Ann Pandey in [place] 12/04/16 s/p bilateral knee injection. 07/30/18 - [...] 7.0 (H) The 10-year ASCVD risk score ([place] DC Jr., et al., 2013) is: 21.6% 03/30/19 - restarted on Atorvastatin 40 mg QHS Vitamin B12 deficiency 10/22/2008 Overview (05/14/2013): VIT B12 = 236. Vitamin D deficiency 10/22/2008 HTN (hypertension) - diet controlled Allergic rhinitis due to allergen Overview (05/14/2013): F/U DR. ZAPIEN. 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 Not on file Not [...] Description 05/11/2025 3:40 PM EDT Office Visit [facility] [address] [place] [id number] Colin Tellez, EDINS [address] [place] [address] Health Maintenance Due Date Last Done Comments [...] history exists Tobacco Cessation Counseling (#1) 04/12/2022 [id number] ( season) 2024 021, 01/13/2021 Alcohol and [...] general medical examination at a [facility] facility Left flank pain Type 2 diabetes mellitus without complication, without long-term current use of insulin ([facility]) Essential hypertension Vitamin B12 deficiency Tobacco abuse disorder LIPID PANEL Routine 01/21/2021 2:49 PM EDT Routine general medical examination at a [facility] facility Left flank pain Type 2 diabetes mellitus without complication, without long-term current use of insulin ([facility]) Essential hypertension Vitamin B12 deficiency Tobacco abuse disorder HEMOGLOBIN GLYCOSYLATED A1C Routine 01/21/2021 2:49 PM EDT Routine general medical examination at a [facility] facility Left flank pain Type 2 diabetes mellitus without complication, without long-term current use of insulin ([facility]) Essential hypertension Vitamin B12 deficiency Tobacco abuse disorder MICROALBUMIN/CREATININ E RATIO, URINE, RANDOM Routine 06/02/2020 10:04 AM EDT Chronic pain of both shoulders ANTIBODY HIV-1&HIV-2 SINGLE RESULT Routine 04/22/2018 10:44 AM EDT Routine general medical examination at a [facility] facility HEPATITIS A,B,C PANEL Routine 04/22/2018 10:44 AM EDT Routine general medical examination at a health care facility COLONOSCOPY Routine 01/14/2013 1:56 PM EDT from Last 3 Months or Most Recently Relevant to Health Maintenance Results * (ABNORMAL) HEMOGLOBIN, GLYCOSYLATED (A1C) (01/21/2021 2:49 PM EDT) HEMOGLOBIN A1C 6.0(H) <5.7 % of total Hgb [employer] [facility] Comment: For someone without known [...] LAB - BLOOD DRAW Final Resul t [employer] [address] [address], [employer] [address] [address] * (ABNORMAL) COMPRE METAB PANEL (01/21/2021 2:49 PM EDT) GLUCOSE 103(H) 65 - 99 mg/dL [employer] Comment: Fasting reference interval For someone without known diabetes, a glucose value between 100 and 125 mg/dL is consistent with prediabetes and should be confirmed with a follow-up test. UREA NITROGEN (BUN) 11 7 - 25 mg/dL [employer] CREATININE (blood) 0.87 0.70 - 1.33 mg/dL [employer] Comment: For patients >49 years of age, the reference limit for Creatinine is approximately 13% higher for people identified as -Bahamian. GFR ESTIMATED 95 > OR = 60 mL/min/1 .73m2 [employer] EGFR 110 > OR = 60 mL/min/1 .73m2 [employer] BUN/CREATININE RATIO NOT APPLICABLE 6 - 22 [employer] SODIUM 139 135 - 146 mmol/L [employer] POTASSIUM 4.3 3.5 - 5.3 mmol/L [employer] CHLORIDE 105 98 - 110 mmol/L [employer] CARBON DIOXIDE 25 20 - 32 mmol/L [employer] CALCIUM 9.3 8.6 - 10.3 mg/dL [employer] PROTEIN, TOTAL 7.2 6.1 - 8.1 g/dL [facility] ALBUMIN 4.3 3.6 - 5.1 g/dL [facility] GLOBULIN 2.9 1.9 - 3.7 g/dL (calc) [facility] ALBUMIN/GLOBULIN RATIO 1.5 1.0 - 2.5 (calc) [facility] BILIRUBIN, TOTAL 0.6 0.2 - 1.2 mg/dL [facility] ALKALINE PHOSPHATASE 74 35 - 144 U/L [facility] AST 16 10 - 35 U/L [facility] ALT 16 9 - 46 U/L [facility] Blood Blood / Unknown 01/21/2021 2 :49 PM EDT 01/21/2021 2:49 PM EDT Ana Good PA-C LAB - BLOOD DRAW Final Resul t Performing Organization Address City/[facility]/ZIP Co de Phone Number [facility] [address] [address], [facility] [address] [address] * MICROALBUMIN/CREATININE RATIO, URINE, RANDOM (06/02/2020 10:04 AM EDT) CREATININE, RANDOM URINE 156 mg/dL [facility] 06/02/2020 10:0 4 AM EDT 06/02/2020 3:31 PM EDT [facility]ative [facility] 06/02/2020 6:09 PM EDT [employer], [place] [address] [employer] Special[place] [id number] ORD# [id number] Ana Good PA-C LAB URINE AMBULATORY Final R esult [facility] [employer] [address], * (ABNORMAL) HEPATITIS A,B,C PANEL (04/22/2018 10:44 AM EDT) HEPATITIS B SURFACE ANTIBODY POSITIVE(A) NEGATIVE [facility] HEPATITIS B SURFACE ANTIGEN NEGATIVE NEGATIVE [facility] Comment: Over the counter supplements containing high doses of biotin may interfere with this assay. If interference is suspected, patients shoud be retested after refraining from biotin supplements for 72 hours. HEPATITIS B CORE ANTIBODY NEGATIVE NEGATIVE [facility] HEPATITIS C VIRUS DIAGNOSTIC NEGATIVE NEGATIVE [facility] HEPATITIS A ANTIBODY TOTAL POSITIVE(A) NEGATIVE [facility] Comment: Over the counter supplements containing high doses of biotin may interfere with this assay. If interference is suspected, patients shoud be retested after refraining from biotin supplements for 72 hours. Blood specimen (specimen) Blood / Unknown 04/22/2018 10:44 AM EDT 04/22/2018 1:02 PM EDT [facility] - 04/22/2018 2:27 PM EDT [employer] [address] [place] [address] [place] [id number] ORD# [id number] Yaneth Dueñas PA-C LAB - BLOOD DRAW Edited R esult - Final [address] [address], * HIV-1 & HIV-2 ANTIBODIES (04/22/2018 10:44 AM EDT) HIV 1 AND 2 ANTIBODY SCREEN NEGATIVE NEGATIVE [facility] Comment: This assay is a [...] AM EDT 04/22/2018 1:02 PM EDT [facility] - 04/22/2018 2:54 PM EDT [employer] [address] [place] [address] [place] [id number] ORD# [id number] Yaneth Dueñas PA-C LAB - BLOOD DRAW Edited R esult - Final [facility] [address] [place] [address], * COLONOSCOPY (01/14/2013 1:56 PM EDT) Impressions Lily Williamson MA - 01/14/2013 1:56 PM EDT Colonoscopy Impression: up to cecum, good preparation. Normal mucosa in the colon Repeat 5 years Provider [facility] PROCEDURES Final Result from Last 3 Months or Most Recently Relevant to Health Maintenance Insurance [facility] Care Teams Cigar Head Stringer Relationship Specialty Start Date End Date Ana Good PA-C [address] [place] [phone] PCP - General Internal Medicine 04/18/23
== END 2025-04-27 14:16 | disposition home or self-care (01) ==
LOC: HO.HUSH 13:26
PROVIDERS: PCP Internal Medicine; Visit Provider Nurse Practitioner Family
DX: N40.1 Benign prostatic hyperplasia with lower urinary tract symptoms (principal); N20.0 Calculus of kidney; N52.9 Male erectile dysfunction, unspecified; Z13.9 Encounter for screening, unspecified
CPT/HCPCS: 99213

== ENCOUNTER → 2025-04-27 13:25 | Outpatient (BNVA) | payer OTHER, SELFPAY | PROVIDERS: PCP Internal Medicine; Visit Provider Nurse Practitioner Family | DX: N40.1 Benign prostatic hyperplasia with lower urinary tract symptoms (principal); N20.0 Calculus of kidney; N52.9 Male erectile dysfunction, unspecified | CPT/HCPCS: 81003; 99212 ==

== ENCOUNTER 2025-05-09 09:07 | Outpatient (REF) | payer OTHER, SELFPAY ==
[2025-05-09 09:22] LABS: MANUAL DIFF FLAG NO
[2025-05-09 09:37] LABS: Hematocrit 41.3 % (42.0-52.0); Hemoglobin 13.7 g/dl (14.0-18.0); Imm Gran Abs Auto 0.02 X10*3/uL (0.00-0.03); Imm Gran Pct Auto 0.2 % (0.0-0.4); Lymphocytes Absolute Auto 3.2 X10*3/uL (1.2-4.9); Mean Corpuscular HGB Conc 33.2 g/dl (31.0-36.0); Mean Corpuscular Hemoglobin 28.2 pg (27.0-33.0); Mean Corpuscular Volume 85.2 fL (80.0-98.0); NRBC Abs Auto 0.000 X10*3/uL (0.0-0.012); NRBC Pct Auto 0.0 /100WBC (0.0-0.2); Platelet Count 165 X10*3/uL (160-400); Red Blood Count 4.85 X10*6/uL (4.60-5.80); White Blood Count 9.1 X10*3/uL (4.8-10.8)
[2025-05-09 09:52] LABS: Appearance Urine Clear; Glucose Urine UA Negative (Negative); PH 7.0 (5.0-9.0); Specific Gravity - Urine 1.015 (1.005-1.025)
[2025-05-09 10:07] LABS: Alanine Aminotransferase 31 U/L (0-40); Albumin Level 4.4 g/dL (3.5-5.0); Alkaline Phosphatase 94 U/L (39-117); Anion Gap 16 (12-20); Aspartate Amino Transferase 29 U/L (5-37); Blood Urea Nitrogen 13 mg/dL (9-16); Calcium 9.3 mg/dL (8.4-10.2); Carbon Dioxide 27 mmol/L (22-29); Chloride 103 mmol/L (96-108); Cholesterol 127 mg/dL (<200); Estimated Glomerular Filt Rate > 60; HDL Cholesterol 30 mg/dL (>40); Potassium 4.8 mmol/L (3.3-5.1); Sodium 141 mmol/L (135-145); Total Protein 7.7 g/dL (6.5-8.0); Triglycerides 117 mg/dL (<150)
[2025-05-09 10:31] LABS: Prostate Specific Antigen 1.68 ng/mL (<0.05-4.0)
[2025-05-09 11:23] LABS: Hemoglobin A1C 183.3479 umol/L; Total Hemoglobin (HGBA1C) 3635.9456 umol/L
== END 2025-05-09 09:08 | disposition home or self-care (01) ==
LOC: HO.LAB 09:07
PROVIDERS: Nurse Practitioner Family; Absent Provider Internal Medicine; PCP Internal Medicine
DX: Z00.00 Encounter for general adult medical examination without abnormal findings (principal); E11.9 Type 2 diabetes mellitus without complications; E55.9 Vitamin D deficiency, unspecified; N52.9 Male erectile dysfunction, unspecified; E78.00 Pure hypercholesterolemia, unspecified; R30.0 Dysuria; D64.9 Anemia, unspecified
CPT/HCPCS: 36415; 80048; 80053; 80061; 81003; 82306; 83036; 84153; 84443; 85025

== ENCOUNTER 2025-05-11 08:30 | Outpatient (RCR) | payer OTHER, SELFPAY | END 2025-05-15 14:27 | disposition home or self-care (01) | LOC: HO.CR 08:30 | PROVIDERS: PCP Internal Medicine | DX: I21.4 Non-ST elevation (NSTEMI) myocardial infarction (principal); Z98.61 Coronary angioplasty status | CPT/HCPCS: 93798 ==

== ENCOUNTER 2025-05-18 14:50 | Outpatient (AMB) | payer OTHER, SELFPAY ==
--- NOTE | 2025-05-18 15:33 | A.OFFVIS_ITS ---
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: No Accompanied by: Spouse Allergies Sulfa (Sulfonamide Antibiotics) Allergy (Mild, Verified 04/27/25 16:43) RASH/SWELLING Medication List - Last Reconciled 05/18/25 by Pawan Culver MD acetaminophen 650 mg (2 x 325 mg) PO QID PRN aspirin 81 mg PO DAILY 90 days atorvastatin 80 mg PO BEDTIME 90 days [CANE As directed] capsaicin 0.1% 1 appl topical TID PRN clotrimazole-betamethasone 1-0.05 % 1 appl topical BID PRN 2 weeks fluocinolone acetonide oil 0.01% (DermOtic Oil) 2 - 3 drps otic (ears) BID PRN ketoconazole 2% 1 appl topical MOWEFR PRN lidocaine 5% 1 patch topical DAILY PRN metoprolol succinate ER 25 mg PO DAILY nitroglycerin (Nitrostat) 0.4 mg sublingual Q5MX3 PRN ticagrelor 90 mg PO BID zolpidem 10 mg PO BEDTIME PRN HPI Comments Details: [age] year gentleman who is here for follow-up. He was taken for cardiac catheterization in January 2025 when he presented with NSTEMI. Cardiac catheterization showed severe right coronary artery stenosis was treated with drug-eluting stent. Since then he has been doing well. He has no chest discomfort or shortness of breath. He does have some residual disease in LAD and circumflex which is in the moderate range. He is taking aspirin and ticagrelor. Occasionally feels dyspnea with activities. His main complaints are related to erectile dysfunction due to Toprol-XL. He is saying that his urologist has recommended to use Viagra or Cialis if he has no obvious contraindications for that. No bleeding issues. [facility] Medical History Obesity (BMI 30-39.9) Primary osteoarthritis, right shoulder Overweight (BMI 25.0-29.9) Smoker Impaired fasting glucose Mixed hyperlipidemia Abdominal pain Insomnia Dyslipidemia Bilateral primary osteoarthritis of knee Laceration of left index finger 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 Avulsion of skin of left thumb Kidney stones Surgical History History of cardiac catheterization Hx of left knee surgery History of hand surgery Hx of lithotripsy Social History Housing: House Alcohol intake: never Patient Tobacco Use Status: Former Tobacco user Tobacco use type: Cigarette Cigarette Packs Per Day: 0.5 Cigarettes Per Day: 10 Years Smoked: 45 e-Cigarette/Vaping Use: Never Used Second Hand Smoke Exposure: Yes service: No Current occupational status: unemployed 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 Current occupational exposures/hazards: No Cognitive needs: Yes (cane) Hearing needs: No Vision needs: Yes (glasses) Review of Systems Const Denies chills, Denies fatigue, Denies fever(s), Denies frequent falls, Denies weakness, Denies weight gain and Denies weight loss ENT Denies dizziness Card Denies chest pain, Denies leg edema, Denies lightheadedness, Denies palpitations, Reports dyspnea and Reports dyspnea on exertion Resp Denies cough, Reports dyspnea and Reports dyspnea on exertion GI Denies hematochezia Musc Denies abnormal gait, Denies muscle weakness, Denies numbness, Denies radiating pain into limb and Denies tingling Neuro Denies abnormal gait, Denies dizziness, Denies frequent falls, Denies numbness, Denies tingling and Denies weakness Endo Denies fatigue and Denies palpitations Physical Exam Vital Signs: Last Vital Signs Pulse 79 05/18/25 15:34 BP 130/62 05/18/25 15:34 BMI result Body Mass Index 33.1 GENERAL APPEARANCE: in no acute distress, pleasant. NECK: no carotid bruit, no jugular venous distention. SKIN: no suspicious lesions, warm and dry. HEART: no murmurs, regular rate and rhythm. LUNGS: clear to auscultation bilaterally. ABDOMEN: soft, nontender. EXTREMITIES: no edema. PERIPHERAL PULSES: equal. NEUROLOGIC: No gross deficits, AAO X 3 Office Procedures EKG Details: Sinus rhythm 79 beats per minute, nonspecific T-wave changes, QTC 426 milliseconds. [id number], Complete Assessment & Plan Assessment & Plan (1) Coronary angioplasty status: Code(s): Z98.61 - Coronary angioplasty status Category: Surgical (2) Non-ST elevation (NSTEMI) myocardial infarction: Code(s): I21.4 - Non-ST elevation (NSTEMI) myocardial infarction Category: Medical Plan Pleasant 64 year gentleman who is here for follow-up. He presented in January 2025 with NSTEMI and was transferred to [facility]. Cardiac catheterization at that time showed severe right coronary artery stenosis which was treated with drug-eluting stent. He has been on aspirin and ticagrelor since then. He also had episode of atrial fibrillation which was self-limiting. After that he had Holter monitor performed which did not show any atrial fibrillation. His main complaint is dyspnea which is likely related to ticagrelor. I have proposed to him that we can change him to Plavix but he currently does not want to change the medication. He has erectile dysfunction which can be related to beta-moises use. I have advised him not to use any nitroglycerin sublingual and we are stopping the script. He can use Cialis or Viagra if urology prescribes her for him. The patient is aware that he can not use nitroglycerin if he is using any Viagra or Cialis. Thank you for allowing me to participate in the care of your patient. Please feel free to contact me if you have any questions. Coding Level of Care Code Est Pt Level 4 (34622) Diagnoses Coronary angioplasty status Z98.61 Non-ST elevation (NSTEMI) myocardial infarction I21.4 CPT Codes EKG - CPT: [id number], Complete ([id number])
[2025-05-18 15:34] VITALS: BP 130/62; PULSE 79; BMI 33.1
== END 2025-05-18 16:19 | disposition home or self-care (01) ==
LOC: HO.HCS 14:51
PROVIDERS: PCP Internal Medicine; Visit Provider Internal Medicine Cardiovascular Disease
DX: Z98.61 Coronary angioplasty status (principal); I21.4 Non-ST elevation (NSTEMI) myocardial infarction
CPT/HCPCS: 93010; 99214

== ENCOUNTER → 2025-05-18 14:50 | Outpatient (BNVA) | payer OTHER, SELFPAY | PROVIDERS: PCP Internal Medicine; Visit Provider Internal Medicine Cardiovascular Disease | DX: I21.4 Non-ST elevation (NSTEMI) myocardial infarction (principal); Z98.61 Coronary angioplasty status | CPT/HCPCS: 93005; 99212 ==

== ENCOUNTER 2025-07-15 15:14 | Outpatient (AMB) | payer OTHER, SELFPAY ==
[2025-07-15 15:18] VITALS: BP 112/70; PULSE 84; O2SAT 97; BMI 33.1
--- NOTE | 2025-07-15 15:18 | A.OFFPC_ITS ---
Vital Signs 07/15/25 15:18 Height 5 ft 9 in Weight 224 lb 4 oz BMI 33.1 BP 112/70 Blood Pressure Location Lt brachial Position Sitting Pulse 84 Pulse Source Pulse Oximeter Pulse Oximetry (%) 97 Oxygen Delivery Method Room Air Intake Visit Reasons: LA/CAD, AF Layout Inspector Required: No Accompanied by: Self / Same As Patient Allergies Sulfa (Sulfonamide Antibiotics) Allergy (Mild, Verified 07/20/25 08:55) RASH/SWELLING Medication List - Last Reconciled 07/20/25 by Portillo Dumont MD acetaminophen 650 mg (2 x 325 mg) PO QID PRN aspirin 81 mg PO DAILY 90 days atorvastatin 80 mg PO BEDTIME 90 days [CANE As directed] capsaicin 0.1% 1 appl topical TID PRN clopidogrel 75 mg PO DAILY 90 days clotrimazole-betamethasone 1-0.05 % 1 appl topical BID PRN 2 weeks fluocinolone acetonide oil 0.01% (DermOtic Oil) 2 - 3 drps otic (ears) BID PRN ketoconazole 2% 1 appl topical MOWEFR PRN lidocaine 5% 1 patch topical DAILY PRN lidocaine 5% 1 patch topical DAILY metoprolol succinate ER 25 mg PO DAILY ticagrelor 90 mg PO BID walker (Ultra-Light Rollator misc) As directed zolpidem 10 mg PO BEDTIME PRN Tobacco use date assessed: 07/15/25 Dental Screening Dental Screen Date: 07/15/25 Did you have a dental visit in the last 12 months?: No Did you have a dental problem in the last 6 months where you did not have access to dental care?: No Was dental information given to patient?: No HPI LA/CAD, AF HPI Details Patient comes in today for his follow up visit States that he currently feels okay He denies any headaches or dizziness Denies any chest pains; reports (+) mild SOB with increased exertion at times Recalls that he has been experiencing increased SOB every time he took Brilinta States that he mentioned this to cardiology at his follow up visit with them a couple of months ago and was advised to switch over ti Clopidogrel but he declined to switch at the time States that he would now like to try switching over as his SOB is not really easing up and he continues to feel more SOB after taking his Ticagrelor No nausea/vomiting, no abdominal pain No change in bowel habits noted He did not get his previously ordered follow up labs done prior to coming in for his appointment today He is also requesting for Rx refill for Lidocaine patches to help with his joint pains and a couple of other Rx refilled as well [facility] Medical History Obesity (BMI 30-39.9) Primary osteoarthritis, right shoulder Overweight (BMI 25.0-29.9) Smoker Impaired fasting glucose Mixed hyperlipidemia Abdominal pain Insomnia Dyslipidemia Bilateral primary osteoarthritis of knee Laceration of left index finger 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 Avulsion of skin of left thumb Kidney stones Surgical History History of cardiac catheterization Hx of left knee surgery History of hand surgery Hx of lithotripsy Social History Housing: House Alcohol intake: never Patient Tobacco Use Status: Former Tobacco user Tobacco use type: Cigarette Cigarette Packs Per Day: 0.5 Cigarettes Per Day: 10 Years Smoked: 45 e-Cigarette/Vaping Use: Never Used Second Hand Smoke Exposure: Yes service: No Current occupational status: unemployed 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 Current occupational exposures/hazards: No Cognitive needs: Yes (cane) Hearing needs: No Vision needs: Yes (glasses) Questionnaire Thrive Questionnaire Date Thrive assessed: 01/30/25 I am a: Patient What is your living situation today?: I have a steady place to live Within the past 12 months, did the food you bought not last and you didn't have the money to get more?: I choose not to answer this question Within the past 12 months, did you worry whether your food would run out before you got money to buy more?: I choose not to answer this question Do you have trouble paying for medicines?: I choose not to answer this question Do you have trouble getting transportation to medical appointments?: No Do you have trouble paying your heating and electricity bill?: I choose not to answer this question Do you have trouble taking care of your child, family member or friend?: I choose not to answer this question Do you have trouble with day-to-day activities such as bathing, preparing meals, shopping, managing finances, etc.?: I choose not to answer this question Are you currently unemployed and looking for a job?: I choose not to answer this question Are you interested in more education?: I choose not to answer this question Please select the resources that you would like help with: None Currently or been in a relationship where the following occur: I choose not to answer THRIVE Score: 0 AUDIT C Alcohol Use Questionnaire (AUDIT-C) 1. How often do you have a drink containing alcohol?: Never 3. How often do you have six or more drinks on one occasion?: Never Total Score: 0 Score Reviewed/Action Taken: Yes SEAN-7 AMB Questionnaire SEAN-7 Date SEAN - 7 assessed: 04/14/25 Source: Developed by Drs. Virgil Handley, Kim Acuna, Miguelito Connell and colleagues, with an educational edy from [employer]. Review of Systems Const Denies chills, Reports fatigue, Denies fever(s) and Denies headache(s) ENT Denies dysphagia, Denies dizziness, Reports otalgia (in the left ear - chronic), Denies headache(s), Denies neck pain, Denies odynophagia and Denies sore throat Card Denies chest pain, Denies irregular heart rhythm, Denies palpitations and Reports dyspnea on exertion (mild but feels worse after taking his Ticagrelor) Resp Denies chest congestion, Denies cough and Reports dyspnea on exertion (mild but feels worse after taking his Ticagrelor) GI Denies abdominal pain, Denies constipation, Denies dysphagia, Denies heartburn, Denies diarrhea, Denies nausea, Denies odynophagia and Denies vomiting Denies difficulty urinating, Reports erectile dysfunction, Denies dysuria and Denies urinary frequency Musc Denies back pain, Reports arthralgias (especially in both knees) and Denies neck pain Skin/Breast Details: (+) dystrophic changes noted on all fingernails of both hands Denies rash Neuro Denies dizziness, Denies headache(s) and Denies paresthesias Endo Reports fatigue and Denies palpitations Physical exam (Primary Care) Vital Signs: Last Vital Signs Pulse 84 07/15/25 15:18 BP 112/70 07/15/25 15:18 Pulse Ox 97 07/15/25 15:18 Oxygen Delivery Method Room Air 07/15/25 15:18 BMI result Body Mass Index 33.1 Tobacco/Smoking Status: Tobacco use Status Tobacco use date assessed 07/15/25 07/15/25 15:31 Patient Tobacco Use Status Former Tobacco user 07/15/25 15:31 Tobacco use type Cigarette 07/15/25 15:31 e-Cigarette/Vaping Use Never Used 07/15/25 15:31 Thrive Assessment: Date of Thrive Assessment Date Thrive assessed 01/30/25 07/15/25 15:31 Currently or been in a relationship where the following occur: I choose not to answer Const General: no acute distress and alert HENMT Ears: TM's normal bilaterally and EAC's normal Throat: Yes posterior oropharynx normal and Yes tonsils normal (no TP congestion) Neck Neck: Yes supple and No lymphadenopathy Thyroid: Thyroid normal Resp Auscultation: clear to auscultation bilaterally, no rales and no wheezes Cardio Rate: regular rate Rhythm: regular rhythm Heart sounds: no murmurs GI Palpation (GI): Soft to palpation and nontender Auscultation: normal bowel sounds General: Yes no CVA tenderness Back/Spine/Pelvis Back: no CVA tenderness Thoracic/Lumbar Spine: No lumbar spinal tenderness Skin Other: (+) dystrophic changes noted on all fingernails of both hands Rashes: no rashes Extrem General: Yes no clubbing, cyanosis or edema Left upper extremity: hand Right lower extremity: knee Details: tenderness; no swelling Left lower extremity: knee Details: tenderness; no swelling Coding Level of Care Code Est Pt Level 4 (51647) Diagnoses Non-ST elevation (NSTEMI) myocardial infarction I21.4 Atrial fibrillation with RVR I48.91 Mixed hyperlipidemia E78.2 Elevated blood pressure reading R03.0 Impaired fasting glucose R73.01 Chronic left ear pain H92.02; G89.29 Primary osteoarthritis, right shoulder M19.011 Bilateral primary osteoarthritis of knee M17.0 Dystrophic nail L60.3 Hydronephrosis, unspecified hydronephrosis type N13.30 Hydronephrosis type: unspecified Benign prostatic hyperplasia with lower urinary tract symptoms, symptom details unspecified N40.1 Lower urinary tract symptom detail: unspecified Insomnia, unspecified type G47.00 Insomnia type: unspecified Smoker F17.200 Obesity (BMI 30-39.9) E66.9 Assessment & Plan Assessment & Plan (1) Non-ST elevation (NSTEMI) myocardial infarction: Code(s): I21.4 - Non-ST elevation (NSTEMI) myocardial infarction Category: Medical Plan: This occurred around 02/16/2025 when patient presented to the ER with persistent chest pains and worsening SOB for over a day He was then transferred to [facility] for coronary angiography, which revealed the culprit lesion (mid-RCA) and he underwent PCI with [facility] and eventually completed cardiac rehab Continue Aspirin 81 mg QD; he is also on Ticagrelor 90 mg BID but reports that he has been experiencing increased SOB every time he takes Ticagrelor for a while now He mentioned this to cardiology at his follow-up visit a couple of months ago and was offered to switch him from Ticagrelor to Clopidogrel at the time but he declined States that he would now like to be switched as his SOB is not getting any better over time Per request, will now switch him from Ticagrelor to Clopidogrel 75 mg QD Follow up with cardiology as scheduled (2) Atrial fibrillation with RVR: Code(s): I48.91 - Unspecified atrial fibrillation Category: Medical Plan: Patient reportedly was in atrial fibrillation with RVR upon his arrival at the ER back on 02/16/2025 but supposedly converted back to sinus rhythm promptly upon administration of medication(s) This has not recurred since and he currently remains in sinus rhythm Follow up with cardiology as scheduled (3) Mixed hyperlipidemia: Code(s): E78.2 - Mixed hyperlipidemia Category: Medical Plan: He was not able to get his follow up labs done prior to coming in for his appointment today Reinforced low cholesterol diet Continue Atorvastatin 80 mg QD Will recheck his labs and fasting lipids in 3 months for follow up - will just have patient use his current orders (updated) for his next lab draw (4) Elevated blood pressure reading: Code(s): R03.0 - Elevated blood-pressure reading, without diagnosis of hypertension Category: Medical Plan: His blood pressure today appears better controlled Reinforced low sodium diet - goal is systolic BP of 120 mm or less Continue Metoprolol ER 25 mg QD He is reminded to continue monitoring his blood pressure regularly (5) Impaired fasting glucose: Code(s): R73.01 - Impaired fasting glucose Category: Medical Plan: His HgbA1c was most recently at 6.8% a couple of months ago in April 2025 (was previously at 6.1% on 02/17/2025) Patient is advised that his recent HgbA1c of 6.8% places him in the diabetes category Reinforced diabetic diet; exercise as tolerated Will recheck these again in 3 months for follow up and advised that if his HgbA1c does not improve signficantly over the next few month, then we will likely need to start him on Rx for diabetes as well (6) Chronic left ear pain: Code(s): H92.02 - Otalgia, left ear; G89.29 - Other chronic pain Category: Medical Plan: He has been referred to ENT previously for further evaluation but he is still waiting to be seen His initial referral was not apparently accepted as the ENT practice was supposedly unclear as to why he was being referred He was then advised after his second referral that they are booking out months in advance and he was reportedly given an appointment for sometime next year (7) Primary osteoarthritis, right shoulder: Code(s): M19.011 - Primary osteoarthritis, right shoulder Category: Medical Plan: X-rays of the right shoulder done back in March 2024 revealed (+) mild acromioclavicular and glenohumeral osteoarthritis with a large subacromial spur Follow up with orthopedics as scheduled (8) Bilateral primary osteoarthritis of knee: Code(s): M17.0 - Bilateral primary osteoarthritis of knee Category: Medical Plan: Continue Acetaminophen as well as Diclofenac 1% topical gel PRN for symptomatic relief Continue Lidocaine 5% patches (Rx refilled) and Capsaicin 0.1% cream PRN Follow up with orthopedics as scheduled (9) Dystrophic nail: Code(s): L60.3 - Nail dystrophy Category: Medical Plan: Have discussed with patient previously that the dystrophic changes involving all of his fingernails in both hands are likely the result of cumulative damages inflicted on his fingernails over the years by what he does and/or what his nails have been exposed to, likely related to his occupation or line of work, and will likely never be able to revert completely back to normal He was referred to dermatology for further evaluation and management but has been advised that the local dermatologists here in [facility] are all booking out months in advance and he has been scheduled to be seen sometime in January or February of 2025 (10) Hydronephrosis: Code(s): N13.30 - Unspecified hydronephrosis Category: Medical Qualifiers: Hydronephrosis type: unspecified Qualified Code(s): N13.30 - Unspecified hydronephrosis Plan: His renal US done in January 2024 revealed (+) bilateral hydronephrosis but no urinary tract calculi were seen He currently does not have any symptoms to suggest the presence of any renal tract calculi Follow up with urology as scheduled (11) Benign prostatic hyperplasia with lower urinary tract symptoms: Code(s): N40.1 - Benign prostatic hyperplasia with lower urinary tract symptoms Category: Medical Qualifiers: Lower urinary tract symptom detail: unspecified Qualified Code(s): N40.1 - Benign prostatic hyperplasia with lower urinary tract symptoms Plan: Follow up with urology as scheduled (12) Insomnia: Code(s): G47.00 - Insomnia, unspecified Category: Medical Qualifiers: Insomnia type: unspecified Qualified Code(s): G47.00 - Insomnia, unspecified Plan: Sleep hygiene reinforced Continue Zolpidem 10 mg Q HS PRN - Rx refilled (13) Smoker: Code(s): F17.200 - Nicotine dependence, unspecified, uncomplicated Category: Social Hx Plan: Patient is counseled again on complete smoking cessation, especially in light of his recent NSTEMI (14) Obesity (BMI 30-39.9): Code(s): E66.9 - Obesity, unspecified Category: Medical Plan: Reinforced diet/exercise as tolerated/lose weight Plan Follow up in 3 months Medications: New clopidogrel 75 mg PO DAILY 90 tabs 1RF 90 days lidocaine 5% leave on most painful area for up to 12 hrs 1 patch topical DAILY 30 ea 1RF Refilled clotrimazole-betamethasone 1-0.05 % 1 appl topical BID PRN 45 grams 0RF rash 2 weeks zolpidem 10 mg PO BEDTIME PRN 30 tabs 0RF insomnia
--- OUTSIDE RECORDS SUMMARY | 2025-07-15 21:29 | XMS_ITS | Data Portability ---
Author Organization [place] - [facility], Allergy Address [address] [address] Care Team Providers Care Market Development Specialist Name Role Phone ROSCOE MORA Primary Care Provider [phone] Assessment Encounter Date Assessment Date Assessment LastModified [...] that cerumen is a natural antibiotic, antifungal, animal nurse, and moisturizer of the delicate external auditory [...] his sinus irrigations. Luke Med squeeze bottle manufacturing applications engineer provided and instructions reviewed. [email or web address] Not available 12/22/2024 10:45:38 06/24/2025 06/24/2025 Oscar Ga is a 64-year-old male with intermittent ear itching, throat soreness, and tonsil stones, likely related to allergies. The itching in the ears is suspected to be due to allergies, potentially exacerbated by environmental factors such as grass, dust mites, and mold. Allergy testing will be ordered to confirm specific allergens. However, allergy shots cannot be administered while the patient is on metoprolol. Blood tests will be conducted to identify allergens. The patient is advised to use Biotene mouthwash, which is non-alcoholic, to alleviate throat irritation and avoid worsening the tonsil stones. He is instructed to discontinue the use of Listerine and hydrogen peroxide as mouthwashes. FOLLOW-UP: The patient will be scheduled for allergy blood testing and follow-up appointments as needed. Results will be communicated via the patient portal once set up. [email or web address] Not available 06/24/2025 14:05:23 Plan of Treatment Reminders Order Date Submit Date Provider Last Modified By Organization Details Last Modified Time Details Appointments None recorded. Lab unlisted lab - allergens, zone 1 2024 [facility], [address], [place], [address], 12:17:02 ige, total, serum 2024 [facility], [address], [place], [address], 12:17:03 CBC w/ auto diff 2024 025 [facility], [address], [place], [address], 12:17:01 Referral None recorded. Procedures None recorded. Surgeries None recorded. Imaging None recorded. Medication Orders fluticasone propionate 50 mcg/actuati on nasal spray,suspe nsion 2024 025 [facility] #[id number], [address], [place], [address], 14:01:58 DermOtic Oil 0.01 % ear drops 2024 025 [facility] #[id number], [address], [place], [address], 10:34:39 Patient TargetsNo targets recorded. Patient Instructions Encounter Date Encounter Id Patient Instructions Last Modified By Organization Details Last Modified Time 06/24/2025 [id number] - Use Biotene mouthwash as directed. - Avoid using Listerine or hydrogen peroxide as mouthwashes. - Follow up for allergy testing and results via the patient portal. [email or web address] Not available 06/24/2025 14:04:26 Please note: Parts of this encounter note have been generated by AI based on audio conversation. Patient consent was required prior to utilizing this technology. Content review was required prior to finalizing the note. [email or web address] Not available 06/24/2025 14:04:27 Reason for Referral None Reported. 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 - [facility] 14:00:46 Allergic rhinitis 27404862 Active 2024 DAMARI ESTEVEZ MD [address] [place] [address] [place], [phone], [facility] - [facility] 14:01:18 Problem Notes None recorded. Procedures Surgical History Date Name Laterality Status Provider Name and Address Organization Details Recorded Time 12/23/19 25 Fiberoptic Laryngoscopy (Comprehensive) completed Divine Taylor [place] - [facility] 12/22/2024 10:46:17 Imaging Results None recorded. Procedure Notes None recorded. Medical Equipment None Reported. Allergies Allergen ID Allergen Name Allergen Category Reaction Reaction Severity Criticality Documentation Date Start Date Code Code System Note Provider Name and Address Organization Details Recorded Time 775394 Substance with sulfonami de structure and antibacte rial mechanism of action (substanc e) medicatio n rash Not available [facility] 12/22/2024 27330 8003 SNOMED Margaritasyed wilkins [facility] 10:09:41 Medications Name Sig Start Date Stop Date Status Note LastModified by Organization Details LastModified Time atorvastati n 80 mg tablet TAKE 1 TABLET BY MOUTH EVERYDAY AT BEDTIME active Not Available Not Available No t Available acetaminoph en 325 mg tablet TAKE 2 TABLETS BY MOUTH 4 TIMES A DAY NEEDED FOR PAIN OR FEVER 06/24 completed Not Available Not Available Not Available nicotine 14 mg/24 hr daily transdermal patch APPLY 1 PATCH TOPICALLY EVERY DAY 06/24 completed Not Available Not Available Not Available ketoconazol e 2 % shampoo APPLY TOPICALLY ON SUNDAY, SUNDAY , & SUNDAY NEEDED FOR DANDRUFF active Not Available Not Available No t Available fluocinonid e 0.05 % topical ointment APPLY TO FEET TWICE A DAY NEEDED FOR FLARES, DECREASE USE SYMPTOMS IMPROVE 06/24 completed Not Available Not Available Not Available aspirin 81 mg tablet,marizol yed release TAKE 1 TABLET BY MOUTH EVERY DAY 06/24 completed Not Available Not Available Not Available ciclopirox 8 % topical solution APPLY TO AFFECTED NAILS EVERY NIGHT FOR 48 WEEKS active Not Available Not Available No t Available terbinafine HCl 250 mg tablet TAKE 1 TABLET BY MOUTH ONCE WEEKLY FOR 6 MONTHS 06/24 completed Not Available Not Available Not Available clotrimazol e-betametha sone 1 %-0.05 % topical cream APPLY TO AFFECTED AREA TWICE A DAY NEEDED FOR RASH FOR 2 WEEKS 06/24 completed Not Available Not Available Not Available lidocaine 5 % topical patch 1 PATCH TOPICALLY DAILY LEAVE ON MOST PAINFUL AREA FOR UP TO 12 HOURS 06/24 completed Not Available Not Available Not Available aspirin 81 mg chewable tablet TAKE 1 TABLET BY MOUTH EVERY DAY active Not Available Not Available No t Available ammonium lactate 12 % topical cream APPLY TO FEET TWICE A DAY active Not Available Not Available No t Available metoprolol succinate ER 25 mg tablet,exte nded release 24 hr TAKE 1 TABLET BY MOUTH EVERY DAY active Not Available Not Available No t Available clobetasol 0.05 % topical ointment APPLY TO THE HANDS AND FEET TWICE DAILY FOR TWO WEEKS, BREAK FOR ONE WEEK, REPEAT NEEDED. 06/24 completed Not Available Not Available Not Available zolpidem 10 mg tablet TAKE 1 TABLET (10 MG) BY MOUTH AT BEDTIME NEEDED FOR INSOMNIA active Not Available Not Available No t Available fluticasone propionate 50 mcg/actuati on nasal spray,suspe nsion INSTILL 2 SPRAYS BY INTRANASA L ROUTE EVERY DAY active Not Available Not Available No t Available DentaGel 1.1 % APPLY THIN FILM TO ALL TEETH BEFORE BED. NO EATING OR RINSING FOR 30 MINUTES AFTER active Not Available Not Available No t Available metoprolol tartrate 25 mg tablet TAKE 1/2 (HALF) TABLET BY MOUTH TWO TIMES A DAY 06/24 completed Not Available Not Available Not Available DermOtic Oil 0.01 % ear drops INSTILL 2-3 DROPS INTO THE EARS TWICE DAILY FOR 2 WEEKS THEN NEEDED FOR ITCHING active Not Available Not Available No t Available ticagrelor 90 mg tablet TAKE 1 TABLET BY MOUTH TWICE A DAY active Not Available Not Available No t Available Vitals Date Recorded Body height Body mass index (BMI) Body weight Provider Name and Address Organization Details Last Updated DateTime 12/22/2024 182.88 cm 28.8 kg/m2 48446.58 g Margarita Guevara [place] - [facility] 12/22/2024 10:09:21 Social History None recorded. Functional Status None recorded. Mental Status None recorded. Family History Nothing Reported. Medical History Condition Response Allergies/Hayfever N Heart Problems N Anxiety N Tonsil Infections N Emphysema N Migraines N Thyroid Problems N Glaucoma N Developmental Delay N Depression N COPD N Nasal or Sinus Problems N Anemia N Immune System Disorder N Anesthesia Complications N Heart Attack ([place]) Y Other Skin Condition N Diabetes N Rhinitis [...] Diagnosis SNOMED-CT Code Diagnosis ICD10 Code Diagnosis IMO Codes Diagnosis Note [id number] DIVINE TAYLOR PA-C [facility] [address] [address] 12/22/2024 10:02:43 12/22/2024 10:35:36 Hypertrophy of tonsils 77608123 J35.1 Itching of skin 09507159 0 L29.9 [id number] DAMARI HERRERA MD [facility] [address] [address] 06/24/2025 13:43:39 06/24/2025 14:05:28 Amygdalolith 0190257 J35.8 28455 Chronic tonsillitis 9097 9004 J35.01 283580 Itching of ear 793179665 L29.9 7252086 Allergic rhinitis 726152 04 J30.89 5460702 Health Concerns Section Related Observation LastModified by Organization Detai ls LastModified Time None Recorded Concern Status LastModified by Organization Details LastModified Time None Recorded Advance Directives Directive None Recorded Payers Insurance Date Sequence Insurance Name Policy Number Policy Marsh Covered Member ID Marsh Member ID Guarantor Name 06/24/2025 1 [employer] (MEDICARE REPLACEMENT/ ADVANTAGE - HMO) GRICELDA Ga [id number] Oscar Ga 06/24/2025 1 [employer] (MEDICARE REPLACEMENT/ ADVANTAGE - HMO) GRICELDA Ga [id number] Oscar Ga Notes Date Note Type Note Provider Name and Address Organization Details Recorded Time 12/22/2024 text/html ROS as noted in the HPI 64 year old male presents for evaluation [...] the past month due to fasting for ada. He quit smoking tobacco years ago. He has never been a heavy drinker. Divine wilkins [place] - [facility] 12/22/2024 10:46:51 06/24/2025 text/html Oscar Ga is a 64-year-old male who presents for evaluation of ear, nose, and throat symptoms. He reports intermittent itching in his ears, which he feels extends to his throat. He notes that the symptoms sometimes affect the left side and occasionally the right side. He believes his tonsils may be impacted, as he experiences soreness in his throat and has noticed white dots in his tonsils, which he describes as stones. He has tried hydrogen peroxide diluted with water as a mouthwash and commercial mouthwashes like Listerine, but these have not alleviated his symptoms. He denies using allergy sprays or pills previously. Oscar mentions a history of allergy testing performed more than ten years ago, which demonstrated allergies to grass and dust mites. He also recalls visiting an ENT specialist over ten years ago, who removed hair from inside his ear, though he does not believe this affected his hearing. Oscar is currently taking metoprolol for blood pressure management and reports having a myocardial infarction approximately four months ago, in December or January. DAMARI FAUSTIN MD [address] [place] [address] [place], [phone], [facility] - [facility] 06/24/2025 14:05:36
== END 2025-07-15 15:55 | disposition home or self-care (01) ==
LOC: HO.HMCH 15:15
PROVIDERS: PCP Internal Medicine; Visit Provider Internal Medicine
DX: I25.2 Old myocardial infarction (principal); I48.91 Unspecified atrial fibrillation; E78.2 Mixed hyperlipidemia; R03.0 Elevated blood-pressure reading, without diagnosis of hypertension; R73.01 Impaired fasting glucose; H92.02 Otalgia, left ear; G89.29 Other chronic pain; M19.011 Primary osteoarthritis, right shoulder; M17.0 Bilateral primary osteoarthritis of knee; L60.3 Nail dystrophy; N13.30 Unspecified hydronephrosis; N40.1 Benign prostatic hyperplasia with lower urinary tract symptoms

== ENCOUNTER → 2025-07-15 15:14 | Outpatient (BNVA) | payer OTHER, SELFPAY | PROVIDERS: PCP Internal Medicine; Visit Provider Internal Medicine | DX: R06.02 Shortness of breath (principal); I21.4 Non-ST elevation (NSTEMI) myocardial infarction; I48.91 Unspecified atrial fibrillation; E78.2 Mixed hyperlipidemia; R03.0 Elevated blood-pressure reading, without diagnosis of hypertension; R73.01 Impaired fasting glucose; H92.02 Otalgia, left ear; G89.29 Other chronic pain; M19.011 Primary osteoarthritis, right shoulder; M17.0 Bilateral primary osteoarthritis of knee; L60.3 Nail dystrophy; N13.30 Unspecified hydronephrosis; N40.1 Benign prostatic hyperplasia with lower urinary tract symptoms; G47.00 Insomnia, unspecified; E66.9 Obesity, unspecified; Z87.891 Personal history of nicotine dependence; Z68.33 Body mass index [BMI] 33.0-33.9, adult | CPT/HCPCS: 99212 ==

== ENCOUNTER → 2025-07-21 08:50 | Outpatient (REF) | payer OTHER, SELFPAY ==
--- NOTE | ~2025-07-21 | NM_ITS ---
EXAMINATION: NM KIDNEY FLOW FUNCTION WITH RX HISTORY: N13.30 - Unspecified hydronephrosis. TECHNIQUE: A renogram and renal scan were performed following the intravenous administration of 10 mCi technetium 99m-DTPA. The patient also received 40 mg IV Lasix approximately 30 minutes after injection of the radiopharmaceutical. COMPARISON: Correlation is made with a renal ultrasound dated 04/13/2025. FINDINGS: There is symmetric blood flow to both kidneys. There is normal uptake and excretion of the radiopharmaceutical bilaterally. The split uptake is 54.2% on the left and 45.8% on the right. The time to peak activity on the left is 4.0 minutes, and on the right is 12.0 minutes. There is normal excretion and washout bilaterally. The half-life of washout on the left is 9.8 minutes and on the right is 14.1 minutes. NM/NM renal flow w pharm int IMPRESSION: Unremarkable renogram and renal scan. No evidence of obstruction. Electronically signed by: Virgil Mason MD 07/21/2025 11:03 AM EDT
== END ==
LOC: HO.NUCMED 08:50
PROVIDERS: PCP Internal Medicine; Visit Provider Nurse Practitioner Family
DX: N13.30 Unspecified hydronephrosis (principal)
CPT/HCPCS: 78708; A9539; J1938

== ENCOUNTER → 2025-07-21 08:52 | Outpatient (BNV) | payer OTHER, SELFPAY | PROVIDERS: PCP Internal Medicine; Visit Provider Radiology Diagnostic Radiology | DX: N13.30 Unspecified hydronephrosis (principal) | CPT/HCPCS: 78708 ==

== ENCOUNTER 2025-07-28 14:16 | Outpatient (AMB) | payer OTHER, SELFPAY ==
--- NOTE | 2025-07-28 14:21 | MHC.OFFVIS ---
Intake Visit Reasons: 3m/Nuclear renal/PSA Intake Note: Patient is present for 3M/NUCLEAR RENAL/PSA Urology Medication:NONE Antibiotic Allergy:SULFA Blood Thinner:ASPIRIN Superintendent Stevedoring Required: No Allergies Sulfa (Sulfonamide Antibiotics) Allergy (Mild, Verified 07/28/25 15:00) RASH/SWELLING Medication List - Last Reconciled 07/28/25 by JOSE KateP- acetaminophen 650 mg (2 x 325 mg) PO QID PRN aspirin 81 mg PO DAILY 90 days atorvastatin 80 mg PO BEDTIME 90 days [CANE As directed] capsaicin 0.1% 1 appl topical TID PRN clopidogrel 75 mg PO DAILY 90 days clotrimazole-betamethasone 1-0.05 % 1 appl topical BID PRN 2 weeks fluocinolone acetonide oil 0.01% (DermOtic Oil) 2 - 3 drps otic (ears) BID PRN ketoconazole 2% 1 appl topical MOWEFR PRN lidocaine 5% 1 patch topical DAILY PRN lidocaine 5% 1 patch topical DAILY metoprolol succinate ER 25 mg PO DAILY ticagrelor 90 mg PO BID walker (Ultra-Light Rollator misc) As directed zolpidem 10 mg PO BEDTIME PRN HPI Comments Details: Oscar is a pleasant 65-year-old male patient of Dr. Dumont. He he has a past medical history of insomnia, obesity, smoker, mixed hyperlipidemia, osteoarthritis of bilateral knees, nephrolithiasis, and NSTEMI with right coronary artery stenosis was treated with drug-eluting stent 02/15. He presents to the office today for follow-up of his nephrolithiasis, lower urinary tract symptoms, and question of hydronephrosis. Recent nuclear renal scan results reviewed with the patient today. 07/18 there is symmetric blood flow to both kidneys. There is normal uptake and excretion noted bilaterally. The split uptake is 54% on the left and 46% on the right. There is normal excretion and washout bilaterally. Unremarkable renogram and renal scan. No evidence of obstruction per radiology report. Labs are as follows: PSA 04/16 1.4, 05/18 1.7 BUN: 12/13 14, 03/15 12, 04/15 15, 05/16 11, 08/16 11, 04/16 13, 02/15 15, 02/15 23, 02/15 19, 06/18 13 Creatinine: 12/13 0.95, 03/15 0.89, 04/15 1.04, 05/16 0.80, 08/16 0.79, 04/16 0.75, 02/15 0.81, 02/15 1.28, 02/15 0.73, 06/18 0.95 In office urinalysis results reviewed with the patient today pH 6.0. We discussed at length importance of drinking plenty of water daily in relation to history of nephrolithiasis as well as overall health and well-being. When asked he denies urinary urgency, urinary frequency, incontinence, hematuria, dysuria, foul smelling urine, changes to urinary stream, flank pain, fever, and or chills. He does report noting nocturia however does feel symptoms have been manageable independently. He does have a history of nephrolithiasis since the age of 17. He does have a previous surgical history of nephrolithiasis to include ureteroscopy as well as ESWL. All questions were answered. He otherwise offers no other issues or concerns at this time. [facility] Medical History Obesity (BMI 30-39.9) Primary osteoarthritis, right shoulder Overweight (BMI 25.0-29.9) Smoker Impaired fasting glucose Mixed hyperlipidemia Abdominal pain Insomnia Dyslipidemia Bilateral primary osteoarthritis of knee Laceration of left index finger 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 Avulsion of skin of left thumb Kidney stones Surgical History History of cardiac catheterization Hx of left knee surgery History of hand surgery Hx of lithotripsy Social History Housing: House Alcohol intake: never Patient Tobacco Use Status: Former Tobacco user Tobacco use type: Cigarette Cigarette Packs Per Day: 0.5 Cigarettes Per Day: 10 Years Smoked: 45 e-Cigarette/Vaping Use: Never Used Second Hand Smoke Exposure: Yes service: No Current occupational status: unemployed 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 Current occupational exposures/hazards: No Cognitive needs: Yes (cane) Hearing needs: No Vision needs: Yes (glasses) Review of Systems Const Reports as per HPI Eyes Reports no additional complaints ENT Reports no additional complaints Card Reports as per HPI Resp Reports no additional complaints GI Reports no additional complaints Reports as per HPI Musc Reports as per HPI Neuro Reports as per HPI Psych Reports no additional complaints Endo Reports no additional complaints Efe/Lymph Reports no additional complaints Aller/Immun Reports no additional complaints Physical Exam Const General: cooperative, healthy appearing, comfortable, no acute distress, well developed, alert and awake Nutritional Appearance: overweight Orientation/consciousness: patient oriented x3 Limitations: no limitations HEENT Head: Yes normal to inspection, Yes normocephalic and Yes atraumatic Ears: hearing grossly normal bilaterally Eyes General: appearance normal, both eyes and all related structures Neck Neck: Yes normal visual inspection and Yes trachea midline Chest Chest palpation & inspection: normal inspection of the chest Resp Effort & Inspection: normal respiratory effort and able to speak in complete sentences Cardio Rate: regular rate GI Inspection: Yes normal to inspection Rectal Exam - Male: Yes deferred General: Yes no CVA tenderness Back/Spine/Pelvis Back: no CVA tenderness Skin General skin exam: no rashes or lesions noted Neuro General: patient oriented x3 Extrem General: Yes normal to inspection Psych Appearance: grossly normal and well kempt Mental Status: mental status grossly normal Speech and movement: Normal speech and movement present and Clear speech present Affect: normal affect Attitude: cooperative Thought process: Normal thought process present Thought content: Normal thought content present Insight: Fair insight present (Psych) Judgement: Fair judgement present (Psych) Results AMB Urinalysis, Automated UA Leukoctes 0 Libia/uL Last Edit by MICHELLE Page on 07/28/25 14:34 UA Nitrite Negative Last Edit by MICHELLE Page on 07/28/25 14:34 UA Urobilinogen 0.2 mg/dL Last Edit by MICHELLE Page on 07/28/25 14:34 UA Protein 15 mg/dL Last Edit by MICHELLE Page on 07/28/25 14:34 UA pH 6.0 Last Edit by MICHELLE Page on 07/28/25 14:34 UA Blood 0 Ricardo/uL Last Edit by MICHELLE Page on 07/28/25 14:34 UA Specific [place] 1.030 Last Edit by MICHELLE Page on 07/28/25 14:34 UA Ketone Negative Last Edit by MICHELLE Page on 07/28/25 14:34 UA Bilirubin 0 mg/dL Last Edit by MICHELLE Page on 07/28/25 14:34 UA Glucose 0 mg/dL Last Edit by MICHELLE Page on 07/28/25 14:34 Results Reviewed Results Reviewed: Laboratory Last Values Urine pH (Auto) 6.0 07/28/25 14:32 Specific [place] (Auto) 1.030 07/28/25 14:32 Urine Protein (Auto) 15 mg/dL 07/28/25 14:32 Glucose (UA)(Auto) 0 mg/dL 07/28/25 14:32 Urine Ketones (Auto) Negative 07/28/25 14:32 Urine Blood (Auto) 0 Ricardo/uL 07/28/25 14:32 Urine Nitrite (Auto) Negative 07/28/25 14:32 Urine Bilirubin (Auto) 0 mg/dL 07/28/25 14:32 Urine Urobilinogen (Auto) 0.2 mg/dL 07/28/25 14:32 Leukocyte Esterase (Auto) 0 Libia/uL 07/28/25 14:32 Date of Service: 07/21/25 Procedure(s): NM renal flow w pharm int FINDINGS: There is symmetric blood flow to both kidneys. There is normal uptake and excretion of the radiopharmaceutical bilaterally. The split uptake is 54.2% on the left and 45.8% on the right. The time to peak activity on the left is 4.0 minutes, and on the right is 12.0 minutes. There is normal excretion and washout bilaterally. The half-life of washout on the left is 9.8 minutes and on the right is 14.1 minutes. IMPRESSION: Unremarkable renogram and renal scan. No evidence of obstruction. Assessment & Plan Assessment & Plan (1) Kidney stones: Code(s): N20.0 - Calculus of kidney Category: Medical (2) Hydronephrosis: Code(s): N13.30 - Unspecified hydronephrosis Category: Medical Qualifiers: Hydronephrosis type: unspecified Qualified Code(s): N13.30 - Unspecified hydronephrosis (3) Nocturia: Code(s): R35.1 - Nocturia Category: Medical Plan In office urinalysis results reviewed with the patient today; as noted above. Nuclear renal scan results reviewed with the patient today; as noted above. Most recent BUN, creatinine, and PSA results reviewed with the patient today; as noted above. He currently denies any bothersome urinary issues or concerns. He reports be happy with current voiding parameters. All questions were answered. We discussed importance of limiting fluids 2-3 hours prior to bed to decrease episodes of nocturia. Will continue with surveillance monitoring of nephrolithiasis. Will obtain renal ultrasound in 6 months. Continue adding 1 oz of lemon juice to water daily. We did discussed the importance of adequate hydration relation to nephrolithiasis as well as overall health and well-being. Follow-up in 6 months with imaging; or sooner with any issues, concerns, and or questions. Orders: Orders AMB Urinalysis Automated Today Z13.9 - Encounter for screening, unspecified US renal BI 6 Months N20.0 - Calculus of kidney Patient Instructions: The patient had an opportunity to ask questions regarding the treatment plan. All questions were answered. Physical exam, labs, and imaging were discussed and reviewed in detail. As well as risks, benefits, and discussion of treatment choices. No major barriers to understanding were identified. The patient expressed understanding and agreement with the above treatment plan. The patient was made aware they should contact our office by phone for worsening of their current condition, the appearance of new symptoms, or with any questions or concerns. Compliance is encouraged with any medications and follow up testing that is ordered. It is a privilege to be allowed the opportunity to participate in? your urological care.? Again, if you have any questions or concerns If you have any questions or concerns please do not hesitate to contact me. The office is [phone]. This note is constructed using voice recognition software. While every effort has been made to ensure accuracy surgical sales representative errors may have been included. Yours sincerely, DURAN Kate Coding Level of Care Code Est Pt Level 3 (64525) Complex EM visit Add On G2211 Diagnoses Kidney stones N20.0 Hydronephrosis, unspecified hydronephrosis type N13.30 Hydronephrosis type: unspecified Nocturia R35.1
--- OUTSIDE RECORDS SUMMARY | 2025-07-28 17:17 | XMS_ITS | Clinical Summary ---
Author Organization [facility] Address [address] [place] [address] Care Team Providers Care Fisher Gill Net Name Role Phone Ana Good PA-C Primary Care Provider [phone] Source Comments PLEASE NOTE, if this patient [...] 12/18/2013 Type 2 diabetes mellitus without complication Osteoarthritis of both knees 12/09/2009 Overview (04/10/2019): S/P ARTHROSCOPY LEFT 2009. Seen by Rheum Dr. Ruth Ann Pandey in [place] 12/04/16 s/p bilateral knee injection. 07/30/18 - [...] F/U DR. ZAPIEN. Tobacco abuse disorder Eczema Encounters Date Type Department Care Team Description 07/02/2025 11:00 AM EDT Office Visit [facility] [address] [place] [phone] Colin Tellez DDS 06/19/2025 1:00 PM EDT Office Visit [facility] [address] [place] [phone] Colin Tellez DDS 06/15/2025 1:40 PM EDT Office Visit [facility] [address] [place] [address] Malu RobinsarayJOSE R 05/11/2025 3:40 PM EDT Office Visit [facility] [address] [place] [phone] Colin Tellez DDS from Last 3 Months Immunizations Immunization Administration Dates Next Due Hep B, Adult/Adol (AESPDEB-T-OOGXR/RECOMBIVAX-AD ULT) 06/04/2008 INFLUENZA, SEASONAL, INJECTABLE 06/06/2012,06/30 MMR (MMR II/Priorix) 07/27/2008,06/04/2008 PPD 05/02/2010 Td (adult),2 Lf tetanus toxo id (TDVAX), preservative free 07/27/2008,06/04/2008 Varicella (Varivax), Live Vaccine 06/04/2008 Social History Tobacco Use Types Packs/Day Years Used Date Smoking Tobacco: Former Cigarettes Q uit: 12/2024 Smokeless Tobacco: Never Tobacco Cessation:Counseling Given: Not Answered Comments:pt states that smokes 10 cigerettes a [...] 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 Not on file Not on file Last Filed Vital Signs Vital Sign Reading Time Taken Comments Blood Pressure 121/65 07/02/2025 11:38 AM EDT Pulse 70 07/02/2025 11:38 AM EDT Temperature 36.9 C (98.4 F) [...] Care Team (Late st Contact Info) Description 09/10/2025 10:00 AM EST Office Visit [facility] [address] [place] [address] Luiza Barber, DMD [address] [place] [address] Health Maintenance Due Date Last Done Comments Anxiety Screening 1962 Dental Perio Charting 1962 Dental Prophy 1962 Diabetes Foot Exam 1962 Retinopathy Screening 1975 Imm-Pneumococcal 50+ (1 of 2 - PCV) 1981 CT Colonography 2007 FIT/gFOBT 2007 Fecal DNA 2007 Flexible Sigmoidoscopy 2007 Imm-DTaP/Tdap/Td (1 - Tdap) 07/28/2008 07/27/2008, 0 06/04/2008 Colonoscopy 01/14/2018 01/14/2013 Colorectal Cancer Screening 01/14/2018 Urine Albumin Creatinine Rat io Screening 06/02/2021 06/02/2020, 06/02/2020, 04/22/2018 Hemoglobin A1c 07/23/2021 01/21/2021, 09/0 05/2020, 03/08/2019, Additional history exists Annual Wellness (Adult): Indicated (All Coverage) 12/21/2021 12/21/2020, 04/22/2018, 12/18/2013 Lipid Screening 01/21/2022 01/21/2021, 09/0 05/2020, 06/02/2020, Additional history exists Serum Creatinine 01/21/2022 01/21/2021, 05/2020, 06/02/2020, Additional history exists Tobacco Cessation Counseling (#1) 04/12/2022 Alcohol and Drug Screen 09/24/2024 04/12/20 21, 04/10/2019, 04/10/2019, Additional history exists Depression Annual Screen 09/24/2024 04/12/2021, 12/24 [id number] ( season) 2025 021, 01/13/2021 Tobacco Screening 06/15/2026 06/15/2025 Dental BW 06/17/2026 06/15/2025 Dental Examination 06/17/2026 06/15/2025 Dental FMX/Pano 06/17/2030 06/15/2025 Imm-Hepatitis B Discontinued 06/04/2008 HIV Screening Completed 04/22/2018 Hepatitis C Screening Completed 04/22/2018 Imm-Influenza Discontinued 10/13/2020, 08/24, 07/12/2018, Additional history exists Imm-Zoster, Recombinant Completed 10/13/2020, 09/10 Procedures Procedure Name Priority Date/Time Associated Diagnosis Comments 30 CROWN - PORCELAIN/CERAMIC Routine 07/02/2025 11:00 AM EDT Full coverage crown needed for root canal-treated tooth 30 CROWN PREP Routine 06/19/2025 1:00 PM EDT Full coverage crown needed for root canal-treated tooth DENTAL CASE MANAGEMENT - MOTIVATIONAL INTV Routine 06/15/2025 1:40 PM EDT Caries Encounter for dental examination INTRAORAL - COMP SERIES OF RADIOGRAPHIC IMAGES Routine 06/15/2025 1:40 PM EDT Retained tooth root Caries Encounter for dental examination COMP ORAL EVALUATION - NEW/ESTABLISHED PATIENT Routine 06/15/2025 1:40 PM EDT Caries Encounter for dental examination CARIES RISK ASSESSMENT & DOC FINDING HIGH RISK Routine 06/15/2025 1:40 PM EDT Caries Encounter for dental examination NUTRITIONAL COUNSELING CONTROL OF DENTAL DISEASE Routine 06/15/2025 1:40 PM EDT Caries Encounter for dental examination ORAL HYGIENE INSTRUCTIONS Routine 06/15/2025 1:40 PM EDT Caries Encounter for dental examination ORAL CANCER SCREENING Routine 06/15/2025 1:40 PM EDT Caries Encounter for dental examination CASE PRESENTATION SUBS DTL & EXTENSIVE TX PLN Routine 06/15/2025 1:40 PM EDT Encounter for dental examination 21 CROWN - PORCELAIN/CERAMIC Routine 06/15/2025 12:00 AM EDT 21 ROOT CANAL - WISDOM (NO BILLABLE) Routine 06/15/2025 12:00 AM EDT 18 DO COMPOSITE - WISDOM (NON BILLABLE) Routine 06/15/2025 12:00 AM EDT 20 DO AMALGAM - WISDOM (NON BILLABLE) Routine 06/15/2025 12:00 AM EDT 19 O AMALGAM - WISDOM (NON BILLABLE) Routine 06/15/2025 12:00 AM EDT 16 MO COMPOSITE - WISDOM (NON BILLABLE) Routine 06/15/2025 12:00 AM EDT 12 B(V) COMPOSITE - WISDOM (NON BILLABLE) Routine 06/15/2025 12:00 AM EDT 4 B(V) COMPOSITE - WISDOM (NON BILLABLE) Routine 06/15/2025 12:00 AM EDT 29 (V) COMPOSITE - WISDOM (NON BILLABLE) Routine 06/15/2025 12:00 AM EDT 3 MO COMPOSITE - WISDOM (NON BILLABLE) Routine 06/15/2025 12:00 AM EDT 2 MO COMPOSITE - WISDOM (NON BILLABLE) Routine 06/15/2025 12:00 AM EDT INTRAORAL - PERIAPICAL FIRST RADIOGRAPHIC IMAGE Routine 05/11/2025 3:40 PM EDT History of root canal treatment Loss of retention of dental crown LIMITED ORAL EVALUATION - PROBLEM FOCUSED Routine 05/11/2025 3:40 PM EDT History of root canal treatment Loss of retention of dental crown 30 ROOT CANAL - WISDOM (NO BILLABLE) Routine 05/11/2025 12:00 AM EDT COMPREHENSIVE METABOLIC PANEL Routine 01/21/2021 2:49 PM EDT Routine general medical examination at a health care facility Left flank pain Type 2 diabetes mellitus without complication, without long-term current use of insulin ([facility]) Essential hypertension Vitamin B12 deficiency Tobacco abuse disorder LIPID PANEL Routine 01/21/2021 2:49 PM EDT Routine general medical examination at a [facility] care facility Left flank pain Type 2 diabetes mellitus without complication, without long-term current use of insulin ([facility]) Essential hypertension Vitamin B12 deficiency Tobacco abuse disorder HEMOGLOBIN GLYCOSYLATED A1C Routine 01/21/2021 2:49 PM EDT Routine general medical examination at a [facility] facility Left flank pain Type 2 diabetes mellitus without complication, without long-term current use of insulin ([facility]) Essential hypertension Vitamin B12 deficiency Tobacco abuse disorder MICROALBUMIN/CREATININ E RATIO, URINE, RANDOM Routine 06/02/2020 10:04 AM EDT Chronic pain of both shoulders ANTIBODY HIV-1&HIV-2 SINGLE RESULT Routine 04/22/2018 10:44 AM EDT Routine general medical examination at a [facility] facility HEPATITIS A,B,C PANEL Routine 04/22/2018 10:44 AM EDT Routine general medical examination at a [facility] facility COLONOSCOPY Routine 01/14/2013 1:56 PM EDT from Last 3 Months or Most Recently Relevant to Health Maintenance Results * (ABNORMAL) HEMOGLOBIN, GLYCOSYLATED (A1C) (01/21/2021 2:49 PM EDT) [facility] Signature HEMOGLOBIN A1C 6.0(H) <5.7 % of total Hgb [facility] Comment: For someone without known diabetes, [...] LAB - BLOOD DRAW Final Resul t [facility] [address] [address], [employer] [facility] [address] [address] * (ABNORMAL) COMPRE METAB PANEL (01/21/2021 2:49 PM EDT) GLUCOSE 103(H) 65 - 99 mg/dL [facility] Comment: Fasting reference interval For someone without known diabetes, a glucose value between 100 and 125 mg/dL is consistent with prediabetes and should be confirmed with a follow-up test. UREA NITROGEN (BUN) 11 7 - 25 mg/dL [facility] CREATININE (blood) 0.87 0.70 - 1.33 mg/dL [facility] Comment: For patients >49 years of age, the reference limit for Creatinine is approximately 13% higher for people identified as -Citizen Of [place]. GFR ESTIMATED 95 > OR = 60 mL/min/1 .73m2 [facility] EGFR 110 > OR = 60 mL/min/1 .73m2 [facility] BUN/CREATININE RATIO NOT APPLICABLE 6 - 22 [facility] SODIUM 139 135 - 146 mmol/L [facility] POTASSIUM 4.3 3.5 - 5.3 mmol/L [facility] CHLORIDE 105 98 - 110 mmol/L [facility] CARBON DIOXIDE 25 20 - 32 mmol/L [facility] CALCIUM 9.3 8.6 - 10.3 mg/dL [facility] PROTEIN, TOTAL 7.2 6.1 - 8.1 g/dL [facility] ALBUMIN 4.3 3.6 - 5.1 g/dL [facility] GLOBULIN 2.9 1.9 - 3.7 g/dL (calc) [facility] ALBUMIN/GLOBULIN RATIO 1.5 1.0 - 2.5 (calc) [facility] BILIRUBIN, TOTAL 0.6 0.2 - 1.2 mg/dL [facility] ALKALINE PHOSPHATASE 74 35 - 144 U/L [facility] AST 16 10 - 35 U/L [facility] ALT 16 9 - 46 U/L [facility] Blood Blood / Unknown 01/21/2021 2 :49 PM EDT 01/21/2021 2:49 PM EDT Ana Good PA-C LAB - BLOOD DRAW Final Resul t [facility] [address] [facility] [address] [place] [address], [facility] [address] [address] * MICROALBUMIN/CREATININE RATIO, URINE, RANDOM (06/02/2020 10:04 AM EDT) CREATININE, RANDOM URINE 156 mg[facility] 06/02/2020 10:0 4 AM EDT 06/02/2020 3:31 PM EDT Narrative [facility] - 06/02/2020 6:09 PM EDT [employer], [place] [address] Emergency Medical Dispatcher [place] [id number] ORD# [id number] Ana Good PA-C LAB URINE AMBULATORY Final R esult Performing Organization Address [facility] [place] [address], * (ABNORMAL) HEPATITIS A,B,C PANEL (04/22/2018 10:44 AM EDT) HEPATITIS B SURFACE ANTIBODY POSITIVE(A) NEGATIVE [facility] HEPATITIS B SURFACE ANTIGEN NEGATIVE NEGATIVE [facility] Comment: Over the counter supplements containing high doses of biotin may interfere with this assay. If interference is suspected, patients shoud be retested after refraining from biotin supplements for 72 hours. HEPATITIS B CORE ANTIBODY NEGATIVE NEGATIVE [facility] HEPATITIS C VIRUS DIAGNOSTIC NEGATIVE NEGATIVE [facility] HEPATITIS A ANTIBODY TOTAL POSITIVE(A) NEGATIVE [facility] Comment: Over the counter supplements containing high doses of biotin may interfere with this assay. If interference is suspected, patients shoud be retested after refraining from biotin supplements for 72 hours. Blood specimen (specimen) Blood / Unknown 04/22/2018 10:44 AM EDT 04/22/2018 1:02 PM EDT Narrative [facility] - 04/22/2018 2:27 PM EDT [employer] [address] [place] [address] [place] [id number] ORD# [id number] Yaneth Dueñas PA-C LAB - BLOOD DRAW Edited R [employer] - Final [address] [address], * HIV-1 & HIV-2 ANTIBODIES (04/22/2018 10:44 AM EDT) [facility] HIV 1 AND 2 ANTIBODY SCREEN NEGATIVE NEGATIVE [facility] Comment: This assay is a [...] 10:44 AM EDT 04/22/2018 1:02 PM EDT Narrative [facility] - 04/22/2018 2:54 PM EDT [employer] [address] [place] [address] [place] [id number] ORD# [id number] Yaneth Dueñas PA-C LAB - BLOOD DRAW Edited R [employer] - Final Performing Organization Address City/[facility]/ZIP Co de Phone Number [address] [address], [place] [phone] * COLONOSCOPY (01/14/2013 1:56 PM EDT) Impressions Lily Williamson MA - 01/14/2013 1:56 PM EDT Colonoscopy Impression: up to cecum, good preparation. Normal mucosa in the colon Repeat 5 years us Provider [facility] PROCEDURES Final Result from Last 3 Months or Most Recently Relevant to Health Maintenance Insurance [place] DENT[place] DENTAL Care Teams Fisher Gill Net Relationship Specialty Start Date End Date Ana Good PA-C [address] [place] [address] PCP - General Internal Medicine 04/18/23
--- OUTSIDE RECORDS SUMMARY | 2025-07-28 17:17 | XMS_ITS | Data Portability ---
Author Organization [place] - [facility], Allergy Address [address] [address] Care Team Providers Care Side Laster Tack Name Role Phone ROSCOE MORA Primary Care [...] that cerumen is a natural antibiotic, antifungal, windows application packager, and moisturizer of the delicate external auditory [...] his sinus irrigations. Luke Med squeeze bottle broomcorn scraper provided and instructions reviewed. [email or web address] Not available [...] unlisted lab - allergens, zone 1 2024 [facility], [address], [place], [address], 12:17:02 ige, total, serum 2024 [facility], [address], [place], [address], 12:17:03 CBC w/ auto diff 2024 025 [facility], [address], [place], [address], 12:17:01 Referral None recorded. Procedures None recorded. Surgeries None recorded. Imaging None recorded. Medication Orders fluticasone propionate 50 mcg/actuati on nasal spray,suspe nsion [address] [facility] #[id number], [address] [facility], [place], [address], 14:01:58 DermOtic Oil 0.01 % ear drops [address] [facility]arm[facility] #[id number], [address] [facility], [place], [address], 10:34:39 Patient TargetsNo targets recorded. Patient Instructions Encounter Date Encounter Id Patient Instructions Last Modified By Organization Details Last Modified Time 06/24/2025 [id number] - Use Biotene mouthwash as directed. 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 Procedures Surgical History Date Name Laterality Status Provider Name and Address Organization Details Recorded Time 12/23/19 25 Fiberoptic Laryngoscopy (Comprehensive) completed Divine Taylor [place] - [facility] 12/22/2024 10:46:17 Imaging Results None recorded. Procedure Notes None recorded. Medical Equipment None Reported. Allergies Allergen ID Allergen Name Allergen Category Reaction Reaction Severity Criticality Documentation Date Start Date Code Code System Note Provider Name and Address Organization Details Recorded Time [id number] Substance with sulfonami de structure and antibacte rial mechanism of action (substanc e) medicatio n rash Not available [facility] 12/22/2024 55482 8003 SNOMED Margaritasyed wilkins [facility] 10:09:41 Medications Name Sig Start Date [...] Updated DateTime 12/22/2024 182.88 cm 28.8 kg/m2 51060.58 g Margarita Guevara [place] - [facility] 12/22/2024 10:09:21 Social History None recorded. [...] Disorder N Anesthesia Complications N Heart Attack (GA) Y Other Skin Condition N Diabetes N [...] ICD10 Code Diagnosis IMO Codes Diagnosis Note [id number] DIVINE TAYLOR PA-C [facility] [address] [address] 12/22/2024 10:02:43 12/22/2024 10:35:36 Hypertrophy of tonsils 69189942 J35.1 Itching of skin 07779197 0 L29.9 [id number] DAMARI HERRERA MD [facility] [address] [address] 06/24/2025 13:43:39 06/24/2025 14:05:28 Amygdalolith 1946716 J35.8 07727 Chronic tonsillitis 9097 9004 J35.01 892106 Itching of ear 166200074 L29.9 4808917 Allergic rhinitis 891920 04 J30.89 4076753 Health Concerns Section Related Observation LastModified by Organization Detai ls LastModified Time None Recorded Concern Status LastModified by Organization Details LastModified Time None Recorded Advance Directives Directive None Recorded Payers Insurance Date Sequence Insurance Name Policy Number Policy Marsh Covered Member ID Marsh Member ID Guarantor Name 06/24/2025 1 [employer] (MEDICARE REPLACEMENT/ ADVANTAGE - HMO) [place] [id number] Oscar Ga 06/24/2025 1 [employer] (MEDICARE REPLACEMENT/ ADVANTAGE - HMO) GRICELDA Ga [id number] Oscar Ga Notes Date Note Type Note [...] wilkins [place] - [facility] 12/22/2024 10:46:51 06/24/2025 text/html Oscar Ga [...] in December or January. DAMARI FAUSTIN MD [address] [place] [address] [place], [address], [facility] - [facility] 06/24/2025 14:05:36
== END 2025-07-28 14:55 | disposition home or self-care (01) ==
LOC: HO.HUSH 14:17
PROVIDERS: PCP Internal Medicine; Visit Provider Nurse Practitioner Family
DX: N20.0 Calculus of kidney (principal); N13.30 Unspecified hydronephrosis; R35.1 Nocturia; Z13.9 Encounter for screening, unspecified
CPT/HCPCS: 99213

== ENCOUNTER → 2025-07-28 14:16 | Outpatient (BNVA) | payer OTHER, SELFPAY | PROVIDERS: PCP Internal Medicine; Visit Provider Nurse Practitioner Family | DX: N20.0 Calculus of kidney (principal); N13.30 Unspecified hydronephrosis; R35.1 Nocturia; Z13.9 Encounter for screening, unspecified | CPT/HCPCS: 81003; 99212 ==

== ENCOUNTER 2025-08-17 13:47 | Outpatient (AMB) | payer OTHER, SELFPAY ==
[2025-08-17 13:49] VITALS: BP 133/76; PULSE 77; BMI 32.8
--- NOTE | 2025-08-17 13:49 | MHC.OFFVIS ---
Vital Signs 08/17/25 13:49 Height 5 ft 9 in Weight 222 lb BMI 32.8 BP 133/76 Blood Pressure Location Lt brachial Position Sitting Pulse 77 Intake Visit Reasons: [place] Screening r/s 03/16/25 Intake Note: New patient in office for colonoscopy screening and EGD consult. CC: Patient reports occasional acid reflux and heartburn. Tallow Refiner Required: No Accompanied by: Self / Same As Patient Allergies Sulfa (Sulfonamide Antibiotics) Allergy (Mild, Verified 08/17/25 13:53) RASH/SWELLING HPI HPI [place] Screening r/s 03/16/25: Details: HPI 65 yr old male with past medical history obesity, hyperlipidemia, tobacco dependence currently 8-10 cigarettes per day, left knee arthroscopy, left leg cramping, vitamin-D deficiency, nephrolithiasis with lithotripsy, onychomycosis of fingernails who I am seeing for assessment He has a lot of acid sx not taking any medications for this no dysphagia no rectal bleeding no melena he has no complaints ROS: Constitutional : No Weight loss, No Fever, No Chills ENT/Mouth : No sore throat, No Rhinorrhea Eyes: No Swelling, No Redness Cardiovascular : No Chest Pain, No SOB, No Edema Respiratory : No Cough, No Sputum, No Wheezing Gastrointestinal : see HPI Genitourinary : NO Dysuria, No Urinary Frequency, No Hematuria, No Urgency Musculoskeletal : no joint pain, No Myalgias, No Joint Swelling Skin : No Skin Lesions, No rash Neuro : No Weakness, No Numbness, No Dizziness, No Headache Psych : No Anxiety/Panic, No Depression Heme/Lymph: No Bruising, No Lymphadenopathy Endocrine : No Polyuria, No Polydipsia All other systems reviewed and are negative. Medical History Primary osteoarthritis, right shoulder Overweight (BMI 25.0-29.9) Smoker Impaired fasting glucose Mixed hyperlipidemia Abdominal pain Insomnia Dyslipidemia Bilateral primary osteoarthritis of knee Laceration of left index finger 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 Avulsion of skin of left thumb Kidney stones Cognitive capacity: Alert and orientated x3 Functional capacity: independent ambulation Pertinent family history: Grandmother lived to be 110, mother lived to be in her 80s as well as his father. Both parents of old age. Surgical History Hx of left knee surgery History of hand surgery Hx of lithotripsy Family History no FH of CRC Social History ex-smoker, no alcohol EXAM: GENERAL: The patient is well developed and nontoxic. VITAL SIGNS:see workflow HEENT: Nonicteric sclerae, PERRLA, EOMI. Oropharynx clear. Moist mucous membranes. Conjunctivae appear well perfused. No thyroid mass. CHEST: Chest wall is nontender. HEART: Regular rate and rhythm without murmurs. LUNGS: Clear to auscultation bilaterally. ABDOMEN: Soft, positive bowel sounds, nontender, no organomegaly.no flank tenderness SKIN: No rash, no excessive bruising, petechiae, or purpura. NEUROLOGIC: Cranial nerves II-XII intact without motor/sensory deficit. Psych: normal affect A/P: 1/ GERD- 2/ colon cancer screening PLAN: 1./ He is on clopidogrel and aspirin, procedures are not urgent so can wait will d/w client representative 2/ will use [facility] Medical History (Updated 08/17/25 @ 14:01 by Anuj Bruno MD) Obesity (BMI 30-39.9) Primary osteoarthritis, right shoulder Overweight (BMI 25.0-29.9) Smoker Impaired fasting glucose Mixed hyperlipidemia Abdominal pain Insomnia Dyslipidemia Bilateral primary osteoarthritis of knee Laceration of left index finger 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 Avulsion of skin of left thumb Kidney stones Surgical History (Updated 08/17/25 @ 13:52 by Andrey Jaquez [facility]) H/O colonoscopy History of cardiac catheterization Hx of left knee surgery History of hand surgery Hx of lithotripsy Social History Housing: House Alcohol intake: never Patient Tobacco Use Status: Former Tobacco user Tobacco use type: Cigarette Cigarette Packs Per Day: 0.5 Cigarettes Per Day: 10 Years Smoked: 45 e-Cigarette/Vaping Use: Never Used Second Hand Smoke Exposure: Yes service: No Current occupational status: unemployed 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 Current occupational exposures/hazards: No Cognitive needs: Yes (cane) Hearing needs: No Vision needs: Yes (glasses) Physical Exam Vital Signs: BMI result Body Mass Index 32.8 Assessment & Plan Assessment & Plan (1) Colon cancer screening: Code(s): Z12.11 - Encounter for screening for malignant neoplasm of colon Category: Medical Plan: as above (2) GERD (gastroesophageal reflux disease): Code(s): K21.9 - Gastro-esophageal reflux disease without esophagitis Category: Medical Plan: as above Coding Level of Care Code New Pt Level 4 (81162) Diagnoses Colon cancer screening Z12.11 GERD (gastroesophageal reflux disease) K21.9
--- OUTSIDE RECORDS SUMMARY | 2025-08-17 18:39 | XMS_ITS | Continuity of Care Document ---
Author Organization [place] - [facility], [facility] Address [address] [place] [address] Care Team Providers Care Circuit Breaker Assembler Name Role Phone ROSCOE MORA Primary Care Provider [phone] Assessment Encounter Date Assessment Date Assessment LastModified by Organization Details LastModified Time 06/24/2025 06/24/2025 Oscar Ga is a 64-year-old [...] via the patient portal once set up. [email or web address] Not available 06/24/2025 14:05:23 Plan of Treatment Reminders Order Date Submit Date Provider Last Modified By Organization Details Last Modified Time Details Appointments None recorded. Lab unlisted lab - allergens, zone 1 2024 025 [facility], [address] [facility] [address], [place], [address], 12:17:02 ige, total, serum 2024 [place] [facility], [address], [place], [address], 12:17:03 CBC w/ auto diff 2024 [place] [facility], [address], [place], [address], 12:17:01 Referral None recorded. Procedures None recorded. Surgeries None recorded. Imaging None recorded. Medication Orders fluticasone propionate 50 mcg/actuati on nasal spray,suspe nsion 2024 [place] [id number], [address] [facility], [place], [address], 14:01:58 Patient TargetsNo targets recorded. Patient Instructions Encounter Date Encounter Id Patient Instructions Last Modified By Organization Details Last Modified Time 06/24/2025 [id number] - Use Biotene mouthwash as directed. - [...] was required prior to finalizing the note. [email or web address] Not available 06/24/2025 14:04:27 Reason for Referral None Reported. 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 DAMARI ESTEVEZ MD [address] [address], [facility] [place], [address], [facility] - [facility] 14:00:42 Chronic tonsillitis 25172545 Active 2024 DAMARI ESTEVEZ MD [address] [address], [facility] [place], [address], [facility] 14:00:46 Allergic rhinitis 52711986 Active 2024 DAMARI ESTEVEZ MD [address] [address], [facility] [place], [address], [facility] 14:01:18 Problem Notes None recorded. Procedures Surgical History Date Name Laterality Status Provider Name and Address Organization Details Recorded Time 12/23/19 25 Fiberoptic Laryngoscopy (Comprehensive) completed Divine Rosas [facility] 12/22/2024 10:46:17 Imaging Results None recorded. Procedure Notes None recorded. Medical Equipment None Reported. Allergies Allergen ID Allergen Name Allergen Category Reaction Reaction Severity Criticality Documentation Date Start Date Code Code System Note Provider Name and Address Organization Details Recorded Time 732174 Substance with sulfonami de structure and antibacte rial mechanism of action (substanc e) medicatio n rash Not available [facility] 12/22/2024 48461 8003 SNOMED Margarita Paola wilkins [facility] 10:09:41 Medications Name Sig Start Date [...] Available Not Available No t Available Vitals None Recorded Social History None recorded. Functional Status None recorded. Mental Status None recorded. Family History Nothing Reported. Medical History Condition Response Allergies/Hayfever N Heart Problems N Anxiety N Tonsil Infections N Emphysema N Migraines N Thyroid Problems N Glaucoma N Depression N COPD N Developmental Delay N Nasal or Sinus Problems N Anemia N Immune System Disorder N Anesthesia Complications N Heart Attack ([place]) Y Other Skin Condition N Diabetes N [...] ICD10 Code Diagnosis IMO Codes Diagnosis Note [id number] DAMARI HERRERA MD [facility] of [address] [address] 06/24/2025 13:43:39 06/24/2025 14:05:28 Amygdalolith 9719802 J35.8 22269 Chronic tonsillitis 9097 9004 J35.01 418560 Itching of ear 175474571 L29.9 0156393 Allergic rhinitis 574806 04 J30.89 7872227 Health Concerns Section Related Observation LastModified by Organization Detai ls LastModified Time None Recorded Concern Status LastModified by Organization Details LastModified Time None Recorded Payers Encounter Date Sequence Insurance Name Policy Number Policy Marsh Covered Member ID Marsh Member ID Guarantor Name 06/24/2025 1 [employer] (MEDICARE REPLACEMENT/ ADVANTAGE - HMO) GRICELDA Ga [id number] Oscar Ga Notes Date Note Type Note Provider Name and Address Organization Details Recorded Time 06/24/2025 text/html Oscar Ga is a 64-year-old [...] in December or January. DAMARI FAUSTIN MD [address] [place] [address], [address], [facility] - [facility] 06/24/2025 14:05:36
--- OUTSIDE RECORDS SUMMARY | 2025-08-17 18:39 | XMS_ITS | Data Portability ---
Author Organization [place] - [facility], Allergy Address [address] [address] Care Team Providers Care Computer Forwarding System Markup Clerk Name Role Phone ROSCOE MORA Primary Care Provider [phone] Assessment Encounter Date Assessment Date Assessment LastModified [...] that cerumen is a natural antibiotic, antifungal, floor press operator, and moisturizer of the delicate external auditory [...] his sinus irrigations. Luke Med squeeze bottle gym supervisor provided and instructions reviewed. [email or web address] Not available [...] unlisted lab - allergens, zone 1 2024 [place] [facility], [address], [address], 12:17:02 ige, total, serum 2024 [place] [facility], [address], [address], 12:17:03 CBC w/ auto diff 2024 025 [place] [facility], [address], [place], [address], 12:17:01 Referral None recorded. Procedures None recorded. Surgeries None recorded. Imaging None recorded. Medication Orders fluticasone propionate 50 mcg/actuati on nasal spray,suspe nsion 2024 025 [id number], [address] [facility], [place], [address], 14:01:58 DermOtic Oil 0.01 % ear drops 2024 025 [id number], [address] [facility], [place], [address], 10:34:39 Patient TargetsNo targets recorded. Patient Instructions Encounter Date Encounter Id Patient Instructions Last Modified By Organization Details Last Modified Time 06/24/2025 [id number] - Use Biotene mouthwash as directed. - [...] Organization Details Recorded Time Hypertrophy of tonsils 62344919 Active 2024 Divine wilkins [place] - [facility] [place] 10:31:25 Itching of ear 460879277 Active 2024 DAMARI ESTEVEZ MD [address] [place] [address], [place], [address], [place] - [facility] 14:00:52 Itching of skin 382841044 Active 2024 Divine wilkins [place] - [facility] [place] 10:33:27 Amygdalolith 7922052 Active 2024 DAMARI ESTEVEZ MD [address] [place] [address], [place], [address], [facility] - [facility] [place] 14:00:42 Chronic tonsillitis 33270610 Active 2024 DAMARI ESTEVEZ MD [address] [place] [address], [place], [address], [facility] - [facility] 14:00:46 Allergic rhinitis 61618059 Active 2024 DAMARI ESTEVEZ MD [address] [place] [address] [place], [address], [facility] - [facility] 14:01:18 Problem Notes None recorded. Procedures Surgical History Date Name Laterality Status Provider Name and Address Organization Details Recorded Time 12/23/19 25 Fiberoptic Laryngoscopy (Comprehensive) completed Divine Taylor [place] - [facility] 12/22/2024 10:46:17 Imaging Results None recorded. Procedure Notes None recorded. Medical Equipment None Reported. Allergies Allergen ID Allergen Name Allergen Category Reaction Reaction Severity Criticality Documentation Date Start Date Code Code System Note Provider Name and Address Organization Details Recorded Time 626567 Substance with sulfonami de structure and antibacte rial mechanism of action (substanc e) medicatio n rash Not available [facility] 12/22/2024 30452 8003 SNOMED Margaritasyed wilkins [facility] 10:09:41 Medications Name Sig Start Date Stop [...] Updated DateTime 12/22/2024 182.88 cm 28.8 kg/m2 73680.58 g Margarita Guevara [place] - [facility] 12/22/2024 10:09:21 Social History None recorded. Functional [...] N Anesthesia Complications N Heart Attack ([place]) Y Other Skin Condition N Diabetes N [...] ICD10 Code Diagnosis IMO Codes Diagnosis Note [id number] DIVINE TAYLOR PA-C [facility] of [address] [address] 12/22/2024 10:02:43 12/22/2024 10:35:36 Hypertrophy of tonsils 38806097 J35.1 Itching of skin 13908772 0 L29.9 [id number] DAMARI HERRERA MD [facility] of [address] [address] 06/24/2025 13:43:39 06/24/2025 14:05:28 Amygdalolith 1077242 J35.8 94380 Chronic tonsillitis 9097 9004 J35.01 565981 Itching of ear 103062396 L29.9 6854483 Allergic rhinitis 704490 04 J30.89 1443039 Health Concerns Section Related Observation LastModified by Organization Detai ls LastModified Time None Recorded Concern Status LastModified by Organization Details LastModified Time None Recorded Advance Directives Directive None Recorded Payers Insurance Date Sequence Insurance Name Policy Number Policy Marsh Covered Member ID Marsh Member ID Guarantor Name 06/24/2025 1 [employer] (MEDICARE REPLACEMENT/ ADVANTAGE - HMO) GRICELDA Ga [id number] Oscar Ga 06/24/2025 1 [employer] (MEDICARE REPLACEMENT/ ADVANTAGE - HMO) GRICELDA Ga [id number] Oscar Ga Notes Date Note Type Note [...] wilkins [place] - [facility] 12/22/2024 10:46:51 06/24/2025 text/html Oscar Ga is [...] in December or January. DAMARI FAUSTIN MD [address] [place] [address] [place], [address], [facility] - [facility] 06/24/2025 14:05:36
== END 2025-08-17 14:28 | disposition home or self-care (01) ==
LOC: HO.HGI 13:48
PROVIDERS: PCP Internal Medicine; Visit Provider Internal Medicine Gastroenterology
DX: Z01.818 Encounter for other preprocedural examination (principal); Z12.11 Encounter for screening for malignant neoplasm of colon; K21.9 Gastro-esophageal reflux disease without esophagitis
CPT/HCPCS: 99204

== ENCOUNTER → 2025-08-17 13:47 | Outpatient (BNVA) | payer OTHER, SELFPAY | PROVIDERS: PCP Internal Medicine; Visit Provider Internal Medicine Gastroenterology | DX: Z01.818 Encounter for other preprocedural examination (principal); K21.9 Gastro-esophageal reflux disease without esophagitis | CPT/HCPCS: 99202 ==

== ENCOUNTER 2025-08-24 13:38 | Outpatient (REF) | payer OTHER, SELFPAY | END 2025-08-24 13:39 | disposition home or self-care (01) | LOC: HO.LAB 13:38 | PROVIDERS: PCP Internal Medicine; Visit Provider Internal Medicine Gastroenterology | DX: K21.9 Gastro-esophageal reflux disease without esophagitis (principal); R10.9 Unspecified abdominal pain | CPT/HCPCS: 83013; 99211 ==

== ENCOUNTER 2025-08-24 13:38 | Outpatient (AMB) | payer OTHER, SELFPAY ==
--- NOTE | 2025-08-24 13:57 | MHC.OFFVIS ---
Intake Visit Reasons: H pylori breath test Allergies Sulfa (Sulfonamide Antibiotics) Allergy (Mild, Verified 08/24/25 13:57) RASH/SWELLING PFSH Medical History Obesity (BMI 30-39.9) Primary osteoarthritis, right shoulder Overweight (BMI 25.0-29.9) Smoker Impaired fasting glucose Mixed hyperlipidemia Abdominal pain Insomnia Dyslipidemia Bilateral primary osteoarthritis of knee Laceration of left index finger 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 Avulsion of skin of left thumb Kidney stones Surgical History H/O colonoscopy History of cardiac catheterization Hx of left knee surgery History of hand surgery Hx of lithotripsy Social History Housing: House Alcohol intake: never Patient Tobacco Use Status: Former Tobacco user Tobacco use type: Cigarette Cigarette Packs Per Day: 0.5 Cigarettes Per Day: 10 Years Smoked: 45 e-Cigarette/Vaping Use: Never Used Second Hand Smoke Exposure: Yes service: No Current occupational status: unemployed 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
--- NOTE | 2025-08-24 13:58 | AM.OFFVISNUR ---
Intake Visit Reasons: H pylori breath test Allergies Sulfa (Sulfonamide Antibiotics) Allergy (Mild, Verified 08/24/25 13:57) RASH/SWELLING Nursing Note Patient presents for collection of?H Pylori?breath test. Patient has been fasting for 1 hour (nothing to eat, drink, no chewing gum or smoking) has not taken any antacid medication for at least 2 weeks and has no allergies to artificial sweeteners.?? Assessment & Plan Assessment & Plan (1) Abdominal pain: Code(s): R10.9 - Unspecified abdominal pain Category: Medical Plan Patient presents for collection of?H Pylori?breath test. Patient has been fasting for 1 hour (nothing to eat, drink, no chewing gum or smoking) has not taken any antacid medication for at least 2 weeks and has no allergies to artificial sweeteners.???This test checks for an overgrowth of bacteria in your stomach. We all have bacteria but some may have more than others. It is treatable. if the test comes back negative there is nothing else to do. If the test result is positive we will treat you with 2 antibiotics and a medication to decrease the acid in your stomach (PPI) for 2 weeks. Two weeks after you have completed the treatment we will retest you to make sure the overgrowth has resolved. Patient Instructions: Process for specimen collection and reason for testing was explained to the patient. Specimen collection. Patient instructed to take a deep breath and then exhale into the blue bag, filling it up as much as possible. Patient instructed to drink a mixture of water and the artificial sweetener with a straw. A 15 minute wait period was observed. Patient instructed to take a deep breath and then exhale into the pink bag, filling it up as much as possible.?? Coding Level of Care Code Established Pt Est Pt Level 1 (24281) Patient Type Established Diagnoses Abdominal pain R10.9
--- OUTSIDE RECORDS SUMMARY | 2025-08-24 17:12 | XMS_ITS | Data Portability ---
Author Organization [place] - [facility], Allergy Address [address] [address] Care Team Providers Care Ceo & Board Director Name Role Phone ROSCOE MORA Primary Care [...] that cerumen is a natural antibiotic, antifungal, home restoration service supervisor, and moisturizer of the delicate external auditory [...] his sinus irrigations. Luke Med squeeze bottle client renewal specialist provided and instructions reviewed. [email or web address] Not available [...] unlisted lab - allergens, zone 1 2024 [place] [facility], [address], [place], [address], 12:17:02 ige, total, serum 2024 [place] [facility], [address], [place], [address], 12:17:03 CBC w/ auto diff 2024 025 [place] [facility], [address], [place], [address], 12:17:01 Referral None recorded. Procedures None recorded. Surgeries None recorded. Imaging None recorded. Medication Orders fluticasone propionate 50 mcg/actuati on nasal spray,suspe nsion 2024 025 [id number], [address] [facility], [place], [address], 14:01:58 DermOtic Oil 0.01 % ear drops 2024 025 [id number], [address] [facility], [place], [address], 10:34:39 Patient TargetsNo targets recorded. Patient Instructions Encounter Date Encounter Id Patient Instructions Last Modified By Organization Details Last Modified Time 06/24/2025 [id number] - Use Biotene mouthwash as directed. - [...] Organization Details Recorded Time Hypertrophy of tonsils 64842868 Active 2024 Divine wilkins [place] - [facility] [place] 10:31:25 Itching of ear 309502247 Active 2024 DAMARI ESTEVEZ MD [address] [place] [address], [place], [address], [place] - [facility] 14:00:52 Itching of skin 415207301 Active 2024 Divine wilkins [place] - [facility] [place] 10:33:27 Amygdalolith 2923173 Active 2024 DAMARI ESTEVEZ MD [address] [place] [address], [place], [address], [facility] - [facility] [place] 14:00:42 Chronic tonsillitis 41265282 Active 2024 DAMARI ESTEVEZ MD [address] [place] [address], [place], [address], [facility] - [facility] 14:00:46 Allergic rhinitis 47256178 Active 2024 DAMARI ESTEVEZ MD [address] [place] [address] [place], [address], [facility] - [facility] 14:01:18 Problem Notes None recorded. Procedures Surgical History Date Name Laterality Status Provider Name and Address Organization Details Recorded Time 12/23/19 25 Fiberoptic Laryngoscopy (Comprehensive) completed Divine Taylor [place] - [facility] 12/22/2024 10:46:17 Imaging Results None recorded. Procedure Notes None recorded. Medical Equipment None Reported. Allergies Allergen ID Allergen Name Allergen Category Reaction Reaction Severity Criticality Documentation Date Start Date Code Code System Note Provider Name and Address Organization Details Recorded Time 456192 Substance with sulfonami de structure and antibacte rial mechanism of action (substanc e) medicatio n rash Not available [facility] 12/22/2024 33427 8003 SNOMED Margaritasyed wilkins [facility] [...] Updated DateTime 12/22/2024 182.88 cm 28.8 kg/m2 81570.58 g Margarita Guevara [place] - Ear Nose [...] Disorder N Anesthesia Complications N Heart Attack ([place]) Y Other Skin Condition N Diabetes N [...] ICD10 Code Diagnosis IMO Codes Diagnosis Note [id number] DIVINE TAYLOR PA-C [facility] of [address] [address] 12/22/2024 10:02:43 12/22/2024 10:35:36 Hypertrophy of tonsils 63896008 J35.1 Itching of skin 35529920 0 L29.9 [id number] DAMARI HERRERA MD [facility] of [address] [address] 06/24/2025 13:43:39 06/24/2025 14:05:28 Amygdalolith 0938599 J35.8 52662 Chronic tonsillitis 9097 9004 J35.01 113933 Itching of ear 245928440 L29.9 6658294 Allergic rhinitis 837328 04 J30.89 9524604 Health Concerns Section Related Observation LastModified by Organization Detai ls LastModified Time None Recorded Concern Status LastModified by Organization Details LastModified Time None Recorded Advance Directives Directive None Recorded Payers Insurance Date Sequence Insurance Name Policy Number Policy Marsh Covered Member ID Marsh Member ID Guarantor Name 06/24/2025 1 [employer] (MEDICARE REPLACEMENT/ ADVANTAGE - HMO) GRICELDA Ga [id number] Oscar Ga 06/24/2025 1 [employer] (MEDICARE REPLACEMENT/ ADVANTAGE - HMO) GRICELDA Ga [id number] Oscar Ga Notes Date Note Type Note [...] in December or January. DAMARI FAUSTIN MD [address] [place] [address] [place], [address], [facility] - [facility] 06/24/2025 14:05:36
--- OUTSIDE RECORDS SUMMARY | 2025-08-24 17:12 | XMS_ITS | Continuity of Care Document ---
Author Organization [place] - [facility], [facility] Address [address] [place] [address] Care Team Providers Care Supervisor Phosphatic Fertilizer Name Role Phone ROSCOE MORA Primary Care [...] zone 1 2024 025 [place], [address] [facility] [address], [place], [address], 12:17:02 ige, total, serum 2024 [place] [facility], [address], [place], [address], 12:17:03 CBC w/ auto diff 2024 [place] [facility], [address], [place], [address], 12:17:01 Referral None recorded. Procedures None recorded. Surgeries None recorded. Imaging None recorded. Medication Orders fluticasone propionate 50 mcg/actuati on nasal spray,suspe nsion 2024 [place] [id number], [address] [facility], [place], [address], 14:01:58 Patient TargetsNo targets recorded. Patient Instructions Encounter Date Encounter Id Patient Instructions Last Modified By Organization Details Last Modified Time 06/24/2025 [id number] - Use Biotene mouthwash as directed. - [...] Organization Details Recorded Time Hypertrophy of tonsils 60918686 Active 2024 Divine wilkins [place] - [facility] [place] 10:31:25 Itching of ear 022262858 Active 2024 DAMARI ESTEVEZ MD [address] [place] [address] [place], [address] [place] [address] - [facility] 14:00:52 Itching of skin 455760398 Active 2024 Divine wilkins [facility] 10:33:27 Amygdalolith 7647136 Active 2024 DAMARI ESTEVEZ MD [address] [address], [place], [address], [facility] - [facility] 14:00:42 Chronic tonsillitis 67226739 Active 2024 DAMARI ESTEVEZ MD [address] [address], [place], [address], [facility] 14:00:46 Allergic rhinitis 47980908 Active 2024 DAMARI ESTEVEZ MD [address] [address], [place], [address], [facility] 14:01:18 Problem Notes None recorded. Procedures Surgical History Date Name Laterality Status Provider Name and Address Organization Details Recorded Time 12/23/19 25 Fiberoptic Laryngoscopy (Comprehensive) completed Divine Rosas [facility] 12/22/2024 10:46:17 Imaging Results None recorded. Procedure Notes None recorded. Medical Equipment None Reported. Allergies Allergen ID Allergen Name Allergen Category Reaction Reaction Severity Criticality Documentation Date Start Date Code Code System Note Provider Name and Address Organization Details Recorded Time 953946 Substance with sulfonami de structure and antibacte rial mechanism of action (substanc e) medicatio n rash Not available [facility] 12/22/2024 57859 8003 SNOMED Margarita Paola wilkins [facility] 10:09:41 Medications Name Sig Start Date Stop [...] Emphysema N Migraines N Thyroid Problems N COPD N Depression N Developmental Delay N Glaucoma N Nasal or Sinus Problems N Anemia N Immune System Disorder N Anesthesia Complications N Heart Attack ([place]) Y Other Skin Condition N Diabetes N [...] ICD10 Code Diagnosis IMO Codes Diagnosis Note [id number] DAMARI HERRERA MD [facility] of [address] [address] 06/24/2025 13:43:39 06/24/2025 14:05:28 Amygdalolith 5908182 J35.8 11782 Chronic tonsillitis 9097 9004 J35.01 839859 Itching of ear 082244789 L29.9 1498129 Allergic rhinitis 137149 04 J30.89 1595570 Health Concerns Section Related Observation LastModified by Organization Detai ls LastModified Time None Recorded Concern Status LastModified by Organization Details LastModified Time None Recorded Payers Encounter Date Sequence Insurance Name Policy Number Policy Marsh Covered Member ID Marsh Member ID Guarantor Name 06/24/2025 1 [employer] (MEDICARE REPLACEMENT/ ADVANTAGE - HMO) GRICELDA Ga [id number] Oscar Ga Notes Date Note Type Note [...] in December or January. DAMARI FAUSTIN MD [address] [place] [address], [address], [facility] - [facility] 06/24/2025 14:05:36
== END 2025-08-24 14:24 | disposition home or self-care (01) ==
LOC: HO.HGI 13:38
PROVIDERS: PCP Internal Medicine; Visit Provider Internal Medicine Gastroenterology
DX: R10.9 Unspecified abdominal pain (principal)

== ENCOUNTER 2025-09-02 15:04 | Outpatient (AMB) | payer OTHER, SELFPAY ==
--- NOTE | 2025-09-02 15:10 | A.OFFVIS_ITS ---
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 Accompanied by: Self / Same As Patient Allergies Sulfa (Sulfonamide Antibiotics) Allergy (Mild, Verified 08/24/25 13:57) RASH/SWELLING Medication List - Last Reconciled 09/02/25 by Pawan Culver MD acetaminophen 650 mg (2 x 325 mg) PO QID PRN aspirin 81 mg PO DAILY 90 days atorvastatin 80 mg PO BEDTIME 90 days [CANE As directed] capsaicin 0.1% 1 appl topical TID PRN clopidogrel 75 mg PO DAILY 90 days clotrimazole-betamethasone 1-0.05 % 1 appl topical BID PRN 2 weeks fluocinolone acetonide oil 0.01% (DermOtic Oil) 2 - 3 drps otic (ears) BID PRN ketoconazole 2% 1 appl topical MOWEFR PRN lidocaine 5% 1 patch topical DAILY metoprolol succinate ER 25 mg PO DAILY sodium,potassium,mag sulfates 17.5-3.13-1.6 gram (Suprep Bowel Prep Kit) DILUTE; drink 1/2 at 6-8 pm and half at 11 PM- 1AM ticagrelor 90 mg PO BID 90 days walker (Ultra-Light Rollator misc) As directed zolpidem 10 mg PO BEDTIME PRN HPI Comments Details: 65-year-old gentleman who is here for follow-up. He was taken for cardiac catheterization in January 2025 when he presented with NSTEMI. Cardiac catheterization showed severe right coronary artery stenosis was treated with drug-eluting stent. Since then he has been doing well. He has no chest discomfort or shortness of breath. He does have some residual disease in LAD and circumflex which is in the moderate range. He is taking aspirin and ticagrelor. Occasionally feels dyspnea with activities. His main complaints are related to erectile dysfunction due to Toprol-XL. He is saying that his urologist has recommended to use Viagra or Cialis if he has no obvious contraindications for that. No bleeding issues. 08/2025: He is here for follow-up. He is complaining of shortness of breath with activities. He is saying that his breathing has been worsening. He had workup done through his primary care physician and no cause was found. He was previously a smoker but he has been told that he has no lung disease. 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 He is also complaining of some orthopnea. He said he change the Brilinta to Plavix for 1 week and then went back to Brilinta. I have advised him that changing antiplatelet therapy back and forth is not safe. No bleeding issues. [facility] Medical History Obesity (BMI 30-39.9) Primary osteoarthritis, right shoulder Overweight (BMI 25.0-29.9) Smoker Impaired fasting glucose Mixed hyperlipidemia Abdominal pain Insomnia Dyslipidemia Bilateral primary osteoarthritis of knee Laceration of left index finger 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 Avulsion of skin of left thumb Kidney stones Surgical History H/O colonoscopy History of cardiac catheterization Hx of left knee surgery History of hand surgery Hx of lithotripsy Social History Housing: House Alcohol intake: never Patient Tobacco Use Status: Former Tobacco user Tobacco use type: Cigarette Cigarette Packs Per Day: 0.5 Cigarettes Per Day: 10 Years Smoked: 45 e-Cigarette/Vaping Use: Never Used Second Hand Smoke Exposure: Yes service: No Current occupational status: unemployed 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 Current occupational exposures/hazards: No Cognitive needs: Yes (cane) Hearing needs: No Vision needs: Yes (glasses) Review of Systems Const Denies chills, Denies fatigue, Denies fever(s), Denies frequent falls, Denies weakness, Denies weight gain and Denies weight loss ENT Denies dizziness Card Denies chest pain, Denies leg edema, Denies lightheadedness, Denies palpitations, Denies dyspnea and Denies dyspnea on exertion Resp Denies cough, Denies dyspnea and Denies dyspnea on exertion GI Denies hematochezia Musc Denies abnormal gait, Denies muscle weakness, Denies numbness, Denies radiating pain into limb and Denies tingling Neuro Denies abnormal gait, Denies dizziness, Denies frequent falls, Denies numbness, Denies tingling and Denies weakness Endo Denies fatigue and Denies palpitations Physical Exam Vital Signs: Last Vital Signs Pulse 96 09/02/25 15:12 BP 130/70 09/02/25 15:12 BMI result Body Mass Index 32.6 GENERAL APPEARANCE: in no acute distress, pleasant. NECK: no carotid bruit, no jugular venous distention. Positive hepatojugular reflux. SKIN: no suspicious lesions, warm and dry. HEART: no murmurs, regular rate and rhythm. LUNGS: clear to auscultation bilaterally. ABDOMEN: soft, nontender. EXTREMITIES: no edema. PERIPHERAL PULSES: equal. NEUROLOGIC: No gross deficits, AAO X 3 Assessment & Plan Assessment & Plan (1) Dyspnea: Code(s): R06.00 - Dyspnea, unspecified Category: Medical Plan Pleasant 65 year gentleman who is here for follow-up. He has known history of coronary disease and presented in January 2025 with NSTEMI. He had severe mid right coronary artery stenosis which was treated with drug-eluting stent. His circumflex had approximately 60-70% stenosis. His mid LAD had 60-70% bifurcation disease with severe disease in the apical LAD. He is complaining of shortness of breath with activities. I think Brilinta should be stopped and he should be taking Plavix from here onwards. I have advised him to take 4 tablets of Plavix tonight and start taking Plavix 75 mg daily from tomorrow. He will continue baby aspirin. As mentioned Brilinta is discontinued. Giving him 20 mg of Lasix. He will trial this for a couple of weeks and report to us in his dyspnea has improving. I am repeating labs including CBC, iron studies and NT pro BNP level. He has studies are negative then I think we may have to reconsider repeat angiography to reassess the LAD and potentially revascularize it. He may need physiologic assessment of LAD before revascularization. Follow-up in 3 months. Thank you for allowing me to participate in the care of your patient. Please feel free to contact me if you have any questions. Orders: Orders Complete Blood Count no Diff Today R06.00 - Dyspnea, unspecified, R06.02 - Shortness of breath Ferritin Today R06.00 - Dyspnea, unspecified, R06.02 - Shortness of breath IRON PROFILE Today R06.00 - Dyspnea, unspecified, R06.02 - Shortness of breath NT Pro B Type Natriuretic Pept Today I25.10 - Atherosclerotic heart disease of [place] coronary artery without angina pectoris, R06.00 - Dyspnea, unspecified, R06.02 - Shortness of breath Medications: New furosemide (Lasix) 20 mg PO DAILY 30 tabs 3RF Refilled clopidogrel 75 mg PO DAILY 90 tabs 3RF 90 days Discontinued ticagrelor Discontinued Reason: Doctor's Order 90 mg PO BID 90 days 180 tabs 1RF Coding Level of Care Code Est Pt Level 4 (87518) Diagnoses Dyspnea R06.00
[2025-09-02 15:12] VITALS: BP 130/70; PULSE 96; BMI 32.6
--- OUTSIDE RECORDS SUMMARY | 2025-09-02 23:38 | XMS_ITS | Continuity of Care Document ---
Author Organization [place] - [facility], [facility] Address [address] [place] [address] Care Team Providers Care Supplier Diversity Director Name Role Phone ROSCOE MORA Primary [...] via the patient portal once set up. [email or web address] Not available 06/24/2025 14:05:23 Plan of Treatment Reminders Order Date Submit Date Provider Last Modified By Organization Details Last Modified Time Details Appointments None recorded. Lab unlisted lab - allergens, zone 1 2024 025 [place] [facility], [address] [facility] [address], [place], [address], 12:17:02 ige, total, serum 2024 [place] [facility], [address], [place], [address], 12:17:03 CBC w/ auto diff 2024 [place] [facility], [address], [place], [address], 12:17:01 Referral None recorded. Procedures None recorded. Surgeries None recorded. Imaging None recorded. Medication Orders fluticasone propionate 50 mcg/actuati on nasal spray,suspe nsion 2024 [place] [id number], [address] [facility], [place], [address], 14:01:58 Patient TargetsNo targets recorded. Patient Instructions Encounter Date Encounter Id Patient Instructions Last Modified By Organization Details Last Modified Time 06/24/2025 [id number] - Use Biotene mouthwash as directed. 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 DAMARI ESTEVEZ MD [address] [address], [place], [address], [facility] - [facility] 14:00:42 Chronic tonsillitis 92565014 Active 2024 DAMARI ESTEVEZ MD [address] [address], [place], [address], [facility] 14:00:46 Allergic rhinitis 77726568 Active 2024 DAMARI ESTEVEZ MD [address] [address], [place], [address], [facility] 14:01:18 Problem Notes None recorded. Procedures Surgical History Date Name Laterality Status Provider Name and Address Organization Details Recorded Time 12/23/19 25 Fiberoptic Laryngoscopy (Comprehensive) completed Divine Rosas [facility] 12/22/2024 10:46:17 Imaging Results None recorded. Procedure Notes None recorded. Medical Equipment None Reported. Allergies Allergen ID Allergen Name Allergen Category Reaction Reaction Severity Criticality Documentation Date Start Date Code Code System Note Provider Name and Address Organization Details Recorded Time 803916 Substance with sulfonami de structure and antibacte rial mechanism of action (substanc e) medicatio n rash Not available [facility] 12/22/2024 25691 8003 SNOMED Margarita Paola wilkins [facility] 10:09:41 Medications Name Sig Start Date [...] Disorder N Anesthesia Complications N Heart Attack ([place]) Y Other Skin Condition N Diabetes N [...] ICD10 Code Diagnosis IMO Codes Diagnosis Note [id number] DAMAIR HERRERA MD [facility] of [address] [address] 06/24/2025 13:43:39 06/24/2025 14:05:28 Amygdalolith 1059577 J35.8 89527 Chronic tonsillitis 9097 9004 J35.01 027421 Itching of ear 411124353 L29.9 9665460 Allergic rhinitis 619769 04 J30.89 [id number] Health Concerns Section Related Observation LastModified by Organization Detai ls LastModified Time None Recorded Concern Status LastModified by Organization Details LastModified Time None Recorded Payers Encounter Date Sequence Insurance Name Policy Number Policy Marsh Covered Member ID Marsh Member ID Guarantor Name 06/24/2025 1 [employer] (MEDICARE REPLACEMENT/ ADVANTAGE - HMO) GRICELDA Ga [id number] Oscar Ga Notes Date Note Type Note [...] in December or January. DAMARI FAUSTIN MD [address] [place] [address], [phone], [facility] - [facility] 06/24/2025 14:05:36
--- OUTSIDE RECORDS SUMMARY | 2025-09-02 23:39 | XMS_ITS | Data Portability ---
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 Luke Med squeeze bottle boom master provided and instructions reviewed. [email or web address] Not available [...] unlisted lab - allergens, zone 1 2024 [place] [facility], [address], [address], 12:17:02 ige, total, serum 2024 [place] [facility], [address], [address], 12:17:03 CBC w/ auto diff 2024 025 [place] [facility], [address], [place], [address], 12:17:01 Referral None recorded. Procedures None recorded. Surgeries None recorded. Imaging None recorded. Medication Orders fluticasone propionate 50 mcg/actuati on nasal spray,suspe nsion 2024 025 [id number], [address] [facility], [place], [address], 14:01:58 DermOtic Oil 0.01 % ear drops 2024 025 [id number], [address] [facility], [place], [address], 10:34:39 Patient TargetsNo targets recorded. Patient Instructions Encounter Date Encounter Id Patient Instructions Last Modified By Organization Details Last Modified Time 06/24/2025 [id number] - Use Biotene mouthwash as directed. - [...] Organization Details Recorded Time Hypertrophy of tonsils 76410581 Active 2024 Divine wilkins [place] - [facility] [place] 10:31:25 Itching of ear 426104716 Active 2024 DAMARI ESTEVEZ MD [address] [place] [address], [place], [address], [place] - [facility] 14:00:52 Itching of skin 010330870 Active 2024 Divine wilkins [place] - [facility] [place] 10:33:27 Amygdalolith 9751641 Active 2024 DAMARI ESTEVEZ MD [address] [place] [address], [place], [address], [place] - [facility] [place] 14:00:42 Chronic tonsillitis 67727122 Active 2024 DAMARI ESTEVEZ MD [address] [place] [address], [place], [address], [facility] - [facility] 14:00:46 Allergic rhinitis 30724453 Active 2024 DAMARI ESTEVEZ MD [address] [place] [address] [place], [address], [facility] - [facility] 14:01:18 Problem Notes None recorded. Procedures Surgical History Date Name Laterality Status Provider Name and Address Organization Details Recorded Time 12/23/19 25 Fiberoptic Laryngoscopy (Comprehensive) completed Divine Taylor [place] - [facility] 12/22/2024 10:46:17 Imaging Results None recorded. Procedure Notes None recorded. Medical Equipment None Reported. Allergies Allergen ID Allergen Name Allergen Category Reaction Reaction Severity Criticality Documentation Date Start Date Code Code System Note Provider Name and Address Organization Details Recorded Time 554920 Substance with sulfonami de structure and antibacte rial mechanism of action (substanc e) medicatio n rash Not available [facility] 12/22/2024 06551 8003 SNOMED Margaritasyed wilkins [facility] 10:09:41 Medications Name Sig Start Date [...] Updated DateTime 12/22/2024 182.88 cm 28.8 kg/m2 87852.58 g Margarita Guevara [place] - [facility] 12/22/2024 10:09:21 Social History None recorded. [...] Disorder N Anesthesia Complications N Heart Attack ([place]) Y Other Skin Condition N Diabetes N [...] ICD10 Code Diagnosis IMO Codes Diagnosis Note [id number] DIVINE TAYLOR PA-C [facility] of [address] [address] 12/22/2024 10:02:43 12/22/2024 10:35:36 Hypertrophy of tonsils 21095683 J35.1 Itching of skin 52371897 0 L29.9 [id number] DAMARI HERRERA MD [facility] of [address] [address] 06/24/2025 13:43:39 06/24/2025 14:05:28 Amygdalolith 8182152 J35.8 15317 Chronic tonsillitis 9097 9004 J35.01 892990 Itching of ear 412545981 L29.9 6309534 Allergic rhinitis 470005 04 J30.89 2215347 Health Concerns Section Related Observation LastModified by Organization Detai ls LastModified Time None Recorded Concern Status LastModified by Organization Details LastModified Time None Recorded Advance Directives Directive None Recorded Payers Insurance Date Sequence Insurance Name Policy Number Policy Marsh Covered Member ID Marsh Member ID Guarantor Name 06/24/2025 1 [employer] (MEDICARE REPLACEMENT/ ADVANTAGE - HMO) GRICELDA Ga [id number] Oscar Ga 06/24/2025 1 [employer] (MEDICARE REPLACEMENT/ ADVANTAGE - HMO) GRICELDA Ga [id number] Oscar Ga Notes Date Note Type Note [...] - [facility] 12/22/2024 10:46:51 06/24/2025 text/html Oscar Ga [...] in December or January. DAMARI FAUSTIN MD [address] [place] [address] [place], [address], [facility] - [facility] 06/24/2025 14:05:36
== END 2025-09-02 15:52 | disposition home or self-care (01) ==
LOC: HO.HCS 15:05
PROVIDERS: PCP Internal Medicine; Visit Provider Internal Medicine Cardiovascular Disease
DX: R06.00 Dyspnea, unspecified (principal)
CPT/HCPCS: 99214

== ENCOUNTER 2025-09-02 15:04 | Outpatient (REF) | payer OTHER, SELFPAY ==
[2025-09-02 16:29] LABS: Hematocrit 40.1 % (42.0-52.0); Hemoglobin 12.9 g/dl (14.0-18.0); Mean Corpuscular HGB Conc 32.2 g/dl (31.0-36.0); Mean Corpuscular Hemoglobin 27.4 pg (27.0-33.0); Mean Corpuscular Volume 85.3 fL (80.0-98.0); NRBC Abs Auto 0.000 X10*3/uL (0.0-0.012); NRBC Pct Auto 0.0 /100WBC (0.0-0.2); Platelet Count 223 X10*3/uL (160-400); Red Blood Count 4.70 X10*6/uL (4.60-5.80); White Blood Count 9.6 X10*3/uL (4.8-10.8)
[2025-09-02 17:28] LABS: Iron 26 mcg/dL (45-160); Percent Iron Saturation 11 % (15-50); Total Iron Binding Capacity 230 mcg/dL (228-428); Unsaturated Iron Binding 204 ug/dL
[2025-09-02 17:29] LABS: NT Pro B Type Natriuretic Pept 46.1 pg/mL (<300)
[2025-09-02 17:44] LABS: Ferritin 249 ng/mL (20-250)
== END 2025-09-02 15:05 | disposition home or self-care (01) ==
LOC: HO.LAB 15:04
PROVIDERS: PCP Internal Medicine; Visit Provider Internal Medicine Cardiovascular Disease
DX: R06.02 Shortness of breath (principal); I25.10 Atherosclerotic heart disease of native coronary artery without angina pectoris; Z79.899 Other long term (current) drug therapy; Z87.891 Personal history of nicotine dependence
CPT/HCPCS: 36415; 82728; 83540; 83880; 85027; 99212